=== PATIENT | female | born 1955 | race Caucasian/White ===

== ENCOUNTER 2022-11-05 08:36 | Outpatient (OUT) | payer MEDICARE, OTHER, SELFPAY ==
[2022-11-05 09:33] LABS: Estimated Average Glucose 148 mg/dL; Glycohemoglobin A1C 6.8 % (4.5-6.2)
== END 2022-11-05 08:37 | disposition home or self-care (01) ==
LOC: LAB 08:40
PROVIDERS: PCP Nurse Practitioner Family; Visit Provider Nurse Practitioner Family
DX: E11.22 Type 2 diabetes mellitus with diabetic chronic kidney disease (principal)
CPT/HCPCS: 36415; 83036

== ENCOUNTER 2022-11-05 08:42 | Outpatient (OUT) | payer MEDICARE, OTHER, SELFPAY ==
[2022-11-05 09:21] LABS: Bilirubin Urine NEGATIVE (NEGATIVE); Blood Urine NEGATIVE (NEGATIVE); Clarity Urine CLEAR (CLEAR); Color Urine LT. YELLOW (YELLOW); Glucose Urine UA NEGATIVE (NEGATIVE); Ketones Urine NEGATIVE (NEGATIVE); Leukocyte Esterase Urine NEGATIVE (NEGATIVE); Nitrite Urine NEGATIVE (NEGATIVE); Protein Urine NEGATIVE (NEG/TRACE); Specific Gravity Urine 1.025 (1.005-1.025); Urobilinogen Urine 0.2 EU/dL (0.2-1.0); pH Urine 5.5 (5.0-9.0)
[2022-11-05 09:27] LABS: Hematocrit 37.3 % (36.0-48.0); Hemoglobin 11.8 g/dL (12.0-16.0)
[2022-11-05 09:31] LABS: Creatinine Urine Random 104.07 mg/dL (20.00-300.00); Protein Creatinine Ratio Urine 0.15; Total Protein Urine Random 15.1 mg/dL (<=11.9)
[2022-11-05 09:32] LABS: Bacteria Urine NONE SEEN #/HPF (NONE SEEN); Mucus Urine NONE SEEN (NONE SEEN); RBC Urine NONE SEEN #/HPF (0-2); Squamous Epithelial Cell Urine RARE #/LPF (NONE/RARE); WBC Urine NONE SEEN #/HPF (NONE SEEN)
[2022-11-05 10:33] LABS: Anion Gap 13.1; BUN Creatinine Ratio 26.5; Calcium 9.7 mg/dL (8.5-10.1); Chloride 104 mmol/L (98-107); Estimated GFR (African America 47 (>=60); Estimated GFR (Non-African Ame 39 (>=60); Glucose 111 mg/dL (74-106); Magnesium 1.5 mg/dL (1.8-2.4); Phosphorus 3.8 mg/dL (2.6-4.7); Potassium 4.1 mmol/L (3.5-5.1); Sodium 139 mmol/L (136-145)
[2022-11-05 10:44] LABS: Percent Iron Saturation 20.5 %
[2022-11-06 12:10] LABS: PTH, Intact 48 pg/mL (15-65)
== END 2022-11-05 08:43 | disposition home or self-care (01) ==
PROVIDERS: PCP Nurse Practitioner Family; Visit Provider Internal Medicine
DX: E11.22 Type 2 diabetes mellitus with diabetic chronic kidney disease (principal); N18.30 Chronic kidney disease, stage 3 unspecified; I12.9 Hypertensive chronic kidney disease with stage 1 through stage 4 chronic kidney disease, or unspecified chronic kidney disease; D63.1 Anemia in chronic kidney disease; N25.81 Secondary hyperparathyroidism of renal origin; M10.9 Gout, unspecified
CPT/HCPCS: 36415; 80069; 81001; 82306; 82570; 82728; 83036; 83540; 83550; 83735; 83970; 84156; 84550; 85014; 85018

== ENCOUNTER 2023-05-13 08:49 | Outpatient (OUT) | payer MEDICARE, OTHER, SELFPAY ==
[2023-05-13 09:26] LABS: Hematocrit 38.7 % (36.0-48.0); Mean Corpuscular Volume 96.8 fL (81.0-99.0); Mean Platelet Volume 10.2 fL (9.5-13.5); Platelet Count 273 10^3/uL (150-450); Red Cell Distribution Width 12.7 % (11.0-15.0); White Blood Count 6.9 10^3/uL (4.0-11.0)
[2023-05-13 09:39] LABS: Bilirubin Urine NEGATIVE (NEGATIVE); Blood Urine NEGATIVE (NEGATIVE); Clarity Urine CLEAR (CLEAR); Color Urine LT. YELLOW (YELLOW); Glucose Urine UA NEGATIVE (NEGATIVE); Ketones Urine NEGATIVE (NEGATIVE); Leukocyte Esterase Urine NEGATIVE (NEGATIVE); Nitrite Urine NEGATIVE (NEGATIVE); Protein Urine NEGATIVE (NEG/TRACE); Specific Gravity Urine 1.025 (1.005-1.025); Urobilinogen Urine 0.2 EU/dL (0.2-1.0); pH Urine 5.5 (5.0-9.0)
[2023-05-13 09:40] LABS: Creatinine Urine Random 118.68 mg/dL (20.00-300.00); Protein Creatinine Ratio Urine 0.11; Total Protein Urine Random 13.2 mg/dL (<=11.9)
[2023-05-13 09:41] LABS: Percent Iron Saturation 16.4 %
[2023-05-13 10:09] LABS: Bacteria Urine NONE SEEN #/HPF (NONE SEEN); Cast Seen? NONE SEEN #/LPF (NONE SEEN); Crystals Seen? None Seen #/HPF (None Seen); Mucus Urine NONE SEEN (NONE SEEN); RBC Urine 0-2 #/HPF (0-2); Squamous Epithelial Cell Urine RARE #/LPF (NONE/RARE); WBC Urine 0-2 #/HPF (NONE SEEN)
[2023-05-13 10:46] LABS: Anion Gap 17.3; BUN Creatinine Ratio 25.2; Calcium 9.5 mg/dL (8.5-10.1); Chloride 104 mmol/L (98-107); Estimated GFR (African America 47 (>=60); Estimated GFR (Non-African Ame 39 (>=60); Glucose 119 mg/dL (74-106); Magnesium 1.9 mg/dL (1.8-2.4); Potassium 4.3 mmol/L (3.5-5.1); Sodium 143 mmol/L (136-145); Uric Acid 5.7 mg/dL (2.6-6.0)
[2023-05-14 10:11] LABS: PTH, Intact 64 pg/mL (15-65)
== END 2023-05-13 08:50 | disposition home or self-care (01) ==
LOC: LAB 08:49
PROVIDERS: PCP Nurse Practitioner Family; Visit Provider Internal Medicine
DX: N18.30 Chronic kidney disease, stage 3 unspecified (principal); D63.1 Anemia in chronic kidney disease; E83.42 Hypomagnesemia; I12.9 Hypertensive chronic kidney disease with stage 1 through stage 4 chronic kidney disease, or unspecified chronic kidney disease; E11.22 Type 2 diabetes mellitus with diabetic chronic kidney disease; N25.81 Secondary hyperparathyroidism of renal origin; M10.9 Gout, unspecified
CPT/HCPCS: 36415; 80069; 81001; 82306; 82570; 82607; 82728; 82746; 83540; 83550; 83735; 83970; 84156; 84550; 85027

== ENCOUNTER 2023-12-09 08:28 | Outpatient (OUT) | payer MEDICARE, OTHER, SELFPAY ==
--- OUTSIDE RECORDS SUMMARY | 2023-12-04 13:46 | XMS_ITS | CCD ---
Author Organization [facility] Care Team Providers Care Animal Rides Manager Name Role Phone Salina Singleton Unavailable AmarjitDeena Unavailable Mick, Nika Unavailable MICK, NIKA Admitting Unavailable MICK, NIKA Attending Unavailable HOUSE, DR TORRES Primary Care Unavailable MICK, NIKA Consulting Unavailable CADDO GAP, DR TORRES Admitting Unavailable HOUSE, DR TORRES Attending Unavailable HOUSE, DR TORRES Primary Care Unavailable HOUSE, DR TORRES Consulting Unavailable MICK, NIKA Admitting Unavailable MICK, NIKA Attending Unavailable HOUSE, DR TORRES Primary Care Unavailable MICK, NIKA Consulting Unavailable Corrie Lama Unavailable GITA COTE Attending Unavailable GITA COTE Attending Unavailable GITA COTE Attending Unavailable GITA COTE Attending Unavailable Medications Current Medications Medication Drug Class(es) Dates Sig (Normalized) Sig (Original) acetaminophen 500 mg oral capsule (1 source) take 2 capsules by mouth every six hours Acetaminophen 500 MG 2 capsule as needed Orally every 6 hrs Active allopurinol 100 mg oral tablet (10 sources) Xanthine Oxidase Inhibitor Start: 05-23-2023 End: 08-27-2023 take 100 mg by mouth once daily Allopurinol Active 100 MG PO Daily 90 90 August 27, 2023 2:17pm take 1 tablet by neo th every twenty-four hours Allopurinol 100 MG 1 tablet Orally Once a day for 90 days Active Allopurinol Acti ve Calcium (1 source) Phosphate Binder, Calcium Calcium Active cholecalciferol 0.025 mg chewable tablet (1 source) Vitamin D take 1 tablet by mouth every twenty-four hours Vitamin D3 25 MCG (1000 UT) 1 tablet Orally Once a day Active cyclobenzaprine hydrochloride 10 mg oral tablet (2 sources) Muscle Relaxant Start: 11-17-19 take 1 tablet by mouth every eight hours as needed Cyclobenzaprine HCl 10 MG 1 tablet Orally every 8 hours as needed for 7 days Oct, Active Start: 11-27-2020 take 1 tablet by neo th three times daily as needed for pain Flexeril 10mg 1 Oral tid prn Take 1 tablet 3 times a day as needed for back pain and stiffness. Be aware this medication will cause drowsiness Nov, Active doxylamine succinate 25 mg oral tablet (2 sources) take 2 tablets by mouth every twenty-four hours Sleep Aid 25 MG 2 tablet at bedtime as needed Orally Once a day Active ferrous sulfate 325 mg oral tablet (3 sources) take 1 tablet by mouth three times weekly Iron 325 (65 Fe) MG 1 tablet Orally Three times a Week Active hydroCHLOROthiazide 25 mg / valsartan 320 mg oral tablet (12 sources) Thiazide Diuretic, Angiotensin 2 Receptor David Start: End: take 1 tablet by mouth once daily Valsartan-Hydr ochlorothiazid e Active 1 TAB PO Daily August 27, 2023 2:17pm take 1 tablet by neo th every twenty-four hours Valsartan-hydroCHLOROthiazide 320-25 MG 1 tablet Orally Once a day for 90 days Active Valsartan-hydroC HLOROthiazide 320-12.5 MG Orally Active Icy Hot 7.5 % (Roll) (2 sources) Icy Hot 7.5 % (Roll) 1 application as needed Externally Three times a day Active lidocaine 0.05 mg/mg medicated patch (1 source) Antiarrhythmic, Amide Local Anesthetic Start: apply 1 dose transdermal route every twelve hours, then apply 1 dose transdermal route every twelve hours Lidocaine 5 % 1 patch remove after 12 hours Externally Once a day for 10 day(s) Apply 1 patch to the painful area on your back, leave in place for 12 hours, remove after 12 hours and discard. Apply a new patch after 12 hours. Nov, Active Magnesium (3 sources) take 1 tablet by mouth once daily Magnesium 400 MG 1 tablet with a meal Orally Once a day Active Magnesium 400 MG as directed Orally Active magnesium oxide 400 mg oral tablet (2 sources) Start: 05-23-2023 take 400 mg by mouth once daily Magnesium Oxide Active 400 MG PO Daily May 23, 2023 12:00am Medrol Dose Pack as directed (1 source) Start: 11-27-2020 Medrol Dose Pa ck as directed as directed orally as directed for 6 days Nov, Active metFORMIN hydrochloride 500 mg oral tablet (13 sources) Biguanide Start: 08-27-2023 End: 08-27-2023 take 2 tablets by mouth twice daily at mealtime, then take 1 tablet by mouth in the evening Metformin Active 500 MG PO Twice daily with meals 270 August 27, 2023 2:16pm 2 tablets in the am and 1 pm Start: 05-23-2023 End: 08-27-2023 take 500 mg by mouth three times daily Metformin Discontinued 500 MG PO Three times daily August 19, 2023 11:08am August 27, 2023 1:55pm take 1 tablet by neo th every eight hours metFORMIN HCl 500 MG 1 tablet with a meal Orally THREE TIMES A DAY Active take 1 tablet by neo th twice daily at mealtime metFORMIN HCl 750mg 1 tablet with meals Orally Twice a day for 30 day(s) Active methylPREDNISolone 4 mg oral tablet (1 source) Corticosteroid Start: 11-16-2021 methylPREDNISolone 4 MG as directed Orally for daily dose take half with breakfast, half with dinner for 6 days Oct, Active naproxen sodium 220 mg oral tablet (1 source) Nonsteroidal Anti-inflammatory Drug take 1-2 tablets by mouth every twelve hours at mealtime as needed Aleve 220 MG 1-2 tablet with food or milk as needed Orally every 12 hrs PRN Active Vitamin D3 25 MCG (1000 UT) (1 source) take 1 tablet by mouth once daily Vitamin D3 25 MCG (1000 UT) 1 tablet Orally Once a day Active Completed/Discontinued Medications Medication Drug Class(es) Dates Sig (Normalized) Sig (Original) calcium carbonate 1500 mg oral tablet (5 sources) take 1 tablet by mouth every twelve hours Calcium 600 MG 1 tablet with meals Orally Twice a day Not-Taking Ketorolac (6 sources) Nonsteroidal Anti-inflammatory Drug, Cyclooxygenase Inhibitor Start: 11-27-2020 Toradol per 15 mg Nov, 30 mg Toradol 30 mg/ml (6 sources) Start: 11-16-2021 Toradol 30 mg/ml Oct, 30 mg Problems Active Problems Problem Classification Problem Date Documented Date Episodic/Chronic Chronic kidney disease (4 sources) Chronic kidney disease, unspecified; Translations: [Chronic kidney disease stage 3] Onset: 2 05-23-2023 Chronic Chronic kidney disease (9 sources) Chronic kidney disease; Translations: [Chronic kidney disease, stage III (moderate)] Deficiency and other anemia (6 sources) Anemia of renal disease; Translations: [Anemia in chronic kidney disease] 08-26-2023 Chronic Deficiency and other anemia (5 sources) Anemia in chronic kidney disease; Translations: [ANEMIA IN CHRONIC KIDNEY DISEASE] Onset: 3 Chronic Diabetes mellitus with complications (17 sources) Disorder of kidney due to diabetes mellitus; Translations: [Type 2 diabetes mellitus with diabetic chronic kidney disease] Onset: 2 Chronic Essential hypertension (2 sources) Hypertensive disorder; Translations: [Essential (primary) hypertension] 08-26-2023 Chronic Gout and other crystal arthropathies (14 sources) Gout; Translations: [Gout, unspecified] Onset: 3 Chronic Hypertension with complications and secondary hypertension (16 sources) Chronic kidney disease due to hypertension; Translations: [Hypertensive chronic kidney disease with stage 1 through stage 4 chronic kidney disease, or unspecified chronic kidney disease] Onset: 3 Chronic Nutritional deficiencies (3 sources) Cobalamin deficiency; Translations: [Deficiency of other specified B group vitamins] 05-23-2023 Episodic Other diseases of kidney and ureters (7 sources) Secondary hyperparathyroidism; Translations: [Secondary hyperparathyroidism of renal origin] 05-23-2023 Chronic Other diseases of kidney and ureters (6 sources) Secondary hyperparathyroidism of renal origin; Translations: [Secondary hyperparathyroidism (of renal origin)] Onset: 3 Chronic Other nutritional; endocrine; and metabolic disorders (6 sources) Hypomagnesemia; Translations: [Hypomagnesemia] 05-23-2023 Chronic Other nutritional; endocrine; and metabolic disorders (4 sources) Hypomagnesemia; Translations: [Disorders of magnesium metabolism] Chronic Spondylosis; intervertebral disc disorders; other back problems (8 sources) Sciatica, left side; Translations: [Sciatica] Onset: 1 Resolved: 1 Episodic Unclassified (1 source) CHRN KIDNEY DISEASE STG 3 UNSP; Translations: [CHRN KIDNEY DISEASE STG 3 UNSP] Onset: 3 Past or Other Problems Problem Classification Problem Date Documented Da te Episodic/Chronic Sprains and strains (1 source) Strain of muscle, fascia and tendon of lower back, initial encounter; Translations: [Strain of lumbar region, initial encounter S39.012A] Onset: 11-27-2020 Resolved: 11-27-2020 Episodic Results Test Name Value Interpretation Reference Range Facility Automated epithelial cells c ount in urine sediment (number/area)on 05-13-2023 Epithelial cells Auto (Urine sed) [#/Area] RARE #/LPF NONE/RARE [facility] Automated leukocytes count i n urine sediment (number/area)on 05-13-2023 WBC Auto (Urine sed) [#/Area] 0-2 #/HPF 0-2 [facility] Automated urine specific gra vity by refractometryon 05-13-2023 Specific gravity Refractometry automated (U) [Rel density] 1.025 1.005-1.025 [facility] Bilirubin Auto test strip (U ) [Mass/Vol]on 05-13-2023 Bilirubin (U) [Mass/Vol] Negative NEGATIVE [facility] Casts typing in urine sedime nt by light microscopyon 05-13-2023 Casts LM Nom (Urine sed) NONE SEEN #/LPF NONE SEEN [facility] Color Auto (U)on 05-13-2023 Color (U) LT. YELLOW YELLOW [facility] Erythrocyte distribution wid th Auto (RBC) [Ratio]on 05-13-2023 Erythrocyte distribution width (RBC) [Ratio] 12.7 % 11.0-15.0 [facility] Estimated glomerular filtrat ion rate (GFR) non- Americanon 05-13-2023 GFR/1.73 sq M.predicted among non-blacks MDRD (S/P/Bld) [Vol rate/Area] 39 mL/min/{1.73_m2} >=60 [facility] Hematocrit Auto (Bld) [Volum e fraction]on 05-13-2023 Hematocrit (Bld) [Volume fraction] 38.7 % 36.0-48.0 [facility] Hemoglobin [Mass/volume] in Bloodon 05-13-2023 Hemoglobin (Bld) [Mass/Vol] 12.0 g/dL 12.0-16.0 [facility] Iron binding capacity [Mass/ volume] in Serum or Plasmaon 05-13-2023 Iron binding capacity [Mass/Vol] 385.0 ug/dL 250.0-450.0 [facility] Iron saturation [Mass Fracti on] in Serum or Plasmaon 05-13-2023 Iron saturation [Mass fraction] 16.4 % [facility] Ketones Auto test strip (U) [Mass/Vol]on 05-13-2023 Ketones (U) [Mass/Vol] Negative NEGATIVE [facility] Laboratory - Chemistry and C hemistry - challengeon 05-13-2023 Albumin [Mass/Vol] 4.0 g/dL 3.4-5.0 [facility] Calcium [Mass/Vol] 9.5 mg/dL 8.5-10.1 [facility] Chloride [Moles/Vol] 104 mmol/L 98-107 [facility] CO2 [Moles/Vol] 26.0 mmol/L 21.0-32.0 [facility] Cobalamin (Vitamin B12) [Mass/Vol] 173.0 pg/mL 193.0-986.0 [facility] Creatinine [Mass/Vol] 1.35 mg/dL 0.55-1.02 [facility] Ferritin [Mass/Vol] 45.0 ng/mL 8.0-252.[address] [facility] GFR/1.73 sq M.predicted MDRD (S/P/Bld) [Vol rate/Area] 47 mL/min/{1.73_m2} >=60 [facility] Glucose [Mass/Vol] 119 mg/dL 74-106 [facility] Iron [Mass/Vol] 63.0 ug/dL 50.0-170.0 [facility] Magnesium [Mass/Vol] 1.9 mg/dL 1.8-2.4 [facility] Potassium [Moles/Vol] 4.3 mmol/L 3.5-5.1 [facility] Sodium [Moles/Vol] 143 mmol/L 136-145 [facility] Urate [Mass/Vol] 5.7 mg/dL 2.6-6.0 [facility] Urea nitrogen [Mass/Vol] 34.0 mg/dL 7.0-18.0 [facility] Urea nitrogen/Creatinine [Mass ratio] 25.2 mg/mg [facility] Laboratory - Urinalysison Protein (U) [Mass/Vol] 13.2 mg/dL <=11.9 [facility] Leukocytes [#/volume] correc yogesh for nucleated erythrocytes in Blood by Automated counon 05-13-2023 WBC corrected for nucl RBC Auto (Bld) [#/Vol] 6.9 10 3/uL 4.0-11.0 [facility] MCH Auto (RBC) [Entitic mass ]on 05-13-2023 MCH (RBC) [Entitic mass] 30.0 pg 26.7-34.0 [facility] MCHC Auto (RBC) [Mass/Vol]on 05-13-2023 MCHC (RBC) [Mass/Vol] 31.0 g/dL 29.9-35.2 [facility] MCV Auto (RBC) [Entitic vol] on 05-13-2023 MCV (RBC) [Entitic vol] 96.8 fL 81.0-99.0 [facility] Mucus LM Ql (Urine sed)on Mucus Ql (Urine sed) NONE SEEN NONE SEEN [facility] No Panel Informationon 05-12 25-Hydroxy Vitamin D Total 35.5 ng/mL [facility] Comment on above: <20 ng/mL Vit D defi cient20-<30 ng/mL Vit D wobdztbqigdd05-157 ng/mL Vit D sufficient>100 ng/mL Potential Toxicity Folate 9.80 ng/mL 8.60-58.90 [facility] Parathyroid Hormone (Intact) 64 pg/mL 15-65 [facility] Comment on above: Performed at: - [address] [id number] Director: Clemente Jacobson PhD, Phone: [phone] Phosphorus Level 4.0 mg/dL 2.6-4.7 [facility] Urine Random Creatinine 118.68 mg/dL 20.00-300.00 [facility] Platelet mean volume Auto (B ld) [Entitic vol]on 05-13-2023 Platelet mean volume (Bld) [Entitic vol] 10.2 fL 9.5-13.5 [facility] Platelets Auto (Bld) [#/Vol] on 05-13-2023 Platelets (Bld) [#/Vol] 273 10 3/uL 150-450 [facility] Protein Auto test strip (U) [Mass/Vol]on 05-13-2023 Protein (U) [Mass/Vol] Negative NEG/TRACE [facility] RBC Auto (Bld) [#/Vol]on RBC (Bld) [#/Vol] 4.00 10 6/uL 4.20-5.[address] [facility] Serum or plasma anion gap de terminationon 05-13-2023 Anion gap [Moles/Vol] 17.3 mmol[facility] Specific gravity Auto test s trip (U) [Rel density]on 05-13-2023 Specific gravity (U) [Rel density] CLEAR CLEAR [facility] Urine bacteria detection by automated methodon 05-13-2023 Bacteria Auto Ql (U) NONE SEEN #/HPF NONE SEEN [facility] Urine glucose measurement by test strip (mass/volume)on 05-13-2023 Glucose Test strip (U) [Mass/Vol] Negative NEGATIVE [facility] Urine hemoglobin detection b y automated test stripon 05-13-2023 Hemoglobin Auto test strip Ql (U) Negative NEGATIVE [facility] Urine nitrite detection by a utomated test stripon 05-13-2023 Nitrite Auto test strip Ql (U) Negative NEGATIVE [facility] Urine protein/creatinine rat ioon 05-13-2023 Protein/Creatinine (U) [Ratio] 0.11 [facility] Urine sediment crystal ident ification by light microscopyon 05-13-2023 Crystals LM Nom (Urine sed) None Seen #/HPF None Seen [facility] Urine sediment leukocyte cou nt by microscopy (number/high power field)on 05-13-2023 WBC LM.HPF (Urine sed) [#/Area] 0-2 #/HPF NONE SEEN [facility] Urobilinogen Auto test strip (U) [Mass/Vol]on 05-13-2023 Urobilinogen Qn (U) 0.2 {Ga'U}/dL 0.2-1.0 [facility] pH Auto test strip (U)on pH (U) 5.5 [pH] 5.0-9.0 [facility] PTH INTACTon 05-01-2022 PTH, Intact 53 pg/mL Normal 15-65 [facility] Comment on above: Performed By: #### P THINT #### [facility] [address] [address] [address] Isacc Zapata FERRITINon 04-30-2022 Ferritin [Mass/Vol] 26.0 ng/mL Normal 8.0-252.0 [facility] Comment on above: Performed By: #### V ITAD, FERR, FETIBC ####[facility] [address] [address]DrMichelle Zapata HEMOGRAM AND PLATELon 2022 Hematocrit (Bld) [Volume fraction] 35.8 % Critically low 36.0-48.0 [facility] Comment on above: Performed By: #### H H ####[facility] [address] [address]DrMichelle Zapata Hemoglobin (Bld) [Mass/Vol] 11.3 g/dL Critically low 12.0-16.0 [facility] Comment on above: Performed By: #### H H ####[facility] [address] [address]DrMichelle Zapata MCH (RBC) [Entitic mass] 29.4 pg Normal 26.7-34.0 [facility] Comment on above: Performed By: #### H H ####[facility] [address] [address]DrMichelle Zapata MCHC (RBC) [Mass/Vol] 31.6 g/dL Normal 29.9-35.2 [facility] Comment on above: Performed By: #### H H ####[facility] [address] [id number]. Isacc Zapata MCV (RBC) [Entitic vol] 93.0 fL Normal 81.0-99.0 [facility] Comment on above: Performed By: #### H H ####[facility] [address] [id number]. Isacc Zapata PLT 270 103/ul Normal 150-450 [facility] Comment on above: Performed By: #### H H ####[facility] [address] [id number]. Isacc Zapata RBC 3.85 106/ul Critically low 4.20-5.40 [facility] Comment on above: Performed By: #### H H ####[facility] [address] [address]Dr. Isacc Zapata WBC 6.4 103/ul Normal 4.0-11.0 [facility] Comment on above: Performed By: #### H H ####[facility] [address] [place], [place] [address]Dr. Isacc Zapata IRON AND TIBCon 04-30-2022 % SATURATION 21.4 % Normal [facility] Comment on above: Performed By: #### V SEAN COOPER FETIBC ####[facility] [address] [id number]. Isacc Zapata Iron [Mass/Vol] 81.0 ug/dL Normal 50.0-170.0 [facility] Comment on above: Performed By: #### V SEAN COOPER, FETIBC ####[facility] [address] [id number]. Isacc Zapata TIBC DIRECT 379.0 ug/dL Normal 250.0-450.0 [facility] Comment on above: Performed By: #### V SEAN COOPER, FETIBC ####[facility] [address] [id number]. Isacc Zapata MAGNESIUMon 04-30-2022 Magnesium [Mass/Vol] 1.7 mg/dL Critically low 1.8-2.4 [facility] Comment on above: Performed By: #### M G, RENAL, URIC #### [facility] [address] [address] [address] Isacc Zapata RENAL FUNCTION PANELon 04-30 Albumin [Mass/Vol] 4.0 g/dL Normal 3.4-5.0 [facility] Comment on above: Performed By: #### M G, RENAL, URIC #### [facility] [address] [place] [address] Dr. Isacc Zapata Calcium [Mass/Vol] 9.2 mg/dL Normal 8.5-10.1 [facility] Comment on above: Performed By: #### M G, RENAL, URIC #### [facility] [address] [place] [address] Dr. Isacc Zapata Chloride [Moles/Vol] 107 mmol/L Normal 98-107 [facility] Comment on above: Performed By: #### M G, RENAL, URIC #### [facility] [address] [place] [address] Dr. Isacc Zapata CO2 [Moles/Vol] 24.9 mmol/L Normal 21.0-32.0 [facility] Comment on above: Performed By: #### M G, RENAL, URIC #### [facility] [address] [place] [address] Dr. Isacc Zapata Creatinine [Mass/Vol] 1.45 mg/dL Critically high 0.55-1.02 [facility] Comment on above: Performed By: #### M G, RENAL, URIC #### [facility] [address] [place] [address] Dr. Isacc Zapata EGFR-AF COLOMBIAN 44 mL/min/1.73m2 Critically low >=60 [facility] Comment on above: Performed By: #### M G, RENAL, URIC #### [facility] [address] [place] [address] Dr. Isacc Zapata EGFR-NON AF COLOMBIAN 36 mL/min/1.73m2 Critically low >=60 [facility] Comment on above: Performed By: #### M G, RENAL, URIC #### [facility] [address] [address] [address] Isacc Zapata Glucose [Mass/Vol] 122 mg/dL Critically high 74-106 [facility] Comment on above: Performed By: #### M G, RENAL, URIC #### [facility] [address] [address] [address] Isacc Zapata Phosphate [Mass/Vol] 3.8 mg/dL Normal 2.6-4.7 [facility] Comment on above: Performed By: #### M G, RENAL, URIC #### [facility] [address] [address] [address] Isacc Zapata Potassium [Moles/Vol] 4.0 mmol/L Normal 3.5-5.1 [facility] Comment on above: Performed By: #### M G, RENAL, URIC #### [facility] [address] [address] [address] Isacc Zapata Sodium [Moles/Vol] 143 mmol/L Normal 136-145 [facility] Comment on above: Performed By: #### M G, RENAL, URIC #### [facility] [address] [address] [address] Isacc Zapata Urea nitrogen [Mass/Vol] 32.0 mg/dL Critically high 7.0-18.0 [facility] Comment on above: Performed By: #### M G, RENAL, URIC #### [facility] [address] [address] [address] Isacc Zapata UA RANDOM W/MICROSCOPICon BACTERIA NONE SEEN Normal NONE SEEN [facility] Comment on above: Performed By: #### U AMIC ####[facility] [address] [id number]. Isacc Zapata Bilirubin Ql (U) Negative Normal NEGATIVE [facility] Comment on above: Performed By: #### U AMIC ####[facility] [address] [id number]. Isacc Zapata CAST NONE SEEN Normal NONE SEEN [facility] Comment on above: Performed By: #### U AMIC ####[facility] [address] [address]Dr. Isacc Zapata Clarity (U) CLEAR Normal CLEAR [facility] Comment on above: Performed By: #### U AMIC ####[facility] [address] [place], [place] [address]Dr. Isacc Zapata Color (U) YELLOW Normal YELLOW [facility] Comment on above: Performed By: #### U AMIC ####[facility] [address] [place], [place] [address]Dr. Isacc Zapata Crystals LM Nom (Urine sed) NONE SEEN Normal NONE SEEN [facility] Comment on above: Performed By: #### U AMIC ####[facility] [address] [place], [place] [address]Dr. Isacc Zapata Epithelial cells LM Ql (Urine sed) RARE Normal NONE SEEN /RARE [facility] Comment on above: Performed By: #### U AMIC ####[facility] [address] [place], [place] [address]Dr. Isacc Zapata Glucose Ql (U) Negative Normal NEGATIVE [facility] Comment on above: Performed By: #### U AMIC ####[facility] [address] [place], [place] [address]Dr. Isacc Zapata Hemoglobin Ql (U) Negative Normal NEGATIVE [facility] Comment on above: Performed By: #### U AMIC ####[facility] [address] [place], [place] [address]Dr. Isacc Zapata Ketones Ql (U) Negative Normal NEGATIVE [facility] Comment on above: Performed By: #### U AMIC ####[facility] [address] [place], [place] [address]Dr. Isacc Zapata LEUKOCYTES Negative Normal NEGATIVE [facility] Comment on above: Performed By: #### U AMIC ####[facility] [address] [place], [place] [address]Dr. Isacc Zapata MUCOUS NONE SEEN Normal NONE SEEN [facility] Comment on above: Performed By: #### U AMIC ####[facility] [address] [place], [place] [address]DrMichelle Zapata Nitrite Ql (U) Negative Normal NEGATIVE [facility] Comment on above: Performed By: #### U AMIC ####[facility] [address] [id number] Zapata pH (U) 5.5 [pH] Normal 5-9 [facility] Comment on above: Performed By: #### U AMIC ####[facility] [address] [id number] Zapata RBC 0-2 Normal 0-2 [facility] Comment on above: Performed By: #### U AMIC ####[facility] [address] [id number]. Iscac Zapata SPEC GRAVITY >=1.030 Abnormal 1.005-<=1.025 [facility] Comment on above: Performed By: #### U AMIC ####[facility] [address] [address]DrMichelle Zapata UA PROTEIN Negative Normal NEGATIVE/ TRACE [facility] Comment on above: Performed By: #### U AMIC ####[facility] [address] [place] [id number]. Isacc Zapata Urobilinogen Qn (U) 0.2 {Ga'U}/dL Normal 0.2 - 1. 0 [facility] Comment on above: Performed By: #### U AMIC ####[facility] [address] [id number] Zapata WBC NONE SEEN Normal NONE SEEN [facility] Comment on above: Performed By: #### U AMIC ####[facility] [address] [id number] Zapata URIC ACID SERUMon 04-30-2022 Urate [Mass/Vol] 6.6 mg/dL Critically high 2.6-6.0 [facility] Comment on above: Performed By: #### M G, RENAL, URIC #### [facility] [address] [place], [place] [address] Dr. Isacc Zapata URINE T PROTEIN CREAT RATIOo n 04-30-2022 Protein (U) [Mass/Vol] 37.5 mg/dL Critically high <=12.0 [facility] Comment on above: Performed By: #### U RTPCR #### [facility] [id number] Isacc Zapata UR PROT CREAT RAT 0.[address] [facility] Comment on above: Performed By: #### U RTPCR #### [facility] [address] [address] [address] Isacc Zapata URINE CREAT 205.21 mg/dL Normal 20.00-300.00 [facility] Comment on above: Performed By: #### U RTPCR #### [facility] [address] [address] [address] Isacc Zapata VITAMIN D 25 OHon 04-30-2022 VIT D 25-OH 39.7 ng/mL Normal [facility] Comment on above: Performed By: #### V SEAN COOPER FETIBC ####[facility] [address] [id number]. Isacc Zapata VIT D RANGES SEE BELOW Normal [facility] Comment on above: Result Comment: <20 ng/mL Vit D deficient 20 - <30 ng/mL Vit D insufficient 30 - 100 ng/mL Vit D sufficient >100 ng/mL Potential Toxicity Performed By: #### V SEAN COOPER FETIBC ####[facility] [address] [place], [place] [address]KqDr. Isacc Zapata US KIDNEYSon 02-16-2022 US KIDNEYS Ultrasound kidneys, bilateral HISTORY: Chronic kidney disease stage 3 COMPARISON: None. TECHNIQUE: Transabdominal ultrasound imaging of both kidneys was performed. FINDINGS: The kidneys are echogenic. The right kidney measures 8.9 x 3.8 x 4.9 cm. The renal cortex is thinned and lobulated. There is no hydronephrosis of right kidney. The left kidney measures 9.8 x 4.5 x 6.3 cm with diffuse cortical thinning and cortical lobulation. No hydronephrosis of left kidney. No discrete renal lesion is identified. No renal stone is seen. The bladder is decompressed with prevoid volume of 29 cc, and not well evaluated. Bilateral ureteral jets are seen within bladder lumen, however. IMPRESSION: 1. Echogenic kidneys with cortical lobulation and atrophy reflecting chronic renal disease. No hydronephrosis. 2. No structural renal lesion or renal stone by ultrasound. 3. Decompressed bladder that is not well evaluated but bilateral ureteral jets are visualized in bladder lumen. Electronically authenticated by: MICKY JANSEN Date: 2022-02-16 07:45 Normal [facility] CBC AUTO DIFFon 12-26-2021 BASO # 0.1 103/ul Normal 0.0-0.1 [facility] Comment on above: Performed By: #### C BC #### [facility] [address] [address] [address] Isacc Zapata Basophils/100 WBC (Bld) 1.0 % Normal 0.2-2.0 [facility] Comment on above: Performed By: #### C BC #### [facility] [address] [address] [address] Isacc Zapata EO # 0.2 103/ul Normal 0.0-0.7 [facility] Comment on above: Performed By: #### C BC #### [facility] [address] [address] [address] Isacc Zapata Eosinophils/100 WBC (Bld) 3.3 % Normal 0.9-7.0 [facility] Comment on above: Performed By: #### C BC #### [facility] [address] [address] [address] Isacc Zapata Erythrocyte distribution width (RBC) [Ratio] 12.7 % Normal 11.0-15.0 [facility] Comment on above: Performed By: #### C BC #### [facility] [address] [address] [address] Isacc Zapata Hematocrit (Bld) [Volume fraction] 37.4 % Normal 36.0-48.0 [facility] Comment on above: Performed By: #### C BC #### [facility] [address] [address] [address] Isacc Zapata Hemoglobin (Bld) [Mass/Vol] 11.8 g/dL Critically low 12.0-16.0 [facility] Comment on above: Performed By: #### C BC #### [facility] [address] [place] [address] Dr. Isacc Zapata IG # 0.02 10e3/ul Normal 0.00-0.03 [facility] Comment on above: Performed By: #### C BC #### [facility] [address] [place] [address] Dr. Isacc Zapata IG % 0.3 % Normal 0.0-0.5 [facility] Comment on above: Performed By: #### C BC #### [facility] [address] [place] [address] Dr. Isacc Zapata LYMPH # 1.8 103/ul Normal 1.2-3.8 [facility] Comment on above: Performed By: #### C BC #### [facility] [address] [place] [address] Dr. Isacc Zapata Lymphocytes/100 WBC (Bld) 25.3 % Normal 20.5-60.0 [facility] Comment on above: Performed By: #### C BC #### [facility] [address] [place] [address] Dr. Isacc Zapata MANUAL DIFF REQ NO Normal [facility] Comment on above: Performed By: #### C BC #### [facility] [address] [place] [address] Dr. Isacc Zapata MCH (RBC) [Entitic mass] 29.9 pg Normal 26.7-34.0 [facility] Comment on above: Performed By: #### C BC #### [facility] [address] [place] [address] Dr. Isacc Zapata MCHC (RBC) [Mass/Vol] 31.6 g/dL Normal 29.9-35.2 [facility] Comment on above: Performed By: #### C BC #### [facility] [address] [place] [address] Dr. Isacc Zapata MCV (RBC) [Entitic vol] 94.7 fL Normal 81.0-99.0 [facility] Comment on above: Performed By: #### C BC #### [facility] [address] [address] [address] Isacc Zapata MONO # 0.5 103/ul Normal 0.3-0.8 [facility] Comment on above: Performed By: #### C BC #### [facility] [address] [address] [address] Isacc Zapata Monocytes/100 WBC (Bld) 7.4 % Normal 1.7-12.0 [facility] Comment on above: Performed By: #### C BC #### [facility] [address] [place] [address] Dr. Isacc Zapata NEUT # 4.4 103/ul Normal 1.4-6.5 [facility] Comment on above: Performed By: #### C BC #### [facility] [address] [place] [address] Dr. Isacc Zapata Neutrophils/100 WBC (Bld) 62.7 % Normal 43.0-75.0 [facility] Comment on above: Performed By: #### C BC #### [facility] [address] [place] [address] Dr. Isacc Zapata Platelet mean volume (Bld) [Entitic vol] 10.3 fL Normal 9.5-13.5 [facility] Comment on above: Performed By: #### C BC #### [facility] [address] [place] [address] Dr. Isacc Zapata PLT 246 103/ul Normal 150-450 [facility] Comment on above: Performed By: #### C BC #### [facility] [address] [place] [address] Dr. Isacc Zapata RBC 3.95 106/ul Critically low 4.20-5.40 [facility] Comment on above: Performed By: #### C BC #### [facility] [address] [place] [address] Dr. Isacc Zapata WBC 7.1 103/ul Normal 4.0-11.0 [facility] Comment on above: Performed By: #### C BC #### [facility] [address] [place] [address] Dr. Isacc Zapata GLYCOHEMOGLOBIN A1Con 2021 ADA RECOMMENDATION SEE BELOW Normal [facility] Comment on above: Result Comment: ADA RECOMMENDED LIMIT 4.0 - 6.0 ADA THERAPEUTIC TARGET < 7.0 ACTION SUGGESTED > 7.0 Performed By: #### A 1C ####[facility] [address] [address]Dr. Isacc Zapata Glucose [Mass/Vol] 146 mg/dL Normal [facility] Comment on above: Performed By: #### A 1C ####[facility] [address] [place] [address] [address]Dr. Isacc Zapata HbA1c (Bld) [Mass fraction] 6.7 % Critically high 4.5-6.2 [facility] Comment on above: Performed By: #### A 1C ####[facility] [address] [place] [address]Dr. Isacc Zapata LIPID PROFILEon 12-26-2021 CHOL-HDL RATIO NORM SEE BELOW Normal [facility] Comment on above: Result Comment: 3.3 - 4.4 LOW RISK 4.4 - 7.1 AVERAGE RISK 7.1 - 11.0 MODERATE RISK >11.0 HIGH RISK Performed By: #### C MP, URIC, LIPID #### [facility] [address] [address] [address] Isacc Zapata Cholesterol [Mass/Vol] 195 mg/dL Normal <=200 [facility] Comment on above: Performed By: #### C MP, URIC, LIPID #### [facility] [address] [address] [address] Isacc Zapata Cholesterol in HDL [Mass/Vol] 46 mg/dL Normal 40-60 [facility] Comment on above: Performed By: #### C MP, URIC, LIPID #### [facility] [address] [address] [address] Isacc Zapata Cholesterol in LDL [Mass/Vol] 118.0 mg/dL Normal [facility] Comment on above: Performed By: #### C MP, URIC, LIPID #### [facility] [address] [address] [address] Isacc Zapata Cholesterol.total/Cho lesterol in HDL [Mass ratio] 4.2 {ratio} Normal [facility] Comment on above: Performed By: #### C MP, URIC, LIPID #### [facility] [address] [address] [address] Isacc Zapata HDL NORMAL > or = 60 mg/dl - LOW CARDIOVASCULAR RISK <40 mg/dl - HIGH CARDIOVASCULAR RISK Normal [facility] Comment on above: Performed By: #### C MP, URIC, LIPID #### [facility] [address] [address] [address] Isacc Zapata LDL CALC NORMAL SEE BELOW Normal [facility] Comment on above: Result Comment: <100 mg/dl OPTIMAL 100 - 129 mg/dl NEAR OR ABOVE OPTIMAL 130 - 159 mg/dl BORDERLINE HIGH 160 - 189 mg/dl HIGH >190 mg/dl VERY HIGH Performed By: #### C MP, URIC, LIPID #### [facility] [address] [address] [address] Isacc Zapata Triglyceride [Mass/Vol] 155 mg/dL Critically high <=150 [facility] Comment on above: Performed By: #### C MP, URIC, LIPID #### [facility] [address] [address] [address] Isacc Zapata VLDL CALC 31.0 mg/dL Normal [facility] Comment on above: Performed By: #### C MP, URIC, LIPID #### [facility] [address] [address] [address] Isacc Zapata MICROALBUMIN, RAND URon 11-0 mALB 2.9 mg/L Normal <=30.0 [facility] Comment on above: Performed By: #### M ALBR ####[facility] [address] [place] [address]. Isacc Zapata PROF 14(COMP METB)on 022 Albumin [Mass/Vol] 4.0 g/dL Normal 3.4-5.0 [facility] Comment on above: Performed By: #### C MP, URIC, LIPID #### [facility] [address] [address] [address] Isacc Zapata Albumin/Globulin [Mass ratio] 1.0 {ratio} Normal [facility] Comment on above: Performed By: #### C MP, URIC, LIPID #### [facility] [address] [address] [address] Isacc Zapata ALP [Catalytic activity/Vol] 68 U/L Normal 46-116 [facility] Comment on above: Performed By: #### C MP, URIC, LIPID #### [facility] [address] [address] [address] Isacc Zapata ALT [Catalytic activity/Vol] 16 U/L Normal 14-59 [facility] Comment on above: Performed By: #### C MP, URIC, LIPID #### [facility] [address] [place] [address] Dr. Isacc Zapata Anion gap [Moles/Vol] 13.9 mmol/L Normal [facility] Comment on above: Performed By: #### C MP, URIC, LIPID #### [facility] [address] [place] [address] Dr. Isacc Zapata AST [Catalytic activity/Vol] 12 U/L Critically low 15-37 [facility] Comment on above: Performed By: #### C MP, URIC, LIPID #### [facility] [address] [place] [address] Dr. Isacc Zapata Bilirubin [Mass/Vol] 0.2 mg/dL Normal 0.2-1.0 [facility] Comment on above: Performed By: #### C MP, URIC, LIPID #### [facility] [address] [place] [address] Dr. Isacc Zapata Calcium [Mass/Vol] 9.8 mg/dL Normal 8.5-10.1 [facility] Comment on above: Performed By: #### C MP, URIC, LIPID #### [facility] [address] [place] [address] Dr. Isacc Zapata Chloride [Moles/Vol] 105 mmol/L Normal 98-107 [facility] Comment on above: Performed By: #### C MP, URIC, LIPID #### [facility] [address] [address] [address] Isacc Zapata CO2 [Moles/Vol] 28.4 mmol/L Normal 21.0-32.0 [facility] Comment on above: Performed By: #### C MP, URIC, LIPID #### [facility] [address] [address] [address] Isacc Zapata Creatinine [Mass/Vol] 1.38 mg/dL Critically high 0.55-1.02 [facility] Comment on above: Performed By: #### C MP, URIC, LIPID #### [facility] [address] [address] [address] Isacc Zapata EGFR-AF COLOMBIAN 46 mL/min/1.73m2 Critically low >=60 [facility] Comment on above: Performed By: #### C MP, URIC, LIPID #### [facility] [address] [place] [address] Dr. Isacc Zapata EGFR-NON AF COLOMBIAN 38 mL/min/1.73m2 Critically low >=60 [facility] Comment on above: Performed By: #### C MP, URIC, LIPID #### [facility] [address] [address] [address] Isacc Zapata Globulin (S) [Mass/Vol] 4.0 g/dL Normal [facility] Comment on above: Performed By: #### C MP, URIC, LIPID #### [facility] [address] [address] [address] Isacc Zapata Glucose [Mass/Vol] 127 mg/dL Critically high 74-106 [facility] Comment on above: Performed By: #### C MP, URIC, LIPID #### [facility] [address] [address] [address] Isacc Zapata Potassium [Moles/Vol] 4.3 mmol/L Normal 3.5-5.1 [facility] Comment on above: Performed By: #### C MP, URIC, LIPID #### [facility] [address] [address] [address] Isacc Zapata Protein [Mass/Vol] 8.0 g/dL Normal 6.4-8.2 [facility] Comment on above: Performed By: #### C MP, URIC, LIPID #### [facility] [address] [address] [address] Isacc Zapata Sodium [Moles/Vol] 143 mmol/L Normal 136-145 [facility] Comment on above: Performed By: #### C MP, URIC, LIPID #### [facility] [address] [address] [address] Isacc Zapata Urea nitrogen [Mass/Vol] 39.0 mg/dL Critically high 7.0-18.0 [facility] Comment on above: Performed By: #### C MP, URIC, LIPID #### [facility] [address] [address] [address] Isacc Zapata Urea nitrogen/Creatinine [Mass ratio] 28.3 mg/mg Normal [facility] Comment on above: Performed By: #### C MP, URIC, LIPID #### [facility] [address] [address] [address] Isacc Zapata URIC ACID SERUMon 12-26-2021 Urate [Mass/Vol] 6.0 mg/dL Normal 2.6-6.0 [facility] Comment on above: Performed By: #### C MP, URIC, LIPID #### [facility] [address] [address] [address] Isacc Zapata Coding Summaryon 06-13-2020 Coding Summary HTMLBase 64 AnvxyqryXZq1uLd+PGhl YWQ+NJ0ZSDDrR30ewQOs rF6AM5kTCI4WQZEJNBUY KD6AFS1vgNA0TPtiR9Py biAv BafziSNyJI89CFh2ATH7 yNubQFszaX0lfVQaC7f0 MfAwJK43mB66WYjyUPUz IjJ2XmTlvnklcTHp Q5prMbCgmWRvYvl+PHRh YmxlIHdpZHRoPScxMDAl YwYrfGgtRS2iZh1dBRCf LWNvbGxhcHNlOiBj z9qjIYLtJYcfWA9rhPfb K8QfxSM7VWHbt5n6Jz52 dHI+SFMgPGJ0kQuzQZjd l349LlSkq4xyTDK9 sFBjWZwvFTK1I18sy5I4 NCMpKVZiTLL3xGT0yG6t tYecsctzI8ObrVVlRyH3 ROH6pYKnmP2kvDwm tthyvE1qHgx+I30XAK2X XBZWMM6OGyc8M5XgKoda dHI+EV47NZOeWL37pGGb cLPpf1sefBp2YiOc IAWrFZV4oRpiWWkft3Oc IWWgU39feWTpb7R8QBQr oOaedDLcEbRgiBW7bC5k SOpubaurw3xhxvke Pmrvt1lygx67aQ00W29m YJpcVNFdUCI2REJaUHHl mXivyn8txS9oSj3+IDxj x1btj3tmuBb8NzDk VGKcswAalEevXSM7b0Xa Dn85R4OxuBstu2CqAez2 mq88tBEjh6Z3rFH0AXxa YPYtfW4ePGlbVpE4 ICYvSiYcsO91wEWsKEwa Ib6lfMhekCvbSN9qRQHf bhuuTXWfjC7lNALkwONh oIxiHB5dGRSbajhe d884EkLpNZD7TOEweBLb V4BrwY8dMbLxKSCzGNAk A1ZynQTuFHzxR501ROif IoZ3HUGgjpDsJ1Dt XRAgjCcfEtJ4v9N7Ao5G d8AwxdvyMZG7BFelGWU0 OqO8EiOeGkZ0O2TrPfw8 MWFiqKvvCS6eJ3Sz SHXstnbbegqnaEQ2IWIw GMNrhU69xMUlXPouVn3z e0G6o420MDGwNMFsqO26 Rx3koMxgQKEqdFCS iA8iafugb3jhtiwqPdAu VTTyKCk4IBc9NNTgdAcz VeUwLSL5HhA9JJA7uTNc gQ7npPsoeetyvJ8m Oyc+P27piO9cAOK7PFD5 uvijHWAtprSlKR83DD17 P0FpMxxxnOGpcKO+PGRp hvUowRcdCM0cPeRm a0aiy1MsSXlzY7KrKAIz SQnfQig4RLVdWIP5vHY6 oK1fLUHbDGbnb5H2hJO7 H4VqriYvix8no5lv HKNuMLssZ93joBSej1I8 RDUdxTK2BIOiaJtoQaGk xV54Twm+FXDogDfjk1Lc Kggdw2vae0zuoRy8 IjMwJSIgdmFsaWduPSJ0 a0JpLe18V10tCMuiFHKn XWAkNALoCCNggFmvwf1w tI7jZl1+PGNvbCB3 hAB1bR7dKOEqWtN9WDfl K712EkTjhNYvCcfgk5gn p8znyYa7VbJkMRZmlgRq fPunVAL4t6FnBv91 U71mBHxwWEWrMJWaDUSy UZEidJoawd8qwE0pIe2+ QV3wt0yjwn37jP34nCL+ JWRxUHW8gLqoTIot KSGywD9jIXvyWeM0WNZt KsXbcC88hXMwERnaJp0q jQjheKnjUG7cUNTevzlm s168IxVcz7jzKFId uHGzOZnbWVE9M73ea2R0 VKFiJFMwLDK7iHV6iQ0x bGlnbjogbGVmdDsgdmVy iSliMEfeMJeuN454 IHRvcDsnPlBhdGllbnQg YaPxTKf0A1PhNoh1JANf lTgeRL3xmJSaTVxpIh9u fBapyOfhYY0xAZCt pwsac342YpWhf8juGTFc uAOaWZumAPD4H57ia6I7 CJRdVIOgIDX6iPZ6qR5p bGlnbjogbGVmdDsg clWhgDvqKEfvIRejC995 IHRvcDsnPkJpcnRoIERh tIQ4PK75VW60wIKuv1D4 rVI6Z0HoKSGnthdw ntbtcAB5RGNzWFVndD83 Ub1stHdkHg1iLDMjJGO0 AFXuaHQwR7ZcuH4jVkQw QLDoQCWeU2VzvXAi ALdkD483OHklHbK8NGPh laCzO6MfMYFufHzaZwU6 k2K9Cv1XI9D5HJ73AE55 nIAzl5B6yFR8H2Tx YSQnwjfvmghziYY3WMQs ZDQptJ81Jz7dcMsfVk1x BDRoVLI7XEIysXImG1El xV7eLyTvHLOdSSWw T3RtbYXwEBiaB117CGrq NiW2ELXljiSfR1SlLBOk uOuhYjS8y6R9Ys6WJYw0 SF07LM43jVXpk9L6 eIA2P2HkVGXgxvciemjb rDD4JSFuCFNndE68So4k tSsxRo5bUMKpBCK3VKYb gPYgF9NpfK9aCrTh EFRbQJRmM5UbpPEyARnw P323ZZilJzP8DETjgdBc O3XjSSQsfHbmHjQ1u6K9 Oy1UDGNgYO02POW6 xKK6PW18FS34H4ErEmxm dGFibGU+PHRhYmxlIHdp ZHRoPScxMDAlJyBzdHls BU7dOc4lKHPjVDXm oVptfVEpAdOhz7eiZTJg NGdwCP7iuUunH0KfqAA6 JNMll2h8Bc70T86zZ1Kf dXA+CVQnmDH8pAJ1 fI1tDgTfWlL1OEizW376 ZvTfpHYaDuxsj8rve3uu oIl4SpF8YSGsenMkpFju ZQR4s5RmBp36Y16d IHdpZHRoPSIxNSUiIHZh bJsgxt5srG5sXw4+PGNv bZI3jDH0bO5qHcYiRmX2 IQjoB849GcFnlZXo Uftbm8wps4dubZx9IcGz NRBbnxSjmOxcNEK0a2Nf Cp30W9OrsThzs0LdTnw1 zz95rTOse1I6kCS9 H6YcFJIabsbfpWPzyCno ML5oGNWdhyorYBZcjQ5d EUFzF8b7AuOxEiG5MCgq I8MmphO1OAFuhJKm VGjxQGT9D40br0S6XQTt BENqQMM2fPZ9kM5hsDwf bjogbGVmdDsgdmVydGlj KPymVXynM724PYMt xZoxXWEoaN6mTWTafZJh iGqvDX3fINWwhcqlUriU YFjANxMHIlihREaYZA8o VjwvdGQ+PHRkIHN0 fNbcZRvyDPRerM0sQWLr H8h5StXgWfS7HHnwQ7Zf DVUknhxrPu41nZ3lTwEi VvW1CGpmY2EvmaY1 MDPpgFJfUFbzJVA0T83h p7O6VDXgSWDsQBT5zGJ7 eD8deDfmzkhddVJolPse dmVydGljYWwtYWxp Q225PZMyzBadZsV2SqM5 NsU4AHR2E7YgQts3MBJq lQgwVF2fyHOqHErrTm6n kIvsqKnaSO6aFZGg knefVSPnlX4jDIWqxZXb pFtmKK5uOXUpvewot437 GjEwSCW2SZWbyWZfY9Xi nT1bGdJmBQWyUKMs U4JbbTJfZYopV053ASpj PnW2GEMtgmKsH3XiTXXw eQayEgF6w1Z0Gj80HmKF ZWFyczwvdGQ+PHRk FTF7fAzsQHrbHHGctI1i SCIbP0a8XeYyToJ8NHph R2QzGDJwpwhaMy46lA3l ViUrWiO4GCpfM1Uk clO7DMZmfRJlKVfvSEQ2 U11bj7R4SDWmLNTpRQX8 bJO4fF4lzSflvzkmmPGo dDsgdmVydGljYWwt CSluL605YHGojRbpLyBK TUFMRTwvdGQ+PHRkIHN0 iJxhHQkvFAYrrD3cKLZs H0g2TjYfOeC4FBcg F6RmUVJwwovbQv72rD1a RbBvKkJ9YKkpN2NskoN1 XMZprTQdRHgsTBY2A71z c9L9QLDpVHHpGAO2 iWV1yP7bvQvyxscwhJAp dDsgdmVydGljYWwtYWxp M318BOVsnJvkAi5SEI78 ZK12N2YcUxfmxPBt bGU+PHRhYmxlIHdpZHRo SYhuTVFhKfIdcClcTX2y Ac6dTVFgYFVldOnlqOKt RvNss4mxXAUnDZsr SU6phEduP1DglTX6ZNEe s7n6Jw58G22zS6RthSW+ XMMlsOU3oAW4bC1sEnXh ZyZ7LUnzY640OpZw qGNeLpfcu9evb7whwVm0 IjMwJSIgdmFsaWduPSJ0 q3BdPx16C24xFUjfKENb PSIyMCUiIHZhbGln hg0znV7qWo9+PGNvbCB3 tOC9xK6cBvOvOvW8QPsn H391WhPueJRrHqgvM96t J7YpmLK+PHRyPjx0 ZEUtwLsvSI6llZEkBWbc Fm3oMRD5PeIdEyXuBBbe P7RwAXYljxngubqhjJK9 EVLbOBPlxL82Dh7l eRijNn1kHZLdWCV5URZp mYHuV8SzrL2qPxBmBSSw YBWiI7CwbZWiZLpuW794 MZdpKaJ1ZUVuluHu E3SfPDTivUwbHtR3q8W2 Ye4JlCwteAGuPD0oDnBb YUb4M6ApXcy4SOWtgJfu IX9frBCtNLqxZg1z nZowvCoiLU1pHOZpeykw q581YgNpk4biFINyjTVx QRmcSUA1C68ov0N4QJJi DPTwNVZ2wJA7qN6t bGlnbjogbGVmdDsgdmVy qPsbBZxrCNloP790SHXv yCrcZmXUDzo7Q9FsUjc1 LWHeeJuiLT3oqBFh DUibTm9ugYdzvUztTU1r WGMvktcjp349CaRsg6bi DVLayCBbSUbsHRC6H26y t3O5OHEyRMFzIEW8 dEM8xX5dmRiypwvpaKMs dDsgdmVydGljYWwtYWxp Z575SFLqjRuoAu0BWep3 F0SvUvg1CMWglMsk KH8gePZaWSxcWx3ybCcp iKsoMT0eBAVumctuq671 FlLdh0ljZRNzqKQeLCgw XTX9D70vq9G0ULMl PSBlRKI1nJR4rG3nmOkf bjogbGVmdDsgdmVydGlj NCtiGZflY950XRNedXqf PlBheWVyOjwvdGQ+ VQ47gt51Y5OkEipaXtd9 WESnALD3pUI8oJ3jJODt PQghk3L6dHD2I4LgzcQe kc3xp4dkUVKxUIft Y29 (more content not included)... Normal [facility] Provider [facility]erson 06-13-2020 Provider Orders [id number] [facility] Uric Acidon 06-10-2020 Urate [Mass/Vol] 9.1 mg/dL High 2.6-8.0 [facility] Comment on above: Performed By: #### [id number] #### [facility] (DEFAULT) [address] [place] [address] Vital Signs Date Time Vital Sign Value Performing Clinician Facility 08-27-2023 13:48-0400 Body height 161.29 cm [facility] 08-27-2023 13:48-0400 Body mass index (BMI) [Ratio] 27.8 kg/m2 [facility] 08-27-2023 13:48-0400 Body weight 72.57 kg [facility] 08-27-2023 13:48-0400 Diastolic blood pressure 74 mm[Hg] [facility] 08-27-2023 13:48-0400 Heart rate 93 /min [facility] 08-27-2023 13:48-0400 SaO2% (BldA) [Mass fraction] 97 % [facility] 08-27-2023 13:48-0400 Systolic blood pressure 124 mm[Hg] [facility] 05-23-2023 12:07-0400 Body height 161.29 cm [facility] 05-23-2023 12:07-0400 Body mass index (BMI) [Ratio] 28.3 kg/m2 [facility] 05-23-2023 12:07-0400 Body temperature 97.5 [degF] [facility] 05-23-2023 12:07-0400 Body weight 73.53 kg [facility] 05-23-2023 12:07-0400 Diastolic blood pressure 72 mm[Hg] [facility] 05-23-2023 12:07-0400 Heart rate 117 /min [facility] 05-23-2023 12:07-0400 Respiratory rate 16 /min [facility] 05-23-2023 12:07-0400 SaO2% (BldA) [Mass fraction] 93 % [facility] 05-23-2023 12:07-0400 Systolic blood pressure 120 mm[Hg] [facility] 11-12-2022 10:20-0400 Body height 161.29 cm Nika Diop Other [facility] 11-12-2022 10:20-0400 Body mass index (BMI) [Ratio] 29.15 kg/m2 Nika Mick Other [facility] 11-12-2022 10:20-0400 Body temperature 97.5 [degF] Nika Mick Other [facility] 11-12-2022 10:20-0400 Body weight 75.84 kg Nika Mick Other [facility] 11-12-2022 10:20-0400 Diastolic blood pressure 84 mm[Hg] Nika Mick Other [facility] 11-12-2022 10:20-0400 Respiratory rate 18 /min Nika Mick Other [facility] 11-12-2022 10:20-0400 SaO2% (BldA) [Mass fraction] 98 % Nika Mick Other [facility] 11-12-2022 10:20-0400 Systolic blood pressure 138 mm[Hg] Nika Mick Other [facility] 10-26-2022 10:00-0400 Body height 161.29 cm Corrie Lama Other [facility] 10-26-2022 10:00-0400 Body mass index (BMI) [Ratio] 29.12 kg/m2 Corrie Lama Other [facility] 10-26-2022 10:00-0400 Body weight 75.75 kg Corrie Daina Other [facility] 10-26-2022 10:00-0400 Diastolic blood pressure 88 mm[Hg] Corrie Daina Other [facility] 10-26-2022 10:00-0400 Systolic blood pressure 132 mm[Hg] Corrie Daina Other [facility] 05-10-2022 12:40-0400 Body height 161.29 cm Nika Mick Other [facility] 05-10-2022 12:40-0400 Body mass index (BMI) [Ratio] 30.27 kg/m2 Nika Mick Other [facility] 05-10-2022 12:40-0400 Body temperature 97 [degF] Nika Mick Other [facility] 05-10-2022 12:40-0400 Body weight 78.74 kg Nika Mick Other [employer] Other 05-10-2022 12:40-0400 Diastolic blood pressure 70 mm[Hg] Nika Mick Other [employer] Other 05-10-2022 12:40-0400 Respiratory rate 20 /min Nika Mick Other [employer] Other 05-10-2022 12:40-0400 SaO2% (BldA) [Mass fraction] 97 % Nika Mick Other [employer] Other 05-10-2022 12:40-0400 Systolic blood pressure 132 mm[Hg] Nika Mick Other [employer] Other 02-08-2022 15:00-0500 Body height 161.29 cm Nika Mick Other [employer] Other 02-08-2022 15:00-0500 Body mass index (BMI) [Ratio] 30.44 kg/m2 Nika Mick Other [employer] Other 02-08-2022 15:00-0500 Body temperature 97.5 [degF] Nika Mick Other [employer] Other 02-08-2022 15:00-0500 Body weight 79.2 kg Nika Mick Other [employer] Other 02-08-2022 15:00-0500 Diastolic blood pressure 100 mm[Hg] Nika Mick Other [employer] Other 02-08-2022 15:00-0500 Respiratory rate 18 /min Nika Mick Other [employer] Other 02-08-2022 15:00-0500 SaO2% (BldA) [Mass fraction] 97 % Nika Mick Other [employer] Other 02-08-2022 15:00-0500 Systolic blood pressure 180 mm[Hg] Nika Mick Other [employer] Other 11-16-2021 10:05-0400 Body height 161.29 cm Deena Ocasio Other [employer] Other 11-16-2021 10:05-0400 Body mass index (BMI) [Ratio] 31.38 kg/m2 Deena Ocasio Other [employer] Other 11-16-2021 10:05-0400 Body temperature 97.6 [degF] Deena Streetler Other [employer] Other 11-16-2021 10:05-0400 Body weight 81.65 kg Deena Ocasio Other [employer] Other 11-16-2021 10:05-0400 Diastolic blood pressure 81 mm[Hg] Deena Ocasio Other [employer] Other 11-16-2021 10:05-0400 SaO2% (BldA) [Mass fraction] 96 % Deena Ocasio Other [employer] Other 11-16-2021 10:05-0400 Systolic blood pressure 173 mm[Hg] Deena Ocasio Other [employer] Other 11-27-2020 10:10-0400 Body height 161.29 cm Salina Areli Other [employer] Other 11-27-2020 10:10-0400 Body mass index (BMI) [Ratio] 30.34 kg/m2 Salina Areli Other [employer] Other 11-27-2020 10:10-0400 Body temperature 97.9 [degF] Salina Areli Other [employer] Other 11-27-2020 10:10-0400 Body weight 78.93 kg Salina Areli Other [employer] Other 11-27-2020 10:10-0400 Diastolic blood pressure 80 mm[Hg] Salina Mimond Other [employer] Other 11-27-2020 10:10-0400 Respiratory rate 18 /min Salina Areli Other [facility] Other 11-27-2020 10:10-0400 SaO2% (BldA) [Mass fraction] 99 % Salina Mimond Other [facility] Other 11-27-2020 10:10-0400 Systolic blood pressure 156 mm[Hg] Salina Mimond Other [facility] Other Encounters Encounter Date Encounter Type Care Provider Facility Start: 11-06-2023 End: 11-06-2023 ambulatory GITA A KERA Not Available Start: 10-23-2023 End: 10-23-2023 ambulatory GITA A KERA Not Available Start: 10-10-2023 End: 10-10-2023 ambulatory GITA A KERA Not Available Start: 09-17-2023 End: 09-17-2023 ambulatory GITA A KERA Not Available Start: 08-27-2023 End: 08-27-2023 ambulatory [facility] Work Phone: Start: 08-27-2023 End: 08-27-2023 Patient encounter procedure [facility] Work Phone: Start: 05-23-2023 End: 05-23-2023 ambulatory [facility] Work Phone: Start: 05-23-2023 End: 05-23-2023 Patient encounter procedure [facility] Work Phone: Start: 05-13-2023 Non-patient / Non-visit [facility] Phys[facility] Work Phone: Start: 04-17-2023 Non-patient / Non-visit [facility] Work Phone: Start: 01-29-2023 End: 01-29-2023 ambulatory GITA COTE Not Available Start: 11-12-2022 End: 11-12-2022 ambulatory Nika Mick Other [employer] Other Start: 11-12-2022 Office outpatient visit 25 minutes Nika Mick [facility] Start: 11-06-2022 End: 11-06-2022 ambulatory Corrie Lama Other [employer] Other Start: 11-06-2022 Telephone encounter Corrie Daniels her [employer] Start: 10-26-2022 End: 10-26-2022 ambulatory Corrie Lama Other [employer] Other Start: 10-26-2022 Office outpatient ne w 30 minutes Corrie Lama [facility] Start: 05-10-2022 End: 05-10-2022 ambulatory Nika Mick Other [employer] Other Start: 05-10-2022 Office outpatient visit 25 minutes Nika Mick [facility] Start: 04-30-2022 End: 05-01-2022 ambulatory NIKA MICK Facility:[facility] Start: 02-15-2022 End: 02-16-2022 ambulatory NIKA MICK Facility:[facility] Start: 02-08-2022 End: 02-08-2022 ambulatory Nika Mick Other [employer] Other Start: 02-08-2022 Office outpatient ne w 45 minutes Nika Mick [facility] Start: 12-26-2021 End: 12-27-[address] BRIAN ECHEVERRIA Facility:[facility] Start: 11-16-2021 End: 11-16-2021 ambulatory Deena Ocasio Other [employer] Other Start: 11-16-2021 Office outpatient visit 15 minutes Deena Ocasio [facility] Start: 11-27-2020 Office outpatient ne w 20 minutes Salina Areli [facility] Plan of Treatment Date Care Activity Detail Author [facility] Immunizations Immunization Date Immunization Notes Care Provider Fa jonaty 10-22-2022 influenza virus vaccine, unspecified formulation [facility] 10-22-2022 influenza, high dose seasonal, preservative-free Corrie Rohrbacher Other [employer] [facility] [employer] Other 12-13-2020 Do not use COVID-19 Pfizer 2 dose Corrie Rohrbacher Other [facility] 11-27-2020 Toradol per 15 mg Salina Dym ond Other [employer] [facility] [employer] Other 05-07-2020 Do not use COVID-19 Pfizer 2 dose Corrie Rohrbacher Other [facility] 04-16-2020 Do not use COVID-19 Pfizer 2 dose Corrie Rohrbacher Other [facility] 11-30-2019 pneumococcal polysaccharide vaccine, 23 valent Corrie Rohrbacher Other [facility] 11-17-2018 pneumococcal conjuga te vaccine, 13 valent Corrie Rohrbacher Other [facility] 09-15-2018 zoster vaccine recombinant Corrie Rohrbacher Other [facility] 07-05-2018 zoster vaccine recombinant Corrie Rohrbacher Other [facility] Payers Date Payer Category Payer Medicare [id number] 2.1 [id number] 1961 Medicare [id number]. [id number] 1955 Unknown [id number] 2.16.84 [id number] 1955 Unknown [id number] 2.16.84 [id number] 1955 Unknown [id number] 2.16.84 [id number] 1955 Unknown [id number] 2.16.84 [id number] 1955 Unknown [id number] 2.16.84 [id number] 1955 Unknown [id number] 2.16.84 [id number] 1955 Unknown [id number] 2.16.84 [id number] 1955 Unknown [id number] [id number] Medicare Medicare [id number] Unknown [employer] [id number] Social History Date Type Detail Facility Sex Assigned At [facility] Other Start: 05-23-2023 End: 08-27-2023 Tobacco smoking status NHIS Never smoked tobacco (finding) [facility] Start: 1955 Sex Assigned At Female F [facility] Clinical Notes 11-27-2020 to 11-12-2022 Note Date & Type Note Facility 11-12-2022 Evaluation note Encounter Date Diagnosis Assessment Notes Oct, Chronic kidney disease, stage III (moderate) (ICD-10 - N18.30) She has CKD due to longstanding DM with HTN with baseline serum creatinine is 1.4 mg/dL. Her renal ultrasound showed finding consistent with medical renal disease with no evidence of hydronephrosis or kidney mass. She has no evidence of hematuria or proteinuria on UA. I discussed with the importance of good HTN and DM control to slow the progression of CKD. I have advised her to avoid NSAIDs. Oct, Anemia of renal disease (ICD-10 - D63.1) Hemoglobin is within the goal and has adequate iron stores. Advised her to take oral iron every other day. She reported she had a Cologuard but would not like to have a colonoscopy. 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 Advised to take oral magnesium 400 mg daily. 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 She appears to be euvolemic. Continue current antihypertensive medication. I have advised her to monitor blood pressure at home and call office if stays above 140/90 mmHg. 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 Currently she is on valsartan . I will continue that for renal protection. She will be benefit with SGLT2 inhibitors including Farxiga or Jardiance. I have advised her to discuss with the PCP. We will add Kerendia in future if needed. Oct, Secondary hyperparathyroidism (ICD-10 - N25.81) MBD parameters including calcium, phosphorus PTH and vitamin D are within the goal. Continue calcium and vitamin D Oct, Gout (ICD-10 - M10.9) She denies any gout flare. Continue allopurinol for gout prophylaxis. [employer] Other 09-01-2023 Evaluation note* Encounter Date Diagnosis Assessment Notes Treatment Notes Treatment Clinical Notes Oct, Diabetes mellitus wi th chronic kidney disease (ICD-10 - E11.22) Due for an A1c. Prior to your visit today we reviewed your chart and outlined the testing and treatment needed for your care. We discussed possible complications of diabetes including risk of heart disease, stroke, and kidney disease. Your goal is to keep uou HgA1C below 7 (preferably <6.5) and your blood pressure less than 130/85 (and preferably < 120/80) and mataining a healthy weight with a BMI less than 26. We are working together to acheive these goals with the following plan; healthier diet, understanding your medications, and your compliance. Barriers to these goals have been discussed. You have been given educational handouts. Oct, Gout (ICD-10 - M10.9) Stable , no recent flares. Oct, Secondary hyperparathyroidism (ICD-10 - N25.81) Oct, Anemia of renal dise ase (ICD-10 - D63.1) Stable. currently on iron. Oct, Hypomagnesemia (ICD- 10 - E83.42) Following nephrology Oct, Chronic kidney disea se, stage III (moderate) (ICD-10 - N18.30) Following with Nephrology. Reviewed most recent notes. 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 Her renal ultrasound showed finding consistent with medical renal disease with no evidence of hydronephrosis or kidney mass. She has no evidence of hematuria or proteinuria on UA. I discussed with the importance of good HTN and DM control to slow the progression of CKD. I have advised her to avoid NSAIDs. Apr, Anemia of renal dise ase (ICD-10 - D63.1) Hemoglobin is within the goal but she has a low iron stores. Advised her to take oral iron every other day. She reported she had a Cologuard but would not like to have a colonoscopy. 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 Advised to take oral magnesium 400 mg daily. Apr, Dagoberto cyr w cr kid I-IV (ICD-10 - I12.9) Blood pressure is high today due to the stress but she reported usually it is controlled. She appears to be euvolemic. Continue current antihypertensive medication. I have advised her to monitor blood pressure at home and call office if stays above 140/90 mmHg. Apr, Diabetes mellitus wi th chronic kidney disease (ICD-10 - E11.22) Continue follow-up with PCP for DM management. Currently she is on valsartan . I will continue that for renal protection. She will be benefit with SGLT2 inhibitors including Farxiga or Jardiance. I have advised her to discuss with the PCP. We will hold off on addition of the Kerendia now. Apr, Secondary hyperparathyroidism (ICD-10 - N25.81) MBD parameters including calcium, phosphorus PTH and vitamin D are within the goal. Continue calcium and vitamin D Apr, Gout (ICD-10 - M10.9) She de nies any gout flare. Continue allopurinol for gout prophylaxis. [facility] Other 12-15-2022 Evaluation note* Encounter Date Diagnosis Assessment Notes Treatment Notes Treatment Clinical Notes Jan, Chronic kidney disea se, stage III (moderate) (ICD-10 - N18.30) Thanks for referring Mrs. Michelle to our office for evaluation management of CKD. As you know she has a longstanding DM with HTN and likely has a CKD as a result of it. Her most recent serum creatinine is 1.3 mg/dL. I have ordered a renal ultrasound to evaluate the renal anatomy. I have ordered a UA UPCR to look for hematuria and proteinuria. I discussed with the importance of good HTN and DM control to slow the progression of CKD. I have advised her to avoid NSAIDs. Jan, Dagoberto cyr w cr kid I-IV (ICD-10 - I12.9) Blood pressure is high today due to the stress but she reported usually it is controlled. She appears to be euvolemic. Continue current antihypertensive medication. I have advised her to monitor blood pressure at home and call office if stays above 140/90 mmHg. Jan, Diabetes mellitus wi th chronic kidney disease (ICD-10 - E11.22) Continue follow-up with PCP for DM management. Currently she is on valsartan . I will continue that for renal protection. She will be benefit with SGLT2 inhibitors including Farxiga or Jardiance. I have advised her to discuss with the PCP. Jan, Secondary hyperparathyroidism (ICD-10 - N25.81) Calcium is within normal limit. We will check PTH and vitamin D. Jan, Anemia of renal dise ase (ICD-10 - D63.1) Hemoglobin is within the goal. We will check iron studies. She may need a GI work-up if has not done recently Jan, Gout (ICD-10 - M10.9) She de nies any gout flare. Continue allopurinol for gout prophylaxis. [facility] Other 09-22-2022 Evaluation note* Encounter Date Diagnosis Assessment Notes Treatment Notes Treatment Clinical Notes Oct, Sciatica of right side (ICD-10 - M54.31) Discussed diagnosis with patient. Toradol injection given today in office. Advised patient to take medications as directed, reviewed side effects of steroid. Advised patient that muscle relaxer may cause drowsiness. May use OTC Tylenol and icy hot application for additional relief. Encouraged warm compresses, light stretches, and massage may also help with pain. Avoid strenuous activity, perform activity as tolerated, do not stay stationary for long periods of time as it might make symptoms worse. Follow up with PCP in 1 week if symptoms do not improve. Immediate eval for chest pain, shortness of breath, fever, numbness or tingling, loss of bowel or bladder control, pain becomes severe, difficulty moving neck, back, arms or legs, dizziness, headache, or any other new or concerning symptoms arise. Patient verbalizes understanding and is agreeable to treatment plan Oct, Other Sciatica home care material was printed [employer] Other 10-03-2021 Evaluation note* Encounter Date Diagnosis Assessment Notes Treatment Notes Treatment Clinical Notes Nov, Strain of lumbar region, initial encounter (ICD-10 - S39.012A) Nov, Sciatica of left side (ICD-10 - M54.32) Take the Medrol Dosepak as prescribed until gone. Use the Flexeril, muscle relaxant as prescribed as needed for back pain and stiffness. Use the lidocaine patches as prescribed as needed for back pain. Limit your lifting and bending. Consider soaking in a tub of Epsom salts for comfort. You may take Aleve for pain as well. Follow-up with your family doctor if no improvement in 2 to 3 days [facility] Other Evaluation noteNo [facility] [employer] Other Evaluation note* Diagnosis Onset Date Resolution Status B12 deficiency acute CKD (chronic kidney disease) stage 3, GFR 30-59 ml/min acute Gout acute [id number] acute Hypomagnesemia acute Secondary hyperparathyroidism acute Type 2 diabetes mellitus wit h diabetic chronic kidney disease acute [facility] Work Phone: Evaluation note* Diagnosis Onset Date Resolution Status Gout acute Hypertension [facility] Work Phone: Hisavqo general Narrative - Reported* Type Description Date Medical History hypertension Medical History type I diabetes Medical History gout Surgical History arthroscopic knee surgery [employer] [facility] [employer] Other His[facility] general Narrative - Reported* Type Description Date Medical History hypertension Medical History type II diabetes Medical History gout Surgical History arthroscopic knee surgery Surgical History EAR SURGERY Surgical History HYSTERECTOMY Surgical History RECTAL SEAL Hospitalization History SEE ABOVE [facility] Other Hiseoxs general Narrative - Reported* Type Description Date Medical History hypertension Medical History type II diabetes Medical History gout Medical History ANEMIA Surgical History arthroscopic knee surgery Surgical History EAR SURGERY Surgical History HYSTERECTOMY Surgical History RECTAL SEAL Hospitalization History SEE ABOVE [facility] Other Summary Purpose Family History No Family History Records Found Relationship Condition Age at Onset Recorded Date/T isauro brother Hypertension Unknown father Unknown Alzheimer's dementia Unknown family member Unknown Not Specified Unknown Relationship Condition Age at Onset Recorded Date/T isauro brother Hypertension Unknown father Unknown Alzheimer's dementia Unknown family member Unknown mother Unknown Advance Directives No Advanced Directives Records Found Advance Directive Response Recorded Date/ Time Advance Directives No March 26, 2023 6:52pm Chief Complaint and Reason for Visit Chief Complaint Amb Documentation 6 month follow up Reason for Visit B12 deficiency CKD (chronic kidney disease) stage 3, GFR 30-59 ml/min Gout [id number] Hypomagnesemia Secondary hyperparathyroidism Type 2 diabetes mellitus with diabetic chronic kidney disease Chief Complaint 6 month follow up/[place] Reason for Visit Gout Hypertension Additional Source Comments INFORMATION SOURCE (unrecogn ized section and content) DATE CREATED AUTHOR 06/14/2020 [facility] DATE CREATED AUTHOR AUTHOR'S ORGANIZ ATION 05/02/2022 [facility] DATE CREATED AUTHOR AUTHOR'S ORGANIZ ATION 11/08/2023 [facility] EPIC REASON FOR VISIT (unrecogniz ed section and content) LEFT LOWER BACK RADIATING DO WN BUTTOCK AND LEFT LEGRIGHT LOWER BACK PAIN, RADIATING TO BUTTOCK AND HIPCKD and HTNCKD and HTNESTABLISHlab resultsCKD and HTN Care Teams (unrecognized sec tion and content) Team Status: Active Member Role Status Dates Corrie Lama APRN [employer]-C Primary Care Provider Active Team Status: Active Member Role Status Dates Corrie Lama APRN [employer]C Primary Care Provider Active Start: April 172023 Judit Flores Attending Provider Active Start: April 17, 2023 Team Status: Active Member Role Status Dates Corrie Lama APRN [employer]-C Primary Care Provider, Attending Provider Active Start: May 13, 2023 Team Status: Inactive Member Role Status Dates Corrie Lama APRN [employer]-C Primary Care Provider Active Start: May 23, 2023 End: May 23, 2023 Nika Diop MD Attending Provider Active Start : May 23, 2023 End: May 23, 2023 Team Status: Inactive Member Role Status Dates Corrie Lama APRN [employer]-C Primary Care Provider, Attending Provider Active Start: August 27, 2023 End: August 27, 2023 Goals (unrecognized section and content) Goals may be documented in a n alternate section FOR RECORDS PERTAINING TO PATIENTS WHO ARE OR HAVE BEEN ENROLLED IN A CHEMICAL DEPENDENCY/SUBSTANCEABUSE PROGRAM, SOME INFORMATION MAY BE OMITTED. This clinical summary was aggregated from multiple sources. Caution should be exercised in using it in the provision of clinical care. This summary normalizes information from multiple sources, and as a consequence, information in this document may materially change the coding, format and clinical context of patient data. In addition, data may be omitted in some cases. CLINICAL DECISIONS SHOULD BE BASED ON THE PRIMARY CLINICAL RECORDS. [facility] provides no warranty or guarantee of the accuracy or completeness of information in this document.
--- OUTSIDE RECORDS SUMMARY | 2023-12-09 08:39 | XMS_ITS | CCD ---
Author Organization [facility] Care Team Providers Care Video Manager Name Role Phone Salina Singleton Unavailable AmarjitDeena Unavailable Mick, Nika Unavailable MICK, NIKA Admitting Unavailable MICK, NIKA Attending Unavailable HOUSE, DR TORRES Primary Care Unavailable MICK, NIKA Consulting Unavailable RIO DELL, DR TORRES Admitting Unavailable HOUSE, DR TORRES [...] Auto (Urine sed) [#/Area] RARE #/LPF NONE/RARE [facility] Automated leukocytes count i n urine sediment (number/area)on 05-13-2023 WBC Auto (Urine sed) [#/Area] 0-2 #/HPF 0-2 [facility] Automated urine specific gra vity by refractometryon 05-13-2023 Specific gravity Refractometry automated (U) [Rel density] 1.025 1.005-1.025 [facility] Bilirubin Auto test strip (U ) [Mass/Vol]on 05-13-2023 Bilirubin (U) [Mass/Vol] Negative NEGATIVE [facility] Casts typing in urine sedime nt by light microscopyon 05-13-2023 Casts LM Nom (Urine sed) NONE SEEN #/LPF NONE SEEN [facility] Color Auto (U)on 05-13-2023 Color (U) LT. YELLOW YELLOW [facility] Erythrocyte distribution wid th Auto (RBC) [Ratio]on 05-13-2023 Erythrocyte distribution width (RBC) [Ratio] 12.7 % 11.0-15.0 [facility] Estimated glomerular filtrat ion rate (GFR) non- Americanon 05-13-2023 GFR/1.73 sq M.predicted among non-blacks MDRD (S/P/Bld) [Vol rate/Area] 39 mL/min/{1.73_m2} >=60 [facility] Hematocrit Auto (Bld) [Volum e fraction]on 05-13-2023 Hematocrit (Bld) [Volume fraction] 38.7 % 36.0-48.0 [facility] Hemoglobin [Mass/volume] in Bloodon 05-13-2023 Hemoglobin (Bld) [Mass/Vol] 12.0 g/dL 12.0-16.0 [facility] Iron binding capacity [Mass/ volume] in Serum or Plasmaon 05-13-2023 Iron binding capacity [Mass/Vol] 385.0 ug/dL 250.0-450.0 [facility] Iron saturation [Mass Fracti on] in Serum or Plasmaon 05-13-2023 Iron saturation [Mass fraction] 16.4 % [facility] Ketones Auto test strip (U) [Mass/Vol]on 05-13-2023 Ketones (U) [Mass/Vol] Negative NEGATIVE [facility] Laboratory - Chemistry and C hemistry - challengeon 05-13-2023 Albumin [Mass/Vol] 4.0 g/dL 3.4-5.0 [facility] Calcium [Mass/Vol] 9.5 mg/dL 8.5-10.1 [facility] Chloride [Moles/Vol] 104 mmol/L 98-107 [facility] CO2 [Moles/Vol] 26.0 mmol/L 21.0-32.0 [facility] Cobalamin (Vitamin B12) [Mass/Vol] 173.0 pg/mL 193.0-986.0 [facility] Creatinine [Mass/Vol] 1.35 mg/dL 0.55-1.02 [facility] Ferritin [Mass/Vol] 45.0 ng/mL 8.0-252.0 [facility] GFR/1.73 sq M.predicted MDRD (S/P/Bld) [Vol rate/Area] 47 mL/min/{1.73_m2} >=60 [facility] Glucose [Mass/Vol] 119 mg/dL 74-106 [facility] Iron [Mass/Vol] 63.0 ug/dL 50.0-170.0 [facility] Magnesium [Mass/Vol] 1.9 mg/dL 1.8-2.4 [facility] Potassium [Moles/Vol] 4.3 mmol/L 3.5-5.1 [facility] Sodium [Moles/Vol] 143 mmol/L 136-145 [facility] Urate [Mass/Vol] 5.7 mg/dL 2.6-6.0 [facility] Urea nitrogen [Mass/Vol] 34.0 mg/dL 7.0-18.0 [facility] Urea nitrogen/Creatinine [Mass ratio] 25.2 mg/mg [facility] Laboratory - Urinalysison Protein (U) [Mass/Vol] 13.2 mg/dL <=11.9 [facility] Leukocytes [#/volume] correc yogesh for nucleated erythrocytes in Blood by Automated counon 05-13-2023 WBC corrected for nucl RBC Auto (Bld) [#/Vol] 6.9 10 3/uL 4.0-11.0 [facility] MCH Auto (RBC) [Entitic mass ]on 05-13-2023 MCH (RBC) [Entitic mass] 30.0 pg 26.7-34.0 [facility] MCHC Auto (RBC) [Mass/Vol]on 05-13-2023 MCHC (RBC) [Mass/Vol] 31.0 g/dL 29.9-35.2 [facility] MCV Auto (RBC) [Entitic vol] on 05-13-2023 MCV (RBC) [Entitic vol] 96.8 fL 81.0-99.0 [facility] Mucus LM Ql (Urine sed)on Mucus Ql (Urine sed) NONE SEEN NONE SEEN [facility] No Panel Informationon 05-12 25-Hydroxy Vitamin D Total 35.5 ng/mL [facility] Comment on above: <20 ng/mL Vit D defi cient20-<30 ng/mL Vit D tawtanfndjqt59-760 ng/mL Vit D sufficient>100 ng/mL Potential Toxicity Folate 9.80 ng/mL 8.60-58.90 [facility] Parathyroid Hormone (Intact) 64 pg/mL 15-65 [facility] Comment on above: Performed at: - [address] [id number] Director: Clemente Jacobson PhD, Phone: [phone] Phosphorus Level 4.0 mg/dL 2.6-4.7 [facility] Urine Random Creatinine 118.68 mg/dL 20.00-300.00 [facility] Platelet mean volume Auto (B ld) [Entitic vol]on 05-13-2023 Platelet mean volume (Bld) [Entitic vol] 10.2 fL 9.5-13.5 [facility] Platelets Auto (Bld) [#/Vol] on 05-13-2023 Platelets (Bld) [#/Vol] 273 10 3/uL 150-450 [facility] Protein Auto test strip (U) [Mass/Vol]on 05-13-2023 Protein (U) [Mass/Vol] Negative NEG/TRACE [facility] RBC Auto (Bld) [#/Vol]on RBC (Bld) [#/Vol] 4.00 10 6/uL 4.20-5.40 [facility] Serum or plasma anion gap de terminationon 05-13-2023 Anion gap [Moles/Vol] 17.3 mmol/L [facility] Specific gravity Auto test s trip (U) [Rel density]on 05-13-2023 Specific gravity (U) [Rel density] CLEAR CLEAR [facility] Urine bacteria detection by automated methodon 05-13-2023 Bacteria Auto Ql (U) NONE SEEN #/HPF NONE SEEN [facility] Urine glucose measurement by test strip (mass/volume)on 05-13-2023 Glucose Test strip (U) [Mass/Vol] Negative NEGATIVE [facility] Urine hemoglobin detection b y automated test stripon 05-13-2023 Hemoglobin Auto test strip Ql (U) Negative NEGATIVE [facility] Urine nitrite detection by a utomated test stripon 05-13-2023 Nitrite Auto test strip Ql (U) Negative NEGATIVE [facility] Urine protein/creatinine rat ioon 05-13-2023 Protein/Creatinine (U) [Ratio] 0.11 [facility] Urine sediment crystal ident ification by light microscopyon 05-13-2023 Crystals LM Nom (Urine sed) None Seen #/HPF None Seen [facility] Urine sediment leukocyte cou nt by microscopy (number/high power field)on 05-13-2023 WBC LM.HPF (Urine sed) [#/Area] 0-2 #/HPF NONE SEEN [facility] Urobilinogen Auto test strip (U) [Mass/Vol]on 05-13-2023 Urobilinogen Qn (U) 0.2 {Ga'U}/dL 0.2-1.0 [facility] pH Auto test strip (U)on pH (U) 5.5 [pH] 5.0-9.0 [facility] PTH INTACTon 05-01-2022 PTH, Intact 53 pg/mL Normal 15-65 [facility] Comment on above: Performed By: #### P THINT #### [facility] [address] [address] [address] Isacc Zapata FERRITINon 04-30-2022 Ferritin [Mass/Vol] 26.0 ng/mL Normal 8.0-252.0 [facility] Comment on above: Performed By: #### V ITAD, FERR, FETIBC ####[facility] [address] [address]DrMichelle Zapata HEMOGRAM AND PLATELon 2022 Hematocrit (Bld) [Volume fraction] 35.8 % Critically low 36.0-48.0 [facility] Comment on above: Performed By: #### H H ####[facility] [address] [address]DrMichelle Zapata Hemoglobin (Bld) [Mass/Vol] 11.3 g/dL Critically low 12.0-16.0 [facility] Comment on above: Performed By: #### H H ####[facility] [address] [address]DrMichelle Zapata MCH (RBC) [Entitic mass] 29.4 pg Normal 26.7-34.0 [facility] Comment on above: Performed By: #### H H ####[facility] [address] [address]DrMichelle Zapata MCHC (RBC) [Mass/Vol] 31.6 g/dL Normal 29.9-35.2 [facility] Comment on above: Performed By: #### H H ####[facility] [address] [id number]. Isacc Zapata MCV (RBC) [Entitic vol] 93.0 fL Normal 81.0-99.0 [facility] Comment on above: Performed By: #### H H ####[facility] [address] [phone]. Isacc Zapata PLT 270 103/ul Normal 150-450 [facility] Comment on above: Performed By: #### H H ####[facility] [address] [phone]. Isacc Zapata RBC 3.85 106/ul Critically low 4.20-5.40 [facility] Comment on above: Performed By: #### H H ####[facility] [address] [address]Dr. Isacc Zapata WBC 6.4 103/ul Normal 4.0-11.0 [facility] Comment on above: Performed By: #### H H ####[facility] [address] [place], [place] [address]Dr. Isacc Zapata IRON AND TIBCon 04-30-2022 % SATURATION 21.4 % Normal [facility] Comment on above: Performed By: #### V SEAN COOPER FETIBC ####[facility] [address] [phone]. Isacc Zapata Iron [Mass/Vol] 81.0 ug/dL Normal 50.0-170.0 [facility] Comment on above: Performed By: #### V SEAN COOPER, FETIBC ####[facility] [address] [phone]. Isacc Zapata TIBC DIRECT 379.0 ug/dL Normal 250.0-450.0 [facility] Comment on above: Performed By: #### V SEAN COOPER, FETIBC ####[facility] [address] [phone]. Isacc Zapata MAGNESIUMon 04-30-2022 Magnesium [Mass/Vol] 1.7 mg/dL Critically low 1.8-2.4 [facility] Comment on above: Performed By: #### M G, RENAL, URIC #### [facility] [address] [address] [address] Isacc Zapata RENAL FUNCTION PANELon 04-30 Albumin [Mass/Vol] 4.0 g/dL Normal 3.4-5.0 [facility] Comment on above: Performed By: #### M G, RENAL, URIC #### [facility] [address] [place] [address] Dr. Isacc Zapata Calcium [Mass/Vol] 9.2 mg/dL Normal 8.5-10.1 [facility] Comment on above: Performed By: #### M G, RENAL, URIC #### [facility] [address] [place] [address] Dr. Isacc Zapata Chloride [Moles/Vol] 107 mmol/L Normal 98-107 [facility] Comment on above: Performed By: #### M G, RENAL, URIC #### [facility] [address] [place] [address] Dr. Isacc Zapata CO2 [Moles/Vol] 24.9 mmol/L Normal 21.0-32.0 [facility] Comment on above: Performed By: #### M G, RENAL, URIC #### [facility] [address] [place] [address] Dr. Isacc Zapata Creatinine [Mass/Vol] 1.45 mg/dL Critically high 0.55-1.02 [facility] Comment on above: Performed By: #### M G, RENAL, URIC #### [facility] [address] [place] [address] Dr. Isacc Zapata EGFR-AF MALTESE 44 mL/min/1.73m2 Critically low >=60 [facility] Comment on above: Performed By: #### M G, RENAL, URIC #### [facility] [address] [place] [address] Dr. Isacc Zapata EGFR-NON AF MALTESE 36 mL/min/1.73m2 Critically low >=60 [facility] Comment on above: Performed By: #### M G, RENAL, URIC #### [facility] [address] [address] [address] Isacc Zapata Glucose [Mass/Vol] 122 mg/dL Critically high 74-106 [facility] Comment on above: Performed By: #### M G, RENAL, URIC #### [facility] [address] [address] [address] Isacc Zapata Phosphate [Mass/Vol] 3.8 mg/dL Normal 2.6-4.7 [facility] Comment on above: Performed By: #### M G, RENAL, URIC #### [facility] [address] [address] [address] Isacc Zapata Potassium [Moles/Vol] 4.0 mmol/L Normal 3.5-5.1 [facility] Comment on above: Performed By: #### M G, RENAL, URIC #### [facility] [address] [address] [address] Isacc Zapata Sodium [Moles/Vol] 143 mmol/L Normal 136-145 [facility] Comment on above: Performed By: #### M G, RENAL, URIC #### [facility] [address] [address] [address] Isacc Zapata Urea nitrogen [Mass/Vol] 32.0 mg/dL Critically high 7.0-18.0 [facility] Comment on above: Performed By: #### M G, RENAL, URIC #### [facility] [address] [address] [address] Isacc Zapata UA RANDOM W/MICROSCOPICon BACTERIA NONE SEEN Normal NONE SEEN [facility] Comment on above: Performed By: #### U AMIC ####[facility] [address] [phone]. Isacc Zapata Bilirubin Ql (U) Negative Normal NEGATIVE [facility] Comment on above: Performed By: #### U AMIC ####[facility] [address] [phone]. Isacc Zapata CAST NONE SEEN Normal NONE SEEN [facility] Comment on above: Performed By: #### U AMIC ####[facility] [address] [address]Dr. Isacc Zapata Clarity (U) CLEAR Normal CLEAR [facility] Comment on above: Performed By: #### U AMIC ####[facility] [address] [place], [place] [address]Dr. Isacc Zapata Color (U) YELLOW Normal YELLOW [facility] Comment on above: Performed By: #### U AMIC ####[facility] [address] [place], [place] [address]Dr. Isacc Zapata Crystals LM Nom (Urine sed) NONE SEEN Normal NONE SEEN [facility] Comment on above: Performed By: #### U AMIC ####[facility] [address] [place], [place] [address]Dr. Isacc Zapata Epithelial cells LM Ql (Urine sed) RARE Normal NONE SEEN /RARE [facility] Comment on above: Performed By: #### U AMIC ####[facility] [address] [place], [place] [address]Dr. Isacc Zapata Glucose Ql (U) Negative Normal NEGATIVE [facility] Comment on above: Performed By: #### U AMIC ####[facility] [address] [place], [place] [address]Dr. Isacc Zapata Hemoglobin Ql (U) Negative Normal NEGATIVE [facility] Comment on above: Performed By: #### U AMIC ####[facility] [address] [place], [place] [address]Dr. Isacc Zapata Ketones Ql (U) Negative Normal NEGATIVE [facility] Comment on above: Performed By: #### U AMIC ####[facility] [address] [place], [place] [address]Dr. Isacc Zapata LEUKOCYTES Negative Normal NEGATIVE [facility] Comment on above: Performed By: #### U AMIC ####[facility] [address] [place], [place] [address]Dr. Isacc Zapata MUCOUS NONE SEEN Normal NONE SEEN [facility] Comment on above: Performed By: #### U AMIC ####[facility] [address] [place], [place] [address]DrMichelle Zapata Nitrite Ql (U) Negative Normal NEGATIVE [facility] Comment on above: Performed By: #### U AMIC ####[facility] [address] [phone] Zapata pH (U) 5.5 [pH] Normal 5-9 [facility] Comment on above: Performed By: #### U AMIC ####[facility] [address] [phone] Zapata RBC 0-2 Normal 0-2 [facility] Comment on above: Performed By: #### U AMIC ####[facility] [address] [phone]. Isacc Zapata SPEC GRAVITY >=1.030 Abnormal 1.005-<=1.025 [facility] Comment on above: Performed By: #### U AMIC ####[facility] [address] [address]DrMichelle Zapata UA PROTEIN Negative Normal NEGATIVE/ TRACE [facility] Comment on above: Performed By: #### U AMIC ####[facility] [address] [phone]. Isacc Zapata Urobilinogen Qn (U) 0.2 {Ga'U}/dL Normal 0.2 - 1. 0 [facility] Comment on above: Performed By: #### U AMIC ####[facility] [address] [phone] Zapata WBC NONE SEEN Normal NONE SEEN [facility] Comment on above: Performed By: #### U AMIC ####[facility] [address] [phone] Zapata URIC ACID SERUMon 04-30-2022 Urate [Mass/Vol] 6.6 mg/dL Critically high 2.6-6.0 [facility] Comment on above: Performed By: #### M G, RENAL, URIC #### [facility] [address] [place], [place] [address] Dr. Isacc Zapata URINE T PROTEIN CREAT RATIOo n 04-30-2022 Protein (U) [Mass/Vol] 37.5 mg/dL Critically high <=12.0 [facility] Comment on above: Performed By: #### U RTPCR #### [facility] [id number] Isacc Zapaat UR PROT CREAT RAT 0.18 Normal [facility] Comment on above: Performed By: #### U RTPCR #### [facility] [address] [address] [address] Isacc Zapata URINE CREAT 205.21 mg/dL Normal 20.00-300.00 [facility] Comment on above: Performed By: #### U RTPCR #### [facility] [address] [address] [address] Isacc Zapata VITAMIN D 25 OHon 04-30-2022 VIT D 25-OH 39.7 ng/mL Normal [facility] Comment on above: Performed By: #### V SEAN COOPER FETIBC ####[facility] [address] [phone]. Isacc Zapata VIT D RANGES SEE BELOW Normal [facility] Comment on above: Result Comment: <20 ng/mL Vit D deficient 20 - <30 ng/mL Vit D insufficient 30 - 100 ng/mL Vit D sufficient >100 ng/mL Potential Toxicity Performed By: #### V SEAN COOPER FETIBC ####[facility] [address] [place], [place] [address]Dr. Isacc Zapata US KIDNEYSon 02-16-2022 US KIDNEYS [...] MICKY JANSEN Date: 2022-02-16 07:45 Normal [facility] CBC AUTO DIFFon 12-26-2021 BASO # 0.1 103/ul Normal 0.0-0.1 [facility] Comment on above: Performed By: #### C BC #### [facility] [address] [address] [address] Isacc Zapata Basophils/100 WBC (Bld) 1.0 % Normal 0.2-2.0 [facility] Comment on above: Performed By: #### C BC #### [facility] [address] [address] [address] Isacc Zapata EO # 0.2 103/ul Normal 0.0-0.7 [facility] Comment on above: Performed By: #### C BC #### [facility] [address] [address] [address] Isacc Zapata Eosinophils/100 WBC (Bld) 3.3 % Normal 0.9-7.0 [facility] Comment on above: Performed By: #### C BC #### [facility] [address] [address] [address] Isacc Zapata Erythrocyte distribution width (RBC) [Ratio] 12.7 % Normal 11.0-15.0 [facility] Comment on above: Performed By: #### C BC #### [facility] [address] [address] [address] Isacc Zapata Hematocrit (Bld) [Volume fraction] 37.4 % Normal 36.0-48.0 [facility] Comment on above: Performed By: #### C BC #### [facility] [address] [address] [address] Isacc Zapata Hemoglobin (Bld) [Mass/Vol] 11.8 g/dL Critically low 12.0-16.0 [facility] Comment on above: Performed By: #### C BC #### [facility] [address] [place] [address] Dr. Isacc Zapata IG # 0.02 10e3/ul Normal 0.00-0.03 [facility] Comment on above: Performed By: #### C BC #### [facility] [address] [place] [address] Dr. Isacc Zapata IG % 0.3 % Normal 0.0-0.5 [facility] Comment on above: Performed By: #### C BC #### [facility] [address] [place] [address] Dr. Isacc Zapata LYMPH # 1.8 103/ul Normal 1.2-3.8 [facility] Comment on above: Performed By: #### C BC #### [facility] [address] [place] [address] Dr. Isacc Zapata Lymphocytes/100 WBC (Bld) 25.3 % Normal 20.5-60.0 [facility] Comment on above: Performed By: #### C BC #### [facility] [address] [place] [address] Dr. Isacc Zapata MANUAL DIFF REQ NO Normal [facility] Comment on above: Performed By: #### C BC #### [facility] [address] [place] [address] Dr. Isacc Zapata MCH (RBC) [Entitic mass] 29.9 pg Normal 26.7-34.0 [facility] Comment on above: Performed By: #### C BC #### [facility] [address] [place] [address] Dr. Isacc Zapata MCHC (RBC) [Mass/Vol] 31.6 g/dL Normal 29.9-35.2 [facility] Comment on above: Performed By: #### C BC #### [facility] [address] [place] [address] Dr. Isacc Zapata MCV (RBC) [Entitic vol] 94.7 fL Normal 81.0-99.0 [facility] Comment on above: Performed By: #### C BC #### [facility] [address] [address] [address] Isacc Zapata MONO # 0.5 103/ul Normal 0.3-0.8 [facility] Comment on above: Performed By: #### C BC #### [facility] [address] [address] [address] Isacc Zapata Monocytes/100 WBC (Bld) 7.4 % Normal 1.7-12.0 [facility] Comment on above: Performed By: #### C BC #### [facility] [address] [place] [address] Dr. Isacc Zapata NEUT # 4.4 103/ul Normal 1.4-6.5 [facility] Comment on above: Performed By: #### C BC #### [facility] [address] [place] [address] Dr. Isacc Zapata Neutrophils/100 WBC (Bld) 62.7 % Normal 43.0-75.0 [facility] Comment on above: Performed By: #### C BC #### [facility] [address] [place] [address] Dr. Isacc Zapata Platelet mean volume (Bld) [Entitic vol] 10.3 fL Normal 9.5-13.5 [facility] Comment on above: Performed By: #### C BC #### [facility] [address] [place] [address] Dr. Isacc Zapata PLT 246 103/ul Normal 150-450 [facility] Comment on above: Performed By: #### C BC #### [facility] [address] [place] [address] Dr. Isacc Zapata RBC 3.95 106/ul Critically low 4.20-5.40 [facility] Comment on above: Performed By: #### C BC #### [facility] [address] [place] [address] Dr. Isacc Zapata WBC 7.1 103/ul Normal 4.0-11.0 [facility] Comment on above: Performed By: #### C BC #### [facility] [address] [place] [address] Dr. Isacc Zapata GLYCOHEMOGLOBIN A1Con 2021 ADA RECOMMENDATION SEE BELOW Normal [facility] Comment on above: Result Comment: ADA RECOMMENDED LIMIT 4.0 - 6.0 ADA THERAPEUTIC TARGET < 7.0 ACTION SUGGESTED > 7.0 Performed By: #### A 1C ####[facility] [address] [address]Dr. Isacc Zapata Glucose [Mass/Vol] 146 mg/dL Normal [facility] Comment on above: Performed By: #### A 1C ####[facility] [address] [address]Dr. Isacc Zapata HbA1c (Bld) [Mass fraction] 6.7 % Critically high 4.5-6.2 [facility] Comment on above: Performed By: #### A 1C ####[facility] [address] [address]Dr. Isacc Zapata LIPID PROFILEon 12-26-2021 CHOL-HDL RATIO NORM SEE BELOW Normal [facility] Comment on above: Result Comment: 3.3 - 4.4 LOW RISK 4.4 - 7.1 AVERAGE RISK 7.1 - 11.0 MODERATE RISK >11.0 HIGH RISK Performed By: #### C MP, URIC, LIPID #### [facility] [address] [address] [address] Isacc Zapata Cholesterol [Mass/Vol] 195 mg/dL Normal <=200 [facility] Comment on above: Performed By: #### C MP, URIC, LIPID #### [facility] [address] [address] [address] Isacc Zapata Cholesterol in HDL [Mass/Vol] 46 mg/dL Normal 40-60 [facility] Comment on above: Performed By: #### C MP, URIC, LIPID #### [facility] [address] [address] [address] Isacc Zapata Cholesterol in LDL [Mass/Vol] 118.0 mg/dL Normal [facility] Comment on above: Performed By: #### C MP, URIC, LIPID #### [facility] [address] [address] [address] Isacc Zapata Cholesterol.total/Cho lesterol in HDL [Mass ratio] 4.2 {ratio} Normal [facility] Comment on above: Performed By: #### C MP, URIC, LIPID #### [facility] [address] [address] [address] Isacc Zapata HDL NORMAL > or = 60 mg/dl - LOW CARDIOVASCULAR RISK <40 mg/dl - HIGH CARDIOVASCULAR RISK Normal [facility] Comment on above: Performed By: #### C MP, URIC, LIPID #### [facility] [address] [address] [address] Isacc Zapata LDL CALC NORMAL SEE BELOW Normal [facility] Comment on above: Result Comment: <100 mg/dl OPTIMAL 100 - 129 mg/dl NEAR OR ABOVE OPTIMAL 130 - 159 mg/dl BORDERLINE HIGH 160 - 189 mg/dl HIGH >190 mg/dl VERY HIGH Performed By: #### C MP, URIC, LIPID #### [facility] [address] [address] [address] Isacc Zapata Triglyceride [Mass/Vol] 155 mg/dL Critically high <=150 [facility] Comment on above: Performed By: #### C MP, URIC, LIPID #### [facility] [address] [address] [address] Isacc Zapata VLDL CALC 31.0 mg/dL Normal [facility] Comment on above: Performed By: #### C MP, URIC, LIPID #### [facility] [address] [address] [address] Isacc Zapata MICROALBUMIN, RAND URon 11-0 mALB 2.9 mg/L Normal <=30.0 [facility] Comment on above: Performed By: #### M ALBR ####[facility] [id number] [address]Dr. Isacc Zpaata PROF 14(COMP METB)on 022 Albumin [Mass/Vol] 4.0 g/dL Normal 3.4-5.0 [facility] Comment on above: Performed By: #### C MP, URIC, LIPID #### [facility] [address] [address] [address] Isacc Zapata Albumin/Globulin [Mass ratio] 1.0 {ratio} Normal [facility] Comment on above: Performed By: #### C MP, URIC, LIPID #### [facility] [address] [address] [address] Isacc Zapata ALP [Catalytic activity/Vol] 68 U/L Normal 46-116 [facility] Comment on above: Performed By: #### C MP, URIC, LIPID #### [facility] [address] [address] [address] Isacc Zapata ALT [Catalytic activity/Vol] 16 U/L Normal 14-59 [facility] Comment on above: Performed By: #### C MP, URIC, LIPID #### [facility] [address] [place] [address] Dr. Isacc Zapata Anion gap [Moles/Vol] 13.9 mmol/L Normal [facility] Comment on above: Performed By: #### C MP, URIC, LIPID #### [facility] [address] [place] [address] Dr. Isacc Zapata AST [Catalytic activity/Vol] 12 U/L Critically low 15-37 [facility] Comment on above: Performed By: #### C MP, URIC, LIPID #### [facility] [address] [place] [address] Dr. Isacc Zapata Bilirubin [Mass/Vol] 0.2 mg/dL Normal 0.2-1.0 [facility] Comment on above: Performed By: #### C MP, URIC, LIPID #### [facility] [address] [place] [address] Dr. Isacc Zapata Calcium [Mass/Vol] 9.8 mg/dL Normal 8.5-10.1 [facility] Comment on above: Performed By: #### C MP, URIC, LIPID #### [facility] [address] [place] [address] Dr. Isacc Zapata Chloride [Moles/Vol] 105 mmol/L Normal 98-107 [facility] Comment on above: Performed By: #### C MP, URIC, LIPID #### [facility] [address] [address] [address] Isacc Zapata CO2 [Moles/Vol] 28.4 mmol/L Normal 21.0-32.0 [facility] Comment on above: Performed By: #### C MP, URIC, LIPID #### [facility] [address] [address] [address] Isacc Zapata Creatinine [Mass/Vol] 1.38 mg/dL Critically high 0.55-1.02 [facility] Comment on above: Performed By: #### C MP, URIC, LIPID #### [facility] [address] [address] [address] Isacc Zapata EGFR-AF MALTESE 46 mL/min/1.73m2 Critically low >=60 [facility] Comment on above: Performed By: #### C MP, URIC, LIPID #### [facility] [address] [place] [address] Dr. Isacc Zapata EGFR-NON AF MALTESE 38 mL/min/1.73m2 Critically low >=60 [facility] Comment on above: Performed By: #### C MP, URIC, LIPID #### [facility] [address] [address] [address] Isacc Zapata Globulin (S) [Mass/Vol] 4.0 g/dL Normal [facility] Comment on above: Performed By: #### C MP, URIC, LIPID #### [facility] [address] [address] [address] Isacc Zapata Glucose [Mass/Vol] 127 mg/dL Critically high 74-106 [facility] Comment on above: Performed By: #### C MP, URIC, LIPID #### [facility] [address] [address] [address] Isacc Zapata Potassium [Moles/Vol] 4.3 mmol/L Normal 3.5-5.1 [facility] Comment on above: Performed By: #### C MP, URIC, LIPID #### [facility] [address] [address] [address] Isacc Zapata Protein [Mass/Vol] 8.0 g/dL Normal 6.4-8.2 [facility] Comment on above: Performed By: #### C MP, URIC, LIPID #### [facility] [address] [address] [address] Isacc Zapata Sodium [Moles/Vol] 143 mmol/L Normal 136-145 [facility] Comment on above: Performed By: #### C MP, URIC, LIPID #### [facility] [address] [address] [address] Isacc Zapata Urea nitrogen [Mass/Vol] 39.0 mg/dL Critically high 7.0-18.0 [facility] Comment on above: Performed By: #### C MP, URIC, LIPID #### [facility] [address] [address] [address] Isacc Zapata Urea nitrogen/Creatinine [Mass ratio] 28.3 mg/mg Normal [facility] Comment on above: Performed By: #### C MP, URIC, LIPID #### [facility] [address] [address] [address] Isacc Zapata URIC ACID SERUMon 12-26-2021 Urate [Mass/Vol] 6.0 mg/dL Normal 2.6-6.0 [facility] Comment on above: Performed By: #### C MP, URIC, LIPID #### [facility] [address] [address] [address] Isacc Zapata Coding Summaryon 06-13-2020 Coding Summary HTMLBase 64 IirpqdczFDx6eSe+PGhl YWQ+EN7TUZCjQ81tzHIv kO4KA4tDHA1GZJBUDXYE LU7AHL5vcYG7XThrO9Zm biAv XpemcDPrEX04GHl0HEZ2 kYfwFHwooM1ibYUgJ2i8 SqOlWP82qC77LObzGSLs MjI2XqMatojdlDEb Y4hfKdGdwTDhYxn+PHRh YmxlIHdpZHRoPScxMDAl AaMiaPriMH3dFy7nIZXa LWNvbGxhcHNlOiBj f1jyQZHoBUroVO6lhAsr D2DwbJI0LUDui1p6Ey24 dHI+OZLzBKH4kJdnBHre n192BcUmr4npKDO8 fSPiWRkkKKX0P29bt8Q3 NCQkKCAnGAD1wOV6fF9m cYnakajqZ5GlkEExAdI2 YDU8lPFhdE5vdMch iuvotX9tRxz+D01EFH0W LANAKW8PCoa1R8PhGlzd dHI+XV84KCYxTP33fZLc jVTyo0vzhMs9FlOz DHIkTZE0jXmpJZgfy6Qs KRCrM94qgGQcw5Z4DFUf oBequEZxXxMrdZA5fX3p QOogotnea6yukjdy Oloze0zgxg39eW29L66o YPleCHQgMFI9GJVpLMBw eQfpug0guS7pAc0+IDxj r9ffe4blcRb1TpGn OCYuqsBaxPtjTSL9y6Lp Pf34J9ZzcNszy6KlMfv8 xe26cLTcl7K9lKJ6PFuw GCEgxR9wZHbkJdK7 NNNiTrTmcD07sXUsYGhv Ly9xiRasaBbtBX7iEEMw ffxiAMNlcT7vCTYfuTYc jCjrFO5yVTHbdfvh k609XdCgHAR8MXTyeWCo V0EhzL8yBwCgVBIxPAJp P0YunOEvRCmhC818UGat DtB4FPCaqaXzI1Ry KAOcjKhgGuF5q3A2Ll6B k3JsqgqcSPF2KKgbHSS8 QxK7QgRuCmD6K4TsBmo5 FQDdsUvoWJ3pC5Xk DNJwtxqeuhevxGI9IMMl ONDonI09zOTcZLycKa6l c1F5x085QFCzEZXkmG61 Bn1hhCucSOXzbGEC tQ3sdporx7fgxuubNbCw KVXbMUt1FUh0TTHhpJov QeWuWCL8QaB0VBC6mPZj tO0opCkezocwwO1u Oyc+M84dsL4mRNU2PLA1 yzzmXVWuspVfAD66MW47 D6LuPvhemHPjlTP+PGRp xmKbrXboGZ1fVaAl o5bwa6OlGHhbS9XmGQZt IIfzFzy1PFGaRZW1lOC0 uU4iRDSxHQpct1H2vDF6 X8FhfkNtzi2ub5sr PDGyLYqxA78xcGMii8C0 DSCvfTT7XQVsqApiLiGs jH38Dfn+SVZynIrqh2Eu Xsmnp1zkf8hjaRd6 IjMwJSIgdmFsaWduPSJ0 f1OqLg99R85xDFfpMZPo STQnHGIrQIXwhCdebh0f eT8xJl6+PGNvbCB3 kDG6eO5xGPFeMhE2EPsu P505DcPyrEYePjksf6dw u3hxyOc4DdYlDVBexaMc uPiuOYB5m4BsGf40 O06dGDrrLVPtEFYuZOFu JJDdwPhhgs1jtF8sDd2+ LS5my2yaez22lH31eII+ TXSdLAQ6bPdzFXrq IVPpkV4kTWuiOhY1FFBz IdYulA40vGMkYJjwOq1g kJjyyAxbUE9sYKPajyva x887AhGih3tpISLe qBXtPXkbLWW8Z20ii1P7 MJQyLDXyLGJ5tKR0jI6h bGlnbjogbGVmdDsgdmVy mDlbPGqrTKjkX722 IHRvcDsnPlBhdGllbnQg PiBzQMz4H0JxRrz1ITUz gBdzBZ2amULwAAbxHr7l sLznoInsCH7mICPc bhwyv139AmEot8nbUVHh uJKjVQpwNGC5L65lt8F8 QTUuKORySYX6lTU9fU2w bGlnbjogbGVmdDsg ujVyvSerALzmZZyuU494 IHRvcDsnPkJpcnRoIERh uMH5WO87SR47bHYgh7Q5 hVZ5A1FeYBJwmqex ioxisWP5NUEkLDPtxK25 Nq7yyLctHf7cNKZpVSY9 ZHKreVQiX2TxmU0yPyZq QUWdRTDoU8PcvNOg XOnyM452SKgxRtA4OVNv tcFvP5AtBUApdYpqRbP3 u2A4Uc0GO8Q5FA03NJ38 hTEld4Q0bAU2E1Aq ZMHztqtppafyrWB1VQFr AOSkkA86On7maWaaCs4m GTFhARP3YXOcqRFoA4Hl nJ4zVrTzEOQaHMHq N1DhhDEsMMatL763ACad QoC8KHMyenIjK2TaGAYh yIswBbN7g9S2Pt4XQKa1 EC66HR93tVMek6A8 bGD0D6MmWPKwfoaushvu mSI9PGBzRKVeiN86Av3f tYqwVj7nKGLzPLA0BJQe pKJvA7MypJ3sTeKd IVJaNJMbO8AcxQPjOMnu P794CDryJsR4KUKogpIk O0SyCBPuhKmgJbI4m0R8 Kg9LXNDwDC54TND4 pCM4HC50ED26E7QxJgwr dGFibGU+PHRhYmxlIHdp ZHRoPScxMDAlJyBzdHls MR0sHl6mCWOdBJLq iKzzfADfFbAwp8wbJXAu EKdvGJ6mmGdaM9GbfKE4 VGBnr9n8Ui99C44yP8Gz dXA+EFBefHH4aOU2 oP4nOhSiJiL8NMmaQ492 EeYqtOWsEcizf3zbi3jo vJi8GxD9CXHqzoWsqIln YUH6f8FhTg96C25k IHdpZHRoPSIxNSUiIHZh vWeonn1zvW9cUm2+PGNv oPC4zUO1vS9jLqMfJhA4 DOthB175UhKhqFRh Chscx3dtk0dpjDu0VuVp RTAqdbWwjTybMKB6p2Uj Ju47H8JcgGhdq5CbBiz0 fp18jPNuc7N4xSX9 J6BpIPQvmhajfTTluQqd CO4hXIGlnqwoGZOrpB1q POUuV3z6VgPhMlM7KTuf G9JdicV6SYUbbHRp ZHzpAQT7D67gd8R8GSFs WLTaECX6rKZ9lM0dfWld bjogbGVmdDsgdmVydGlj NEvrGRhiL045CLWa qJojITBpzJ9vIRSmtZHq qIrrUO5gADEgskbdVwwK SBtWNrRIIqzlATnPYY8k VjwvdGQ+PHRkIHN0 bIdlKLlrAQWvoO6hSAKb G6q4MlMxHpV6EBslZ3Sz SRMmcazyTw70eN3jKqOk RmZ3JUewF0IxpjP8 HSOswGXkWPthXTO7C21r x3U6LTGkVKHoYCJ6cSM1 wD0kbKlyjqtydOSotVkm dmVydGljYWwtYWxp I006QSFbyFgfGoT7StX1 ElT4FBI2V7TqVlk1JEFk lNfhPB9huUFuWZwzVf4k kYuibXeqVF7cIOLu fpfzIYFeiV5wLBXuwWMd yKmuAM7dURBxlwubf601 HyQhEKU4MPCfxNYhY7Dz mX0lUpByNNFiCJKk X6MwbNOpMDlbZ788DRez NiT6ZVFsmwMgW8NxJFKi cLsxIfR8n4V3Yf92PmUJ ZWFyczwvdGQ+PHRk HBG8gAcaNFgaRZTkfE2e OLZcG3k2YhNwSkR4CRac E5IoBAKzlyhiSq24cG8z XlQpVeV4RHvnV3Kb gsO4ZOQfvSNtOPfvROX8 F73nz8G2QLYcPDBfLSB9 mLJ0gH7voFaqffywaNZj dDsgdmVydGljYWwt AJmuV342RXYmmGlaBtXX TUFMRTwvdGQ+PHRkIHN0 lBleVUlaGOOlsF3iFXYm N7v3QuRnXtG0RIee X9OqKPFsrfpdJi25dC0h RmLfVoS0FHdkN9ZgsmX5 RMNvkJQvHNksASX7R24y m8G0ZQMsIFScLOX4 tPG0cS1voLegwspabLOo dDsgdmVydGljYWwtYWxp V129DCCmdSsgMu4NZW70 AD72N3PwUoflaKXm bGU+PHRhYmxlIHdpZHRo WDfpRITsQhAwoYhcJE8e Fb1fBBUeJWWykYsvgEAf WmSyy7hiYYMjGGot SV1agDbuR3CpqMC1RHUa j7t8Lo65H49dL2NurFH+ FHDeySQ0vYA5jH6bQoKa TmY0CAlrS544XxBr qIIoPnmhh3dvz4fosIq2 IjMwJSIgdmFsaWduPSJ0 s0WrOv86F18pRSwdOCQy PSIyMCUiIHZhbGln ac5djQ0uGl1+PGNvbCB3 gZR4qP6uDbWeTpV3CWhg M551NhNggDYnQptmH09g D7VuuTI+PHRyPjx0 LUDjdRauXD4qxDBqVWmc Wb4pSXG3VxIePjZjLUql U0TcKYQxykixwgbenLZ0 FHKjLEWktB77Bu4h tKmtUt3iQYEbJQP5FZWm sFHoV2AvmO0lIfDjYXMw OVXuK2TdgCYvVDdkW329 OLkxIoD6QZFyazSe P0HvJUWskUzyMzZ8y4B1 Tn4AzMusvHNiQR2uFcDf OHm9R9XrOjm8XJBhvNrj VF9tvEXoPAioXc6z pAqmyWmaBG6qVEFyhznj o005CtXnn2auZMExlUZk TVijMIV1K14px8S6YFNh WEYdUWG9oXZ1jA4h bGlnbjogbGVmdDsgdmVy qQcoCMouOCanO973YQHe jBtbBaHFCai2V2NoLfm2 XGIreCuwHM8hrWWd NWhwBm6nnHzuySkwPI5q OZFqftfou173KvEsa6rg HAAwrPXnWUrbUHR7M36a d0W7DYLaOOSiTGQ2 zFZ4tB2rqFghugjceQJy dDsgdmVydGljYWwtYWxp I803OJUhoCzuEp5LHxq7 I5WvIky7MFMvjQxl TA3zwPWpRRpiNw7tvBnz kTazRR6rRRKvknhtr100 HnFgt6ruFGAvkYPbVNpv FAF3G54yc6L2PCRv WDEdNWZ4xYQ8fQ4dbJut bjogbGVmdDsgdmVydGlj TCuyAVvyY172EQGbyMmo PlBheWVyOjwvdGQ+ FK62xm02J9StEueoYxp4 DAAwASR8oZM7lQ3pUKFd PVefu5V7tNC6S4ItvzSm uv2rp3buBZMxFXmd Y29 (more content not included)... Normal [facility] Provider Orderson 06-13-2020 Provider Orders [id number] #[id number] [facility] Uric Acidon 06-10-2020 Urate [Mass/Vol] 9.1 mg/dL High 2.6-8.0 [facility] Comment on above: Performed By: #### [id number] #### [facility] (DEFAULT) [address] [place] [address] Vital Signs Date Time Vital Sign Value Performing Clinician Facility 08-27-2023 13:48-0400 Body height 161.29 cm [facility] 08-27-2023 13:48-0400 Body mass index (BMI) [Ratio] 27.8 kg/m2 [facility] 08-27-2023 13:48-0400 Body weight 72.57 kg [facility] 08-27-2023 13:48-0400 Diastolic blood pressure 74 mm[Hg] [facility] 08-27-2023 13:48-0400 Heart rate 93 /min [facility] 08-27-2023 13:48-0400 SaO2% (BldA) [Mass fraction] 97 % [facility] 08-27-2023 13:48-0400 Systolic blood pressure 124 mm[Hg] [facility] 05-23-2023 12:07-0400 Body height 161.29 cm [facility] 05-23-2023 12:07-0400 Body mass index (BMI) [Ratio] 28.3 kg/m2 [facility] 05-23-2023 12:07-0400 Body temperature 97.5 [degF] [facility] 05-23-2023 12:07-0400 Body weight 73.53 kg [facility] 05-23-2023 12:07-0400 Diastolic blood pressure 72 mm[Hg] [facility] 05-23-2023 12:07-0400 Heart rate 117 /min [facility] 05-23-2023 12:07-0400 Respiratory rate 16 /min [facility] 05-23-2023 12:07-0400 SaO2% (BldA) [Mass fraction] 93 % [facility] 05-23-2023 12:07-0400 Systolic blood pressure 120 mm[Hg] [facility] 11-12-2022 10:20-0400 Body height 161.29 cm Nika Diop [facility] 11-12-2022 10:20-0400 Body mass index (BMI) [Ratio] 29.15 kg/m2 Nika Mick [facility] 11-12-2022 10:20-0400 Body temperature 97.5 [degF] Nkia Mick [facility] 11-12-2022 10:20-0400 Body weight 75.84 kg Nika Mick [facility] 11-12-2022 10:20-0400 Diastolic blood pressure 84 mm[Hg] Nika Mick [facility] 11-12-2022 10:20-0400 Respiratory rate 18 /min Nika Mick [facility] 11-12-2022 10:20-0400 SaO2% (BldA) [Mass fraction] 98 % Nika Mick [facility] 11-12-2022 10:20-0400 Systolic blood pressure 138 mm[Hg] Nika Mick [facility] 10-26-2022 10:00-0400 Body height 161.29 cm Corrie Lama [facility] 10-26-2022 10:00-0400 Body mass index (BMI) [Ratio] 29.12 kg/m2 Corrie Lama [facility] 10-26-2022 10:00-0400 Body weight 75.75 kg Corrie Daina [facility] 10-26-2022 10:00-0400 Diastolic blood pressure 88 mm[Hg] Corrie Daina [facility] 10-26-2022 10:00-0400 Systolic blood pressure 132 mm[Hg] Corrie Daina [facility] 05-10-2022 12:40-0400 Body height 161.29 cm Nika Mick [facility] 05-10-2022 12:40-0400 Body mass index (BMI) [Ratio] 30.27 kg/m2 Nika Mick [facility] 05-10-2022 12:40-0400 Body temperature 97 [degF] Nika Mick [facility] 05-10-2022 12:40-0400 Body weight 78.74 kg Nika Mick [facility] 05-10-2022 12:40-0400 Diastolic blood pressure 70 mm[Hg] Nika Mick [facility] 05-10-2022 12:40-0400 Respiratory rate 20 /min Nika Mick [facility] 05-10-2022 12:40-0400 SaO2% (BldA) [Mass fraction] 97 % Nika Mick [facility] 05-10-2022 12:40-0400 Systolic blood pressure 132 mm[Hg] Nika Mick [facility] 02-08-2022 15:00-0500 Body height 161.29 cm Nika Mick [facility] 02-08-2022 15:00-0500 Body mass index (BMI) [Ratio] 30.44 kg/m2 Nika Mick [facility] 02-08-2022 15:00-0500 Body temperature 97.5 [degF] Nika Mick [facility] 02-08-2022 15:00-0500 Body weight 79.2 kg Nika Mick [facility] 02-08-2022 15:00-0500 Diastolic blood pressure 100 mm[Hg] Nika Mick [facility] 02-08-2022 15:00-0500 Respiratory rate 18 /min Nika Mick [facility] 02-08-2022 15:00-0500 SaO2% (BldA) [Mass fraction] 97 % Nika Mick [facility] 02-08-2022 15:00-0500 Systolic blood pressure 180 mm[Hg] Nika Mick [facility] 11-16-2021 10:05-0400 Body height 161.29 cm Deena Ocasio [facility] 11-16-2021 10:05-0400 Body mass index (BMI) [Ratio] 31.38 kg/m2 Deena Ocasio [facility] 11-16-2021 10:05-0400 Body temperature 97.6 [degF] Deena Streetler Other [facility] 11-16-2021 10:05-0400 Body weight 81.65 kg Deena Ocasio [facility] 11-16-2021 10:05-0400 Diastolic blood pressure 81 mm[Hg] Deena Ocasio [facility] 11-16-2021 10:05-0400 SaO2% (BldA) [Mass fraction] 96 % Deena Ocasio [facility] 11-16-2021 10:05-0400 Systolic blood pressure 173 mm[Hg] Deena Ocasio [facility] 11-27-2020 10:10-0400 Body height 161.29 cm Salina Areli Other [facility] 11-27-2020 10:10-0400 Body mass index (BMI) [Ratio] 30.34 kg/m2 Salina Areli [facility] 11-27-2020 10:10-0400 Body temperature 97.9 [degF] Salina Areli [facility] 11-27-2020 10:10-0400 Body weight 78.93 kg Salina Areli [facility] 11-27-2020 10:10-0400 Diastolic blood pressure 80 mm[Hg] Salina Mimond Other [facility] 11-27-2020 10:10-0400 Respiratory rate 18 /min Salina Areli [facility] 11-27-2020 10:10-0400 SaO2% (BldA) [Mass fraction] 99 % Salina Mimond [facility] 11-27-2020 10:10-0400 Systolic blood pressure 156 mm[Hg] Salina Mimond [facility] Encounters Encounter Date Encounter Type Care Provider Facility Start: 11-06-2023 End: 11-06-2023 ambulatory GITA A KERA Not Available Start: 10-23-2023 End: 10-23-2023 ambulatory GITA A KERA Not Available Start: 10-10-2023 End: 10-10-2023 ambulatory GITA A KERA Not Available Start: 09-17-2023 End: 09-17-2023 ambulatory GITA A KERA Not Available Start: 08-27-2023 End: 08-27-2023 ambulatory [facility] Work Phone: Start: 08-27-2023 End: 08-27-2023 Patient encounter procedure [facility] Physician [facility] Work Phone: Start: 05-23-2023 End: 05-23-2023 ambulatory [facility] Work Phone: Start: 05-23-2023 End: 05-23-2023 Patient encounter procedure [facility] Physician [facility] Work Phone: Start: 05-13-2023 Non-patient / Non-visit [facility] Physician [facility] Work Phone: Start: 04-17-2023 Non-patient / Non-visit [facility] Physician [facility] Work Phone: Start: 01-29-2023 End: 01-29-2023 ambulatory GITA COTE Not Available Start: 11-12-2022 End: 11-12-2022 ambulatory Nika Mick [facility] Start: 11-12-2022 Office outpatient visit 25 minutes Nika Mick [facility] Start: 11-06-2022 End: 11-06-2022 ambulatory Corrie Lama [facility] Start: 11-06-2022 Telephone encounter Corrie Daniels [facility] Start: 10-26-2022 End: 10-26-2022 ambulatory Corrie Lama [facility] Start: 10-26-2022 Office outpatient ne w 30 minutes Corrie Lama [facility] Start: 05-10-2022 End: 05-10-2022 ambulatory Nika Mick [facility] Start: 05-10-2022 Office outpatient visit 25 minutes Nika Mick [facility] Start: 04-30-2022 End: 05-01-2022 ambulatory NIKA MICK Facility:[facility] Start: 02-15-2022 End: 02-16-2022 ambulatory NIKA MICK Facility:[facility] Start: 02-08-2022 End: 02-08-2022 ambulatory Nika Mick Other [facility] Start: 02-08-2022 Office outpatient ne w 45 minutes Nika Mick [facility] Start: 12-26-2021 End: 12-27-[address] BRIAN ECHEVERRIA Facility:[facility] Start: 11-16-2021 End: 11-16-2021 ambulatory Deena Ocasio Other [facility] Start: 11-16-2021 Office outpatient visit 15 minutes Deena Ocasio [facility] Start: 11-27-2020 Office outpatient ne w 20 minutes Salina Areli [facility] Plan of Treatment Date Care Activity Detail Author [facility] Immunizations Immunization Date Immunization Notes Care Provider Fa jonaty 10-22-2022 influenza virus vaccine, unspecified formulation [facility] 10-22-2022 influenza, high dose seasonal, preservative-free Corrie Rohrbacher Other [email or web address] Other 12-13-2020 Do not use COVID-19 Pfizer 2 dose Corrie Rohrbacher Other [facility] 11-27-2020 Toradol per 15 mg Salina Dym ond Other [email or web address] Other 05-07-2020 Do not use COVID-19 Pfizer 2 dose Corrie Rohrbacher Other [facility] 04-16-2020 Do not use COVID-19 Pfizer 2 dose Corrie Rohrbacher Other [facility] 11-30-2019 pneumococcal polysaccharide vaccine, 23 valent Corrie Rohrbacher Other [facility] 11-17-2018 pneumococcal conjuga te vaccine, 13 valent Ocrrie Rohrbacher Other [facility] 09-15-2018 zoster vaccine recombinant Corrie Rohrbacher Other [facility] 07-05-2018 zoster vaccine recombinant Corrie Rohrbacher Other [facility] Payers Date Payer Category Payer Medicare [id number] 2.1 [id number] 1961 Medicare [id number] 2. [id number] 1955 Unknown [id number] 2.16.84 [id number] 1955 Unknown [id number] 2.16.84 [id number] 1955 Unknown [id number] 2.16.84 [id number] 1955 Unknown [id number] 2.16.84 [id number] 1953 Unknown [id number] 2.16.84 [id number] 1953 Unknown [id number] 2.16.84 [id number] 1953 Unknown [id number] 2.16.84 [id number] 1955 Unknown [id number] 2.16.840 .[id number] Medicare Medicare [id number] Unknown MMO [employer] [id number] Social History Date Type Detail Facility Sex Assigned At [facility] Start: 05-23-2023 End: 08-27-2023 Tobacco smoking status NHIS Never smoked tobacco (finding) [facility] Start: 1955 Sex Assigned At [facility] Clinical Notes 11-27-2020 to 11-12-2022 Note Date [...] gout flare. Continue allopurinol for gout prophylaxis. [facility] Other 09-01-2023 Evaluation note* Encounter Date Diagnosis [...] w cr kid I-IV (ICD-10 - I12.9) [facility] 03-16-2023 Evaluation note* Encounter Date Diagnosis [...] gout flare. Continue allopurinol for gout prophylaxis. [facility] 12-15-2022 Evaluation note* Encounter Date Diagnosis [...] gout flare. Continue allopurinol for gout prophylaxis. [facility] Other 09-22-2022 Evaluation note* Encounter Date Diagnosis [...] Other [facility] material was printed [facility] 10-03-2021 Evaluation note* Encounter Date Diagnosis [...] no improvement in 2 to 3 days [facility]* Diagnosis Onset Date Resolution Status B12 deficiency acute CKD (chronic kidney disease) stage 3, GFR 30-59 ml/min acute Gout acute [id number] acute Hypomagnesemia acute Secondary hyperparathyroidism acute Type 2 diabetes mellitus wit h diabetic chronic kidney disease acute [facility] Work Phone: Evaluation note* Diagnosis Onset Date Resolution Status Gout acute Hypertension [facility] Work Phone: [facility] general Narrative - Reported* Type Description Date Medical History hypertension Medical History type I diabetes Medical History gout Surgical History arthroscopic knee surgery [email or web address] Other [facility] general Narrative - Reported* Type Description Date Medical History hypertension Medical History type II diabetes Medical History gout Surgical History arthroscopic knee surgery Surgical History EAR SURGERY Surgical History HYSTERECTOMY Surgical History RECTAL SEAL Hospitalization History SEE ABOVE Legions Other Hisoeif general Narrative - Reported* Type Description Date Medical History hypertension Medical History type II diabetes Medical History gout Medical History ANEMIA Surgical History arthroscopic knee surgery Surgical History EAR SURGERY Surgical History HYSTERECTOMY Surgical History RECTAL SEAL Hospitalization History SEE ABOVE [facility] Other Summary Purpose Family History No Family [...] disease) stage 3, GFR 30-59 ml/min Gout [id number] Hypomagnesemia Secondary hyperparathyroidism Type 2 diabetes mellitus with diabetic chronic kidney disease Chief Complaint 6 month follow up/[place] Reason for Visit Gout Hypertension Additional Source Comments INFORMATION SOURCE (unrecogn ized section and content) DATE CREATED AUTHOR 06/14/2020 [facility] DATE CREATED AUTHOR AUTHOR'S ORGANIZ ATION 05/02/2022 [facility] DATE CREATED AUTHOR AUTHOR'S ORGANIZ ATION 11/08/2023 [facility] EPIC REASON FOR VISIT (unrecogniz ed section and content) LEFT LOWER BACK RADIATING DO WN BUTTOCK AND LEFT LEGRIGHT LOWER BACK PAIN, RADIATING TO BUTTOCK AND HIPCKD and HTNCKD and HTNESTABLISHlab resultsCKD and HTN Care Teams (unrecognized sec tion and content) Team Status: Active Member Role Status Dates Corrie Laam APRN POWER SHOVEL OPERATOR-C Primary Care Provider Active Team Status: Active Member Role Status Dates Corrie Lama APRN POWER SHOVEL OPERATOR-C Primary Care Provider Active Start: April 172023 Judit Flores Attending Provider Active Start: April 17, 2023 Team Status: Active Member Role Status Dates Corrie Lama APRN POWER SHOVEL OPERATOR-C Primary Care Provider, Attending Provider Active Start: May 13, 2023 Team Status: Inactive Member Role Status Dates Corrie Lama APRN POWER SHOVEL OPERATOR-C Primary Care Provider Active Start: May 23, 2023 End: May 23, 2023 Nika Diop MD Attending Provider Active Start : May 23, 2023 End: May 23, 2023 Team Status: Inactive Member Role Status Dates Corrie Lama APRN POWER SHOVEL OPERATOR-C Primary Care Provider, Attending Provider Active Start: [...] BE BASED ON THE PRIMARY CLINICAL RECORDS. [facility]. provides no warranty or guarantee of the accuracy or completeness of information in this document.
[2023-12-09 09:04] LABS: Creatinine Urine Random 145.46 mg/dL (20.00-300.00); Protein Creatinine Ratio Urine 0.11; Total Protein Urine Random 15.6 mg/dL (<=11.9)
[2023-12-09 09:07] LABS: Bilirubin Urine NEGATIVE (NEGATIVE); Blood Urine NEGATIVE (NEGATIVE); Clarity Urine CLEAR (CLEAR); Color Urine LT. YELLOW (YELLOW); Glucose Urine UA NEGATIVE (NEGATIVE); Ketones Urine NEGATIVE (NEGATIVE); Leukocyte Esterase Urine NEGATIVE (NEGATIVE); Nitrite Urine NEGATIVE (NEGATIVE); Protein Urine NEGATIVE (NEG/TRACE); Specific Gravity Urine 1.025 (1.005-1.025); Urobilinogen Urine 0.2 EU/dL (0.2-1.0); pH Urine 5.5 (5.0-9.0)
[2023-12-09 09:08] LABS: Hematocrit 36.9 % (36.0-48.0); Hemoglobin 11.5 g/dL (12.0-16.0); Mean Corpuscular HGB Conc 31.2 g/dL (29.9-35.2); Mean Corpuscular Hemoglobin 30.3 pg (26.7-34.0); Mean Corpuscular Volume 97.1 fL (81.0-99.0); Mean Platelet Volume 10.5 fL (9.5-13.5); Platelet Count 263 10^3/uL (150-450); Red Cell Distribution Width 12.7 % (11.0-15.0); White Blood Count 6.3 10^3/uL (4.0-11.0)
[2023-12-09 09:18] LABS: Bacteria Urine NONE SEEN #/HPF (NONE SEEN); Cast Seen? NONE SEEN #/LPF (NONE SEEN); Crystals Seen? None Seen #/HPF (None Seen); Mucus Urine NONE SEEN (NONE SEEN); RBC Urine 0-2 #/HPF (0-2); Squamous Epithelial Cell Urine RARE #/LPF (NONE/RARE); WBC Urine NONE SEEN #/HPF (NONE SEEN)
[2023-12-09 09:39] LABS: Uric Acid 6.6 mg/dL (2.6-6.0)
[2023-12-10 04:07] LABS: Vitamin B12 689 pg/mL (232-1245)
[2023-12-10 11:09] LABS: PTH, Intact 68 pg/mL (15-65)
== END 2023-12-09 08:29 | disposition home or self-care (01) ==
LOC: LAB 08:28
PROVIDERS: PCP Nurse Practitioner Family; Visit Provider Internal Medicine
DX: E53.8 Deficiency of other specified B group vitamins (principal); N25.81 Secondary hyperparathyroidism of renal origin; M10.9 Gout, unspecified; E83.42 Hypomagnesemia; I12.9 Hypertensive chronic kidney disease with stage 1 through stage 4 chronic kidney disease, or unspecified chronic kidney disease; N18.30 Chronic kidney disease, stage 3 unspecified
CPT/HCPCS: 36415; 81001; 82306; 82570; 82607; 82746; 83735; 83970; 84156; 84550; 85027

== ENCOUNTER 2023-12-23 09:39 | Outpatient (OUT) | payer MEDICARE, OTHER, SELFPAY ==
--- OUTSIDE RECORDS SUMMARY | 2023-12-23 09:57 | XMS_ITS | CCD ---
Author Organization [facility] Partnership [facility] Care Team Providers Care Talent Acquisition Assistant Name Role Phone Salina Singleton Unavailable OcasioDeena cifuentes Unavailable Mick, Nika Unavailable MICK, NIKA Admitting Unavailable MICK, NIKA Attending Unavailable HOUSE, DR TORRES Primary Care Unavailable MICK, NIKA Consulting Unavailable SARASOTA, DR TORRES Admitting Unavailable HOUSE, DR TORRES Attending Unavailable HOUSE, DR TORRES Primary Care Unavailable HOUSE, DR TORRES Consulting Unavailable MICK, NIKA Admitting Unavailable MICK, NIKA Attending Unavailable HOUSE, DR TORRES Primary Care Unavailable MICK, NIKA Consulting Unavailable Corrie Lama Unavailable GITA COTE Attending Unavailable GITA COTE Attending Unavailable GITA COTE Attending Unavailable KERAGITA ARRIAGA Attending Unavailable Medications Current Medications Medication Drug Class(es) Dates Sig (Normalized) Sig (Original) acetaminophen 500 mg oral capsule (1 source) take 2 capsules by mouth every six hours Acetaminophen 500 MG 2 capsule as needed Orally every 6 hrs Active allopurinol 100 mg oral tablet (12 sources) Xanthine Oxidase Inhibitor Start: 05-23-2023 End: [...] tablet Orally Three times a Week Active Icy Hot 7.5 % (Roll) (2 [...] Active magnesium oxide 400 mg oral tablet (3 sources) Start: 05-23-2023 take 400 mg by mouth once daily Magnesium Oxide Active 400 MG PO Daily May 23, 2023 12:00am Medrol Dose Pack as directed (1 source) Start: 11-27-2020 Medrol Dose Pa ck as directed as directed orally as directed for 6 days Nov, Active metFORMIN hydrochloride 500 mg oral tablet (18 sources) Biguanide Start: 08-27-2023 End: 08-27-2023 take 2 tablets by mouth twice daily at mealtime, then take 1 tablet by mouth in the evening Metformin Active 500 MG PO Twice daily with meals 270 90 August 27, 2023 2:16pm 2 tablets in [...] needed Orally every 12 hrs PRN Active vitamin b12 1 mg oral capsule (1 source) Vitamin B12 Start: 12-19-2023 take 1000 ug by mouth once daily Cyanocobalamin (Vitamin B-12) Active 1000 MCG PO Daily December 19, 2023 12:00am Vitamin D3 25 MCG (1000 UT) (1 [...] with meals Orally Twice a day Not-Taking hydroCHLOROthiazide 25 mg / valsartan 320 mg oral tablet (15 sources) Thiazide Diuretic, Angiotensin 2 Receptor David Start: 04-17-2023 End: 08-27-2023 take 1 tablet by mouth once daily Valsartan-Hydroch lorothiazide Discontinued 1 TAB PO Daily April 17, 2023 11:25am August 27, 2023 2:18pm take 1 tablet by neo every twenty-four hours Valsartan-hydroCHLOROthiazide 320-25 MG 1 tablet Orally Once a day for 90 days Active Valsartan-hydroC HLOROthiazide 320-12.5 MG Orally Active Ketorolac (6 sources) Nonsteroidal Anti-inflammatory Drug, Cyclooxygenase Inhibitor Start: 11-27-2020 Toradol per 15 mg Nov, 30 mg Toradol 30 mg/ml (6 sources) Start: 11-16-2021 Toradol 30 mg/ ml Oct, 30 mg Problems Active Problems Problem Classification Problem Date Documented Date Episodic/Chronic Chronic kidney disease (7 sources) Chronic kidney disease, unspecified; Translations: [Chronic kidney disease stage 3] Onset: 2 05-23-2023 Chronic Chronic kidney disease (9 sources) Chronic kidney disease; Translations: [Chronic kidney disease, stage III (moderate)] Deficiency and other anemia (7 sources) Anemia of renal disease; Translations: [Anemia in chronic kidney disease] 08-26-2023 Chronic Deficiency and other anemia (5 sources) Anemia in chronic kidney disease; Translations: [ANEMIA IN CHRONIC KIDNEY DISEASE] Onset: 3 Chronic Diabetes mellitus with complications (19 sources) Disorder of kidney due to diabetes mellitus; Translations: [Type 2 diabetes mellitus with diabetic chronic kidney disease] Onset: 2 Chronic Essential hypertension (3 sources) Hypertensive disorder; Translations: [Essential (primary) hypertension] 08-26-2023 Chronic Gout and other crystal arthropathies (16 sources) Gout; Translations: [Gout, unspecified] Onset: 3 Chronic Hypertension with complications and secondary hypertension (18 sources) Chronic kidney disease due to hypertension; Translations: [Hypertensive chronic kidney disease with stage 1 through stage 4 chronic kidney disease, or unspecified chronic kidney disease] Onset: 3 Chronic Nutritional deficiencies (5 sources) Cobalamin deficiency; Translations: [Deficiency of other specified B group vitamins] 05-23-2023 Episodic Other diseases of kidney and ureters (8 sources) Secondary hyperparathyroidism; Translations: [Secondary hyperparathyroidism of renal origin] 05-23-2023 Chronic Other diseases of kidney and ureters (7 sources) Secondary hyperparathyroidism of renal origin; Translations: [Secondary hyperparathyroidism (of renal origin)] Onset: 3 Chronic Other nutritional; endocrine; and metabolic disorders (7 sources) Hypomagnesemia; Translations: [Hypomagnesemia] 05-23-2023 Chronic Other nutritional; endocrine; and metabolic disorders (5 sources) Hypomagnesemia; Translations: [Disorders of magnesium metabolism] Chronic Other nutritional; endocrine; and metabolic disorders (1 source) Overweight in adulthood with body mass index of 25 or more but less than 30; Translations: [Body mass index (BMI) 27.0-27.9, adult] 08-28-2023 Episodic Spondylosis; intervertebral disc disorders; other back problems [...] Test Name Value Interpretation Reference Range Facility Erythrocyte distribution wid th Auto (RBC) [Ratio]on 12-09-2023 Erythrocyte distribution width (RBC) [Ratio] 12.7 % 11.0-15.0 [facility] Hematocrit Auto (Bld) [Volum e fraction]on 12-09-2023 Hematocrit (Bld) [Volume fraction] 36.9 % 36.0-48.0 [facility] Hemoglobin [Mass/volume] in Bloodon 12-09-2023 Hemoglobin (Bld) [Mass/Vol] 11.5 g/dL Low 12.0-16.0 [facility] Laboratory - Chemistry and C hemistry - challengeon 12-09-2023 Cobalamin (Vitamin B12) [Mass/Vol] 689 pg/mL 232-1245 [facility] Comment on above: Performed at: [address] [id number] Director: Clemente Jacobson PhD, Phone: [phone] Magnesium [Mass/Vol] 2.0 mg/dL 1.8-2.4 [facility] Urate [Mass/Vol] 6.6 mg/dL High 2.6-6.0 [facility] Bilirubin Ql (U) Negative NEGATIVE [facility] Glucose (U) [Mass/Vol] Negative NEGATIVE [facility] Ketones Ql (U) Negative NEGATIVE [facility] pH (U) 5.5 [pH] 5.0-9.0 [facility] Specific gravity (U) [Rel density] 1.025 1.005-1.025 [facility] Urobilinogen Qn (U) 0.2 {Ga'U}/dL 0.2-1.0 [facility] - Specimen inform ationon 12-09-2023 Appearance (U) CLEAR CLEAR [facility] Color (U) LT. YELLOW YELLOW [facility] Laboratory - Urinalysison Leukocyte esterase Test strip Ql (U) Negative NEGATIVE [facility] Mucus Ql (Urine sed) NONE SEEN NONE SEEN [facility] Nitrite Ql (U) Negative NEGATIVE [facility] Protein (U) [Mass/Vol] 15.6 mg/dL High <=11.9 [facility] Protein Ql (U) Negative NEG/TRACE [facility] Leukocytes [#/volume] correc yogesh for nucleated erythrocytes in Blood by Automated counon 12-09-2023 WBC corrected for nucl RBC Auto (Bld) [#/Vol] 6.3 10 3/uL 4.0-11.0 [facility] MCH Auto (RBC) [Entitic mass ]on 12-09-2023 MCH (RBC) [Entitic mass] 30.3 pg 26.7-34.0 [facility] MCHC Auto (RBC) [Mass/Vol]on 12-09-2023 MCHC (RBC) [Mass/Vol] 31.2 g/dL 29.9-35.2 [facility] MCV Auto (RBC) [Entitic vol] on 12-09-2023 MCV (RBC) [Entitic vol] 97.1 fL 81.0-99.0 [facility] No Panel Informationon 12-08 25-Hydroxy Vitamin D Total 29.6 ng/mL [facility] Comment on above: <20 ng/mL Vit D defi cient20-<30 ng/mL Vit D iurinudxvegu86-409 ng/mL Vit D sufficient>100 ng/mL Potential Toxicity Folate 9.40 ng/mL 8.60-58.90 [facility] Parathyroid Hormone (Intact) 68 pg/mL Abnormal 15-65 [facility] Comment on above: Performed at: - [address] [id number] Director: Clemente Jacobson PhD, Phone: [phone] Urine Bacteria NONE SEEN #/HPF NONE SEEN [facility] Urine Occult Blood Negative NEGATIVE [facility] [place] [facility] Urine Other Casts NONE SEEN #/LPF NONE SEEN [facility] Urine Other Crystals None Seen #/HPF None Seen [facility] Urine Random Creatinine 145.46 mg/dL 20.00-300.00 [facility] Urine RBC 0-2 #/HPF 0-2 [facility] Urine Squamous Epithelial Cells RARE #/LPF NONE/RARE [facility] Urine WBC NONE SEEN #/HPF NONE SEEN [facility] Platelet mean volume Auto (B ld) [Entitic vol]on 12-09-2023 Platelet mean volume (Bld) [Entitic vol] 10.5 fL 9.5-13.5 [facility] Platelets Auto (Bld) [#/Vol] on 12-09-2023 Platelets (Bld) [#/Vol] 263 10 3/uL 150-450 [facility] RBC Auto (Bld) [#/Vol]on RBC (Bld) [#/Vol] 3.80 10 6/uL Low 4.20-5.40 [facility] Urine protein/creatinine rat ioon 12-09-2023 Protein/Creatinine (U) [Ratio] 0.11 [facility] Automated epithelial cells c ount in urine sediment (number/area)on 05-13-2023 Epithelial cells Auto (Urine sed) [#/Area] RARE #/LPF NONE/RARE [facility] Automated leukocytes count i n urine sediment (number/area)on 05-13-2023 WBC Auto (Urine sed) [#/Area] 0-2 #/HPF 0-2 [facility] Automated urine specific gra vity by refractometryon 05-13-2023 Specific gravity Refractometry automated (U) [Rel density] 1.025 1.005-1.025 [facility] Bilirubin Auto test strip (U ) [Mass/Vol]on 05-13-2023 Bilirubin (U) [Mass/Vol] Negative NEGATIVE [facility] Casts typing in urine sedime nt by light microscopyon 05-13-2023 Casts LM Nom (Urine sed) NONE SEEN #/LPF NONE SEEN [facility] Color Auto (U)on 05-13-2023 Color (U) LT. YELLOW YELLOW [facility] Erythrocyte distribution wid th Auto (RBC) [Ratio]on 05-13-2023 Erythrocyte distribution width (RBC) [Ratio] 12.7 % 11.0-15.0 [facility] Estimated glomerular filtrat ion rate (GFR) non- Americanon 05-13-2023 GFR/1.73 sq M.predicted among non-blacks MDRD (S/P/Bld) [Vol rate/Area] 39 mL/min/{1.73_m2} >=60 [facility] Hematocrit Auto (Bld) [Volum e fraction]on 05-13-2023 Hematocrit (Bld) [Volume fraction] 38.7 % 36.0-48.0 [facility] Hemoglobin [Mass/volume] in Bloodon 05-13-2023 Hemoglobin (Bld) [Mass/Vol] 12.0 g/dL 12.0-16.0 [facility] Iron binding capacity [Mass/ volume] in Serum or Plasmaon 05-13-2023 Iron binding capacity [Mass/Vol] 385.0 ug/dL 250.0-450.0 [facility] Iron saturation [Mass Fracti on] in Serum or Plasmaon 05-13-2023 Iron saturation [Mass fraction] 16.4 % [facility] Ketones Auto test strip (U) [Mass/Vol]on 05-13-2023 Ketones (U) [Mass/Vol] Negative NEGATIVE [facility] Laboratory - Chemistry and C hemistry - challengeon 05-13-2023 Albumin [Mass/Vol] 4.0 g/dL 3.4-5.0 [facility] [place] [facility] Calcium [Mass/Vol] 9.5 mg/dL 8.5-10.1 [facility] [place] [facility] Chloride [Moles/Vol] 104 mmol/L 98-107 [facility] CO2 [Moles/Vol] 26.0 mmol/L 21.0-32.0 [facility] Cobalamin (Vitamin B12) [Mass/Vol] 173.0 pg/mL 193.0-986.0 [facility] Creatinine [Mass/Vol] 1.35 mg/dL 0.55-1.02 [facility] Ferritin [Mass/Vol] 45.0 ng/mL 8.0-252.0 [facility] GFR/1.73 sq M.predicted MDRD (S/P/Bld) [Vol rate/Area] 47 mL/min/{1.73_m2} >=60 [facility] Glucose [Mass/Vol] 119 mg/dL 74-106 [facility] [place] [facility] Iron [Mass/Vol] 63.0 ug/dL 50.0-170.0 [facility] Magnesium [Mass/Vol] 1.9 mg/dL 1.8-2.4 [facility] Potassium [Moles/Vol] 4.3 mmol/L 3.5-5.1 [facility] Sodium [Moles/Vol] 143 mmol/L 136-145 [facility] [place] [facility] Urate [Mass/Vol] 5.7 mg/dL 2.6-6.0 [facility] Urea nitrogen [Mass/Vol] 34.0 mg/dL 7.0-18.0 [facility] Urea nitrogen/Creatinine [Mass ratio] 25.2 mg/mg [facility] Laboratory - Urinalysison Protein (U) [Mass/Vol] 13.2 mg/dL <=11.9 [facility] Leukocytes [#/volume] correc yogesh for nucleated erythrocytes in Blood by Automated counon 05-13-2023 WBC corrected for nucl RBC Auto (Bld) [#/Vol] 6.9 10 3/uL 4.0-11.0 [facility] MCH Auto (RBC) [Entitic mass ]on 05-13-2023 MCH (RBC) [Entitic mass] 30.0 pg 26.7-34.0 [facility] MCHC Auto (RBC) [Mass/Vol]on 05-13-2023 MCHC (RBC) [Mass/Vol] 31.0 g/dL 29.9-35.2 [facility] MCV Auto (RBC) [Entitic vol] on 05-13-2023 MCV (RBC) [Entitic vol] 96.8 fL 81.0-99.0 [facility] Mucus LM Ql (Urine sed)on Mucus Ql (Urine sed) NONE SEEN NONE SEEN [facility] No Panel Informationon 05-12 25-Hydroxy Vitamin D Total 35.5 ng/mL [facility] Comment on above: <20 ng/mL Vit D defi cient20-<30 ng/mL Vit D gvfivpnmuelx74-656 ng/mL Vit D sufficient>100 ng/mL Potential Toxicity Folate 9.80 ng/mL 8.60-58.90 [facility] Parathyroid Hormone (Intact) 64 pg/mL 15-65 [facility] Comment on above: Performed at: [facility] [place] [id number] Director: Clemente Jacobson PhD, Phone: [phone] Phosphorus Level 4.0 mg/dL 2.6-4.7 [facility] Urine Random Creatinine 118.68 mg/dL 20.00-300.00 [facility] Platelet mean volume Auto (B ld) [Entitic vol]on 05-13-2023 Platelet mean volume (Bld) [Entitic vol] 10.2 fL 9.5-13.5 [facility] Platelets Auto (Bld) [#/Vol] on 05-13-2023 Platelets (Bld) [#/Vol] 273 10 3/uL 150-450 [facility] Protein Auto test strip (U) [Mass/Vol]on 05-13-2023 Protein (U) [Mass/Vol] Negative NEG/TRACE [facility] RBC Auto (Bld) [#/Vol]on RBC (Bld) [#/Vol] 4.00 10 6/uL 4.20-5.40 [facility] Serum or plasma anion gap de terminationon 05-13-2023 Anion gap [Moles/Vol] 17.3 mmol[facility] Specific gravity Auto test s trip (U) [Rel density]on 05-13-2023 Specific gravity (U) [Rel density] CLEAR CLEAR [facility] Urine bacteria detection by automated methodon 05-13-2023 Bacteria Auto Ql (U) NONE SEEN #/HPF NONE SEEN [facility] Urine glucose measurement by test strip (mass/volume)on 05-13-2023 Glucose Test strip (U) [Mass/Vol] Negative NEGATIVE [facility] Urine hemoglobin detection b y automated test stripon 05-13-2023 Hemoglobin Auto test strip Ql (U) Negative NEGATIVE [facility] Urine nitrite detection by a utomated test stripon 05-13-2023 Nitrite Auto test strip Ql (U) Negative NEGATIVE [facility] Urine protein/creatinine rat ioon 05-13-2023 Protein/Creatinine (U) [Ratio] 0.11 [facility] Urine sediment crystal ident ification by light microscopyon 05-13-2023 Crystals LM Nom (Urine sed) None Seen #/HPF None Seen [facility] Urine sediment leukocyte cou nt by microscopy (number/high power field)on 05-13-2023 WBC LM.HPF (Urine sed) [#/Area] 0-2 #/HPF NONE SEEN [facility] Urobilinogen Auto test strip (U) [Mass/Vol]on 05-13-2023 Urobilinogen Qn (U) 0.2 {Ga'U}/dL 0.2-1.0 [facility] pH Auto test strip (U)on pH (U) 5.5 [pH] 5.0-9.0 [facility] PTH INTACTon 05-01-2022 PTH, Intact 53 pg/mL Normal 15-[address] [facility] Comment on above: Performed By: #### P THINT #### [facility] [address] [place], [place] [address] Dr. Isacc Zapata FERRITINon 04-30-2022 Ferritin [Mass/Vol] 26.0 ng/mL Normal 8.0-252.0 [facility] Comment on above: Performed By: #### V ITAD, FERR, FETIBC ####[facility] [address] [place] [address]Dr. Isacc Zapata HEMOGRAM AND PLATELon 2022 Hematocrit (Bld) [Volume fraction] 35.8 % Critically low 36.0-48.[address] [facility] Comment on above: Performed By: #### H H ####[facility] [address] [place] [address]Dr. Isacc Zapata Hemoglobin (Bld) [Mass/Vol] 11.3 g/dL Critically low 12.0-16.0 [facility] Comment on above: Performed By: #### H H ####[facility] [address] [place] [address]Dr. Isacc Zapata MCH (RBC) [Entitic mass] 29.4 pg Normal 26.7-34.[address] [facility] Comment on above: Performed By: #### H H ####[facility] [address] [place], [place] [address]Dr. Isacc Zapata MCHC (RBC) [Mass/Vol] 31.6 g/dL Normal 29.9-35.2 [facility] Comment on above: Performed By: #### H H ####[facility] [address] [place], [place] [address]Dr. Isacc Zapata MCV (RBC) [Entitic vol] 93.0 fL Normal 81.0-99.0 [facility] Comment on above: Performed By: #### H H ####[facility] [address] [place], [place] [address]Dr. Isacc Zapata PLT 270 103/ul Normal 150-450 [facility] Comment on above: Performed By: #### H H ####[facility] [address] [place] [address]Dr. Isacc Zapata RBC 3.85 106/ul Critically low 4.20-5.40 [facility] Comment on above: Performed By: #### H H ####[facility] [address] [place] [address]Dr. Isacc Zapata WBC 6.4 103/ul Normal 4.0-11.0 [facility] Comment on above: Performed By: #### H H ####[facility] [address] [place] [id number]. Isacc Zapata IRON AND TIBCon 04-30-2022 % SATURATION 21.4 % Normal [facility] Comment on above: Performed By: #### V ITAD, FERR, FETIBC ####[facility] [address] [place] [id number]. Isacc Zapata Iron [Mass/Vol] 81.0 ug/dL Normal 50.0-170.0 [facility] Comment on above: Performed By: #### V ITAD, FERR, FETIBC ####[facility] [address] [place] [address]Dr. Isacc Zapata TIBC DIRECT 379.0 ug/dL Normal 250.0-450.0 [facility] Comment on above: Performed By: #### V ITAD, FERR, FETIBC ####[facility] [address] [place] [address]DrMichelle Zapata MAGNESIUMon 04-30-2022 Magnesium [Mass/Vol] 1.7 mg/dL Critically low 1.8-2.4 [facility] Comment on above: Performed By: #### M Jesus, RENAL, URIC #### [facility] [address] [place] [address] [address] Isacc Zapata RENAL FUNCTION PANELon 04-30 Albumin [Mass/Vol] 4.0 g/dL Normal 3.4-5.0 [facility] Comment on above: Performed By: #### M G, RENAL, URIC #### [facility] [address] [place] [address] [address] Isacc Zapata Calcium [Mass/Vol] 9.2 mg/dL Normal 8.5-10.1 [facility] Comment on above: Performed By: #### M G, RENAL, URIC #### [facility] [address] [place] [address] [address] Isacc Zapata Chloride [Moles/Vol] 107 mmol/L Normal 98-107 [facility] Comment on above: Performed By: #### M G, RENAL, URIC #### [facility] [address] [place] [address] [address] Isacc Zapata CO2 [Moles/Vol] 24.9 mmol/L Normal 21.0-32.0 [facility] Comment on above: Performed By: #### M G, RENAL, URIC #### [facility] [address] [place] [address] [address] Isacc Zapata Creatinine [Mass/Vol] 1.45 mg/dL Critically high 0.55-1.[address] [facility] Comment on above: Performed By: #### M G, RENAL, URIC #### [facility] [address] [place] [address] [address] Isacc Zapata EGFR-AF GUYANESE 44 mL/min/1.73m2 Critically low >=[address] [facility] Comment on above: Performed By: #### M G, RENAL, URIC #### [facility] [address] [place] [address] [address] Isacc Zapata EGFR-NON AF GUYANESE 36 mL/min/1.73m2 Critically low >=[address] [facility] Comment on above: Performed By: #### M G, RENAL, URIC #### [facility] [address] [place] [address] [address] Isacc Zapata Glucose [Mass/Vol] 122 mg/dL Critically high 74-106 [facility] Comment on above: Performed By: #### M G, RENAL, URIC #### [facility] [address] [place] [address] [address] Isacc Zapata Phosphate [Mass/Vol] 3.8 mg/dL Normal 2.6-4.[address] [facility] Comment on above: Performed By: #### M G, RENAL, URIC #### [facility] [address] [place] [address] [address] Isacc Zapata Potassium [Moles/Vol] 4.0 mmol/L Normal 3.5-5.[address] [facility] Comment on above: Performed By: #### M G, RENAL, URIC #### [facility] [address] [place] [address] [address] Isacc Zapata Sodium [Moles/Vol] 143 mmol/L Normal 136-145 [facility] Comment on above: Performed By: #### M G, RENAL, URIC #### [facility] [address] [place] [address] [address] Isacc Zapata Urea nitrogen [Mass/Vol] 32.0 mg/dL Critically high 7.0-18.[address] [facility] Comment on above: Performed By: #### M G, RENAL, URIC #### [facility] [address] [place] [address] [address] Isacc Zapata UA RANDOM W/MICROSCOPICon BACTERIA NONE SEEN Normal NONE SEEN [facility] Comment on above: Performed By: #### U AMIC ####[facility] [address] [place] [address]Dr. Isacc Zapata Bilirubin Ql (U) Negative Normal NEGATIVE [facility] Comment on above: Performed By: #### U AMIC ####[facility] [address] [place] [address]Dr. Isacc Zapata CAST NONE SEEN Normal NONE SEEN [facility] [facility] Comment on above: Performed By: #### U AMIC ####[facility] [address] [address]Dr. Isacc Zapata Clarity (U) CLEAR Normal CLEAR [facility] Comment on above: Performed By: #### U AMIC ####[facility] [address] [address]Dr. Isacc Zapata Color (U) YELLOW Normal YELLOW [facility] Comment on above: Performed By: #### U AMIC ####[facility] [address] [address]Dr. Isacc Zapata Crystals LM Nom (Urine sed) NONE SEEN Normal NONE SEEN [facility] Comment on above: Performed By: #### U AMIC ####[facility] [address] [address]Dr. Isacc Zapata Epithelial cells LM Ql (Urine sed) RARE Normal NONE SEEN /RARE [facility] Comment on above: Performed By: #### U AMIC ####[facility] Ir[address] [place], [place] [address]Dr. Isacc Zapata Glucose Ql (U) Negative Normal NEGATIVE The [facility] Comment on above: Performed By: #### U AMIC ####[facility] [address] [place], [place] [address]Dr. Isacc Zapata Hemoglobin Ql (U) Negative Normal NEGATIVE [facility] Comment on above: Performed By: #### U AMIC ####[facility] Tarwgte[address] [place], [place] [address]Dr. Isacc Benny Ketones Ql (U) Negative Normal NEGATIVE [facility] Comment on above: Performed By: #### U AMIC ####[facility] L[address]ful[address] [place], [place] [address]Dr. Isacc Zapata LEUKOCYTES Negative Normal NEGATIVE [facility] Comment on above: Performed By: #### U AMIC ####[facility] Sen[address] [place], [place] [address]Dr. Isacc Zapata MUCOUS NONE SEEN Normal NONE SEEN [facility] Comment on above: Performed By: #### U AMIC ####[facility] Rh[address] [place], [place] [address]Dr. Isacc Benny Nitrite Ql (U) Negative Normal NEGATIVE [facility] Comment on above: Performed By: #### U AMIC ####[facility] R[address] [place], [place] [address]Dr. Isacc Zapata pH (U) 5.5 [pH] Normal 5-[address] [facility] Comment on above: Performed By: #### U AMIC ####[facility] Htdz[address] [place], [place] [address]Dr. Isacc Zapata RBC 0-2 Normal 0-[address] [facility] Comment on above: Performed By: #### U AMIC ####[facility] Itjacj[address] [place], [place] [address]Dr. Isacc Zapata SPEC GRAVITY >=1.030 Abnormal 1.005-<=1.025 [facility] Comment on above: Performed By: #### U AMIC ####[facility] Rp[address] [place], [place] [address]Dr. Isacc Zapata UA PROTEIN Negative Normal NEGATIVE/ TRACE [facility] Comment on above: Performed By: #### U AMIC ####[facility] [address] [address]Dr. Isacc Zapata Urobilinogen Qn (U) 0.2 {Ga'U}/dL Normal 0.2 - 1. 0 [facility] Comment on above: Performed By: #### U AMIC ####[facility] [address] [address]DrMichelle Zapata WBC NONE SEEN Normal NONE SEEN [facility] Comment on above: Performed By: #### U AMIC ####[facility] [address] [address]Dr. Isacc Zapata URIC ACID SERUMon 04-30-2022 Urate [Mass/Vol] 6.6 mg/dL Critically high 2.6-6.[address] [facility] Comment on above: Performed By: #### M G, RENAL, URIC #### [facility] [address] [address] [address] Isacc Zapata URINE T PROTEIN CREAT RATIOo n 04-30-2022 Protein (U) [Mass/Vol] 37.5 mg/dL Critically high <=12.[address] [facility] Comment on above: Performed By: #### U RTPCR #### [facility] [address] [address] [address] Isacc Zapata UR PROT CREAT RAT 0.18 Normal The [facility] Comment on above: Performed By: #### U RTPCR #### [facility] [address] [address] [address] Isacc Zapata URINE CREAT 205.21 mg/dL Normal 20.00-300.00 [facility] Comment on above: Performed By: #### U RTPCR #### [facility] [address] [address] [address] Isacc Zapata VITAMIN D 25 OHon 04-30-2022 VIT D 25-OH 39.7 ng/mL Normal [facility] Comment on above: Performed By: #### V ITAD, FERR, FETIBC ####[facility] [address] [place], [place] [address]IeDr. Isacc Zapata VIT D RANGES SEE BELOW Normal [facility] Comment on above: Result Comment: <20 ng/mL Vit D deficient 20 - <30 ng/mL Vit D insufficient 30 - 100 ng/mL Vit D sufficient >100 ng/mL Potential Toxicity Performed By: #### V ITAD, FERR, FETIBC ####[facility] [address] [place], [place] [address]UfDr. Isacc Zapata US KIDNEYSon 02-16-2022 US KIDNEYS [...] MICKY JANSEN Date: 2022-02-16 07:45 Normal [facility] CBC AUTO DIFFon 12-26-2021 BASO # 0.1 103/ul Normal 0.0-0.[address] [facility] Comment on above: Performed By: #### C BC #### [facility] [address] [address] [address] Isacc Zapata Basophils/100 WBC (Bld) 1.0 % Normal 0.2-2.[address] [facility] Comment on above: Performed By: #### C BC #### [facility] [address] [address] [address] Isacc Zapata EO # 0.2 103/ul Normal 0.0-0.[address] [facility] Comment on above: Performed By: #### C BC #### [facility] [address] [place] [address] Dr. Isacc Zapata Eosinophils/100 WBC (Bld) 3.3 % Normal 0.9-7.[address] [facility] Comment on above: Performed By: #### C BC #### [facility] [address] [place] [address] Dr. Isacc Zapata Erythrocyte distribution width (RBC) [Ratio] 12.7 % Normal 11.0-15.[address] [facility] Comment on above: Performed By: #### C BC #### [facility] [address] [place] [address] Dr. Isacc Zapata Hematocrit (Bld) [Volume fraction] 37.4 % Normal 36.0-48.[address] [facility] Comment on above: Performed By: #### C BC #### [facility] [address] [place] [address] Dr. Isacc Zapata Hemoglobin (Bld) [Mass/Vol] 11.8 g/dL Critically low 12.0-16.[address] [facility] Comment on above: Performed By: #### C BC #### [facility] [address] [place] [address] Dr. Isacc Zapata IG # 0.02 10e3/ul Normal 0.00-0.[address] [facility] Comment on above: Performed By: #### C BC #### [facility] [address] [place] [address] Dr. Isacc Zapata IG % 0.3 % Normal 0.0-0.[address] [facility] Comment on above: Performed By: #### C BC #### [facility] [address] [place] [address] Dr. Isacc Zapata LYMPH # 1.8 103/ul Normal 1.2-3.8 [facility] Comment on above: Performed By: #### C BC #### [facility] [address] [place] [address] Dr. Isacc Zapata Lymphocytes/100 WBC (Bld) 25.3 % Normal 20.5-60.[address] [facility] Comment on above: Performed By: #### C BC #### [facility] [address] [place] [address] Dr. Isacc Zapata MANUAL DIFF REQ NO Normal [facility] Comment on above: Performed By: #### C BC #### [facility] [address] [place] [address] Dr. Isacc Zapata MCH (RBC) [Entitic mass] 29.9 pg Normal 26.7-34.[address] [facility] Comment on above: Performed By: #### C BC #### [facility] [address] [place] [address] Dr. Isacc Zapata MCHC (RBC) [Mass/Vol] 31.6 g/dL Normal 29.9-35.[address] [facility] Comment on above: Performed By: #### C BC #### [facility] [address] [place] [address] Dr. Isacc Zapata MCV (RBC) [Entitic vol] 94.7 fL Normal 81.0-99.[address] [facility] Comment on above: Performed By: #### C BC #### [facility] [address] [place] [address] Dr. Isacc Zapata MONO # 0.5 103/ul Normal 0.3-0.[address] [facility] Comment on above: Performed By: #### C BC #### [facility] [address] [place] [address] Dr. Isacc Zapata Monocytes/100 WBC (Bld) 7.4 % Normal 1.7-12.[address] [facility] Comment on above: Performed By: #### C BC #### [facility] [address] [place] [address] Dr. Isacc Zapata NEUT # 4.4 103/ul Normal 1.4-6.5 [facility] Comment on above: Performed By: #### C BC #### [facility] [address] [place] [address] Dr. Isacc Zapata Neutrophils/100 WBC (Bld) 62.7 % Normal 43.0-75.[address] [facility] Comment on above: Performed By: #### C BC #### [facility] [address] [place], [place] [address] Dr. Isacc Zapata Platelet mean volume (Bld) [Entitic vol] 10.3 fL Normal 9.5-13.[address] [facility] Comment on above: Performed By: #### C BC #### [facility] [address] [address] [address] Isacc Zapata PLT 246 103/ul Normal 150-450 [facility] Comment on above: Performed By: #### C BC #### [facility] [address] [place], [place] [address] Dr. Isacc Zapata RBC 3.95 106/ul Critically low 4.20-5.40 [facility] Comment on above: Performed By: #### C BC #### [facility] [address] [address] [address] Isacc Zapata WBC 7.1 103/ul Normal 4.0-11.[address] [facility] Comment on above: Performed By: #### C BC #### [facility] [address] [address] [address] Isacc Zapata GLYCOHEMOGLOBIN A1Con 2021 ADA RECOMMENDATION SEE BELOW Normal [facility] Comment on above: Result Comment: ADA RECOMMENDED LIMIT 4.0 - 6.0 ADA THERAPEUTIC TARGET < 7.0 ACTION SUGGESTED > 7.0 Performed By: #### A 1C ####[facility] [address] [place] [id number]. Isacc Zapata Glucose [Mass/Vol] 146 mg/dL Normal [facility] Comment on above: Performed By: #### A 1C ####[facility] [address] [place], [place] [address]OwDr. Isacc Zapata HbA1c (Bld) [Mass fraction] 6.7 % Critically high 4.5-6.[address] [facility] Comment on above: Performed By: #### A 1C ####[facility] [address] [place] [id number]. Isacc Zapata LIPID PROFILEon 12-26-2021 CHOL-HDL RATIO NORM SEE BELOW Normal [facility] Comment on above: Result Comment: 3.3 - 4.4 LOW RISK 4.4 - 7.1 AVERAGE RISK 7.1 - 11.0 MODERATE RISK >11.0 HIGH RISK Performed By: #### C MP, URIC, LIPID #### [facility] [address] [address] [address] Isacc Zapata Cholesterol [Mass/Vol] 195 mg/dL Normal <=[address] [facility] Comment on above: Performed By: #### C MP, URIC, LIPID #### [facility] [address] [address] [address] Isacc Zapata Cholesterol in HDL [Mass/Vol] 46 mg/dL Normal 40-[address] [facility] Comment on above: Performed By: #### C MP, URIC, LIPID #### [facility] [address] [address] [address] Isacc Zapata Cholesterol in LDL [Mass/Vol] 118.0 mg/dL Normal [facility] Comment on above: Performed By: #### C MP, URIC, LIPID #### [facility] [address] [address] [address] Isacc Zapata Cholesterol.total/Cho lesterol in HDL [Mass ratio] 4.2 {ratio} Normal [facility] Comment on above: Performed By: #### C MP, URIC, LIPID #### [facility] [address] [address] [address] Isacc Zapata HDL NORMAL > or = 60 mg/dl - LOW CARDIOVASCULAR RISK <40 mg/dl - HIGH CARDIOVASCULAR RISK Normal [facility] Comment on above: Performed By: #### C MP, URIC, LIPID #### [facility] [address] [address] [address] Isacc Zapata LDL CALC NORMAL SEE BELOW Normal [facility] Comment on above: Result Comment: <100 mg/dl OPTIMAL 100 - 129 mg/dl NEAR OR ABOVE OPTIMAL 130 - 159 mg/dl BORDERLINE HIGH 160 - 189 mg/dl HIGH >190 mg/dl VERY HIGH Performed By: #### C MP, URIC, LIPID #### [facility] [address] [address] [address] Isacc Zapata Triglyceride [Mass/Vol] 155 mg/dL Critically high <=[address] [facility] Comment on above: Performed By: #### C MP, URIC, LIPID #### [facility] [address] [address] [address] Isacc Zapata VLDL CALC 31.0 mg/dL Normal [facility] Comment on above: Performed By: #### C MP, URIC, LIPID #### [facility] [address] [address] [address] Isacc Zapata MICROALBUMIN, RAND URon 11-0 mALB 2.9 mg/L Normal <=30.[address] [facility] Comment on above: Performed By: #### M ALBR ####[facility] [address] [address]Dr. Isacc Zapata PROF 14(COMP METB)on 022 Albumin [Mass/Vol] 4.0 g/dL Normal 3.4-5.0 [facility] Comment on above: Performed By: #### C MP, URIC, LIPID #### [facility] [address] [address] [address] Isacc Zapata Albumin/Globulin [Mass ratio] 1.0 {ratio} Normal [facility] Comment on above: Performed By: #### C MP, URIC, LIPID #### [facility] [address] [address] [address] Isacc Zapata ALP [Catalytic activity/Vol] 68 U/L Normal 46-[address] [facility] Comment on above: Performed By: #### C MP, URIC, LIPID #### [facility] [address] [address] [address] Isacc Zapata ALT [Catalytic activity/Vol] 16 U/L Normal 14-[address] [facility] Comment on above: Performed By: #### C MP, URIC, LIPID #### [facility] [address] [address] [address] Isacc Zapata Anion gap [Moles/Vol] 13.9 mmol/L Normal [facility] Comment on above: Performed By: #### C MP, URIC, LIPID #### [facility] [address] [address] [address] Isacc Zapata AST [Catalytic activity/Vol] 12 U/L Critically low 15-[address] [facility] Comment on above: Performed By: #### C MP, URIC, LIPID #### [facility] [address] [address] [address] Isacc Zapata Bilirubin [Mass/Vol] 0.2 mg/dL Normal 0.2-1.[address] [facility] Comment on above: Performed By: #### C MP, URIC, LIPID #### [facility] [address] [address] [address] Isacc Zapata Calcium [Mass/Vol] 9.8 mg/dL Normal 8.5-10.1 [facility] Comment on above: Performed By: #### C MP, URIC, LIPID #### [facility] [address] [address] [address] Isacc Zapata Chloride [Moles/Vol] 105 mmol/L Normal 98-107 [facility] Comment on above: Performed By: #### C MP, URIC, LIPID #### [facility] [address] [address] [address] Isacc Zapata CO2 [Moles/Vol] 28.4 mmol/L Normal 21.0-32.0 [facility] Comment on above: Performed By: #### C MP, URIC, LIPID #### [facility] [address] [address] [address] Isacc Zapata Creatinine [Mass/Vol] 1.38 mg/dL Critically high 0.55-1.[address] [facility] Comment on above: Performed By: #### C MP, URIC, LIPID #### [facility] [address] [address] [address] Isacc Zapata EGFR-AF GUYANESE 46 mL/min/1.73m2 Critically low >=[address] [facility] Comment on above: Performed By: #### C MP, URIC, LIPID #### [facility] [address] [address] [address] Isacc Zapata EGFR-NON AF GUYANESE 38 mL/min/1.73m2 Critically low >=60 [facility] Comment on above: Performed By: #### C MP, URIC, LIPID #### [facility] [address] [address] [address] Isacc Zapata Globulin (S) [Mass/Vol] 4.0 g/dL Normal [facility] Comment on above: Performed By: #### C MP, URIC, LIPID #### [facility] [address] [address] [address] Isacc Zapata Glucose [Mass/Vol] 127 mg/dL Critically high 74-106 [facility] Comment on above: Performed By: #### C MP, URIC, LIPID #### [facility] [address] [place] [address] Dr. Isacc Zapata Potassium [Moles/Vol] 4.3 mmol/L Normal 3.5-5.[address] [facility] Comment on above: Performed By: #### C MP, URIC, LIPID #### [facility] [address] [place] [address] Dr. Isacc Zapata Protein [Mass/Vol] 8.0 g/dL Normal 6.4-8.2 [facility] Comment on above: Performed By: #### C MP, URIC, LIPID #### [facility] [address] [place] [address] Dr. Isacc Zapata Sodium [Moles/Vol] 143 mmol/L Normal 136-145 [facility] Comment on above: Performed By: #### C MP, URIC, LIPID #### [facility] [address] [place] [address] Dr. Isacc Zapata Urea nitrogen [Mass/Vol] 39.0 mg/dL Critically high 7.0-18.[address] [facility] Comment on above: Performed By: #### C MP, URIC, LIPID #### [facility] [address] [place] [address] Dr. Isacc Zapata Urea nitrogen/Creatinine [Mass ratio] 28.3 mg/mg Normal [facility] Comment on above: Performed By: #### C MP, URIC, LIPID #### [facility] [address] [place] [address] Dr. Isacc Zapata URIC ACID SERUMon 12-26-2021 Urate [Mass/Vol] 6.0 mg/dL Normal 2.6-6.0 [facility] Comment on above: Performed By: #### C MP, URIC, LIPID #### [facility] [address] [place] [address] Dr. Isacc Zapata Coding Summaryon 06-13-2020 Coding Summary HTMLBase 64 NocedirrZXf6uNt+PGhl YWQ+AH8NTANoY78owWUd hJ2EQ3fUFB5MOLCJBRPH SP5NCK4ubYD1UXmyB1Sy biAv AihibRIzNY28RUl1UAC7 gKtlNQnfbJ9ldNVmY2y8 BhOtUF87hB66NBqdZNHx UeF8BzEtgxjfsXOp T5ydNsJhyXSjYzi+PHRh YmxlIHdpZHRoPScxMDAl KcObtXdaPK9nBz1bXTZb LWNvbGxhcHNlOiBj w3ccHLQzZNukFD3oeWer S7ZjgNI6IOFcj5x7Uz55 dHI+DBZzCQG0oFghQWdu g823UmOre1bkJNZ6 eBMmHLhxVQW3A35ig8K8 FARvPAXgETE1oCW1vA4a aNexhpmtT4ApiMMqRiS1 HVX5xYAjoU0hmEhe fxrmjH7wNpr+C37VSZ7A OXVULF9LFen9S5NdAiax dHI+WR33ISVqBG28bKCj hVCli0eglPq5OnCt HACmHVW9zIojMZqzm6Jr AOGwY00hrSLrs7D5ZBIh vVtetYZzGePtmHS8yV7x UJtdecjce0hvuzkm Fguyc4kjzh23fE38U57e ZPgaBJEeLSX5MEDgYLDq qYmgey5mkD9aCl1+IDxj f7wnt4lfzXx2SfJe TTNcprFieMcdMKQ5s5Zs Hh12Y6DbeXhuv6DvTqp7 jm55hFNsr4N8hAF3JIsq KCYulK1jKBlfRtU3 BOEmMcXscC85zOEjAEui Wt3hdGvesOlwOU9bHXDu woopKYUijS4dWNHfeAGj aQceFO2hPNZcwgaw i897EuQoVUX2CUObxDOx N3XmpZ8tBxCtHMJjLXZq R2LswDNiDQpnV367CFzq PyH2KZQqjdKbB2Pj OXZwwJjdNtF6h1T8Kl1A i0MlunbyMFZ7CHxiUUJ7 SrL5AvHsSjB6U3RyPnr2 DVZsdCvqVF2fN3Pd WJPjcpgzksbfcFG9KMQn KXZiqI36cCHqIHwqYc2u v7U8b642ONFaTXGvxF47 Dg0pqGccSOEfyJQL fZ3ymxfuv4wrjnxaHwXw DWJlOCj0BTv9SJAyoAsd NdKzJZN9DqH0RIK4bBBu eM0gsEhfcndhhL3s Oyc+I45esI0xGOP5YCN4 ycnxUSRysfItPY06YB02 E4WrNvmkkFKweOT+PGRp kyGbyMtmVH0vKwEo d8zms0IgZUetB5PgBOQc JOphSve0LBGkKNC4tPR2 uM4mALIpYZktt6K3mGR7 G2KrdlBjuj1eh6qs ZRUeVOfuW71caNLtu4T2 VXWhsFR1IPVoeIwdBdTv mC24Mvm+JKKulTwfn5Fa Ortcs9umb1mfcAn6 IjMwJSIgdmFsaWduPSJ0 v5HcQn52S89mCExaTJWm EGArDEDzTWEhgCbaix9w fY8eUa3+PGNvbCB3 iOZ0qP3oYBVuNhR3MOze J290ToKgeCWuFzlaf8us u3nzsGf7WtZyZDVcljMv sOrwWSJ6e5UeZm60 N59pDRatZIRqPRNbUYDa QLSzaPngic7xqF0sYp6+ TA0lf9mvyx06uF34gLR+ XZVsWED7eKgzJWgn YPFcvF2nYMjzGrE8GJRo VdYydZ65pGEfVPokVw4l sUsauGdcGE0vBYRggdkp d720FgAxp4czGURn hFSaJFlcPNJ7A47qs3P2 RQGdBZFiHNS6cJK3tX8g bGlnbjogbGVmdDsgdmVy oFlsVMcwXXafC924 IHRvcDsnPlBhdGllbnQg GhVoKQp4S5AmZmo5JWLm fBomVV6gmBZvRBklEg0z mXayiQtkEJ7oZONe dwiaa949CrIiy7cmRYLq iDWfGPhbJIQ3S10yy0L3 ZWXjCNNvUQX3eWE3aZ5p bGlnbjogbGVmdDsg hgWgtFjjDSfhUXxuC109 IHRvcDsnPkJpcnRoIERh jHM3UY04WH85tFAtn8J6 qOZ6C9ExAXOjvgxm sdcfeGX0THRqHJHbaS27 Da6wuCouYk3hJDCuAOP8 WJFafTMvT7TixL2tShFi OHCgFIIiH6SciOAf NFjtE346ENsgJiE0AFOh vyHcZ9CvYUGoxCwhAyA1 q6B4Ni8OH4N4AF24PQ39 qBNdp6T9pUJ7O6Zy VJZdfgqnuzuuqCE9KDIe GXJipL30Sv0ujIiySc0u QSFkBKI3FQNcoICsG2Wm lQ7uNwFsHGVsTMKb O8YalUGsYUkwJ628ARtd WnF7TBHoejGoT2FmVDFq cVqqWjN6r8Z8Mq4FASd0 CR55WF26yFHwg7C6 lQT3I8HoJPQrrwnvthgf bIT9LLUzEUMqaB81Rp7y sZorBi9kATJyXKU2WVDz dHBzK5UyiJ9rZtSk QAUqQSRqB3GpaFGyMNkw L091ZXpaJbF1XSFclmTm H4NzSPPicFozXjZ8v6B8 Er7YQYRnBU70ASK7 aWH3XD29BL61C0FqKbar dGFibGU+PHRhYmxlIHdp ZHRoPScxMDAlJyBzdHls TH2nWy5iKFVeVRSv zWmljUIqRdNjx0ddJZPp ANhoVP5jtPgoR6NmbSS4 YJLej8z6Gh59F59yI1Xl dXA+JFQrbDA7fLR7 lP6zRiZyMtA6OLhlI406 PxOzoEUvHtytb0ydd3mp iSw2MrJ5YLVlldRgrEsh HGH8o1NoLk14W75o IHdpZHRoPSIxNSUiIHZh lKvirc8fpK2hYs4+PGNv wAG7bPC9nR8wEvLeBgK1 XHrjB013YfRszJTv Zwrhp4hdg3afvDo4XkQj THNoxgQvaSbnZQK5y5Wa Qv92M4GgyWkpz4JaKag2 dy85lKTgy7T7qHE5 K0NuESShrzqspJBnzUma TS1vTIFdeowjECSqpA8h AVRgP4j2BlJdTpG7FIwt F6JrqsX3FQAeiJSx UQgwOLV3S25fi0W0LPVx KYNqIWL3cTD7jM0nkGfe bjogbGVmdDsgdmVydGlj BDoiGSfkG056JNTe sNhfNRBufB7wVEEsyMWn iDvzLE7fFMFtznzgLfsQ KFyCQoPNUokcPEgENS3e VjwvdGQ+PHRkIHN0 hQqpGDppNTHdyZ4qPPDn B4d5HgBqKlM5VTdaD9Tg KOTzusezBq96qJ5fUbXm TlC2QHhgN8GohmG6 LQDjrSXxZGskKHN2K57b b1W6HIClFYJrQWH3rGA3 vT9sfNzeadxksNIovIme dmVydGljYWwtYWxp A988VEUnwCpxHsK1TbB0 QyW8PPR1R9UvXcv4MOAf tTqvMI0wmZXjHRjlPu0d aZhcmEdhEJ5kSGQb woheQRZpbG7bQMSjdHBt wSjaKX1jAXLvtwnlq012 CaObGIO9HAXxiBSlJ6Sy hK4lWbCnBULuLHIk J1WceNRfMTivM465JUuy GeI5NJXkmoOaQ9NmPKGh zEopKxN4w6T9Fa84NrCH ZWFyczwvdGQ+PHRk OLO6lIckCMjxJWQdsO1c ONYxL6e1HpZuWiL4UIbw S5EmHBUslqjoWb16hC4w JyWvWuN3PDerY6Oq enB6NBUugFVtGSoaMNC6 Z73xu0I4VMFdUANwAXI2 wKG4hV1fqRmobimifSTv dDsgdmVydGljYWwt GUohY551NLLsnWezJiFF TUFMRTwvdGQ+PHRkIHN0 hFttFOpsYFBquV2gTKFx M6p7NdCrFhV8ECny V7PtMNUcbberGx00zA1t LeOcDwD7NGliK7XnskE7 XANlpCSpSRgwFKX6H36y m2I9DOHsERTiADZ0 nGK7pS0ifCedfapulCWa dDsgdmVydGljYWwtYWxp B171PGEcaHvwAt9CXA64 BG09T3SgDbjzpNKs bGU+PHRhYmxlIHdpZHRo SQdfPEObTePhrZzyLL8q Nk3aCDHhDOWtwMpapASr OeMzo0geEGEbSBpz FW0fuUqmS7ChrPA1GGFy w3x0Di68C80hO3EzaAM+ VBHprMB1jAF3iC9wPgEx FuL1IFlrD327DgDm zVWuZzrrr6ebv1yxaBl2 IjMwJSIgdmFsaWduPSJ0 b4VlTx76Z74vILzaSHRm PSIyMCUiIHZhbGln fe6quB2iRp2+PGNvbCB3 eUE6fJ6gEbVdKaA0MNzw J606QvFxwASuDbeiN96g X1DhpLB+PHRyPjx0 VSSidFgpND3djKCbBJgu Xx8fJHE9MgJsRmTrMRxb N9MhDIDsgrxxjmdctKN7 JULoTNMpmG10Ow6s bVdrQl2jESSuGTP1SLTg jCXuU0YzjH5bCbYxQLTp UBTsO3RyuSXiSWlrW040 XCjoSlX0ZWXndwCg C8ZoJWThxJwqGpV9b5M0 Jz8FaRzkmMVuGX2aVcCy CNf2Y5MoDwz5QMNzoKzq UW4pvOYuHOmcJw8n yLztmBfcSH6nMIZilbzr b102HlLlh8aqCOKufZAh WKxvXUF3Q09zn6A1JTVr JBGcWGW9wIX5uI0p bGlnbjogbGVmdDsgdmVy aYljCEufMQyyM994PPZc hYqbXdTVJkp8W8WuZmo9 KVSnbDgfUH7trUIj WHovCu8xuYumoMrbLZ7i LIUhuzdaj509YiKtr4ly QMSonXOuXOvzGYG6R94l a4M5YBJgEZNoWGQ4 mII4uA2mnSdwznrykLSi dDsgdmVydGljYWwtYWxp L475BSHobPbjLy0CCka9 U2HzSyi0JDLusGqc CD8cbKRcVVxoIh3hhXbh nGhdIR1bVCMqgfruv499 ShPef0uyLZXpcVYyJJbx RDG2D22bz5N6WEBf KCLwNZH5aTZ2hW3nvHqk bjogbGVmdDsgdmVydGlj HZrbEBypV335WERgfJga [id number] (more content not included)... Normal [facility] Provider Orderson 06-13-2020 Provider Orders [id number] Normal [facility] Uric Acidon 06-10-2020 Urate [Mass/Vol] 9.1 mg/dL High 2.6-8.0 [facility] Comment on above: Performed By: #### 2 [id number] #### [facility] (DEFAULT) [address] [place], [place] [id number] Vital Signs Date Time Vital Sign Value Performing Clinician Facility 12-19-2023 08:58-0400 Body height 161.29 cm [facility] 12-19-2023 08:58-0400 Body mass index (BMI) [Ratio] 27.7 kg/m2 [facility] 12-19-2023 08:58-0400 Body temperature 96.3 [degF] [facility] 12-19-2023 08:58-0400 Body weight 72.17 kg [facility] 12-19-2023 08:58-0400 Diastolic blood pressure 73 mm[Hg] [facility] 12-19-2023 08:58-0400 Heart rate 86 /min [facility] 12-19-2023 08:58-0400 Respiratory rate 16 /min [facility] 12-19-2023 08:58-0400 SaO2% (BldA) [Mass fraction] 96 % [facility] 12-19-2023 08:58-0400 Systolic blood pressure 132 mm[Hg] [facility] 08-27-2023 13:48-0400 Body height 161.29 cm [facility] 08-27-2023 13:48-0400 Body mass index (BMI) [Ratio] 27.8 kg/m2 [facility] 08-27-2023 13:48-0400 Body weight 72.57 kg [facility] 08-27-2023 13:48-0400 Diastolic blood pressure 74 mm[Hg] [facility] 08-27-2023 13:48-0400 Heart rate 93 /min [facility] 08-27-2023 13:48-0400 SaO2% (BldA) [Mass fraction] 97 % [facility] 08-27-2023 13:48-0400 Systolic blood pressure 124 mm[Hg] [facility] 05-23-2023 12:07-0400 Body height 161.29 cm [facility] 05-23-2023 12:07-0400 Body mass index (BMI) [Ratio] 28.3 kg/m2 [facility] 05-23-2023 12:07-0400 Body temperature 97.5 [degF] [facility] 05-23-2023 12:07-0400 Body weight 73.53 kg [facility] 05-23-2023 12:07-0400 Diastolic blood pressure 72 mm[Hg] [facility] 05-23-2023 12:07-0400 Heart rate 117 /min [facility] 05-23-2023 12:07-0400 Respiratory rate 16 /min [facility] 05-23-2023 12:07-0400 SaO2% (BldA) [Mass fraction] 93 % [facility] 05-23-2023 12:07-0400 Systolic blood pressure 120 mm[Hg] [facility] 11-12-2022 10:20-0400 Body height 161.29 cm Nika Diop Other [employer] [facility] Other 11-12-2022 10:20-0400 Body mass index (BMI) [Ratio] 29.15 kg/m2 Nika Mick Other [facility] Other 11-12-2022 10:20-0400 Body temperature 97.5 [degF] Nika Mick Other [facility] Other 11-12-2022 10:20-0400 Body weight 75.84 kg Nika Mick Other [facility] Other 11-12-2022 10:20-0400 Diastolic blood pressure 84 mm[Hg] Nika Mick Other [facility] Other 11-12-2022 10:20-0400 Respiratory rate 18 /min Nika Mick Other [facility] Other 11-12-2022 10:20-0400 SaO2% (BldA) [Mass fraction] 98 % Nika Mick Other [facility] Other 11-12-2022 10:20-0400 Systolic blood pressure 138 mm[Hg] Nika Mick Other [facility] Other 10-26-2022 10:00-0400 Body height 161.29 cm Corrie Lama Other [employer] [facility] Other 10-26-2022 10:00-0400 Body mass index (BMI) [Ratio] 29.12 kg/m2 Corrie Lama Other [facility] Other 10-26-2022 10:00-0400 Body weight 75.75 kg Corrie Daina Other [facility] [facility] Other 10-26-2022 10:00-0400 Diastolic blood pressure 88 mm[Hg] Corrie Daina Other [facility] Other 10-26-2022 10:00-0400 Systolic blood pressure 132 mm[Hg] Corrie Daina Other [facility] Other 05-10-2022 12:40-0400 Body height 161.29 cm Nika Mick Other [facility] [facility] Other 05-10-2022 12:40-0400 Body mass index (BMI) [Ratio] 30.27 kg/m2 Nika Mick Other [facility] [facility] Other 05-10-2022 12:40-0400 Body temperature 97 [degF] Nika Mick Other [facility] Other 05-10-2022 12:40-0400 Body weight 78.74 kg Nika Mick Other [facility] Other 05-10-2022 12:40-0400 Diastolic blood pressure 70 mm[Hg] Nika Mick Other [facility] Other 05-10-2022 12:40-0400 Respiratory rate 20 /min Nika Mick Other [facility] Other 05-10-2022 12:40-0400 SaO2% (BldA) [Mass fraction] 97 % Nika Mick Other [facility] Other 03-16-2023 12:40-0400 Systolic blood pressure 132 mm[Hg] Nika Mick Other [facility] [facility] Other 02-08-2022 15:00-0500 Body height 161.29 cm Nika Mick Other [facility] Other 02-08-2022 15:00-0500 Body mass index (BMI) [Ratio] 30.44 kg/m2 Nika Mick Other [facility] Other 02-08-2022 15:00-0500 Body temperature 97.5 [degF] Nika Mick Other [facility] Other 02-08-2022 15:00-0500 Body weight 79.2 kg Nika Mick Other [facility] [facility] Other 02-08-2022 15:00-0500 Diastolic blood pressure 100 mm[Hg] Nika Mick Other [facility] Other 02-08-2022 15:00-0500 Respiratory rate 18 /min Nika Mick Other [facility] [facility] Other 02-08-2022 15:00-0500 SaO2% (BldA) [Mass fraction] 97 % Nika Mick Other [facility] [facility] Other 02-08-2022 15:00-0500 Systolic blood pressure 180 mm[Hg] Nika Mick Other [facility] Other 11-16-2021 10:05-0400 Body height 161.29 cm Deena Ocasio Other [facility] Other 11-16-2021 10:05-0400 Body mass index (BMI) [Ratio] 31.38 kg/m2 Deena Ocasio Other [facility] Other 11-16-2021 10:05-0400 Body temperature 97.6 [degF] Deena Ocasio Other [facility] Other 11-16-2021 10:05-0400 Body weight 81.65 kg Deena Ocasio Other [facility] Other 11-16-2021 10:05-0400 Diastolic blood pressure 81 mm[Hg] Deena Ocasio Other [facility] Other 11-16-2021 10:05-0400 SaO2% (BldA) [Mass fraction] 96 % Deena Ocasio Other [facility] Other 11-16-2021 10:05-0400 Systolic blood pressure 173 mm[Hg] Deena Ocasio Other [facility] Other 11-27-2020 10:10-0400 Body height 161.29 cm Salina Areli Other [facility] Other 11-27-2020 10:10-0400 Body mass index (BMI) [Ratio] 30.34 kg/m2 Salina Areli Other [facility] Other 11-27-2020 10:10-0400 Body temperature 97.9 [degF] Salina Areli Other [facility] Other 11-27-2020 10:10-0400 Body weight 78.93 kg Salina Areli Other [facility] Other 11-27-2020 10:10-0400 Diastolic blood pressure 80 mm[Hg] Salina Mimond Other [facility] Other 11-27-2020 10:10-0400 Respiratory rate 18 /min Salina Mimond Other [facility] Other 11-27-2020 10:10-0400 SaO2% (BldA) [Mass fraction] 99 % Salina Mimond Other [facility] Other 11-27-2020 10:10-0400 Systolic blood pressure 156 mm[Hg] Salina Mimond Other [employer] [facility] Other Encounters Encounter Date Encounter Type Care Provider Facility Start: 12-19-2023 End: 12-19-2023 ambulatory [facility] Work Phone: Start: 12-19-2023 End: 12-19-2023 Patient encounter procedure [facility] Physician [facility] Work Phone: Start: 12-09-2023 Non-patient / Non-visit [facility] Physician [facility] Work Phone: Start: 11-06-2023 End: 11-06-2023 ambulatory GITA A KERA Not Available Start: 10-23-2023 End: 10-23-2023 ambulatory GITA A KERA Not Available Start: 10-10-2023 End: 10-10-2023 ambulatory GITA A KERA Not Available Start: 09-17-2023 End: 09-17-2023 ambulatory GITA A KERA Not Available Start: 08-28-2023 Patient encounter procedure [facility] Start: 08-27-2023 End: 08-27-2023 ambulatory [facility] Work Phone: Start: 08-27-2023 End: 08-27-2023 Patient encounter procedure [facility] Physician [facility] Work Phone: Start: 05-23-2023 End: 05-23-2023 ambulatory [facility] Work Phone: Start: 05-23-2023 End: 05-23-2023 Patient encounter procedure [facility] Work Phone: Start: 05-13-2023 Non-patient / Non-visit [facility] Physician [facility] Work Phone: Start: 04-17-2023 Non-patient / Non-visit [facility] Physician [facility] Work Phone: Start: 01-29-2023 End: 01-29-2023 ambulatory GITATY COTE Not Available Start: 11-12-2022 End: 11-12-2022 ambulatory Nika Mick Other [facility] [facility] Other Start: 11-12-2022 Office outpatient visit 25 minutes Nika Mick [facility] Start: 11-06-2022 End: 11-06-2022 ambulatory Corrie Lama Other [facility] Other Start: 11-06-2022 Telephone encounter Corrie Daniels her [employer] [facility] Start: 10-26-2022 End: 10-26-2022 ambulatory Corrie Lama Other [facility] Other Start: 10-26-2022 Office outpatient ne w 30 minutes Corrie Lama [facility] Start: 05-10-2022 End: 05-10-2022 ambulatory Nika Mick Other [facility] Other Start: 05-10-2022 Office outpatient visit 25 minutes Nika Mick [facility] Start: 04-30-2022 End: 05-01-2022 ambulatory NIKA MICK Facility:[facility] Start: 02-15-2022 End: 02-16-2022 ambulatory NIKA MICK Facility:[facility] Start: 02-08-2022 End: 02-08-2022 ambulatory Nika Mick Other [facility] Other Start: 02-08-2022 Office outpatient ne w 45 minutes Nika Mick [facility] Start: 12-26-2021 End: 12-27-[address] BRIAN ECHEVERRIA Facility:[facility] Start: 11-16-2021 End: 11-16-2021 ambulatory Deena Ocasio Other [facility] Other Start: 11-16-2021 Office outpatient visit 15 minutes Deena Ocasio [facility] Start: 11-27-2020 Office outpatient ne w 20 minutes Salina Areli [facility] Plan of Treatment Date Care Activity Detail Author Renal function 2000 panel - Serum or Plasma [facility] enter [facility] Immunizations Immunization Date Immunization Notes Care Provider Fa maria dolores 10-22-2022 influenza virus vaccine, unspecified formulation [facility] 10-22-2022 influenza, high dose seasonal, preservative-free Corrie Rohrbacher Other [employer] [facility] [employer] Other 12-13-2020 Do not use COVID-19 Pfizer 2 dose Corrie Rohrbacher Other [facility] 11-27-2020 Toradol per 15 mg Salina Dym ond Other [employer] Other 05-07-2020 Do not use COVID-19 Pfizer 2 dose Corrie Rohrbacher Other [facility] 04-16-2020 Do not use COVID-19 Pfizer 2 dose Corrie Rohrbacher Other [facility] 11-30-2019 pneumococcal polysaccharide vaccine, 23 valent Corrie Valentinerbacher Other [facility] 11-17-2018 pneumococcal conjuga te vaccine, 13 valent Corrie Valentinerbacher Other [facility] 09-15-2018 zoster vaccine recombinant Corrie Rohrbacher Other [facility] 07-05-2018 zoster vaccine recombinant Corrie Rohrbacher Other [facility] Payers Date Payer Category Payer Medicare [id number] 2.1 [id number] 1961 Medicare [id number] 2. [id number] 1955 Unknown [id number] 2.16.84 [id number] 1955 Unknown [id number] 2.16.84 [id number] 1955 Unknown [id number] 2.16.84 [id number] 1955 Unknown [id number] 2.16.84 [id number] 1955 Unknown [id number] 2.16.84 [id number] 1955 Unknown [id number] 2.16.84 [id number] 1955 Unknown [id number] 2.16.84 [id number] 1955 Unknown [id number] [id number] .[id number] Medicare Medicare [id number] Unknown [employer] [id number] Social History Date Type Detail Facility Sex Assigned At [facility] [employer] Other Start: 05-23-2023 End: 08-27-2023 Tobacco smoking status NHIS Never smoked tobacco (finding) [facility] Start: 1955 Sex Assigned At [facility] Clinical Notes 11-27-2020 to 11-12-2022 Note Date [...] gout flare. Continue allopurinol for gout prophylaxis. 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 Apr, Dagoberto hy kid w cr kid I-IV [...] gout flare. Continue allopurinol for gout prophylaxis. [facility] Other 12-15-2022 Evaluation note* Encounter Date Diagnosis Assessment Notes Treatment Notes Treatment Clinical Notes Jan, Chronic kidney disea se, stage III (moderate) (ICD-10 - N18.30) Thanks for referring Mrs. Parada to our office for evaluation management of [...] gout flare. Continue allopurinol for gout prophylaxis. [facility] Other 09-22-2022 Evaluation note* Encounter Date Diagnosis [...] Other [facility] material was printed [employer] [facility] Other 10-03-2021 Evaluation note* Encounter Date Diagnosis [...] no improvement in 2 to 3 days [employer] [facility] Other Evaluation noteNo [employer] Other Evaluation note* Diagnosis Onset Date Resolution Status B12 deficiency acute CKD (chronic kidney disease) stage 3, GFR 30-59 ml/min acute Gout acute [id number] acute Hypomagnesemia acute Secondary hyperparathyroidism acute Type 2 diabetes mellitus wit h diabetic chronic kidney disease [facility] Work Phone: Evaluation note* Diagnosis Onset Date Resolution Status Gout acute Hypertension acute [facility] Work Phone: Evaluation note* Diagnosis Onset Date Resolution Status Anemia of renal disease acut e B12 deficiency acute CKD (chronic kidney disease) stage 3, GFR 30-59 ml/min acute Gout acute [id number] acute Hypomagnesemia acute Secondary hyperparathyroidism acute Type 2 diabetes mellitus wit h diabetic chronic kidney disease acute [facility] Work Phone: History general Narrative - Reported* Type Description Date Medical History hypertension Medical History type I diabetes Medical History gout Surgical History arthroscopic knee surgery [employer] Other History general Narrative - Reported* Type Description Date Medical History hypertension Medical History type II diabetes Medical History gout Surgical History arthroscopic knee surgery Surgical History EAR SURGERY Surgical History HYSTERECTOMY Surgical History RECTAL SEAL Hospitalization History SEE ABOVE [employer] [facility] Other History general Narrative - Reported* Type Description Date Medical History hypertension Medical History type II diabetes Medical History gout Medical History ANEMIA Surgical History arthroscopic knee surgery Surgical History EAR SURGERY Surgical History HYSTERECTOMY Surgical History RECTAL SEAL Hospitalization History SEE ABOVE [employer] [facility] Other Summary Purpose Family History Relationship Condition Age at Onset Recorded Date/T isauro brother Hypertension Unknown father Unknown Alzheimer's dementia Unknown family member Unknown Not Specified Unknown Relationship Condition Age at Onset Recorded Date/T isauro brother Hypertension Unknown father Unknown Alzheimer's dementia Unknown family member Unknown mother Unknown Advance Directives Advance Directive Response Recorded Date/ Time Advance Directives No March 26, 2023 6:52pm Chief Complaint and Reason for Visit Chief Complaint Amb Documentation 6 month follow up Reason for Visit B12 deficiency CKD (chronic kidney disease) stage 3, GFR 30-59 ml/min Gout [id number] Hypomagnesemia Secondary hyperparathyroidism Type 2 diabetes mellitus with diabetic chronic kidney disease Chief Complaint 6 month follow up/[place] Reason for Visit Gout Hypertension Chief Complaint RENAL 6 MONTH F/U Reason for Visit Anemia of renal dise ase B12 deficiency CKD (chronic kidney disease) stage 3, GFR 30-59 ml/min Gout [id number] Hypomagnesemia Secondary hyperparathyroidism Type 2 diabetes mellitus with diabetic chronic kidney disease Additional Source Comments INFORMATION SOURCE (unrecogn ized section and content) DATE CREATED AUTHOR 06/14/2020 [facility] DATE CREATED AUTHOR AUTHOR'S ORGANIZ ATION [facility] DATE CREATED AUTHOR AUTHOR'S ORGANIZ ATION 11/08/2023 [facility] EPIC REASON FOR VISIT (unrecogniz ed section and content) LEFT LOWER BACK RADIATING DO WN BUTTOCK AND LEFT LEGRIGHT LOWER BACK PAIN, RADIATING TO BUTTOCK AND HIPCKD and HTNCKD and HTNESTABLISHlab resultsCKD and HTN Care Teams (unrecognized sec tion and content) Team Status: Active Member Role Status Dates Corrie Lama APRN MOHS SURGEON/GENERAL DERMATOLOGIST-C Primary Care Provider Active Team Status: Active Member Role Status Dates Corrie Rohrbacher , LEGAL COLLECTOR MOHS SURGEON/GENERAL DERMATOLOGIST-C Primary Care Provider Active Start: April 172023 Judit Flores Attending Provider Active Start: April 17, 2023 Team Status: Active Member Role Status Dates Corrie Lama APRN MOHS SURGEON/GENERAL DERMATOLOGIST-C Primary Care Provider, Attending Provider Active Start: May 13, 2023 Team Status: Inactive Member Role Status Dates Corrie Lama APRN MOHS SURGEON/GENERAL DERMATOLOGIST-C Primary Care Provider Active Start: May 23, 2023 End: May 23, 2023 Nika Diop MD Attending Provider Active Start : May 23, 2023 End: May 23, 2023 Team Status: Inactive Member Role Status Dates Corrie Lama APRN MOHS SURGEON/GENERAL DERMATOLOGIST-C Primary Care Provider, Attending Provider Active Start: August 27, 2023 End: August 27, 2023 Team Status: Active Member Role Status Dates Corrie Lama APRN MOHS SURGEON/GENERAL DERMATOLOGIST-C Primary Care Provider Active Start: November Nika Diop MD Attending Provider Active Start : December 09, 2023 Team Status: Inactive Member Role Status Dates Corrie Lama APRN MOHS SURGEON/GENERAL DERMATOLOGIST-C Primary Care Provider Active Start: November End: December 19, 2023 Nika Diop MD Attending Provider Active Start : December 19, 2023 End: December 19, 2023 Goals (unrecognized section and content) Goals [...] BE BASED ON THE PRIMARY CLINICAL RECORDS. [employer] provides no warranty or guarantee of the accuracy or completeness of information in this document.
[2023-12-23 10:18] LABS: Albumin Level 3.5 g/dL (3.4-5.0); BUN Creatinine Ratio 26.2; Calcium 9.2 mg/dL (8.5-10.1); Carbon Dioxide 25.9 mmol/L (21.0-32.0); Chloride 110 mmol/L (98-107); Estimated GFR (African America 45 (>=60 mL/min/1.73m^2); Estimated GFR (Non-African Ame 37 (>=60 mL/min/1.73m^2); Glucose 130 mg/dL (74-106); Phosphorus 3.3 mg/dL (2.6-4.7); Potassium 4.9 mmol/L (3.5-5.1); Sodium 146 mmol/L (136-145)
== END 2023-12-23 09:40 | disposition home or self-care (01) ==
LOC: LAB 09:41
PROVIDERS: PCP Nurse Practitioner Family; Visit Provider Internal Medicine
DX: N25.81 Secondary hyperparathyroidism of renal origin (principal); N18.9 Chronic kidney disease, unspecified; D63.1 Anemia in chronic kidney disease; E53.8 Deficiency of other specified B group vitamins; M10.9 Gout, unspecified; E83.42 Hypomagnesemia
CPT/HCPCS: 36415; 80069

== ENCOUNTER 2024-04-14 11:09 | Outpatient (OUT) | payer MEDICARE, OTHER, SELFPAY ==
--- NOTE | 2024-04-14 11:28 | XR_ITS ---
[facility] [place] [id number] Patient Name: MILAN MICHELLE MRN: [id number] date: 1955 Sex: F Assigned Patient Location: [facility] Current Patient Location: [facility] Accession/Order Number: [id number] Exam Date: 04/15/2024 22:38 Report Date: 04/15/2024 22:39 At the request of: JA MANNING Procedure: XR hand RT min 3V XR hand RT min 3V 04/14/2024 11:35 AM SIGNS AND SYMPTOMS: ^Tendonitis of finger PROTOCOL: Frontal, lateral, and oblique radiographs of the right hand COMPARISON: None FINDINGS: The bones are in anatomic alignment. There is no evidence of fracture or dislocation. The joint spaces are preserved. No significant soft tissue swelling. XR/XR hand RT min 3V IMPRESSION: No acute bony injury or significant soft tissue swelling. Impression dictated by: Sreekanth Matthews M.D.04/15/2024 10:39 PM Dictation Location: [place] [id number] Electronically authenticated by: [id number] Date: 04/15/2024 22:39
--- OUTSIDE RECORDS SUMMARY | 2024-04-14 11:31 | XMS_ITS | CCD ---
Author Organization [facility] Care Team Providers Care Gunner'S Mate Name Role Phone Salina Singleton Unavailable OcasioDeena cifuentes Unavailable Mick, Nika Unavailable MICK, NIKA Admitting Unavailable MICK, NIKA Attending Unavailable JACKI, DR TORRES Primary Care Unavailable MICK, NIKA Consulting Unavailable [place], DR TORRES Admitting Unavailable HOUSE, DR TORRES Attending Unavailable HOUSE, DR TORRES Primary Care Unavailable HOUSE, DR TORRES Consulting Unavailable MICK, NIKA Admitting Unavailable MICK, NIKA Attending Unavailable JACKI, DR TORRES Primary Care Unavailable MICK, NIKA Consulting Unavailable Corrie Lama Unavailable [phone] NA CAUSEY Attending Unavailable NA CAUSEY Attending Unavailable NA CAUSEY Attending Unavailable NA CAUSEY Attending Unavailable Phil Echeverria MD Primary Care Provider Medications Current Medications Medication Drug Class(es) Dates Sig (Normalized) Sig (Original) acetaminophen 500 mg oral capsule (1 source) take 2 capsules by mouth every six hours Acetaminophen 500 MG 2 capsule as needed Orally every 6 hrs Active allopurinol 100 mg oral tablet (15 sources) Xanthine Oxidase Inhibitor Start: 05-23-2023 End: 03-12-2024 take 1 tablet by mouth once daily Allopurinol 100 mg tablet Active 100 MG PO Daily 90 90 March 12, 2024 3:29pm take 1 tablet by neo th every [...] mg / valsartan 320 mg oral tablet (19 sources) Thiazide Diuretic, Angiotensin 2 Receptor David Start: 024 End: 025 take 1 tablet by mouth once daily Valsartan-Hydr ochlorothiazid e 320-25 mg tablet Active 1 TAB PO Daily 90 March 12, 2024 3:29pm take 1 tablet by neo th every [...] Active magnesium oxide 400 mg oral tablet (4 sources) Start: 05-23-2023 take 1 tablet by mouth once daily Magnesium Oxide 400 mg (241.3 mg magnesium) tablet Active 400 MG PO Daily May 22, 2023 11:00pm Medrol Dose Pack as directed (1 source) Start: 11-27-2020 Medrol Dose Pa ck as directed as directed orally as directed for 6 days Nov, Active metFORMIN hydrochloride 500 mg oral tablet (20 sources) Biguanide Start: 08-27-2023 End: 03-11-2024 take 2 tablets by mouth twice daily at mealtime, then take 1 tablet by mouth in the evening Metformin 500 mg tablet Active 500 MG PO Twice daily with meals 270 March 11, 2024 2:02pm 2 tablets in the am and 1 pm Start: 05-23-2023 End: 08-27-2023 take 1 tablet by mouth three times daily Metformin 500 mg tablet Discontinued 500 MG PO Three times daily August 19, 2023 10:08am August 27, 2023 12:55pm take 1 tablet by neo th every eight hours metFORMIN HCl 500 MG 1 tablet with a meal Orally THREE TIMES A DAY Active take 1 tablet by neo th twice daily at mealtime metFORMIN HCl 750mg 1 tablet with meals Orally Twice a day for 30 day(s) Active methylPREDNISolone 4 mg oral tablet (2 sources) Corticosteroid Start: 03-30-2024 take 1 tablet by mouth once Methylprednisolone (Medrol (Paul)) 4 mg tablets,dose pack Active 0 PO per package directions March 30, 2024 12:00am PO PER PKG DIR Start: 11-16-2021 methylPREDNISo lone 4 MG as directed Orally for daily [...] Active vitamin b12 1 mg oral capsule (2 sources) Vitamin B12 Start: 12-19-19 take 1 capsule by mouth once daily Cyanocobalamin (Vitamin B-12) 1,000 mcg capsule Active 1000 MCG PO Daily December 18, 2023 11:00pm Vitamin D3 25 MCG (1000 UT) (1 [...] Date Documented Date Episodic/Chronic Chronic kidney disease (8 sources) Chronic kidney disease, unspecified; Translations: [Chronic kidney disease stage 3] Onset: 2 05-23-2023 Chronic Chronic kidney disease (9 sources) Chronic kidney disease; Translations: [Chronic kidney disease, stage III (moderate)] Deficiency and other anemia (8 sources) Anemia of renal disease; Translations: [Anemia in chronic kidney disease] 08-26-2023 Chronic Deficiency and other anemia (5 sources) Anemia in chronic kidney disease; Translations: [ANEMIA IN CHRONIC KIDNEY DISEASE] Onset: 3 Chronic Diabetes mellitus with complications (20 sources) Disorder of kidney due to diabetes mellitus; Translations: [Type 2 diabetes mellitus with diabetic chronic kidney disease] Onset: 2 Chronic Essential hypertension (4 sources) Hypertensive disorder; Translations: [Essential (primary) hypertension] 08-26-2023 Chronic Gout and other crystal arthropathies (17 sources) Gout; Translations: [Gout, unspecified] Onset: 3 Chronic Hypertension with complications and secondary hypertension (19 sources) Chronic kidney disease due to hypertension; Translations: [Hypertensive chronic kidney disease with stage 1 through stage 4 chronic kidney disease, or unspecified chronic kidney disease] Onset: 3 Chronic Nutritional deficiencies (6 sources) Cobalamin deficiency; Translations: [Deficiency of other specified B group vitamins] 05-23-2023 Episodic Other diseases of kidney and ureters (9 sources) Secondary hyperparathyroidism; Translations: [Secondary hyperparathyroidism of renal origin] 05-23-2023 Chronic Other diseases of kidney and ureters (7 sources) Secondary hyperparathyroidism of renal origin; Translations: [Secondary hyperparathyroidism (of renal origin)] Onset: 3 Chronic Other ear and sense organ disorders (2 sources) Mixed conductive and sensorineural hearing loss, bilateral; Translations: [Mixed conductive and sensorineural hearing loss, bilateral] 10-23-2023 Chronic Other nutritional; endocrine; and metabolic disorders (8 sources) Hypomagnesemia; Translations: [Hypomagnesemia] 05-23-2023 Chronic Other nutritional; endocrine; and metabolic disorders (5 sources) Hypomagnesemia; Translations: [Disorders of magnesium metabolism] Chronic Other nutritional; endocrine; and metabolic disorders (2 sources) Overweight in adulthood with body mass index [...] distribution width (RBC) [Ratio] 12.7 % 11.0-15.0 [facility] Hematocrit Auto (Bld) [Volum e fraction]on 12-09-2023 Hematocrit (Bld) [Volume fraction] 36.9 % 36.0-48.0 [facility] Hemoglobin [Mass/volume] in Bloodon 12-09-2023 Hemoglobin (Bld) [Mass/Vol] 11.5 g/dL Low 12.0-16.0 [facility] Laboratory - Chemistry and C hemistry - challengeon 12-09-2023 Cobalamin (Vitamin B12) [Mass/Vol] 689 pg/mL 232-1245 [facility] Comment on above: Performed at: - [address] [id number] Director: Clemente Jacobson PhD, Phone: [phone] Magnesium [Mass/Vol] 2.0 mg/dL 1.8-2.4 [facility] Urate [Mass/Vol] 6.6 mg/dL High 2.6-6.0 [facility] Bilirubin Ql (U) Negative NEGATIVE [facility] Glucose (U) [Mass/Vol] Negative NEGATIVE [facility] Ketones Ql (U) Negative NEGATIVE [facility] pH (U) 5.5 [pH] 5.0-9.0 [facility] Specific gravity (U) [Rel density] 1.025 1.005-1.025 [facility] Urobilinogen Qn (U) 0.2 {Ga'U}/dL 0.2-1.0 [facility] Laboratory - Specimen inform ationon 12-09-2023 Appearance (U) CLEAR CLEAR [facility] Color (U) LT. YELLOW YELLOW [facility] Laboratory - Urinalysison Leukocyte esterase Test strip Ql (U) Negative NEGATIVE [facility] Mucus Ql (Urine sed) NONE SEEN NONE SEEN [facility] Nitrite Ql (U) Negative NEGATIVE [facility] Protein (U) [Mass/Vol] 15.6 mg/dL High <=11.9 [facility] Protein Ql (U) Negative NEG/TRACE [facility] Leukocytes [#/volume] correc yogesh for nucleated erythrocytes in Blood by Automated counon 12-09-2023 WBC corrected for nucl RBC Auto (Bld) [#/Vol] 6.3 10 3/uL 4.0-11.0 [facility] MCH Auto (RBC) [Entitic mass ]on 12-09-2023 MCH (RBC) [Entitic mass] 30.3 pg 26.7-34.0 [facility] MCHC Auto (RBC) [Mass/Vol]on 12-09-2023 MCHC (RBC) [Mass/Vol] 31.2 g/dL 29.9-35.2 [facility] MCV Auto (RBC) [Entitic vol] on 12-09-2023 MCV (RBC) [Entitic vol] 97.1 fL 81.0-99.0 [facility] No Panel Informationon 12-08 25-Hydroxy Vitamin D Total 29.6 ng/mL [facility] Comment on above: <20 ng/mL Vit D defi cient20-<30 ng/mL Vit D fyrvmagelveu36-803 ng/mL Vit D sufficient>100 ng/mL Potential Toxicity Folate 9.40 ng/mL 8.60-58.90 [facility] Parathyroid Hormone (Intact) 68 pg/mL Abnormal 15-65 [facility] Comment on above: Performed at: [place] [id number] Director: Clemente Jacobson PhD, Phone: [phone] Urine Bacteria NONE SEEN #/HPF NONE SEEN [facility] Urine Occult Blood Negative NEGATIVE [facility] Urine Other Casts NONE SEEN #/LPF NONE SEEN [facility] Urine Other Crystals None Seen #/HPF None Seen [facility] Urine Random Creatinine 145.46 mg/dL 20.00-300.00 [facility] Urine RBC 0-2 #/HPF 0-2 [facility] Urine Squamous Epithelial Cells RARE #/LPF NONE/RARE [facility] Urine WBC NONE SEEN #/HPF NONE SEEN [facility] Platelet mean volume Auto (B ld) [Entitic vol]on 12-09-2023 Platelet mean volume (Bld) [Entitic vol] 10.5 fL 9.5-13.5 [facility] Platelets Auto (Bld) [#/Vol] on 12-09-2023 Platelets (Bld) [#/Vol] 263 10 3/uL 150-450 [facility] RBC Auto (Bld) [#/Vol]on RBC (Bld) [#/Vol] 3.80 10 6/uL Low 4.20-5.40 [facility] Urine protein/creatinine rat ioon 12-09-2023 Protein/Creatinine (U) [Ratio] 0.11 [facility] Automated epithelial cells c ount in urine sediment (number/area)on 05-13-2023 Epithelial cells Auto (Urine sed) [#/Area] RARE #/LPF NONE/RARE [facility] Automated leukocytes count i n urine sediment (number/area)on 05-13-2023 WBC Auto (Urine sed) [#/Area] 0-2 #/HPF 0-2 [facility] Automated urine specific gra vity by refractometryon 05-13-2023 Specific gravity Refractometry automated (U) [Rel density] 1.025 1.005-1.025 [facility] Bilirubin Auto test strip (U ) [Mass/Vol]on 05-13-2023 Bilirubin (U) [Mass/Vol] Negative NEGATIVE [facility] Casts typing in urine sedime nt by light microscopyon 05-13-2023 Casts LM Nom (Urine sed) NONE SEEN #/LPF NONE SEEN [facility] Color Auto (U)on 05-13-2023 Color (U) LT. YELLOW YELLOW [facility] Erythrocyte distribution wid th Auto (RBC) [Ratio]on 05-13-2023 Erythrocyte distribution width (RBC) [Ratio] 12.7 % 11.0-15.0 [facility] Estimated glomerular filtrat ion rate (GFR) non- Americanon 05-13-2023 GFR/1.73 sq M.predicted among non-blacks MDRD (S/P/Bld) [Vol rate/Area] 39 mL/min/{1.73_m2} >=60 [facility] Hematocrit Auto (Bld) [Volum e fraction]on 05-13-2023 Hematocrit (Bld) [Volume fraction] 38.7 % 36.0-48.0 [facility] Hemoglobin [Mass/volume] in Bloodon 05-13-2023 Hemoglobin (Bld) [Mass/Vol] 12.0 g/dL 12.0-16.0 [facility] Iron binding capacity [Mass/ volume] in Serum or Plasmaon 05-13-2023 Iron binding capacity [Mass/Vol] 385.0 ug/dL 250.0-450.0 [facility] Iron saturation [Mass Fracti on] in Serum or Plasmaon 05-13-2023 Iron saturation [Mass fraction] 16.4 % [facility] Ketones Auto test strip (U) [Mass/Vol]on 05-13-2023 Ketones (U) [Mass/Vol] Negative NEGATIVE [facility] Laboratory - Chemistry and C hemistry - challengeon 05-13-2023 Albumin [Mass/Vol] 4.0 g/dL 3.4-5.0 [facility] Calcium [Mass/Vol] 9.5 mg/dL 8.5-10.1 [facility] Chloride [Moles/Vol] 104 mmol/L 98-107 [facility] CO2 [Moles/Vol] 26.0 mmol/L 21.0-32.0 [facility] Cobalamin (Vitamin B12) [Mass/Vol] 173.0 pg/mL 193.0-986.0 [facility] Creatinine [Mass/Vol] 1.35 mg/dL 0.55-1.02 [facility] Ferritin [Mass/Vol] 45.0 ng/mL 8.0-252.0 [facility] GFR/1.73 sq M.predicted MDRD (S/P/Bld) [Vol rate/Area] 47 mL/min/{1.73_m2} >=60 [facility] Glucose [Mass/Vol] 119 mg/dL 74-106 [facility] Iron [Mass/Vol] 63.0 ug/dL 50.0-170.0 [facility] Magnesium [Mass/Vol] 1.9 mg/dL 1.8-2.4 [facility] Potassium [Moles/Vol] 4.3 mmol/L 3.5-5.1 [facility] Sodium [Moles/Vol] 143 mmol/L 136-145 [facility] Urate [Mass/Vol] 5.7 mg/dL 2.6-6.0 [facility] Urea nitrogen [Mass/Vol] 34.0 mg/dL 7.0-18.0 [facility] Urea nitrogen/Creatinine [Mass ratio] 25.2 mg/mg [facility] Laboratory - Urinalysison Protein (U) [Mass/Vol] 13.2 mg/dL <=11.9 [facility] Leukocytes [#/volume] correc yogesh for nucleated erythrocytes in Blood by Automated counon 05-13-2023 WBC corrected for nucl RBC Auto (Bld) [#/Vol] 6.9 10 3/uL 4.0-11.0 [facility] MCH Auto (RBC) [Entitic mass ]on 05-13-2023 MCH (RBC) [Entitic mass] 30.0 pg 26.7-34.0 [facility] MCHC Auto (RBC) [Mass/Vol]on 05-13-2023 MCHC (RBC) [Mass/Vol] 31.0 g/dL 29.9-35.2 [facility] MCV Auto (RBC) [Entitic vol] on 05-13-2023 MCV (RBC) [Entitic vol] 96.8 fL 81.0-99.0 [facility] Mucus LM Ql (Urine sed)on Mucus Ql (Urine sed) NONE SEEN NONE SEEN [facility] No Panel Informationon 05-12 25-Hydroxy Vitamin D Total 35.5 ng/mL [facility] Comment on above: <20 ng/mL Vit D defi cient20-<30 ng/mL Vit D qcspbfsbdgtu15-600 ng/mL Vit D sufficient>100 ng/mL Potential Toxicity Folate 9.80 ng/mL 8.60-58.90 [facility] Parathyroid Hormone (Intact) 64 pg/mL 15-65 [facility] Comment on above: Performed at: [address] [id number] Director: Clemente Jacobson PhD, Phone: [phone] Phosphorus Level 4.0 mg/dL 2.6-4.7 [facility] Urine Random Creatinine 118.68 mg/dL 20.00-300.00 [facility] Platelet mean volume Auto (B ld) [Entitic vol]on 05-13-2023 Platelet mean volume (Bld) [Entitic vol] 10.2 fL 9.5-13.5 [facility] Platelets Auto (Bld) [#/Vol] on 05-13-2023 Platelets (Bld) [#/Vol] 273 10 3/uL 150-450 [facility] Protein Auto test strip (U) [Mass/Vol]on 05-13-2023 Protein (U) [Mass/Vol] Negative NEG/TRACE [facility] RBC Auto (Bld) [#/Vol]on RBC (Bld) [#/Vol] 4.00 10 6/uL 4.20-5.40 [facility] Serum or plasma anion gap de terminationon 05-13-2023 Anion gap [Moles/Vol] 17.3 mmol[facility] Specific gravity Auto test s trip (U) [Rel density]on 05-13-2023 Specific gravity (U) [Rel density] CLEAR CLEAR [facility] Urine bacteria detection by automated methodon 05-13-2023 Bacteria Auto Ql (U) NONE SEEN #/HPF NONE SEEN [facility] Urine glucose measurement by test strip (mass/volume)on 05-13-2023 Glucose Test strip (U) [Mass/Vol] Negative NEGATIVE [facility] Urine hemoglobin detection b y automated test stripon 05-13-2023 Hemoglobin Auto test strip Ql (U) Negative NEGATIVE [facility] Urine nitrite detection by a utomated test stripon 05-13-2023 Nitrite Auto test strip Ql (U) Negative NEGATIVE [facility] Urine protein/creatinine rat ioon 05-13-2023 Protein/Creatinine (U) [Ratio] 0.11 [facility] Urine sediment crystal ident ification by light microscopyon 05-13-2023 Crystals LM Nom (Urine sed) None Seen #/HPF None Seen [facility] Urine sediment leukocyte cou nt by microscopy (number/high power field)on 05-13-2023 WBC LM.HPF (Urine sed) [#/Area] 0-2 #/HPF NONE SEEN [facility] Urobilinogen Auto test strip (U) [Mass/Vol]on 05-13-2023 Urobilinogen Qn (U) 0.2 {Ga'U}/dL 0.2-1.0 [facility] pH Auto test strip (U)on pH (U) 5.5 [pH] 5.0-9.0 [facility] PTH INTACTon 05-01-2022 PTH, Intact 53 pg/mL Normal 15-65 [facility] Comment on above: Performed By: #### P THINT #### [facility] [address] [place], [place] [address] Dr. Isacc Zapata FERRITINon 04-30-2022 Ferritin [Mass/Vol] 26.0 ng/mL Normal 8.0-252.0 [facility] Comment on above: Performed By: #### V ITAD, FERR, FETIBC ####[facility] [address] [place] [id number]. Isacc Zapata HEMOGRAM AND PLATELon 2022 Hematocrit (Bld) [Volume fraction] 35.8 % Critically low 36.0-48.0 [facility] Comment on above: Performed By: #### H H ####[facility] [address] [place] [address]Dr. Isacc Zapata Hemoglobin (Bld) [Mass/Vol] 11.3 g/dL Critically low 12.0-16.0 [facility] Comment on above: Performed By: #### H H ####[facility] [address] [place] [address]Dr. Isacc Zapata MCH (RBC) [Entitic mass] 29.4 pg Normal 26.7-34.0 [facility] Comment on above: Performed By: #### H H ####[facility] [address] [place] [address]Dr. Isacc Zapata MCHC (RBC) [Mass/Vol] 31.6 g/dL Normal 29.9-35.2 [facility] Comment on above: Performed By: #### H H ####[facility] [address] [place] [address]Dr. Isacc Zapata MCV (RBC) [Entitic vol] 93.0 fL Normal 81.0-99.0 [facility] Comment on above: Performed By: #### H H ####[facility] [address] [place] [address]Dr. Isacc Zapata PLT 270 103/ul Normal 150-450 [facility] Comment on above: Performed By: #### H H ####[facility] [address] [place] [id number] Saunderseulogio Zapata RBC 3.85 106/ul Critically low 4.20-5.40 [facility] Comment on above: Performed By: #### H H ####[facility] [address] [place] [id number]. Nickyeulogio Benny WBC 6.4 103/ul Normal 4.0-11.0 [facility] Comment on above: Performed By: #### H H ####[facility] [address] [place] [id number] Zapata IRON AND TIBCon 04-30-2022 % SATURATION 21.4 % Normal [facility] Comment on above: Performed By: #### V ITAD, FERR, FETIBC ####[facility] [address] [place] [id number] Zapata Iron [Mass/Vol] 81.0 ug/dL Normal 50.0-170.0 [facility] Comment on above: Performed By: #### V ITAD, FERR, FETIBC ####[facility] [address] [place] [address]DrMichelle Isacc Benny TIBC DIRECT 379.0 ug/dL Normal 250.0-450.0 [facility] Comment on above: Performed By: #### V ITAD, FERR, FETIBC ####[facility] [address] [place] [id number]. Isacc Zapata MAGNESIUMon 04-30-2022 Magnesium [Mass/Vol] 1.7 mg/dL Critically low 1.8-2.4 [facility] Comment on above: Performed By: #### M G, RENAL, URIC #### [facility] [address] [place] [address] [address] Isacc Zapata RENAL FUNCTION PANELon 04-30 Albumin [Mass/Vol] 4.0 g/dL Normal 3.4-5.0 [facility] Comment on above: Performed By: #### M G, RENAL, URIC #### [facility] [address] [place] [address] [address] Isacc Zapata Calcium [Mass/Vol] 9.2 mg/dL Normal 8.5-10.1 [facility] Comment on above: Performed By: #### M G, RENAL, URIC #### [facility] [address] [place] [address] [address] Isacc Zapata Chloride [Moles/Vol] 107 mmol/L Normal 98-107 [facility] Comment on above: Performed By: #### M G, RENAL, URIC #### [facility] [address] [place] [address] [address] Isacc Zapata CO2 [Moles/Vol] 24.9 mmol/L Normal 21.0-32.0 [facility] Comment on above: Performed By: #### M G, RENAL, URIC #### [facility] [address] [place] [address] [address] Isacc Zapata Creatinine [Mass/Vol] 1.45 mg/dL Critically high 0.55-1.02 [facility] Comment on above: Performed By: #### M G, RENAL, URIC #### [facility] [address] [place] [address] [address] Isacc Zapata EGFR-AF NAMIBIAN 44 mL/min/1.73m2 Critically low >=60 [facility] Comment on above: Performed By: #### M G, RENAL, URIC #### [facility] [address] [place] [address] [address] Isacc Zapata EGFR-NON AF NAMIBIAN 36 mL/min/1.73m2 Critically low >=60 [facility] Comment on above: Performed By: #### M G, RENAL, URIC #### [facility] [address] [place] [address] [address] Isacc Zapata Glucose [Mass/Vol] 122 mg/dL Critically high 74-106 [facility] Comment on above: Performed By: #### M G, RENAL, URIC #### [facility] [address] [place] [address] [address] Isacc Zapata Phosphate [Mass/Vol] 3.8 mg/dL Normal 2.6-4.7 [facility] Comment on above: Performed By: #### M G, RENAL, URIC #### [facility] [address] [place] [address] [address] Isacc Zapata Potassium [Moles/Vol] 4.0 mmol/L Normal 3.5-5.1 [facility] Comment on above: Performed By: #### M G, RENAL, URIC #### [facility] [address] [place] [address] [address] Isacc Zapata Sodium [Moles/Vol] 143 mmol/L Normal 136-145 [facility] Comment on above: Performed By: #### M G, RENAL, URIC #### [facility] [address] [place] [address] [address] Isacc Zapata Urea nitrogen [Mass/Vol] 32.0 mg/dL Critically high 7.0-18.0 [facility] Comment on above: Performed By: #### M G, RENAL, URIC #### [facility] [address] [place] [address] [address] Isacc Zapata UA RANDOM W/MICROSCOPICon BACTERIA NONE SEEN Normal NONE SEEN [facility] Comment on above: Performed By: #### U AMIC ####[facility] [address] [place], [place] [address]DrMichelle Zapata Bilirubin Ql (U) Negative Normal NEGATIVE [facility] Comment on above: Performed By: #### U AMIC ####[facility] [address] [place] [address]DrMichelle Zapata CAST NONE SEEN Normal NONE SEEN [facility] Comment on above: Performed By: #### U AMIC ####[facility] [address] [place] [address]DrMichelle Zapata Clarity (U) CLEAR Normal CLEAR [facility] Comment on above: Performed By: #### U AMIC ####[facility] [address] [place] [address]DrMichelle Zapata Color (U) YELLOW Normal YELLOW [facility] Comment on above: Performed By: #### U AMIC ####[facility] [address] [place] [address]Dr. Isacc Zapata Crystals LM Nom (Urine sed) NONE SEEN Normal NONE SEEN [facility] Comment on above: Performed By: #### U AMIC ####[facility] [address] [place] [address]Dr. Isacc Zapata Epithelial cells LM Ql (Urine sed) RARE Normal NONE SEEN /RARE [facility] Comment on above: Performed By: #### U AMIC ####[facility] [address] [place] [address]Dr. Isacc Zapata Glucose Ql (U) Negative Normal NEGATIVE [facility] Comment on above: Performed By: #### U AMIC ####[facility] [address] [place], [place] [address]Dr. Isacc Zapata Hemoglobin Ql (U) Negative Normal NEGATIVE [facility] Comment on above: Performed By: #### U AMIC ####[facility] [address] [place], [place] [address]Dr. Isacc Zapata Ketones Ql (U) Negative Normal NEGATIVE [facility] Comment on above: Performed By: #### U AMIC ####[facility] [address] [place], [place] [address]Dr. Isacc Zapata LEUKOCYTES Negative Normal NEGATIVE [facility] Comment on above: Performed By: #### U AMIC ####[facility] [address] [place], [place] [address]Dr. Isacc Zapata MUCOUS NONE SEEN Normal NONE SEEN [facility] Comment on above: Performed By: #### U AMIC ####[facility] [address] [place] [address]Dr. Isacc Zapata Nitrite Ql (U) Negative Normal NEGATIVE [facility] Comment on above: Performed By: #### U AMIC ####[facility] [address] [place] [address]Dr. Isacc Zapata pH (U) 5.5 [pH] Normal 5-9 [facility] Comment on above: Performed By: #### U AMIC ####[facility] [address] [place] [address]Dr. Isacc Zapata RBC 0-2 Normal 0-2 [facility] Comment on above: Performed By: #### U AMIC ####[facility] [address] [place] [address]Dr. Isacc Zapata SPEC GRAVITY >=1.030 Abnormal 1.005-<=1.025 [facility] Comment on above: Performed By: #### U AMIC ####[facility] [address] [place] [address]Dr. Isacc Zapata UA PROTEIN Negative Normal NEGATIVE/ TRACE [facility] Comment on above: Performed By: #### U AMIC ####[facility] [address] [place] [address]Dr. Isacc Zapata Urobilinogen Qn (U) 0.2 {Ga'U}/dL Normal 0.2 - 1. 0 [facility] Comment on above: Performed By: #### U AMIC ####[facility] [address] [place] [address]Dr. Isacc Zapata WBC NONE SEEN Normal NONE SEEN [facility] Comment on above: Performed By: #### U AMIC ####[facility] [address] [place] [address]Dr. Isacc Zapata URIC ACID SERUMon 04-30-2022 Urate [Mass/Vol] 6.6 mg/dL Critically high 2.6-6.0 [facility] Comment on above: Performed By: #### M G, RENAL, URIC #### [facility] [address] [place] [address] Dr. Isacc Zapata URINE T PROTEIN CREAT RATIOo n 04-30-2022 Protein (U) [Mass/Vol] 37.5 mg/dL Critically high <=12.0 [facility] Comment on above: Performed By: #### U RTPCR #### [facility] [address] [place] [address] [address] Isacc Zapata UR PROT CREAT RAT 0.18 Normal [facility] Comment on above: Performed By: #### U RTPCR #### [facility] [address] [place], [place] [address] Dr. Isacc Zapata URINE CREAT 205.21 mg/dL Normal 20.00-300.00 [facility] Comment on above: Performed By: #### U RTPCR #### [facility] [address] [place], [place] [address] Dr. Isacc Zapata VITAMIN D 25 OHon 04-30-2022 VIT D 25-OH 39.7 ng/mL Normal [facility] Comment on above: Performed By: #### V ITADSEAN, FETIBC ####[facility] [address] [place], [place] [address]BjDr. Isacc Zapata VIT D RANGES SEE BELOW Normal [facility] Comment on above: Result Comment: <20 ng/mL Vit D deficient 20 - <30 ng/mL Vit D insufficient 30 - 100 ng/mL Vit D sufficient >100 ng/mL Potential Toxicity Performed By: #### V ITSEAN TRACY, FETIBC ####[facility] [address] [place], [place] [address]YqDr. Isacc Zapata US KIDNEYSon 02-16-2022 US KIDNEYS [...] MICKY JANSEN Date: 2022-02-16 07:45 Normal [facility] CBC AUTO DIFFon 12-26-2021 BASO # 0.1 103/ul Normal 0.0-0.1 [facility] Comment on above: Performed By: #### C BC #### [facility] [address] [place] [address] Dr. Isacc Zapata Basophils/100 WBC (Bld) 1.0 % Normal 0.2-2.0 [facility] Comment on above: Performed By: #### C BC #### [facility] [address] [place] [address] Dr. Isacc Zapata EO # 0.2 103/ul Normal 0.0-0.7 [facility] Comment on above: Performed By: #### C BC #### [facility] [address] [place] [address] Dr. Isacc Zapata Eosinophils/100 WBC (Bld) 3.3 % Normal 0.9-7.0 [facility] Comment on above: Performed By: #### C BC #### [facility] [address] [place] [address] Dr. Isacc Zapata Erythrocyte distribution width (RBC) [Ratio] 12.7 % Normal 11.0-15.0 [facility] Comment on above: Performed By: #### C BC #### [facility] [address] [place] [address] Dr. Isacc Zapata Hematocrit (Bld) [Volume fraction] 37.4 % Normal 36.0-48.0 [facility] Comment on above: Performed By: #### C BC #### [facility] [address] [place] [address] Dr. Isacc Zapata Hemoglobin (Bld) [Mass/Vol] 11.8 g/dL Critically low 12.0-16.0 [facility] Comment on above: Performed By: #### C BC #### [facility] [address] [place] [address] Dr. Isacc Zapata IG # 0.02 10e3/ul Normal 0.00-0.03 [facility] Comment on above: Performed By: #### C BC #### [facility] [address] [place] [address] Dr. Isacc Zapata IG % 0.3 % Normal 0.0-0.5 [facility] Comment on above: Performed By: #### C BC #### [facility] [address] [place] [address] Dr. Isacc Zapata LYMPH # 1.8 103/ul Normal 1.2-3.8 [facility] Comment on above: Performed By: #### C BC #### [facility] [address] [place] [address] Dr. Isacc Zapata Lymphocytes/100 WBC (Bld) 25.3 % Normal 20.5-60.0 [facility] Comment on above: Performed By: #### C BC #### [facility] [address] [place] [address] Dr. Isacc Zapata MANUAL DIFF REQ NO Normal [facility] Comment on above: Performed By: #### C BC #### [facility] [address] [place] [address] Dr. Isacc Zapata MCH (RBC) [Entitic mass] 29.9 pg Normal 26.7-34.0 [facility] Comment on above: Performed By: #### C BC #### [facility] [address] [place] [address] Dr. Isacc Zapata MCHC (RBC) [Mass/Vol] 31.6 g/dL Normal 29.9-35.2 [facility] Comment on above: Performed By: #### C BC #### [facility] [address] [place] [address] Dr. Isacc Zapata MCV (RBC) [Entitic vol] 94.7 fL Normal 81.0-99.0 [facility] Comment on above: Performed By: #### C BC #### [facility] [address] [place] [address] Dr. Isacc Zapata MONO # 0.5 103/ul Normal 0.3-0.8 [facility] Comment on above: Performed By: #### C BC #### [facility] [address] [place] [address] Dr. Isacc Zapata Monocytes/100 WBC (Bld) 7.4 % Normal 1.7-12.0 [facility] Comment on above: Performed By: #### C BC #### [facility] [address] [place] [address] [address] Isacc Zapata NEUT # 4.4 103/ul Normal 1.4-6.5 [facility] Comment on above: Performed By: #### C BC #### [facility] [address] [place] [address] [address] Isacc Zapata Neutrophils/100 WBC (Bld) 62.7 % Normal 43.0-75.0 [facility] Comment on above: Performed By: #### C BC #### [facility] [address] [place] [address] [address] Isacc Zapata Platelet mean volume (Bld) [Entitic vol] 10.3 fL Normal 9.5-13.5 [facility] Comment on above: Performed By: #### C BC #### [facility] [address] [place] [address] Dr. Isacc Zapata PLT 246 103/ul Normal 150-450 [facility] Comment on above: Performed By: #### C BC #### [facility] [address] [place] [address] [address] Isacc Zapata RBC 3.95 106/ul Critically low 4.20-5.40 [facility] Comment on above: Performed By: #### C BC #### [facility] [address] [place] [address] [address] Isacc Zapata WBC 7.1 103/ul Normal 4.0-11.0 [facility] Comment on above: Performed By: #### C BC #### [facility] [address] [place] [address] [address] Isacc Zapata GLYCOHEMOGLOBIN A1Con 2021 ADA RECOMMENDATION SEE BELOW Normal [facility] Comment on above: Result Comment: ADA RECOMMENDED LIMIT 4.0 - 6.0 ADA THERAPEUTIC TARGET < 7.0 ACTION SUGGESTED > 7.0 Performed By: #### A 1C ####[facility] [address] [place] [address]Dr. Isacc Zapata Glucose [Mass/Vol] 146 mg/dL Normal [facility] Comment on above: Performed By: #### A 1C ####[facility] [address] [place], [place] [address]LaDr. Isacc Zapata HbA1c (Bld) [Mass fraction] 6.7 % Critically high 4.5-6.2 [facility] Comment on above: Performed By: #### A 1C ####[facility] [address] [place], [place] [address]WeDr. Isacc Zapata LIPID PROFILEon 12-26-2021 CHOL-HDL RATIO NORM SEE BELOW Normal [facility] Comment on above: Result Comment: 3.3 - 4.4 LOW RISK 4.4 - 7.1 AVERAGE RISK 7.1 - 11.0 MODERATE RISK >11.0 HIGH RISK Performed By: #### C MP, URIC, LIPID #### [facility] [address] [place] [address] [address] Isacc Zapata Cholesterol [Mass/Vol] 195 mg/dL Normal <=200 [facility] Comment on above: Performed By: #### C MP, URIC, LIPID #### [facility] [address] [place], [place] [address] Dr. Isacc Zapata Cholesterol in HDL [Mass/Vol] 46 mg/dL Normal 40-60 [facility] Comment on above: Performed By: #### C MP, URIC, LIPID #### [facility] [address] [place], [place] [address] Dr. Isacc Zapata Cholesterol in LDL [Mass/Vol] 118.0 mg/dL Normal [facility] Comment on above: Performed By: #### C MP, URIC, LIPID #### [facility] [address] [place], [place] [address] Dr. Isacc Zapata Cholesterol.total/Cho lesterol in HDL [Mass ratio] 4.2 {ratio} Normal [facility] Comment on above: Performed By: #### C MP, URIC, LIPID #### [facility] [address] [place], [place] [address] Dr. Isacc Zapata HDL NORMAL > or = 60 mg/dl - LOW CARDIOVASCULAR RISK <40 mg/dl - HIGH CARDIOVASCULAR RISK Normal [facility] Comment on above: Performed By: #### C MP, URIC, LIPID #### [facility] [address] [place] [address] [address] Isacc Zapata LDL CALC NORMAL SEE BELOW Normal [facility] Comment on above: Result Comment: <100 mg/dl OPTIMAL 100 - 129 mg/dl NEAR OR ABOVE OPTIMAL 130 - 159 mg/dl BORDERLINE HIGH 160 - 189 mg/dl HIGH >190 mg/dl VERY HIGH Performed By: #### C MP, URIC, LIPID #### [facility] [address] [place] [address] [address] Isacc Zapata Triglyceride [Mass/Vol] 155 mg/dL Critically high <=150 [facility] Comment on above: Performed By: #### C MP, URIC, LIPID #### [facility] [address] [place] [address] [address] Isacc Zapata VLDL CALC 31.0 mg/dL Normal [facility] Comment on above: Performed By: #### C MP, URIC, LIPID #### [facility] [address] [place] [address] [address] Isacc Zapata MICROALBUMIN, RAND URon 11-0 mALB 2.9 mg/L Normal <=30.0 [facility] Comment on above: Performed By: #### M ALBR ####[facility] [address] [place] [id number]. Isacc Zapata PROF 14(COMP METB)on 022 Albumin [Mass/Vol] 4.0 g/dL Normal 3.4-5.0 [facility] Comment on above: Performed By: #### C MP, URIC, LIPID #### [facility] [address] [place] [address] [address] Isacc Zapata Albumin/Globulin [Mass ratio] 1.0 {ratio} Normal [facility] Comment on above: Performed By: #### C MP, URIC, LIPID #### [facility] [address] [place] [address] [address] Isacc Zapata ALP [Catalytic activity/Vol] 68 U/L Normal 46-116 [facility] Comment on above: Performed By: #### C MP, URIC, LIPID #### [facility] [address] [place] [address] [address] Isacc Zapata ALT [Catalytic activity/Vol] 16 U/L Normal 14-59 [facility] Comment on above: Performed By: #### C MP, URIC, LIPID #### [facility] [address] [place] [address] [address] Isacc Zapata Anion gap [Moles/Vol] 13.9 mmol/L Normal [facility] Comment on above: Performed By: #### C MP, URIC, LIPID #### [facility] [address] [place] [address] [address] Isacc Zapata AST [Catalytic activity/Vol] 12 U/L Critically low 15-37 [facility] Comment on above: Performed By: #### C MP, URIC, LIPID #### [facility] [address] [place] [address] [address] Isacc Zapata Bilirubin [Mass/Vol] 0.2 mg/dL Normal 0.2-1.0 [facility] Comment on above: Performed By: #### C MP, URIC, LIPID #### [facility] [address] [place] [address] [address] Isacc Zapata Calcium [Mass/Vol] 9.8 mg/dL Normal 8.5-10.1 [facility] Comment on above: Performed By: #### C MP, URIC, LIPID #### [facility] [address] [place] [address] [address] Isacc Zapata Chloride [Moles/Vol] 105 mmol/L Normal 98-107 [facility] Comment on above: Performed By: #### C MP, URIC, LIPID #### [facility] [address] [place] [address] [address] Isacc Zapata CO2 [Moles/Vol] 28.4 mmol/L Normal 21.0-32.0 [facility] Comment on above: Performed By: #### C MP, URIC, LIPID #### [facility] [address] [place] [address] [address] Isacc Zapata Creatinine [Mass/Vol] 1.38 mg/dL Critically high 0.55-1.02 [facility] Comment on above: Performed By: #### C MP, URIC, LIPID #### [facility] [address] [place] [address] Dr. Isacc Zapata EGFR-AF NAMIBIAN 46 mL/min/1.73m2 Critically low >=60 [facility] Comment on above: Performed By: #### C MP, URIC, LIPID #### [facility] [address] [place] [address] Dr. Isacc Zapata EGFR-NON AF NAMIBIAN 38 mL/min/1.73m2 Critically low >=60 [facility] Comment on above: Performed By: #### C MP, URIC, LIPID #### [facility] [address] [place] [address] Dr. Isacc Zapata Globulin (S) [Mass/Vol] 4.0 g/dL Normal [facility] Comment on above: Performed By: #### C MP, URIC, LIPID #### [facility] [address] [place] [address] Dr. Isacc Zapata Glucose [Mass/Vol] 127 mg/dL Critically high 74-106 [facility] Comment on above: Performed By: #### C MP, URIC, LIPID #### [facility] [address] [place] [address] Dr. Isacc Zapata Potassium [Moles/Vol] 4.3 mmol/L Normal 3.5-5.1 [facility] Comment on above: Performed By: #### C MP, URIC, LIPID #### [facility] [address] [place] [address] Dr. Isacc Zapata Protein [Mass/Vol] 8.0 g/dL Normal 6.4-8.2 [facility] Comment on above: Performed By: #### C MP, URIC, LIPID #### [facility] [address] [place] [address] Dr. Isacc Zapata Sodium [Moles/Vol] 143 mmol/L Normal 136-145 [facility] Comment on above: Performed By: #### C MP, URIC, LIPID #### [facility] [address] [place] [address] [address] Isacc Zapata Urea nitrogen [Mass/Vol] 39.0 mg/dL Critically high 7.0-18.0 [facility] Comment on above: Performed By: #### C MP, URIC, LIPID #### [facility] [address] [place], [place] [address] Dr. Isacc Zapata Urea nitrogen/Creatinine [Mass ratio] 28.3 mg/mg Normal [facility] Comment on above: Performed By: #### C MP, URIC, LIPID #### [facility] [address] [place], [place] [address] Dr. Isacc Zapata URIC ACID SERUMon 12-26-2021 Urate [Mass/Vol] 6.0 mg/dL Normal 2.6-6.0 [facility] Comment on above: Performed By: #### C MP, URIC, LIPID #### [facility] [address] [place], [place] [address] Dr. Isacc Zapata Coding Summaryon 06-13-2020 Coding Summary HTMLBase 64 ObhfgjdzEEz5mNh+PGhl YWQ+BD8YVORwX56swFJi cZ4CB3eUJW9GJJPGMDJC GF9JIN1uxSU2KDnrB2Ve biAv XlvugFUgVF23VJv2CHL7 qAnaSZmjgD3lcMDhB3j6 FhVqQR78dF07CZaeCHDa WlY4KwPncpymvCLe A0xqKwQzxSIyDrz+PHRh YmxlIHdpZHRoPScxMDAl KtMmaLnbSY3pWm5mDUGb LWNvbGxhcHNlOiBj d8bfLLUoPDtvRF3yaSjs N5QizMR1KCFok9x6Zw19 dHI+FWLlLPM1pSgrBUvf x552KuEoj0zxHCA8 pLBsNPryFXU3G70sj1Q2 WZQlPMDsZLN1gMP2tN2b xNgssbvbE5WtpUPnOrE2 TSA8yIYjxM1jnKvf fjibfS7uGoe+N36TPM2F OYDMFS1OJgo4F8JlUklq dHI+RC42SWAbWF20uPUo pBNxx9qigHs8RfLv BIKgPJG6tCbaXQmnw2Kd BLNhM37mvOIkz1D5QCHj oBsitIGzHnKbpBS4zO8w TSbwmpmfy6bjkzxi Yazyk4qept42vY32J37d EWsrIDZgLWQ7BFGbURZn hNzgos0orL7pKk7+IDxj k2qaf4gfnYo0XnFi YIJgyaUeoUxoRCX6m4Hl Ps64C2FxeGwem3DsXwd0 cc55tBSqf6V4tFO9IEih LPUsfY3uANrsSbL6 IHFhKpEwtV16cRGgJRzo Os6eqDmhmHmbXH4eQAEr easiHMVrrB5bJAEhaUYy yBvfZX1eWZXshrpz r729UwOqQIY0PEHhqWVx V2LsnS0vCcTtYYMsLSOk B8HqbFVfSQaeT186PWut YtJ2WJNjqhFvE5Um ZEPswWxhQwW1g8N6Xc2L z4AsrtfuLBF1VNmyWMT5 VlX3UrOsCqV8M4JcJkn4 NJCskXmpUP3eG7Gb YIKyushgtjvgiSM0HAWw TXHfgQ96tLJiUBbwDh3l q2N5p686BACrMQClfG31 Kx8svFmkXSOepWGN cN0xprhmg3yicectZjWp MUAcYWb2VDz0DCNmvQzk TzDnLDF6QkG3CIB6iGUn qQ8ucOsvfiuzeD9q Oyc+N07aaC8aQLW3LAC5 xowlRIYotbBrBH73PX13 Y3ZuEdhtvLMibIL+PGRp xsIuaTxmUA3sYgMe b8ems8OcHVlrN2YvLWVa UZuqUvn6VNWfYFU7aGG1 lG9vSORmKGylb9J8mWD0 T9QlqcZpbt4yo6qw XDSjXVlvF15clCBvs6P1 JPWmaDO9UXBflHfeUoWy wV61Knx+HZIdcSdtx8Xj Cdszq2gpq1tywOt8 IjMwJSIgdmFsaWduPSJ0 h6ReQa22W64oXUujMWRr UVCoFKErBLKijJskdi7k fD6jNb6+PGNvbCB3 nON4mJ3tHHVeIsJ7NJon R864CgOiiJYqPgenr4rt c8brhEc9XoIpIHUjndFy gHrjSYW6v6LqZm63 I26tGGabDQHvSIFkOCCv BKYyvRfmcx2nqQ0eUf6+ CC3ei6qxtv88pG10aWT+ CEWzKXM7wObxJOst ZMCpxU8wTJokQmF6LOKm QgIbwP69bETrVJnjTh7t xAlkwVphPM1sKTGxzjin e585GkCdw0spSBDo cNXbKSyiQWK8R34pl2O7 WOCoSGVyTGJ2pNQ4hH6y bGlnbjogbGVmdDsgdmVy kUblGObwVTylH887 IHRvcDsnPlBhdGllbnQg LgMbGWn9U8ZaRhv4XCQx sPlhJS4zqLZnRZhmUj4u lWwjvAbhMS2eUIFw qwgty017BwBee9yhGYEo aEXcWEgmHLW8D07hy6T1 YMRzYGWvOMR3sVX4iN7f bGlnbjogbGVmdDsg piEqsPefFIpxFJesK630 IHRvcDsnPkJpcnRoIERh hAI8OT93XK92nLBvm8C4 mFZ7U1GxZMMnkukg descqQC0BPUwFYFeqQ78 Nz4udFujGn7pJCJuBMB8 MQHgqWYeT8KxpP9gFeJd ESImBPQiZ4BiyUDg ZAzvN716WYolBoI6MATe kdBlU9TsOQIclAcfCaD6 g9L7Fv9MB3L2QK66LP73 vTOgq2D8wHX9O7Rh MDNprpvauqlucWX9JNJm CRTynT37Xb0vpJvbBp7j TSUoNXX5KBZtwCYmQ5Mn tZ0vGcSeDGQaNLOr Z4TjoLUcJBlgG524GYiv VxL1EPHwrcAqY4JjIXNk yNxaErL3o2C1Ad0VJFd3 WK68FX82wMGsn1M5 rJH7Z1KbUVVewqidxqvc sMU9BKAbMEIidB37Vc6t cEkuMc0mYLOdWUE5RCEy lIXbV3YslN7lIuEx XZYrMQVrT1WvuSQmKPvt A197MWyqThH2ANZemtAp I2SaJJNktJyaRtZ6l9Y8 Xe9NBMGqJE24GRD2 aSD8GD44VQ34K0UrHwht dGFibGU+PHRhYmxlIHdp ZHRoPScxMDAlJyBzdHls HE6yMp0mRGGyDRQj iQpyfPMgZtRov8uhTKCg SIpbRI6nbCujM7IruNR3 ANRul8e5Gl32V01jU3Rk dXA+FIIfvJF1cNG8 dH6uIhLhFoA6UOppB171 ZgXxiMGoLuzts8sjd7si mGt1SpC4NOOrzwJufSaa HCJ1z7CqIj17O15t IHdpZHRoPSIxNSUiIHZh gMfzhp4fnI1lHw9+PGNv dTD0hVS9oU8tOtRrLaL3 FOnyG590UnKbePSb Mxhwy9mqg5pxpUj8BqPa KNIpkkAucYxiUZF6z0Gk Xn56Y9EgmKcob4VjDbp9 lu93zSYfs4I3vEM8 K0FkCJMmiklsgJEguTzi SA5yXIYaeuytRBWvsC3e TFFvF0h9KqApJnA3QSwc B7HgkqT8FORliVLf KAjbXPT8X47gb7P5GKOh ENIdAUE6oDS6kA9rqLwc bjogbGVmdDsgdmVydGlj WVgnPJcmS774AQNx hOwaNXAbbV5rSNQloZTc lQuvQU3pWVLkkxygDubA ABqMLsYIHgqzZItIIN7u VjwvdGQ+PHRkIHN0 eJtlWZlbQMUxpZ6mOXVt O8i8VcLvRcY9AShdC4Mb PTZhheduXv53cB4gQxZv KfS7EXfmC9RfecJ8 EBOfhOZiURrsJXE3P76s h7S5RUPuFMJaWNS6eFY9 vF4pdWepsxefoLToyHfk dmVydGljYWwtYWxp M637ZNRspZlcZzZ7RxF9 TpI2JQJ8R2DlKmp9NSMc aZezCM5fnAWmSEgoUr1n kYqzhNfrAO5zFJLr vuvjFBQzlI5nTRHdsXNe sMfmIS0uGGZzwzzud126 UoTfYXO8KFOfbAYgX8Gc hJ3mLwGnJCIzEGDj A0GmpHHiWJyxF060KWja XxH1HAHhwuMcG9WyBIDm qTlpBgF4l1K9Jm16AhRR ZWFyczwvdGQ+PHRk DBF2nLuvYPozPYStdE6o EYGtH1h8AcLqVbL2IRcg T3LoBYDrimzyBa75iR4n BgPqQjX9EKtpU1Ox jbT8TFCkhSKmOIkzTUI3 V16bu8A4PQCrKFCfYJH9 aCU2lR9mxCrttzzmrFZu dDsgdmVydGljYWwt XEegQ707BRRbgNgaWfRG TUFMRTwvdGQ+PHRkIHN0 nCedWMltNFCsyD7vHDYt P4i8TbBlMgV2FSjr D7PlKBOzwunqOg80zA7b AgStSeW0MWiaB9JarqR8 ZUEugLSgNSmbVFU9K63k d6I4QJVpOVJsPXY9 kKL7nQ9leMsvdpqzkKDe dDsgdmVydGljYWwtYWxp J610WLXklWhtPa8CQA67 LQ89M3ZyOemipMYr bGU+PHRhYmxlIHdpZHRo RUdfNRQiAeHmeRilJE0j Lr3sIPSlOIBknGpchAHm FbRyj1mhJLKgZBru LH6ekFwgP5RwaKM0UPNr o5z3Nw77V77oG8HduQD+ DNBleVN4jKD6oW7fQkPf PqB1XAqnX650HvAj fYSqMymvd0axl5yfzAy8 IjMwJSIgdmFsaWduPSJ0 r0ChBu63G18rVIafOANo PSIyMCUiIHZhbGln ah2szM8wVw9+PGNvbCB3 jZK7eO9vPfTgWuJ5WYng E934NcNytKPtDontA57d S3PboLX+PHRyPjx0 JUVwkEvoQW1wrVKvGMfj Lz8yNNO7EzMtMuIiFEpa Y3ArOKAafuppziqcfPJ3 BVLdMDIdxT92Rz8r kOejFf3iYLMfOWI5DDHo sVWeJ4VywY8qKgPyPPSi SIBiF2IrvLOxLZytE945 RTbyZpX0BAMvizPt H4AqSWXfsSlfEmJ3f9X2 Dw7ZeOnlqCKsDL4wAtOq OZq8F9TvArh6PNNiiGbq UI8gjIRtDWxgOc4d jEsfeYslIP5vJGHhgymv s249QvLrg5buOYOuaVXa MRndIWH2M22ia0H6LXZl BXIfLJZ6mFR2tX1l bGlnbjogbGVmdDsgdmVy zTszOMrcDJiqY452RUBm dBzpHyFMFsb2K7MqYss7 FONmlNkbXR0bdABc VZlqPe2byGfhrTlkQD9h AMHjvnzeg991IiDpi7if FHMcpJAvNKyqMYL6H27k k6T7RCXyRCNrQGE2 dMO0wT0geKssbxsfkNVn dDsgdmVydGljYWwtYWxp K749CBGphOraEi4HQwi2 Q7WuIui9IZPjrRte NN6zjNOtCJyfPc5sxYbr rNnzOL7gCVFqkjffa100 HjMff2zqYFRbpQCmCPsp XLY9D77eg1P6NDOe FXEtZAJ7cWJ6hF8bzAwn bjogbGVmdDsgdmVydGlj VSpsDOaoP667JVJwcAyq PlBheWVyOjwvdGQ+ SU50ai36G0WeRacoBhm6 KHRgAAU9qHD7lM5tSHQa GZvih3R8cVI6R5ZdhsJq wi4mm5swHBKpBKwm Y29 (more content not included)... Normal [facility] Provider Orderson 06-13-2020 Provider Orders [id number] #[id number] Normal [facility] Uric Acidon 06-10-2020 Urate [Mass/Vol] 9.1 mg/dL High 2.6-8.0 [facility] Comment on above: Performed By: #### [id number] #### [facility] (DEFAULT) [address] [place] [address] Vital Signs Date Time Vital Sign Value Performing Clinician Facility 03-30-2024 09:15-0500 Body height 161.29 cm [facility] 03-30-2024 09:15-0500 Body mass index (BMI) [Ratio] 27.9 kg/m2 [facility] 03-30-2024 09:15-0500 Body temperature 97.3 [degF] [facility] 03-30-2024 09:15-0500 Body weight 72.74 kg [facility] 03-30-2024 09:15-0500 Diastolic blood pressure 80 mm[Hg] [facility] 03-30-2024 09:15-0500 Heart rate 101 /min [facility] 03-30-2024 09:15-0500 SaO2% (BldA) [Mass fraction] 96 % [facility] 03-30-2024 09:15-0500 Systolic blood pressure 152 mm[Hg] [facility] 12-19-2023 08:58-0400 Body height 161.29 cm [facility] 12-19-2023 08:58-0400 Body mass index (BMI) [Ratio] 27.7 kg/m2 [facility] 12-19-2023 08:58-0400 Body temperature 96.3 [degF] [facility] 12-19-2023 08:58-0400 Body weight 72.17 kg [facility] 12-19-2023 08:58-0400 Diastolic blood pressure 73 mm[Hg] [facility] 12-19-2023 08:58-0400 Heart rate 86 /min [facility] 12-19-2023 08:58-0400 Respiratory rate 16 /min [facility] 12-19-2023 08:58-0400 SaO2% (BldA) [Mass fraction] 96 % [facility] 12-19-2023 08:58-0400 Systolic blood pressure 132 mm[Hg] [facility] 08-27-2023 13:48-0400 Body height 161.29 cm [facility] 08-27-2023 13:48-0400 Body mass index (BMI) [Ratio] 27.8 kg/m2 [facility] 08-27-2023 13:48-0400 Body weight 72.57 kg [facility] 08-27-2023 13:48-0400 Diastolic blood pressure 74 mm[Hg] [facility] 08-27-2023 13:48-0400 Heart rate 93 /min [facility] 08-27-2023 13:48-0400 SaO2% (BldA) [Mass fraction] 97 % [facility] 08-27-2023 13:48-0400 Systolic blood pressure 124 mm[Hg] [facility] 05-23-2023 12:07-0400 Body height 161.29 cm [facility] 05-23-2023 12:07-0400 Body mass index (BMI) [Ratio] 28.3 kg/m2 [facility] 05-23-2023 12:07-0400 Body temperature 97.5 [degF] [facility] 05-23-2023 12:07-0400 Body weight 73.53 kg [facility] 05-23-2023 12:07-0400 Diastolic blood pressure 72 mm[Hg] [facility] 05-23-2023 12:07-0400 Heart rate 117 /min [facility] 05-23-2023 12:07-0400 Respiratory rate 16 /min [facility] 05-23-2023 12:07-0400 SaO2% (BldA) [Mass fraction] 93 % [facility] 05-23-2023 12:07-0400 Systolic blood pressure 120 mm[Hg] [facility] 11-12-2022 10:20-0400 Body height 161.29 cm Nika Mick Other [facility] Other 11-12-2022 10:20-0400 Body mass index (BMI) [Ratio] 29.15 kg/m2 Nika Mick Other [facility] Other 11-12-2022 10:20-0400 Body temperature 97.5 [degF] Nika Mick Other [facility] Other 11-12-2022 10:20-0400 Body weight 75.84 kg Nika Mick Other [facility] Other 11-12-2022 10:20-0400 Diastolic blood pressure 84 mm[Hg] Nika Mick Other [facility] Other 11-12-2022 10:20-0400 Respiratory rate 18 /min Nika Mick Other [facility] Other 11-12-2022 10:20-0400 SaO2% (BldA) [Mass fraction] 98 % Nika Mick Other [facility] Other 11-12-2022 10:20-0400 Systolic blood pressure 138 mm[Hg] Nika Mick Other [facility] Other 10-26-2022 10:00-0400 Body height 161.29 cm Corrie Lama Other [facility] Other 10-26-2022 10:00-0400 Body mass index (BMI) [Ratio] 29.12 kg/m2 Corrie Lama Other [facility] Other 10-26-2022 10:00-0400 Body weight 75.75 kg Corrie Lama Other [facility] Other 10-26-2022 10:00-0400 Diastolic blood pressure 88 mm[Hg] Corrie Lama Other [facility] Other 10-26-2022 10:00-0400 Systolic blood pressure 132 mm[Hg] Corrie Lama Other [facility] Other 03-16-2023 12:40-0400 Body height 161.29 cm Nika Mick Other [facility] Other 05-10-2022 12:40-0400 Body mass index (BMI) [Ratio] 30.27 kg/m2 Nika Mick Other [facility] Other 05-10-2022 12:40-0400 Body temperature 97 [degF] Nika Mick Other [facility] Other 05-10-2022 12:40-0400 Body weight 78.74 kg Nika Mick Other [facility] Other 05-10-2022 12:40-0400 Diastolic blood pressure 70 mm[Hg] Nika Mick Other [facility] Other 05-10-2022 12:40-0400 Respiratory rate 20 /min Nika Mick Other [facility] Other 05-10-2022 12:40-0400 SaO2% (BldA) [Mass fraction] 97 % Nika Mick Other [facility] Other 05-10-2022 12:40-0400 Systolic blood pressure 132 mm[Hg] Nika Mick Other [facility] Other 02-08-2022 15:00-0500 Body height 161.29 cm Nika Mick Other [facility] Other 02-08-2022 15:00-0500 Body mass index (BMI) [Ratio] 30.44 kg/m2 Nika Mick Other [facility] Other 02-08-2022 15:00-0500 Body temperature 97.5 [degF] Nika Mick Other [facility] Other 02-08-2022 15:00-0500 Body weight 79.2 kg Nika Mick Other [facility] Other 02-08-2022 15:00-0500 Diastolic blood pressure 100 mm[Hg] Nika Mick Other [facility] Other 02-08-2022 15:00-0500 Respiratory rate 18 /min Nika Mick Other [facility] Other 02-08-2022 15:00-0500 SaO2% (BldA) [Mass fraction] 97 % Nika Mick Other [facility] Other 02-08-2022 15:00-0500 Systolic blood pressure 180 mm[Hg] Nika Mick Other [facility] Other 11-16-2021 10:05-0400 Body height 161.29 cm Deena Ocasio Other [facility] Other 11-16-2021 10:05-0400 Body mass index (BMI) [Ratio] 31.38 kg/m2 Deena Ocasio Other [facility] Other 11-16-2021 10:05-0400 Body temperature 97.6 [degF] Deena Ocasio Other [facility] Other 11-16-2021 10:05-0400 Body weight 81.65 kg Deena Ocasio Other [facility] Other 11-16-2021 10:05-0400 Diastolic blood pressure 81 mm[Hg] Deena Ocasio Other [facility] Other 11-16-2021 10:05-0400 SaO2% (BldA) [Mass fraction] 96 % Deena Ocasio Other [facility] Other 11-16-2021 10:05-0400 Systolic blood pressure 173 mm[Hg] Deena Ocasio Other [facility] Other 11-27-2020 10:10-0400 Body height 161.29 cm Salina Mimond Other [facility] Other 11-27-2020 10:10-0400 Body mass index (BMI) [Ratio] 30.34 kg/m2 Salina Mimond Other [facility] Other 11-27-2020 10:10-0400 Body temperature 97.9 [degF] Salina Mimond Other [facility] Other 11-27-2020 10:10-0400 Body weight 78.93 kg Salina Mimond Other [facility] Other 11-27-2020 10:10-0400 Diastolic blood pressure 80 mm[Hg] Salina Areli Other [facility] Other 11-27-2020 10:10-0400 Respiratory rate 18 /min Salina Areli Other [facility] Other 11-27-2020 10:10-0400 SaO2% (BldA) [Mass fraction] 99 % Salina Areli Other [facility] Other 11-27-2020 10:10-0400 Systolic blood pressure 156 mm[Hg] Salina Mimond Other [facility] Other Encounters Encounter Date Encounter Type Care Provider Facility Start: 03-30-2024 End: 03-30-2024 ambulatory [facility] Work Phone: Start: 03-30-2024 End: 03-30-2024 Patient encounter procedure [facility] Work Phone: Start: 12-19-2023 End: 12-19-2023 ambulatory [facility] Work Phone: Start: 12-19-2023 End: 12-19-2023 Patient encounter procedure [facility] [place] Work Phone: Start: 12-09-2023 Non-patient / Non-visit [facility] [place] Work Phone: Start: 11-06-2023 End: 11-06-2023 Bamboo flowsheet Na Ronald Causey CCC-A Work Phone: [facility] Start: 11-06-2023 End: 11-06-2023 Bamboo flowsheet Na A Marium CCC-A Work Phone: [facility] Start: 11-06-2023 End: 11-06-2023 Clinical Support Na Lopezill CCC-A Work Phone: [facility] Comment on above: Mixed hearing loss, bilateral (Primary Dx) Start: 11-06-2023 End: 11-06-2023 ambulatory NA CAUSEY Not Available Start: 10-23-2023 End: 10-23-2023 Bamboo flowsheet Na A Marium CCC-A Work Phone: [facility] Start: 10-23-2023 End: 10-23-2023 Bamboo flowsheet Narodger Lopezill CCC-A Work Phone: [facility] Start: 10-23-2023 End: 10-23-2023 Clinical Support Narodger Causey CCC-A Work Phone: [facility] Comment on above: Mixed hearing loss, bilateral (Primary Dx) Start: 10-23-2023 End: 10-23-2023 ambulatory NA A MARIUM Not Available Start: 10-10-2023 End: 10-10-2023 ambulatory NA A MARIUM Not Available Start: 09-17-2023 End: 09-17-2023 ambulatory NA A MARIUM Not Available Start: 08-28-2023 Patient encounter procedure [facility] Start: 08-27-2023 End: 08-27-2023 ambulatory [facility] Work Phone: Start: 08-27-2023 End: 08-27-2023 Patient encounter procedure [facility] Work Phone: Start: 05-23-2023 End: 05-23-2023 ambulatory [facility] Work Phone: Start: 05-23-2023 End: 05-23-2023 Patient encounter procedure [facility] [place] Work Phone: Start: 05-13-2023 Non-patient / Non-visit [facility] [place] Work Phone: Start: 04-17-2023 Non-patient / Non-visit [facility] [place] Work Phone: Start: 01-29-2023 End: 01-29-2023 ambulatory NA MARIUM Not Available Start: 11-12-2022 End: 11-12-2022 ambulatory Nika Mick Other [facility] Other Start: 11-12-2022 Office outpatient visit 25 minutes Nika Mick [facility] Start: 11-06-2022 End: 11-06-2022 ambulatory Corrie Valentinesunita Other [facility] Other Start: 11-06-2022 Telephone encounter Corrie Valentineharley [facility] Start: 10-26-2022 End: 10-26-2022 ambulatory Corrie Daina Other [facility] Other Start: 10-26-2022 Office outpatient ne w 30 minutes Corrie Daina [facility] Start: 05-10-2022 End: 05-10-2022 ambulatory Nika Mick Other [facility] Other Start: 05-10-2022 Office outpatient visit 25 minutes Nika Mick [facility] [place] Start: 04-30-2022 End: 05-01-2022 ambulatory NIKA MICK Facility:[facility] Start: 02-15-2022 End: 02-16-2022 ambulatory NIKA MICK Facility:[facility] Start: 02-08-2022 End: 02-08-2022 ambulatory Nika Mick Other [facility] Other Start: 02-08-2022 Office outpatient ne w 45 minutes Nika Mick [facility] [place] Start: 12-26-2021 End: 12-27-[address] PHIL ECHEVERRIA Facility:[facility] Start: 11-16-2021 End: 11-16-2021 ambulatory Deena Ocasio Other [facility] Other Start: 11-16-2021 Office outpatient visit 15 minutes Deena Ocasio [facility] [place] Start: 11-27-2020 Office outpatient ne w 20 minutes Salina Singleton [facility] [place] Plan of Treatment Date Care Activity Detail Author Start: 11-06-2023 End: 11-06-2023 Clinical Support [facility] Comment on above: Arrived Start: 09-01-2024 Influenza vaccination Influenza Vacc ine (#1) [facility] Start: 10-23-2023 End: 10-23-2023 Clinical Support 10/23/2023 11:45 AM EDT Clinical Support [facility] [address] [place] [id number] Na Causey, [facility] [address] [address] Arrived [facility] Comment on above: Arrived Start: 1993 Screening for malign ant neoplasm of breast Mammogram [facility] Start: 1955 Screening for malign ant neoplasm of colon [facility] Renal function 2000 panel - Serum or Plasma [facility] Immunizations Immunization Date Immunization Notes Care Provider Fa cility 10-22-2022 influenza virus vaccine, unspecified formulation [facility] 10-22-2022 influenza, high dose seasonal, preservative-free Corriemoisés Garibayacher Other [facility] [employer] Other 12-13-2020 Do not use COVID-19 Pfizer 2 dose Corrie Memerbacher Other [facility] 11-27-2020 Toradol per 15 mg Salina Dym ond Other [facility] [employer] Other 05-07-2020 Do not use COVID-19 Pfizer 2 dose Corrie Rohrbacher Other [facility] 04-16-2020 Do not use COVID-19 Pfizer 2 dose Corrie Rohrbacher Other [facility] 11-30-2019 pneumococcal polysaccharide vaccine, 23 valent Corrie Valentinerbacher Other [facility] 11-17-2018 pneumococcal conjuga te vaccine, 13 valent Corrie Valentinerbacher Other [facility] 09-15-2018 zoster vaccine recombinant Corrie Valentinesunita Other [facility] 07-05-2018 zoster vaccine recombinant Corrie Valentinecarlosarun Other [facility] Payers Date Payer Category Payer Unknown [employer] M [employer] [id number] 2021-Present [address] [place] [address] [id number] 2018 Medicare MEDICARE MEDICAR E PART B [id number] 2018-Present [address] [address] [place] [address] Medicare [id number] 1959 Medicare [id number] 1961 Medicare [id number] 1953 Unknown [id number] 1953 Unknown [id number] 1953 Unknown [id number] 1953 Unknown [id number] 1953 Unknown [id number] 1953 Unknown [id number] 1953 Unknown [id number] 1953 Unknown [id number] Medicare Medicare [id number] Unknown MMO [employer] [id number] Social History Date Type Detail Facility Sex Assigned At [facility] Other Start: 05-23-2023 End: 08-27-2023 Tobacco smoking status MDIS Never smoked tobacco (finding) [facility] Start: 1955 Sex Assigned At Female F [facility] Tobacco smoking status [facility] Tobacco smoking consumption unknown [facility] Start: 1955 Sex assigned at Not on file [facility] Start: 03-30-2024 Sex Female (finding) [facility] Clinical Notes 11-27-2020 to 11-06-2023 DOLORES Mcclellan - 11/06/2023 11:15 AM EDTDOLORES Mcclellan - 10/23/2023 11:45 AM EDT Note Date & Type Note Facility 11-06-2023 History of Presen t illness Narrative Fit pt with remade molds - canals are longer and pt indicated mold felt more secure. Pt is hearing a sound similar to a door molina in her hearing aids. Pt also indicated she was turning the left aid up (right aid gain seems fine.) Played all system sounds for pt and could not duplicate what she heard. She will pay better attention to where she is at when the sound occurs. Also increased overall gain for average sounds in the left ear x 1. Pt pleased and will return prn documented in this encounter [facility] 10-23-2023 History of Presen t illness Narrative 2 week check: Overall pt is hearing much better with the new aids and she does not have feedback issues. She does have complaints about both molds. She has a difficult time inserting the right mold and it is a little uncomfortable. Pt is not getting right mold into cymba giuliana. The tubing in the left mold pulled out over the past weekend. The mold also makes her ear sore in the cymba giuliana area. Ear impressions taken of each ear without incident. Will ask Signia to shorten area that extends into the cymba giuliana and lengthen canal slightly in both molds. Did try old right mold with new aid but pt had a lot of feedback. She prefers to wear the new mold and will try harder to get the mold in properly. Re-tubed left mold with super thick tubing. Read aids in computer and stored settings. Pt did have several adaptations in the data logging. Applied her adaptations so pt should not have to increase the volume as frequently. Answered several questions about the meryl. Pt is enjoying streaming her phone calls and using the meryl. She asked about unlinking the volume controls. Volume controls have to be linked in order for the meryl to work. The only way to adjust aids individually is through the meryl. Pt will return 11/06/23 to be fit with remade molds. documented in this encounter [facility] 11-12-2022 Evaluation note Encounter Date Diagnosis Assessment [...] gout flare. Continue allopurinol for gout prophylaxis. [facility] Other 09-01-2023 Evaluation note* Encounter Date Diagnosis [...] Nephrology. Reviewed most recent notes. Oct, Dagoberto carter cr kid I-IV (ICD-10 - I12.9) [facility] Other 03-16-2023 Evaluation note* Encounter Date Diagnosis [...] gout flare. Continue allopurinol for gout prophylaxis. [facility] Other 12-15-2022 Evaluation note* Encounter Date Diagnosis [...] advised her to avoid NSAIDs. Jan, Dagoberto hy kid w cr kid I-IV [...] gout flare. Continue allopurinol for gout prophylaxis. [facility] Other 09-22-2022 Evaluation note* Encounter Date Diagnosis [...] Other [facility] care material was printed [facility] Other 10-03-2021 Evaluation note* Encounter Date Diagnosis [...] no improvement in 2 to 3 days [facility] Other Evaluation noteNo InformationNort [employer] Other Evaluation note* Diagnosis Onset Date Resolution Status B12 deficiency acute CKD (chronic kidney disease) stage 3, GFR 30-59 ml/min acute Gout acute [id number] acute Hypomagnesemia acute Secondary hyperparathyroidism acute Type 2 diabetes mellitus wit h diabetic chronic kidney disease acute [facility] Work Phone: Evaluation note* Diagnosis Onset Date Resolution Status Gout acute Hypertension [facility] Work Phone: Evaluation note* Diagnosis Onset Date Resolution Status Anemia of renal disease acut e B12 deficiency acute CKD (chronic kidney disease) stage 3, GFR 30-59 ml/min acute Gout acute [id number] acute Hypomagnesemia acute Secondary hyperparathyroidism acute Type 2 diabetes mellitus wit h diabetic chronic kidney disease acute [facility] Work Phone: Evaluation note* Diagnosis Mixed hearing loss, bilateral- Primary documented [facility] Diagnosis Mixed hearing loss, bilateral- Primary [facility] noteNo assessment [facility] Work Phone: History general Narrative - Reported* Type Description Date Medical History hypertension Medical History type I diabetes Medical History gout Surgical History arthroscopic knee surgery [facility] Other Hisxazt general Narrative - Reported* Type Description Date Medical History hypertension Medical History type II diabetes Medical History gout Surgical History arthroscopic knee surgery Surgical History EAR SURGERY Surgical History HYSTERECTOMY Surgical History RECTAL SEAL Hospitalization History SEE ABOVE [facility] Other History general Narrative - Reported* Type Description Date Medical History hypertension Medical History type II diabetes Medical History gout Medical History ANEMIA Surgical History arthroscopic knee surgery Surgical History EAR SURGERY Surgical History HYSTERECTOMY Surgical History RECTAL SEAL Hospitalization History SEE ABOVE [facility] Other Summary Purpose Family History Relationship Condition Age at Onset Recorded Date/T isauro brother Hypertension Unknown father Unknown Alzheimer's dementia Unknown family member Unknown Not Specified Unknown Relationship Condition Age at Onset Recorded Date/T isauro brother Hypertension Unknown father Unknown Alzheimer's dementia Unknown family member Unknown mother Unknown Advance Directives Advance Directive Response Recorded Date/ Time Advance Directives No March 26, 2023 6:52pm Advance Directive Response Recorded Date/ Time Advance Directives No March 26, 2023 5:52pm Chief Complaint and Reason for Visit Chief Complaint Amb Documentation 6 month follow up Reason for Visit B12 deficiency CKD (chronic kidney disease) stage 3, GFR 30-59 ml/min Gout [id number] Hypomagnesemia Secondary hyperparathyroidism Type 2 diabetes mellitus with diabetic chronic kidney disease Chief Complaint 6 month follow up/[place] Reason for Visit Gout Hypertension Chief Complaint RENAL 6 MONTH F/U Reason for Visit Anemia of renal dise ase B12 deficiency CKD (chronic kidney disease) stage 3, GFR 30-59 ml/min Gout [id number] Hypomagnesemia Secondary hyperparathyroidism Type 2 diabetes mellitus with diabetic chronic kidney disease Chief Complaint Admit Date R Hand Pain March 30, 2024 9 :11am Additional Source Comments INFORMATION SOURCE (unrecogn ized section and content) DATE CREATED AUTHOR 06/14/2020 [facility] DATE CREATED AUTHOR AUTHOR'S ORGANIZ ATION 05/02/2022 [facility] DATE CREATED AUTHOR AUTHOR'S ORGANIZ ATION 11/08/2023 [facility] dical Specialists EPIC REASON FOR VISIT (unrecogniz ed section and content) LEFT LOWER BACK RADIATING DO WN BUTTOCK AND LEFT LEGRIGHT LOWER BACK PAIN, RADIATING TO BUTTOCK AND HIPCKD and HTNCKD and HTNESTABLISHlab resultsCKD and HTN Care Teams (unrecognized sec tion and content) Team Status: Active Member Role Status Dates Corrie Lama APRN SENIOR PENSIONS ADMINISTRATOR-C Primary Care Provider Active Team Status: Active Member Role Status Dates Corrie Lama APRN SENIOR PENSIONS ADMINISTRATOR-C Primary Care Provider Active Start: April 172023 Judit Flores Attending Provider Active Start: April 17, 2023 Team Status: Active Member Role Status Dates Corrie Lama APRN NP-C Primary Care Provider, Attending Provider Active Start: May 13, 2023 Team Status: Inactive Member Role Status Dates Corrie Lama APRN SENIOR PENSIONS ADMINISTRATOR-C Primary Care Provider Active Start: May 23, 2023 End: May 23, 2023 Nika Diop MD Attending Provider Active Start : May 23, 2023 End: May 23, 2023 Team Status: Inactive Member Role Status Dates Corrie Lama APRN SENIOR PENSIONS ADMINISTRATOR-C Primary Care Provider, Attending Provider Active Start: August 27, 2023 End: August 27, 2023 Team Status: Active Member Role Status Dates Corrie Lama APRN SENIOR PENSIONS ADMINISTRATOR-C Primary Care Provider Active Start: November Nika Diop MD Attending Provider Active Start : December 09, 2023 Team Status: Inactive Member Role Status Dates Corrie Rohrbacher , TRAIN CLERK SENIOR PENSIONS ADMINISTRATOR-C Primary Care Provider Active Start: November End: December 19, 2023 Nika Diop MD Attending Provider Active Start : December 19, 2023 End: December 19, 2023 Gunner[employer]S Mate Relationship Specialty Start Date End Date Phil Echeverria MD [address] [place] [address] PCP - General Family Medicine 01/28/23 Gunner[employer] Mate Relationship Specialty Start Date End Date Phil Echeverria MD [address] [place] [address] PCP - [facility] Medicine 01/28/23 Gunner'S Mate Relationship Specialty Start Date End Date Phil Echeverria MD [address] [place] [address] PCP - [facility] Medicine 01/28/23 Team Status: Inactive Member Role Status Dates Corrie Lama APRN SENIOR PENSIONS ADMINISTRATOR-C Primary Care Provider, Attending Provider Active Start: March 30, 2024 End: March 30, 2024 Goals (unrecognized section and content) Goals may [...] BE BASED ON THE PRIMARY CLINICAL RECORDS. [employer] provides no warranty or guarantee of the accuracy or completeness of information in this document.
== END 2024-04-14 11:10 | disposition home or self-care (01) ==
LOC: RAD 11:10
PROVIDERS: PCP Nurse Practitioner Family; Visit Provider Nurse Practitioner Family
DX: M77.8 Other enthesopathies, not elsewhere classified (principal)
CPT/HCPCS: 73130

== ENCOUNTER 2024-05-26 09:53 | Outpatient (OUT) | payer MEDICARE, OTHER, SELFPAY ==
[2024-05-26 10:30] LABS: Mean Corpuscular HGB Conc 32.4 g/dL (29.9-35.2); Mean Corpuscular Volume 95.6 fL (81.0-99.0); Mean Platelet Volume 10.3 fL (9.5-13.5); Platelet Count 255 10^3/uL (150-450); Red Blood Count 3.87 10^6/uL (4.20-5.40); Red Cell Distribution Width 13.2 % (11.0-15.0); White Blood Count 6.7 10^3/uL (4.0-11.0)
[2024-05-26 10:46] LABS: Creatinine Urine Random 144.99 mg/dL (20.00-300.00); Protein Creatinine Ratio Urine 0.19; Total Protein Urine Random 27.3 mg/dL (<=11.9)
[2024-05-26 11:30] LABS: Percent Iron Saturation 19.1 %
[2024-05-26 11:34] LABS: BUN Creatinine Ratio 26.1; Calcium 9.5 mg/dL (8.5-10.1); Carbon Dioxide 25.6 mmol/L (21.0-32.0); Chloride 106 mmol/L (98-107); Estimated GFR (African America 44 (>=60 mL/min/1.73m^2); Estimated GFR (Non-African Ame 37 (>=60 mL/min/1.73m^2); Glucose 140 mg/dL (74-106); Magnesium 1.7 mg/dL (1.8-2.4); Phosphorus 3.5 mg/dL (2.6-4.7); Potassium 4.6 mmol/L (3.5-5.1); Sodium 144 mmol/L (136-145); Uric Acid 5.4 mg/dL (2.6-6.0)
[2024-05-26 11:56] LABS: Bilirubin Urine NEGATIVE (NEGATIVE); Blood Urine NEGATIVE (NEGATIVE); Clarity Urine CLEAR (CLEAR); Color Urine YELLOW (YELLOW); Glucose Urine UA NEGATIVE (NEGATIVE); Ketones Urine TRACE mg/dL (NEGATIVE); Leukocyte Esterase Urine NEGATIVE (NEGATIVE); Nitrite Urine NEGATIVE (NEGATIVE); Protein Urine TRACE mg/dL (NEG/TRACE); Specific Gravity Urine 1.025 (1.005-1.025); Urobilinogen Urine 0.2 EU/dL (0.2-1.0)
[2024-05-26 12:06] LABS: Amorphous Sediment Urine RARE; Bacteria Urine TRACE #/HPF (NONE SEEN); Cast Seen? NONE SEEN #/LPF (NONE SEEN); Crystals Seen? Seen #/HPF (None Seen); Mucus Urine NONE SEEN (NONE SEEN); RBC Urine 0-2 #/HPF (0-2); Squamous Epithelial Cell Urine RARE #/LPF (NONE/RARE); WBC Urine 0-2 #/HPF (NONE SEEN)
[2024-05-27 09:09] LABS: PTH, Intact 127 pg/mL (15-65)
== END 2024-05-26 09:54 | disposition home or self-care (01) ==
LOC: LAB 09:54
PROVIDERS: PCP Nurse Practitioner Family; Visit Provider Internal Medicine
DX: N18.9 Chronic kidney disease, unspecified (principal); D63.1 Anemia in chronic kidney disease; N25.81 Secondary hyperparathyroidism of renal origin; E53.8 Deficiency of other specified B group vitamins; M10.9 Gout, unspecified; E83.42 Hypomagnesemia
CPT/HCPCS: 36415; 80069; 81001; 82306; 82570; 82728; 83540; 83550; 83735; 83970; 84156; 84550; 85027

== ENCOUNTER 2024-12-21 08:01 | Outpatient (OUT) | payer MEDICARE, OTHER, SELFPAY ==
--- OUTSIDE RECORDS SUMMARY | 2019-09-02 06:00 | XMS_ITS | Continuity of Care Document ---
Author Organization [facility] Address [address] [place] [address] Phone Care Team Providers Care Evp Head [facility] [employer] Experience Strategy Name Role Phone Xander NEAL DO, Connor Unavailable Unavailable Procedures Procedure Date Covid Testing [facility] IMMUNIZATION ADMIN FLU VAC NO PRSV 4 JA 3 YRS+ PREVENTIVE COUNSELING, INDIV IMMUNIZATION ADMIN [...] was developed and its performance characteristics determinedby [employer]. This test has not been FDA cleared [...] anegative (not detected) result in this assay.Performed by:[employer] ([employer]) Panel Description: SARS-CoV-2 Antibody, IgM Fin al SARS-CoV- 2 Antibody, IgM 020 15:03:00 Negative Negative Final This sample do es not contain detectable SARS-CoV-2 IgM antibodies.This negative result does not rule out SARS-CoV-2 infection.Correlation with epidemiologic risk factors and other clinical andlaboratory findings is recommended. Serologic results should not beused as the sole basis to diagnose or exclude recent [id number].P erformed by:[employer] ([employer]) Panel Description: SARS-CoV-2 Antibody, IgG Fin al SARS-CoV- 2 Antibody, IgG 020 09:25:00 Negative Negative Final This sample do es not contain detectable SARS-CoV-2 IgG antibodies.This negative result does not rule out SARS-CoV-2 infection.Correlation with epidemiologic risk factors and other clinical andlaboratory findings is recommended. Serologic results should not beused as the sole basis to diagnose or exclude recent [id number] his assay was performed using the Perry SARS-CoV-2 IgG assay.Performed by:[employer] ([employer]) Advance Directives Directive Yes / No Effective Date File Name No Information Encounters Encounter Description Practice Location Reason(s) For Visit Diagnoses Date Provider Providers Copied on Encounter [facility], [address] [place] [address], [id number], [place] tel:[phone] COVID [facility] Encounter for screening for other viral diseases Xander Lebron. [address], [place], [id number], [place]. tel:[phone] PREVENTIVE COUNSELING, [facility] ([place], [place]), [address], [place], [id number], [place] tel:[phone] [facility] No Information Xander Lebron. [address], [place], [id number], [place]. tel:[phone] PREVENTIVE COUNSELING, INDIV [facility], [address], [place], [id number], [place] tel:[phone] [facility] Influenza Vaccine Xander Lebron. [address], [place], [id number], [place]. tel:[phone] [facility], [address], [place], [id number], [place] tel:[phone] [facility] No Information Xander Lebron. [address], [place], [id number], [place]. tel:[phone] [facility], [address], [place], [id number], [place] tel:[phone] [facility] No Information Xander Lebron. [address], [place], [id number], [place]. tel:[phone] Family History Family Member Type Diagnosis Age [...] Record Payers Payer name Insurance type Covered constitution party ID Serjiogarrett bill(s) Medicare PPS MB [id number] [facility] [place] CI [id number] Social History Type Description Quantity Date Captured [...]
--- OUTSIDE RECORDS SUMMARY | 2024-12-21 08:04 | XMS_ITS | Clinical Summary ---
Author Organization [facility] Address [address] [place] [address] Care Team Providers Care Director Of Services Name Role Phone Darinel, Phil Zhou MD Primary Care Provider [phone] Allergies No known active allergies Medications MedicationSigDispense QuantityRefillsLast FilledStart DateEnd DateStatus allopurinol (Zyloprim) 100 MG tablet Take 100 mg by mouth DailyActive metFORMIN (Glucophage) 500 MG tablet TAKE 2 TABLETS BY MOUTH IN THE MORNING AND 1 TABELT IN THE TPYYGXG2706/06/2024 Active valsartan-hydroCHLOROthiazide (Diovan-HCT) 320-25 MG tablet Take 1 tablet by mouth DailyActive magnesium 250 MG tablet Take by mouthActive cholecalciferol (Vitamin D-3) 50 MCG (1999 UT) capsule Take by mouthActive cyanocobalamin (Vitamin B-12) 500 MCG tablet Take 500 mcg by mouth DailyActive Active Problems ProblemNoted DateDiagnosed DateHistory of gjrdbuohkihm80/01/2025 Gsntnmgcxfevzlbdmtso22/01/2025Type 2 diabetes mellitus with hyperglycemia 08/25/2024hronic diastolic heart xskzhla7307/06/2010Type 2 diabetes mellitus without bcemhmzukgxyg14/24/2009enign essential qctceomhiqjc85/07/2008 Encounters DateTypeDepartmentCare KydrDpoafxzektq33/07/2025Telephone [facility] [address] [place] [address] Alisson Dacosta MA 09/27/2024bstract [facility] [address] [facility] [place] [place] [address] Na Causey, [facility] 09/21/2024Telephone [facility] [address] [facility] [place] [address] Alisson Dacosta MA from Last 3 Months Family History Medical HistoryRelationNameCommentsAlzheimer's diseaseFatherHypertensionFather RelationNameStatusCommentsFatherDeceasedMotherDeceased Social History Tobacco UseTypesPacks/DayYears UsedDateSmoking Tobacco: NeverSmokeless Tobacco: Never Tobacco Cessation:Counseling Given: Not Answered Alcohol UseStandard Drinks/WeekCommentsNot Currently0 (1 standard drink = 0.6 oz pure alcohol)CommentsUnknownSex and Gender InformationValueDate Recorded Sex Assigned at BirthNot on fileLegal CciPedkdc73/15/2023 7:10 PM EDTGender IdentityNot on fileSexual OrientationNot on file Last Filed Vital Signs Vital SignReadingTime TakenCommentsBlood Qbqbniyw874/7402/16/2019 12:00 PM EST Pulse--Temperature--Respiratory Rate--Oxygen Saturation--Inhaled Oxygen Concentration--Evkwkl05 kg (172 lb)03/21/2021 12:00 PM SXXVnuele624.6 cm (5' 4 ) 03/21/2021 12:00 PM ESTBody Mass Index29.52003/21/2021 12:00 PM EST Plan of Treatment Health MaintenanceDue DateLast DoneCommentsCT Uisdlaakdhlm12/14/1954olonoscopy 1953olorectal Cancer Fxaxfijjl47/14/1954FIT-DNA1953FIT1953 FOBT1955 3846Zzxxlcmjhwwkf94/14/6250Ivjqeusbq10/14/1994Influenza Vaccine (#1) 5011/22/2023, 10/22/2022, 11/27/2021, Additional history exists Pneumococcal Vaccine: 65+ QcjccQdjgmbuhn47/05/2020, 11/17/2018 Insurance Care Teams Team MemberRelationshipSpecialtyStart DateEnd GerberPhil MD [address] [place] [address] PCP - GeneralFamily Fgeivpjf45/4/23
--- OUTSIDE RECORDS SUMMARY | 2024-12-21 08:04 | XMS_ITS | Clinical Summary ---
Author Organization [employer] [facility] tem Address [id number] [address] [place] [address] Care Team Providers Care Coconut Cooker Name Role Phone Phil Tena DO Primary Care Provider [phone] Immunizations ImmunizationAdministration DatesNext DueCOVID-19, mRNA, LNP-S, PF, 30mcg/0.3mL Dose05/07/2020,04/16/2020 Social History Tobacco UseTypesPacks/DayYears UsedDateSmoking Tobacco: Never AssessedChildcare AnswerDate DgslxyulVmmqxrzsuEbjiwuv79/20/2021EmploymentAnswerDate Recorded SpfzglcjdeSskydug85/20/2021Purpose - LifeAnswerDate RecordedPurpose and direction in rzxbIpvwmyd70/20/2021CommentsUnknownSex and Gender InformationValueDate RecordedSex Assigned at BirthNot on fileLegal SexFemale 04/16/2020 1:08 PM ESTGender IdentityNot on fileSexual OrientationNot on file Plan of Treatment Health MaintenanceDue DateLast DoneCommentsDepression Stjiaught52/14/1966Tobacco Fvskakwef47/14/1966Adult BMI Zbpcjhrlv66/14/1972Fall Risk Dkoeelntk49/14/2019 COVID-19 Vaccine ( season)503/, 04/16/2020Influenza Dqsrnzy52/09/2019, 11/17/2018, 11/26/2017, Additional history exists DTaP,Tdap and Td Vaccines (2 - Td or Tdap)Zoster (Shingles) QsqqjsmZkhmqutgv98/22/2019, 07/05/2018 Medical Devices Not on file Insurance Care Teams Team MemberRelationshipSpecialtyStart DateEnd Date Phil Tena DO PCP - GeneralFamily Wushlwvx89/2/22
--- OUTSIDE RECORDS SUMMARY | 2024-12-21 08:09 | XMS_ITS | CCD ---
Author Organization [facility] Care Team Providers Care Yoga Coordinator Name Role Phone Salina Singleton Unavailable OcasioDeena cifuentes Unavailable Mick, Nika Unavailable MICK, NIKA Admitting Unavailable MICK, NIKA Attending Unavailable HOUSE, DR TORRES Primary Care Unavailable MICK, NIKA Consulting Unavailable HOUSE, DR TORRES Admitting Unavailable HOUSE, DR TORRES Attending Unavailable HOUSE, DR TORRES Primary Care Unavailable HOUSE, DR TORRES Consulting Unavailable MICK, NIKA Admitting Unavailable MICK, NIKA Attending Unavailable HOUSE, DR TORRES Primary Care Unavailable MICK, NIKA Consulting Unavailable Corrie Lama Unavailable Phil Tena MD Primary Care Provider NA CAUSEY Attending Unavailable NA CAUSEY Attending Unavailable NA CAUSEY Attending Unavailable JOSEPH NG Attending Unavailable NA CAUSEY Attending Unavailable Corrie Lama APRN Primary Care Provider Corrie Lama APRN Attending Provider Medications Current Medications MedicationDrug Class(es)DatesSig (Normalized)Sig (Original)acetaminophen 500 mg oral capsule (1 source)take 2 capsules by mouth every six hoursAcetaminophen 500 MG 2 capsule as needed Orally every 6 hrs ActiveCalcium (1 source)Phosphate Binder, CalciumCalcium Activecholecalciferol 0.05 mg oral capsule (3 sources)Vitamin Dcholecalciferol (Vitamin D-3) 50 MCG (2000 UT) capsule Take by mouth Activetake 1 tablet by mouth every twenty-four hoursVitamin D3 25 MCG (1000 UT) 1 tablet Orally Once a day Activecyclobenzaprine hydrochloride 10 mg oral tablet (2 sources)Muscle RelaxantStart: 25-13-1795omjc 1 tablet by mouth every eight hours as neededCyclobenzaprine HCl 10 MG 1 tablet Orally every 8 hours as needed for 7 days Oct, ActiveStart: 57-17-7045lamh 1 tablet by mouth three times daily as needed for painFlexeril 10mg 1 Oral tid prn Take 1 tablet 3 times a day as needed for back pain and stiffness. Be aware this medication will cause drowsiness Nov, Activedoxylamine succinate 25 mg oral tablet (2 sources)take 2 tablets by mouth every twenty-four hoursSleep Aid 25 MG 2 tablet at bedtime as needed Orally Once a day Activeferrous sulfate 325 mg oral tablet (3 sources)take 1 tablet by mouth three times weeklyIron 325 (65 Fe) MG 1 tablet Orally Three times a Week ActiveIcy Hot 7.5 % (Roll) (2 sources)Icy Hot 7.5 % (Roll) 1 application as needed Externally Three times a day Activelidocaine 0.05 mg/mg medicated patch (1 source)Antiarrhythmic, Amide Local AnestheticStart: 81-89-1446tahnd 1 dose transdermal route every twelve hours, then apply 1 dose transdermal route every twelvehoursLidocaine 5 % 1 patch remove after 12 hours Externally Once a day for 10 day(s) Apply 1 patch to the painful area on your back, leave in place for 12 hours, remove after 12 hours and discard. Apply anew patch after 12 hours. Nov, ActiveMagnesium (5 sources)magnesium 250 MG tablet Take by mouth Activetake 1 tablet by mouth once dailyMagnesium 400 MG 1 tablet with a meal Orally Once a day Active Magnesium 400 MG as directed Orally Activemagnesium oxide 400 mg oral tablet (6 sources)Start: 71-32-2626oeze 1 tablet by mouth once dailyMagnesium Oxide 400 mg (241.3 mg magnesium) tablet Active 400 MG PO Daily May 23, 2023 12:00am C omplies with drug therapyMedrol Dose Pack as directed (1 source)Start: 58-05-6361Xscrdq Dose Pack as directed as directed orally as directed for 6 days Nov, ActivemethylPREDNISolone 4 mg oral tablet (13 sources)CorticosteroidStart: 60-51-3165xzef 1 tablet by mouth once Methylprednisolone (Medrol (Paul)) 4 mg tablets,dose pack Active 0 PO per package directions October 29, 2024 12:00am PO PER PKG DIR Complies with drug therapyStart: 08-26-2024 End: 12-31-530093 mg, Intra-articular, Once PRN Procedure, Starting on Sat08/26/24 at 1620, For 1 doseStart: 08-26-2024 End: 12-29-2499rywfndCFSUINEgjupe acetate (DEPO-Medrol) injection 20 mgStart: 03-30-2024 End: 53-61-4876jdxp 1 tablet by mouth onceMethylprednisolone (Medrol (Paul)) 4 mg tablets,dose pack Discontinued 0 PO per package directions March 30, 2024 1:00am June 04, 2024 2:40pm PO PER PKG DIRStart: 75-23-2726mhjeqcOJOBWAPsyflr 4 MG as directed Orally for daily dose take half with breakfast, half with dinner for 6 days Oct, Activenaproxen sodium 220 mg oral tablet (1 source)Nonsteroidal Anti-inflammatory Drugtake 1-2 tablets by mouth every twelve hours at mealtime as neededAleve 220 MG 1-2 tablet with food or milk as needed Orally every 12 hrs PRN ActivetiZANidine 2 mg oral tablet (1 source)Central alpha-2 Adrenergic AgonistStart: 47-30-2257dzbb 1 tablet by mouth every eight hours as neededTizanidine 2 mg tablet Active 2 MG PO Every 8 hours as needed for muscle spasticity 2024 12:00am Complies with drug therapyvitamin b12 1 mg oral capsule (6 sources)Vitamin T79Oeelm: 09-76-1863gupu 1 capsule by mouth once daily Cyanocobalamin (Vitamin B-12) 1,000 mcg capsule Active 1000 MCG PO Daily December 19, 2023 12:00amComplies with drug therapytake 1 tablet by mouth once daily cyanocobalamin (Vitamin B-12) 500 MCG tablet Take 500 mcg by mouth Daily Active Vitamin D3 25 MCG (1000 UT) (1 source)take 1 tablet by mouth once dailyVitamin D3 25 MCG (1000 UT) 1 tablet Orally Once a day Active Completed/Discontinued Medications MedicationDrug Class(es)DatesSig (Normalized)Sig (Original)allopurinol 100 mg oral tablet (20 sources)Xanthine Oxidase InhibitorStart: 05-23-2023 End: 77-68-3522rdrl 1 tablet by mouth once dailyAllopurinol 100 mg tablet Discontinued 100 MG PO Daily August 27, 2023 2:17pm March 12, 2024 4:29pmAllopurinol Activecalcium carbonate 1500 mg oral tablet (5 sources)take 1 tablet by mouth every twelve hoursCalcium 600 MG 1 tablet with meals Orally Twice a day Not-TakinghydroCHLOROthiazide 25 mg / valsartan 320 mg oral tablet (20 sources)Thiazide Diuretic, Angiotensin 2 Receptor BlockerStart: 04-17-2023 End: 95-17-1942lkab 1 tablet by mouth once dailyValsartan-Hydrochlorothiazide 320-25 mg tablet Discontinued 1 TAB PO Daily August 27, 2023 2:17pm March 12, 2024 4:29pmValsartan-hydroCHLOROthiazide 320-12.5 MG Orally Active Ketorolac (6 sources)Nonsteroidal Anti-inflammatory Drug, Cyclooxygenase InhibitorStart: 20-37-0397Nyclabz per 15 mg Nov, 30 mgmetFORMIN hydrochloride 500 mg oral tablet (20 sources)BiguanideStart: 08-27-2023 End: 91-14-4637ynhg 2 tablets by mouth twice daily at mealtime, then take 1 tablet by mouth in the eveningMetformin 500 mg tablet Discontinued 500 MG PO Twice daily with meals 270 August 27, 2023 2:16pm March 11, 2024 3:02pm 2 tablets in the am and 1 pmStart: 05-23-2023 End: 30-66-5119tlaz 1 tablet by mouth three times dailyMetformin 500 mg tablet Discontinued 500 MG PO Three times daily August 19, 2023 11:08am August 27, 2023 1:55pmtake 1 tablet by mouth every eight hoursmetFORMIN HCl 500 MG 1 tablet with a meal Orally THREE TIMES A DAY Activetake 1 tablet by mouth twice daily at mealtimemetFORMIN HCl 750mg 1 tablet with meals Orally Twice a day for 30 day(s) ActiveToradol 30 mg/ml (6 sources)Start: 32-22-4697Pjzmlxm 30 mg/ml Oct, 30 mg Problems Active Problems Problem ClassificationProblemDateDocumented DateEpisodic/ChronicChronic kidney disease (12 sources)Chronic kidney disease, unspecified; Translations: [Chronic kidney disease stage 3]Onset: 090102-04-9645PmnlqjeSgxnsmr kidney disease (9 sources)Chronic kidney disease; Translations: [Chronic kidney disease, stage III (moderate)]Congestive heart failure; nonhypertensive (3 sources)Chronic diastolic heart failure; Translations: [Chronic diastolic (congestive) heart failure]Onset: 542964-47-1225FrvqatdNzqakvvyjg and other anemia (10 sources)Anemia of renal disease; Translations: [Anemia in chronic kidney disease]66-28-1113MtcqdovCclefkrphs and other anemia (5 sources)Anemia in chronic kidney disease; Translations: [ANEMIA IN CHRONIC KIDNEY DISEASE]Onset: 57-21-0835MjpxdtpPztmwwya mellitus with complications (20 sources)Disorder of kidney due to diabetes mellitus; Translations: [Type 2 diabetes mellitus with diabetic chronic kidney disease]Onset: 35-10-7929Roxbexx Diabetes mellitus without complication (3 sources)Type 2 diabetes mellitus; Translations: [Type 2 diabetes mellitus without complications]Onset: 550843-20-9768JhonjkbXbrxuwhqx of lipid metabolism (3 sources)Hypertriglyceridemia; Translations: [Pure hyperglyceridemia]Onset: 793514-49-4378JvvbpluWssgzbcmb hypertension (9 sources)Hypertensive disorder; Translations: [Essential (primary) hypertension]Onset: 309606-19-6841XkpposbLpxd and other crystal arthropathies (20 sources)Gout; Translations: [Gout, unspecified]Onset: 62-48-7637Umhwwxe Hypertension with complications and secondary hypertension (20 sources)Chronic kidney disease due to hypertension; Translations: [Hypertensive chronic kidney disease withstage 1 through stage 4 chronic kidney disease, or unspecified chronic kidney disease]Onset: 82-64-1298Dihdgfa Nutritional deficiencies (9 sources)Cobalamin deficiency; Translations: [Deficiency of other specified B group vitamins]35-29-9670PkjznljiWbcjlkxbxpzraj (4 sources)Arthritis of first carpometacarpal joint of left hand; Translations: [Unilateral primary osteoarthritis of first carpometacarpal joint, left hand] 49-67-3431JsttlfuAztwa connective tissue disease (1 source)Tendinitis of finger; Translations: [Other enthesopathies, not elsewhere classified]46-16-6600OldtoraqOqook connective tissue disease (1 source)Other enthesopathies, not elsewhere classified; Translations: [Other tenosynovitis of hand and wrist]68-59-6548ZdzqclrmDwrny connective tissue disease (4 sources)Triggering of digit; Translations: [Trigger finger, right ring finger]54-04-8731FmvshevwBdoyw connective tissue disease (2 sources)Pain of bilateral hands; Translations: [Pain in right hand]08-26-2024 EpisodicOther connective tissue disease (2 sources)Spasm; Translations: [Other muscle spasm]59-91-9128AwqjbnxbYhsjr connective tissue disease (1 source)Tendonitis of finger of right hand; Translations: [Other enthesopathies, not elsewhere classified]83-21-9199XgndqgofXlzun diseases of kidney and ureters (11 sources)Secondary hyperparathyroidism; Translations: [Secondary hyperparathyroidism of renal origin]84-86-3900WcmghgmXdvch diseases of kidney and ureters (8 sources)Secondary hyperparathyroidism of renal origin; Translations: [Secondary hyperparathyroidism (of renal origin)]Onset: 33-12-6158UbdyysuFmxem ear and sense organ disorders (2 sources)Mixed conductive and sensorineural hearing loss, bilateral; Translations: [Mixed conductive and sensorineural hearing loss, bilateral] 50-59-6255KoiyaplLuujc ear and sense organ disorders (4 sources)Sensorineural hearing loss, bilateral; Translations: [Sensorineural hearing loss, bilateral]48-00-3783StkxyaaXkino nutritional; endocrine; and metabolic disorders (10 sources)Hypomagnesemia; Translations: [Hypomagnesemia]64-37-1902HbsoskxDgmrc nutritional; endocrine; and metabolic disorders (6 sources)Hypomagnesemia; Translations: [Disorders of magnesium metabolism] ChronicOther nutritional; endocrine; and metabolic disorders (4 sources)Overweight in adulthood with body mass index of 25 or more but less than 30; Translations: [Body mass index (BMI) 27.0-27.9, adult]08-28-2023 EpisodicSpondylosis; intervertebral disc disorders; other back problems (10 sources)Sciatica, left side; Translations: [Sciatica]Onset: 11-27-2020 Resolved: 97-28-3674KpbgivyqEothxubvjpgr (1 source)CHRN KIDNEY DISEASE STG 3 UNSP; Translations: [CHRN KIDNEY DISEASE STG 3 UNSP]Onset: 05-01-2022 Past or Other Problems Problem ClassificationProblemDateDocumented DateEpisodic/ChronicSprains and strains (1 source)Strain of muscle, fascia and tendon of lower back, initial encounter; Translations: [Strain of lumbar region, initial encounter S39.012A]Onset: 11-27-2020 Resolved: 81-72-4434Hkqxnhrp Results Test NameValueInterpretationReference RangeFacilityNo Panel Informationon 36-47-3179OnmlcJoseph Ng NP 08/26/2024 4:22 PM S Inj/Asp: L thumb CMC on 08/26/2024 4:20 PM Indications: pain and joint swelling Details: 21 G needle, dorsal approach Medications: 20 mg methylPREDNISolone acetate 40 MG/ML Outcome: tolerated well, no immediate complications Consent was given by the patient. Patient was prepped and draped in the usual sterile fashion. [facility] 08/26/2024 4:22 PM Hand / UE Inj/Asp: R ring A1 for trigger finger on 08/26/2024 4:19 PM Indications: pain Details: 24 G needle, volar approach Medications: 20 mg methylPREDNISolone acetate 40 MG/ML Outcome: tolerated well, no immediate complications Site cleaned with isopropyl alcohol Procedure, treatment alternatives, risks and benefits explained, specific risks discussed. Consent was given by the patient. [facility] HospitalErythrocyte distribution width Auto (RBC) [Ratio] on 84-07-0534Dxlkevfdfhr distribution width (RBC) [Ratio]Erythrocyte distribution width [Ratio] by Automated count11.0-15.0[facility] CenterEstimated glomerular filtration rate (GFR) non- Americanon 38-68-6247YUL/1.73 sq M.predicted among non-blacks MDRD (S/P/Bld) [Vol rate/Area]Estimated glomerular filtration rate (GFR) non- AmericanLow>=60 mL/min/1.73m [address] [place], [place] [address]Hematocrit Auto (Bld) [Volume fraction]on 12-69-5282Oyfrhjlvzn (Bld) [Volume fraction]Hematocrit [Volume Fraction] of Blood by Automated count36.0-48.0[facility] Hemoglobin [Mass/volume] in Bloodon 57-17-7791Plynnihdqt (Bld) [Mass/Vol] Hemoglobin [Mass/volume] in Blood12.0-16.0[facility] CenterIron binding capacity [Mass/volume] in Serum or Plasmaon 96-99-7201Xfcx binding capacity [Mass/Vol]Iron binding capacity [Mass/volume] in Serum or Plasma 250.0-450.0[facility] CenterIron saturation [Mass Fraction] in Serum or Plasmaon 47-85-7765Usyk saturation [Mass fraction]Iron saturation [Mass Fraction] in Serum or PlasmaTogus Va Medical CenterLaboratory - Chemistry and Chemistry - challengeon 76-82-6733Quzslgy [Mass/Vol]4.0 g/dL 3.4-5.0[facility] CenterCalcium [Mass/Vol]9.5 mg/dL8.5-10.1 [facility] CenterChloride [Moles/Vol]106 mmol/A84-145EokbzsreoTogus Va Medical CenterCO2 [Moles/Vol]25.6 mmol/L21.0-32.0[facility] CenterCreatinine [Mass/Vol]1.42 mg/dLHigh0.55-1.02[facility] CenterFerritin [Mass/Vol]38.0 ng/mL8.0-252.0[facility] CenterGFR/1.73 sq M.predicted MDRD (S/P/Bld) [Vol rate/Area]44 mL/min/{1.73_m2} Low>=60 mL/min/1.73m 2FDayton VA Medical CenterGlucose [Mass/Vol]140 mg/nAAcvg44-024KryokfflnTogus Va Medical CenterIron [Mass/Vol]69.0 ug/dL 50.0-170.0[facility] CenterMagnesium [Mass/Vol]1.7 mg/dLLow 1.8-2.4FDayton VA Medical CenterPotassium [Moles/Vol]4.6 mmol/L3.5-5.[address] [facility] Hospitalodium [Moles/Vol]144 mmol/Z291-128YeuwjsazcTogus Va Medical CenterUrate [Mass/Vol]5.4 mg/dL2.6-6.0[facility] CenterUrea nitrogen [Mass/Vol]37.0 mg/dLHigh7.0-18.0[facility] CenterUrea nitrogen/Creatinine [Mass ratio]26.1 mg/mgTogus Va Medical CenterLaboratory - Urinalysison 81-98-6995Gvtdxgy (U) [Mass/Vol]27.3 mg/dLHigh<=11.9[facility] CenterLeukocytes [#/volume] corrected for nucleated erythrocytes in Blood by Automated counon 25-02-5660KNC corrected for nucl RBC Auto (Bld) [#/Vol]Leukocytes [#/volume] corrected for nucleated erythrocytes in Blood by Automated coun4.0-11.0[facility] MCH Auto (RBC) [Entitic mass]on 86-49-4346KOM (RBC) [Entitic mass]MCH [Entitic mass] by Automated count26.7-34.0[facility] CenterMCHC Auto (RBC) [Mass/Vol]on 07-94-6228CNXK (RBC) [Mass/Vol]MCHC [Mass/volume] by Automated count29.9-35.2FDayton VA Medical CenterMCV Auto (RBC) [Entitic vol]on 91-39-3366ZHF (RBC) [Entitic vol]MCV [Entitic volume] by Automated count 81.0-99.0[facility] CenterNo Panel Informationon - Hydroxy Vitamin D Total21.2 ng/mLTogus Va Medical CenterComment on above:<20 ng/mL Vit D rfdcmaxnx77-<30 ng/mL Vit D wgdvyvriefpl10-603 ng/mL Vit D sufficient>100 ng/mL Potential ToxicityParathyroid Hormone (Intact)127 pg/mL Eprcwtpr51-83LxdcjqfqzTogus Va Medical CenterComment on above:Performed at: - Lab[address] [id number] Director: Clemente Jacobson PhD, Phone: [phone] Level3.5 mg/dL2.6-4.7FDayton VA Medical CenterUrine Random Onjruqhqik975.99 mg/dL20.00-300.00[facility] CenterPlatelet mean volume Auto (Bld) [Entitic vol]on 60-36-0310Zvrpzlbh mean volume (Bld) [Entitic vol]Platelet mean volume [Entitic volume] in Blood by Automated count9.5-13.5FDayton VA Medical Center Platelets Auto (Bld) [#/Vol]on 69-25-3308Tgoxnozbe (Bld) [#/Vol]Platelets [#/volume] in Blood by Automated mpbiy183-160RmjivmwbtTogus Va Medical Center RBC Auto (Bld) [#/Vol]on 24-65-2378QUN (Bld) [#/Vol]Erythrocytes [#/volume] in Blood by Automated countLow4.20-5.40[facility] Hospitalerum or plasma anion gap determinationon 34-23-3729Cgaev gap [Moles/Vol]Serum or plasma anion gap determinationTogus Va Medical CenterUrine protein/creatinine ratioon 54-12-3999Jewmoch/Creatinine (U) [Ratio]Urine protein/creatinine ratio [facility] CenterErythrocyte distribution width Auto (RBC) [Ratio]on 97-49-2806Mygxkuprfpt distribution width (RBC) [Ratio]12.7 %11.0-15.0 [facility] CenterHematocrit Auto (Bld) [Volume fraction]on 22-92-3170Nfpdggsilh (Bld) [Volume fraction]36.9 %36.0-48.0[facility] CenterHemoglobin [Mass/volume] in Bloodon 62-33-5670Ywcszrfbcc (Bld) [Mass/Vol]11.5 g/dLLow12.0-16.0[facility] CenterLaboratory - Chemistry and Chemistry - challengeon 82-59-7603Ktsogfspf (Vitamin B12) [Mass/Vol]689 pg/eP398-3533OovgusfoaTogus Va Medical CenterComment on above: Performed at: - Lab[address] [id number] Director: Clemente Jacobson PhD, Phone: [phone] [Mass/Vol]2.0 mg/dL 1.8-2.4FDayton VA Medical CenterUrate [Mass/Vol]6.6 mg/dLHigh2.6-6.0 [facility] CenterBilirubin Ql (U)NegativeNEGATIVETogus Va Medical CenterGlucose (U) [Mass/Vol]NegativeNEGATIVETogus Va Medical CenterKetones Ql (U)NegativeNEGATIVETogus Va Medical CenterpH (U)5.5 [pH]5.0-9.0[facility] Hospitalpecific gravity (U) [Rel density]1.0251.005-1.025[facility] CenterUrobilinogen Qn (U)0.2 {Ga'U}/dL0.2-1.0[facility] CenterLaboratory - Specimen informationon 61-04-2319Zuxhlxirqd (U)CLEARCLEARFDayton VA Medical CenterColor (U)LT. YELLOWYELLOWTogus Va Medical CenterLaboratory - Urinalysison 45-63-9207Giylscmvl esterase Test strip Ql (U)NegativeNEGATIVE [facility] CenterMucus Ql (Urine sed)NONE SEENNONE SEENTogus Va Medical CenterNitrite Ql (U)NegativeNEGATIVETogus Va Medical CenterProtein (U) [Mass/Vol]15.6 mg/dLHigh<=11.9[facility] CenterProtein Ql (U)NegativeNEG/TRACETogus Va Medical CenterLeukocytes [#/volume] corrected for nucleated erythrocytes in Blood by Automated counon 85-17-3182MQW corrected for nucl RBC Auto (Bld) [#/Vol]6.3 10 3/uL4.0-11.0 [facility] CenterMCH Auto (RBC) [Entitic mass]on 14-11-6084GPS (RBC) [Entitic mass]30.3 pg26.7-34.0[facility] CenterMCHC Auto (RBC) [Mass/Vol]on 06-95-4047GFHG (RBC) [Mass/Vol]31.2 g/dL29.9-35.2FDayton VA Medical CenterMCV Auto (RBC) [Entitic vol]on 29-57-7644WWI (RBC) [Entitic vol]97.1 fL81.0-99.0[facility] CenterNo Panel Informationon 470754-Rncsnzp Vitamin D Total29.6 ng/mLTogus Va Medical CenterComment on above:<20 ng/mL Vit D yhgftejvj92-<30 ng/mL Vit D zzoyqtgnqxmx13-316 ng/mL Vit D sufficient>100 ng/mL Potential ToxicityFolate9.40 ng/mL8.60-58.90[facility] CenterParathyroid Hormone (Intact)68 pg/hWTcwyxuri45-23QhwxhumseTogus Va Medical CenterComment on above:Performed at: [employer] [facility] - [facility]co[address] [id number] Director: Clemente Jacobson PhD, Phone: [phone] BacteriaNONE SEEN #/HPFNONE SEEN [facility] CenterUrine Occult BloodNegativeNEGATIVETogus Va Medical CenterUrine Other CastsNONE SEEN #/LPFNONE [facility] HospitalUrine Other CrystalsNone Seen #/HPFNone [facility] CenterUrine Random Izkbssygro336.46 mg/dL20.00-300.00[facility] CenterUrine RBC0-2 #/HPF0-2FDayton VA Medical Center Urine Squamous Epithelial CellsRARE #/LPFNONE/RARETogus Va Medical CenterUrine WBCNONE SEEN #/HPFNONE [facility] HospitalPlatelet mean volume Auto (Bld) [Entitic vol]on 99-64-3911Uchfopuh mean volume (Bld) [Entitic vol]10.5 fL9.5-13.5FDayton VA Medical CenterPlatelets Auto (Bld) [#/Vol]on 52-55-8512Suyxuehkp (Bld) [#/Vol]263 10 3/zC096-872MxzvjgwlcTogus Va Medical CenterRBC Auto (Bld) [#/Vol]on 15-52-0781EEX (Bld) [#/Vol]3.80 10 6/uLLow4.20-5.40[facility] CenterUrine protein/creatinine ratioon 99-04-5355Fxrsngu/Creatinine (U) [Ratio]0.11[facility] CenterAutomated epithelial cells count in urine sediment (number/area)on 14-29-0459Eztpybkpph cells Auto (Urine sed) [#/Area]RARE #/LPFNONE/RARETogus Va Medical CenterAutomated leukocytes count in urine sediment (number/area)on 12-37-1625LRH Auto (Urine sed) [#/Area]0-2 #/HPF0-2FDayton VA Medical CenterAutomated urine specific gravity by refractometryon 49-21-2599Syxuycvx gravity Refractometry automated (U) [Rel density]1.025 1.005-1.025[facility] CenterBilirubin Auto test strip (U) [Mass/Vol]on 30-14-3064Qgafkhnrk (U) [Mass/Vol]NegativeNEGATIVETogus Va Medical CenterCast typing in urine sediment by light microscopyon 00-87-5196Fohcv LM Nom (Urine sed)NONE SEEN #/LPFNONE SEENTogus Va Medical CenterColor Auto (U)on 02-81-5786Bmhzg (U)LT. YELLOWYELLOWTogus Va Medical CenterErythrocyte distribution width Auto (RBC) [Ratio]on 11-82-9685Gzerqsgmlaq distribution width (RBC) [Ratio]12.7 %11.0-15.0[facility] CenterEstimated glomerular filtration rate (GFR) non- Americanon 56-95-8796PIJ/1.73 sq M.predicted among non-blacks MDRD (S/P/Bld) [Vol rate/Area]39 mL/min/{1.73_m2}>=60[facility] Hematocrit Auto (Bld) [Volume fraction]on 28-52-1166Kjxauyzfel (Bld) [Volume fraction]38.7 %36.0-48.0[facility] CenterHemoglobin [Mass/volume] in Bloodon 75-02-3503Jvjombvfmx (Bld) [Mass/Vol]12.0 g/dL12.0-16.0 [facility] CenterIron binding capacity [Mass/volume] in Serum or Plasmaon 63-42-5935Ealk binding capacity [Mass/Vol]385.0 ug/dL250.0-450.0 [facility] CenterIron saturation [Mass Fraction] in Serum or Plasmaon 53-16-8691Evim saturation [Mass fraction]16.4 %[facility] CenterKetones Auto test strip (U) [Mass/Vol]on 18-36-5919Fpunycm (U) [Mass/Vol]NegativeNEGATIVETogus Va Medical CenterLaboratory - Chemistry and Chemistry - challengeon 90-39-8507Gudxdsi [Mass/Vol]4.0 g/dL 3.4-5.0[facility] CenterCalcium [Mass/Vol]9.5 mg/dL8.5-10.1 [facility] CenterChloride [Moles/Vol]104 mmol/K30-267RysjogtgcTogus Va Medical CenterCO2 [Moles/Vol]26.0 mmol/L21.0-32.0[facility] CenterCobalamin (Vitamin B12) [Mass/Vol]173.0 pg/mL193.0-986.0[facility] CenterCreatinine [Mass/Vol]1.35 mg/dL0.55-1.02[facility] CenterFerritin [Mass/Vol]45.0 ng/mL8.0-252.0[facility] CenterGFR/1.73 sq M.predicted MDRD (S/P/Bld) [Vol rate/Area]47 mL/min/{1.73_m2}>=60[facility] CenterGlucose [Mass/Vol]119 mg/dL 74-106T[facility] Medical CenterIron [Mass/Vol]63.0 ug/dL50.0-170.0 [facility] CenterMagnesium [Mass/Vol]1.9 mg/dL1.8-2.4FDayton VA Medical CenterPotassium [Moles/Vol]4.3 mmol/L3.5-5.1FRiverside Methodist Hospitalodium [Moles/Vol]143 mmol/E975-101EfpvmrfbcTogus Va Medical CenterUrate [Mass/Vol]5.7 mg/dL2.6-6.0[facility] CenterUrea nitrogen [Mass/Vol]34.0 mg/dL7.0-18.0[facility] CenterUrea nitrogen/Creatinine [Mass ratio]25.2 mg/mgTogus Va Medical Center Laboratory - Urinalysison 11-64-9422Oijwbrn (U) [Mass/Vol]13.2 mg/dL<=11.9 [facility] CenterLeukocytes [#/volume] corrected for nucleated erythrocytes in Blood by Automated counon 10-55-0042WUF corrected for nucl RBC Auto (Bld) [#/Vol]6.9 10 3/uL4.0-11.0[facility] CenterH Auto (RBC) [Entitic mass]on 96-20-5832NKD (RBC) [Entitic mass]30.0 pg26.7-34.0 [facility] CenterMCHC Auto (RBC) [Mass/Vol]on 12-26-3474EPZX (RBC) [Mass/Vol]31.0 g/dL29.9-35.2FGrand Lake Joint Township District Memorial HospitalV Auto (RBC) [Entitic vol]on 76-86-3040OSN (RBC) [Entitic vol]96.8 fL81.0-99.0[facility] CenterMucus LM Ql (Urine sed)on 07-00-1880Tjjnj Ql (Urine sed) NONE SEENNONE SEENTogus Va Medical CenterNo Panel Informationon 238118-Xykbjiz Vitamin D Total35.5 ng/mLTogus Va Medical Center Comment on above:<20 ng/mL Vit D xooprwizo44-<30 ng/mL Vit D vnyfliijmlli78-256 ng/mL Vit D sufficient>100 ng/mL Potential ToxicityFolate9.80 ng/mL8.60-58.90 [facility] CenterParathyroid Hormone (Intact)64 pg/mL15-65 [facility] CenterComment on above:Performed at: [employer] - [facility] [address] [id number] Director: Clemente Jacobson PhD, Phone: [phone] Level4.0 mg/dL2.6-4.7FDayton VA Medical CenterUrine Random Cdiokwqdyx987.68 mg/dL20.00-300.00[facility] CenterPlatelet mean volume Auto (Bld) [Entitic vol]on 31-47-9788Osurfcwv mean volume (Bld) [Entitic vol]10.2 fL9.5-13.5FDayton VA Medical Center Platelets Auto (Bld) [#/Vol]on 48-58-6420Kpzmtewpv (Bld) [#/Vol]273 10 3/uL 150-450[facility] CenterProtein Auto test strip (U) [Mass/Vol]on 36-14-8768Mitmfws (U) [Mass/Vol]NegativeNEG/TRACETogus Va Medical CenterRBC Auto (Bld) [#/Vol]on 98-92-0871CIV (Bld) [#/Vol]4.00 10 6/uL4.20-5.[address] [facility] Hospitalerum or plasma anion gap determinationon 72-07-5450Vkhbm gap [Moles/Vol]17.3 mmol/LFDayton VA Medical Center Specific gravity Auto test strip (U) [Rel density]on 44-21-4178Zyjeajeb gravity (U) [Rel density]CLEARCLEARFDayton VA Medical CenterUrine bacteria detection by automated methodon 96-76-7457Fufevtpf Auto Ql (U)NONE SEEN #/HPF NONE [facility] HospitalUrine glucose measurement by test strip (mass/volume)on 28-22-0795Jfzuczp Test strip (U) [Mass/Vol]Negative NEGATIVETogus Va Medical CenterUrine hemoglobin detection by automated test stripon 02-96-0582Nhmrufetkw Auto test strip Ql (U)NegativeNEGATIVE [facility] CenterUrine nitrite detection by automated test strip on 54-02-4497Necrnwx Auto test strip Ql (U)NegativeNEGATIVETogus Va Medical CenterUrine protein/creatinine ratioon 04-35-3727Znefiyu/Creatinine (U) [Ratio]0.11[facility] CenterUrine sediment crystal identification by light microscopyon 33-34-8843Domvsrhc LM Nom (Urine sed)None Seen #/HPFNone [facility] CenterUrine sediment leukocyte count by microscopy (number/high power field)on 37-96-8453SPR LM.HPF (Urine sed) [#/Area]0-2 #/HPFNONE [facility] HospitalUrobilinogen Auto test strip (U) [Mass/Vol]on 49-50-2412Rcgvxupegpfs Qn (U)0.2 {Ga'U}/dL 0.2-1.0[facility] CenterpH Auto test strip (U)on 34-67-3680tW (U)5.5 [pH]5.0-9.0[facility] CenterPTH INTACTon 30-80-3415NKV, Auaytk70 pg/vYGbdgbm32-36Ktx [facility] HospitalComment on above:Performed By: #### PTHINT #### [facility] [address] [address] [address] Isacc ZapataFERRITINon 29-23-3088Zyxlyoqn [Mass/Vol]26.0 ng/mLNormal8.0-252.0 [facility] HospitalComment on above:Performed By: #### VITDEMARCUS, FERR, FETIBC ####[facility] [address] [address]DrMichelle ZapataHEMOGRAM AND PLATELon 82-91-2600Ccybvpvxir (Bld) [Volume fraction] 35.8 %Critically low36.0-48.0The [facility] HospitalComment on above:Performed By: #### HH ####[facility] [address] [address]DrMichelle ZapataHemoglobin (Bld) [Mass/Vol]11.3 g/dLCritically low12.0-16.0 The [facility] HospitalComment on above:Performed By: #### HH ####[facility] [address] [address]DrMichelle ZapataH (RBC) [Entitic mass]29.4 dpKubcjr62.7-34.0The [facility] HospitalComment on above: Performed By: #### HH ####[facility] [address] [address]DrMichelle ZapataHC (RBC) [Mass/Vol]31.6 g/dLNormal 29.9-35.2The [facility] HospitalComment on above:Performed By: #### HH ####[facility] [address] [address]DrMichelle ZapataMCV (RBC) [Entitic vol]93.0 yJKopzya95.0-99.0The [facility] Comment on above:Performed By: #### HH ####[facility] [address] [address]Dr. Isacc SotaeVQK325 103/yiLtbfaf483-274Rkl [facility] HospitalComment on above:Performed By: #### HH ####[facility] H[address]cedken[address] [place], [place] [address]Dr. Isacc ChangRBC3.85 106/ul Critically low4.20-5.40The [facility] HospitalComment on above:Performed By: #### HH ####[facility] Febjhfqh[address] [place], [place] [address]Dr. Isacc ChangWBC6.4 103/ulNormal4.0-11.0The [facility] HospitalComment on above: Performed By: #### HH ####[facility] Kdczq[address] [place], [place] [address]Dr. Yilan ChangIRON AND TIBCon 04-30-2022% SATURATION 21.4 %NormalThe [facility] HospitalComment on above:Performed By: #### SEAN ESTEVEZ FETIBC ####[facility] Izthspgobr[address] [place], [place] [address]Dr. Nickyeulogio BennyIron [Mass/Vol]81.0 ug/bQPmrhgt38.0-170.0The [facility] HospitalComment on above:Performed By: #### SEAN ESTEVEZ FETIBC ####[facility] Pofysynkw[address] [place], [place] [address]Dr. Isacc ZapataTIBC FQSYVP494.0 ug/rOHngbpm106.0-450.0The [facility] HospitalComment on above: Performed By: #### SEAN ESTEVEZ FETIBC ####[facility] [address]sdiurqz[address] [place], [place] [address]Dr. Nickyeulogio ZapataMAGNESIUMon 12-36-7745Ckmmuvzno [Mass/Vol]1.7 mg/dLCritically low1.8-2.4The [facility] HospitalComment on above: Performed By: #### MG, RENAL, URIC #### [facility] [address] [place] [address] Dr. Isacc ZapataRENAL FUNCTION PANELon 05-65-3878Gujxceq [Mass/Vol]4.0 g/dLNormal 3.4-5.0The [facility] HospitalComment on above:Performed By: #### MG, RENAL, URIC #### [facility] [address] [place] [address] Dr. Isacc ZapataCalcium [Mass/Vol]9.2 mg/dLNormal8.5-10.1The [facility] Comment on above:Performed By: #### MG, RENAL, URIC #### [facility] [address] [place] [address] Dr. Isacc ZapataChloride [Moles/Vol]107 mmol/XTeoluu40-791Ipl [facility] Comment on above:Performed By: #### MG, RENAL, URIC #### [facility] [address] [place] [address] Dr. Isacc ZapataCO2 [Moles/Vol]24.9 mmol/QJqwtrr63.0-32.0The [facility] Comment on above:Performed By: #### MG, RENAL, URIC #### [facility] [address] [place] [address] Dr. Isacc ZapataCreatinine [Mass/Vol]1.45 mg/dLCritically high0.55-1.02The [facility] HospitalComment on above:Performed By: #### MG, RENAL, URIC #### [facility] [address] [place] [address] Dr. Dexter ChangEGFR-AF TOVWICKJ58 mL/min/1.12b6Cxlrfglwzc low>=60The [facility] HospitalComment on above:Performed By: #### MG, RENAL, URIC #### [facility] [address] [place] [address] Dr. Isacc DegrootGFR-NON AF COMWUOWT17 mL/min/1.29w0Vztrdrwkuq low>=60The [facility] HospitalComment on above:Performed By: #### MG, RENAL, URIC #### [facility] [address] [address] [address] Isacc ZapataGlucose [Mass/Vol]122 mg/dLCritically etli04-561Kdc [facility] HospitalComment on above:Performed By: #### MG, RENAL, URIC #### [facility] [address] [address] [address] Isacc ZapataPhosphate [Mass/Vol]3.8 mg/dLNormal2.6-4.7The [facility] Comment on above:Performed By: #### MG, RENAL, URIC #### [facility] [address] [address] [address] Isacc ZapataPotassium [Moles/Vol]4.0 mmol/LNormal3.5-5.1The [facility] Comment on above:Performed By: #### MG, RENAL, URIC #### [facility] [address] [address] [address] Isacc ZapataSodium [Moles/Vol]143 mmol/VDbdckk725-918Blf [facility] Comment on above:Performed By: #### MG, RENAL, URIC #### [facility] [address] [address] [address] Isacc ZapataUrea nitrogen [Mass/Vol]32.0 mg/dLCritically high7.0-18.0The [facility] HospitalComment on above:Performed By: #### MG, RENAL, URIC #### [facility] [address] [address] [address] Isacc Pandey RANDOM W/MICROSCOPICon 63-51-7789ELAUDEWCHBMV SEENNormalNONE SEENOhiohealth Pickerington Methodist HospitalComment on above:Performed By: #### UAMIC ####[facility] [address] [address]DrMichelle Zapata Bilirubin Ql (U)NegativeNormalNEGATIVEThe [facility] HospitalComment on above: Performed By: #### UAMIC ####[facility] [address] [address]DrMichelle ZapataCASTNONE SEENNormalNONE SEENThe [facility] HospitalComment on above:Performed By: #### UAMIC ####[facility] [address] [address]Dr. Yilan ChangClarity (U) CLEARNormalCLEAROhiohealth Pickerington Methodist HospitalComment on above:Performed By: #### UAMIC ####[facility] Etznjmltrq[address] [place], [place] [address]Dr. Yilan ChangColor (U)YELLOWNormalYELLOWOhiohealth Pickerington Methodist HospitalComment on above: Performed By: #### UAMIC ####[facility] Kslfthyqoq[address] [place], [place] [address]Dr. Yilan ChangCrystals LM Nom (Urine sed)NONE SEEN NormalNONE SEENOhiohealth Pickerington Methodist HospitalComment on above:Performed By: #### UAMIC ####[facility] Drdqboovpj[address] [place], [place] [address]Dr. Yilan ChangEpithelial cells LM Ql (Urine sed)RARENormalNONE SEEN /RAREThe [facility] HospitalComment on above:Performed By: #### UAMIC ####[facility] Mxurqzovlo[address] [place], [place] [address]Dr. Yilan ChangGlucose Ql (U)NegativeNormalNEGATIVEOhiohealth Pickerington Methodist HospitalComment on above:Performed By: #### UAMIC ####[facility] R[address]ogztl[address] [place], [place] [address]Dr. Yilan ChangHemoglobin Ql (U)NegativeNormalNEGATIVESelect Medical [facility] [place] on above:Performed By: #### UAMIC ####[facility] Fdbawyzvwp[address] [place], [place] [address]Dr. Yilan ChangKetones Ql (U)NegativeNormal NEGATIVEOhiohealth Pickerington Methodist HospitalComment on above:Performed By: #### UAMIC ####[facility] Jqxaktaerv[address] [place], [place] [address]Dr. Yilan ChangLEUKOCYTESNegativeNormalNEGATIVEOhiohealth Pickerington Methodist HospitalComment on above:Performed By: #### UAMIC ####[facility] [address]wdximydyd[address] [place], [place] [address]Dr. Yilan ChangMUCOUSNONE SEENNormalNONE SEENOhiohealth Pickerington Methodist HospitalComment on above:Performed By: #### UAMIC ####[facility] [address] [address]Dr. Isacc ChangNitrite Ql (U)NegativeNormalNEGATIVEThe [facility] HospitalComment on above:Performed By: #### UAMIC ####[facility] Tdhgmwrbml[address] [place], [place] [address]Dr. Yieulogio ChangpH (U)5.5 [pH]Normal5-9The [facility] HospitalComment on above:Performed By: #### UAMIC ####[facility] Ssjlyorntv[address] [place], [place] [address]Dr. Yilan OntlrPPG4-9Rrlnww5-4Nil [facility] Comment on above:Performed By: #### UAMIC ####[facility] Obdlvlywta[address] [place], [place] [address]Dr. Isacc ChangSPEC GRAVITY>=1.030Abnormal 1.005-<=1.025The [facility] HospitalComment on above:Performed By: #### UAMIC ####[facility] Kxzgavzbwa[address] [place], [place] [address]Dr. Yilan ChangUA PROTEINNegativeNormalNEGATIVE/ TRACEThe [facility] HospitalComment on above:Performed By: #### UAMIC ####[facility] Daysqszvjn[address] [place], [place] [address]Dr. Nickylan ChangUrobilinogen Qn (U)0.2 {Ga'U}/dL Normal0.2 - 1.0The [facility] HospitalComment on above:Performed By: #### UAMIC ####[facility] Vupcyibmmf[address] [place], [place] [address]Dr. Yilan ChangWBCNONE SEENNormalNONE SEENThe [facility] HospitalComment on above: Performed By: #### UAMIC ####[facility] [address]bsxmyuajs[address] [place], [place] [address]Dr. Nickylan ChangURIC ACID SERUMon 90-52-8123Fzqqw [Mass/Vol]6.6 mg/dLCritically high2.6-6.0The Jet HospitalComment on above: Performed By: #### MG, RENAL, URIC #### [facility] [address] [place] [address] Dr. Isacc Peña T PROTEIN CREAT RATIOon 74-25-3999Xtnavce (U) [Mass/Vol] 37.5 mg/dLCritically high<=12.0[facility] HospitalComment on above:Performed By: #### URTPCR #### [facility] [address] [place] [address] Dr. Isacc Castaneda PROT CREAT RAT0.18NoAvita Health System Ontario HospitalComment on above: Performed By: #### URTPCR #### [facility] [address] [place] [address] Dr. Isacc Peña DSPAJ405.21 mg/kVRpyszf23.00-300.00[facility] Comment on above:Performed By: #### URTPCR #### [facility] [address] [place] [address] Dr. Isacc ZapataVITAMIN D 25 OHon 88-23-6230NNK D 25-OH39.7 ng/mLNormalThe [facility] HospitalComment on above:Performed By: #### VITAD, FERR, FETIBC ####[facility] [address] [address]Dr. Isacc Purdy D RANGESSEE BELOWMercy Health Kings Mills HospitalComment on above: Result Comment: <20 ng/mL Vit D deficient 20 - <30 ng/mL Vit D insufficient 30 - 100 ng/mL Vit D sufficient >100 ng/mL Potential ToxicityPerformed By: #### VITAD, FERR, FETIBC ####[facility] [address] [id number]. Isacc ZapataUS KIDNEYSon 89-25-7407WX KIDNEYS Ultrasound kidneys, bilateral HISTORY: Chronic kidney [...] Electronically authenticated by: MICKY JANSEN Date: 2022-02-16 07:45[facility] AUTO DIFFon 40-39-2530ADZY #0.1 103/ulNormal0.0-0.1[facility] HospitalComment on above:Performed By: #### CBC #### [facility] [address] [place] [address] Dr. Isacc ZapataBasophils/100 WBC (Bld)1.0 %Normal0.2-2.0[facility] Comment on above:Performed By: #### CBC #### [facility] [address] [address] [address] Isacc Vides #0.2 103/ulNormal0.0-0.7The [facility] HospitalComment on above: Performed By: #### CBC #### [facility] [address] [place] [address] Dr. Isacc Degrootosinophils/100 WBC (Bld)3.3 %Normal0.9-7.0[facility] Comment on above:Performed By: #### CBC #### [facility] [address] [address] [address] Isacc Degrootrythrocyte distribution width (RBC) [Ratio]12.7 %Ggkjoz83.0-15.0 [facility] HospitalComment on above:Performed By: #### CBC #### [facility] [address] [place] [address] Dr. Isacc ZapataHematocrit (Bld) [Volume fraction]37.4 %Efwujx31.0-48.0The [facility] HospitalComment on above:Performed By: #### CBC #### [facility] [address] [place] [address] Dr. Isacc ZapataHemoglobin (Bld) [Mass/Vol]11.8 g/dLCritically low12.0-16.0The [facility] HospitalComment on above:Performed By: #### CBC #### [facility] [address] [place] [address] Dr. Isacc Barbosa #0.02 10e3/ulNormal0.00-0.03The [facility] HospitalComment on above:Performed By: #### CBC #### [facility] [address] [place] [address] Dr. Isacc Barbosa %0.3 %Normal0.0-0.5The [facility] HospitalComment on above: Performed By: #### CBC #### [facility] [address] [place] [address] Dr. Isacc Jacinto #1.8 103/ulNormal1.2-3.8The [facility] HospitalComment on above:Performed By: #### CBC #### [facility] [address] [place] [address] Dr. Isacc Schroederhocytes/100 WBC (Bld)25.3 %Iytavy93.5-60.0The [facility] HospitalComment on above:Performed By: #### CBC #### [facility] [address] [place] [address] Dr. Isacc VictoriaUAL DIFF REQNONormalThe [facility] HospitalComment on above: Performed By: #### CBC #### [facility] [address] [place] [address] Dr. Isacc Gil (RBC) [Entitic mass]29.9 nvTehdca00.7-34.0The [facility] HospitalComment on above:Performed By: #### CBC #### [facility] [address] [place] [address] Dr. Isacc Garcia (RBC) [Mass/Vol]31.6 g/rUGuyobd35.9-35.2The [facility] HospitalComment on above:Performed By: #### CBC #### [facility] [address] [place] [address] Dr. Isacc GarciaV (RBC) [Entitic vol]94.7 qEXsqdxs57.0-99.0The [facility] HospitalComment on above:Performed By: #### CBC #### [facility] [address] [place] [address] Dr. Isacc Prater #0.5 103/ulNormal0.3-0.8The [facility] HospitalComment on above:Performed By: #### CBC #### [facility] [address] [place] [address] Dr. Isacc Armstrongocytes/100 WBC (Bld)7.4 %Normal1.7-12.0The [facility] Comment on above:Performed By: #### CBC #### [facility] [address] [place] [address] Dr. Isacc Cuenca #4.4 103/ulNormal1.4-6.5The [facility] HospitalComment on above:Performed By: #### CBC #### [facility] [address] [place] [address] Dr. Isacc Freyutrophils/100 WBC (Bld)62.7 %Vrbjpe20.0-75.0The [facility] HospitalComment on above:Performed By: #### CBC #### [facility] [address] [place] [address] Dr. Isacc Romanlet mean volume (Bld) [Entitic vol]10.3 fLNormal9.5-13.5The [facility] HospitalComment on above:Performed By: #### CBC #### [facility] [address] [place] [address] Dr. Isacc RocheT246 103/jhBshdvw397-875Rwf [facility] HospitalComment on above: Performed By: #### CBC #### [facility] [address] [place] [address] Dr. Isacc AliceaC3.95 106/ulCritically low4.20-5.40The [facility] HospitalComment on above:Performed By: #### CBC #### [facility] [address] [address] [address] Isacc ZapataWBC7.1 103/ulNormal4.0-11.0The [facility] HospitalComment on above: Performed By: #### CBC #### [facility] [address] [address] [address] Isacc ZapataGLYCOHEMOGLOBIN A1Con 83-60-1889BNB RECOMMENDATIONSEE BELOWMarietta Memorial HospitalComment on above:Result Comment: ADA RECOMMENDED LIMIT 4.0 - 6.0 ADA THERAPEUTIC TARGET < 7.0 ACTION SUGGESTED > 7.0Performed By: #### A1C ####[facility] [address] [address]Dr. Isacc ZapataGlucose [Mass/Vol]146 mg/dLNoAvita Health System Ontario HospitalComment on above:Performed By: #### A1C ####[facility] [address] [address]Dr.Yilan ZapataHbA1c (Bld) [Mass fraction]6.7 % Critically high4.5-6.2The [facility] HospitalComment on above:Performed By: #### A1C ####[facility] [address] [address]Dr. Isacc ZapataLIPID PROFILEon 39-12-1973UNXZ-HDL RATIO NORMSEE [facility]ita Health SystemComment on above:Result Comment: 3.3 - 4.4 LOW RISK 4.4 - 7.1 AVERAGE RISK 7.1 - 11.0 MODERATE RISK >11.0 HIGH RISKPerformed By: #### CMP, URIC, LIPID #### [facility] [address] [address] [address] Isacc ZapataCholesterol [Mass/Vol]195 mg/dLNormal<=200The [facility] Comment on above:Performed By: #### CMP, URIC, LIPID #### [facility] [address] [address] [address] Isacc Santosesterol in HDL [Mass/Vol]46 mg/rKFvqtzu51-52QhtKettering Memorial Hospital on above:Performed By: #### CMP, URIC, LIPID #### [facility] [address] [address] [address] Isacc ZapataCholesterol in LDL [Mass/Vol]118.0 mg/dLUniversity Hospitals TriPoint Medical Center on above:Performed By: #### CMP, URIC, LIPID #### [facility] [address] [address] [address] Isacc Ramirez.total/Cholesterol in HDL [Mass ratio]4.2 {ratio} NormalKettering Memorial Hospital on above:Performed By: #### CMP, URIC, LIPID #### [facility] [address] [address] [address] Isacc Herrera NORMAL> or = 60 mg/dl - LOW CARDIOVASCULAR RISK <40 mg/dl - HIGH CARDIOVASCULAR RISKUniversity Hospitals TriPoint Medical Center on above:Performed By: #### CMP, URIC, LIPID #### [facility] [address] [address] [address] Isacc Uriarte CALC NORMALSEE BELOWMercy Health Kings Mills HospitalCommckenzie memorial hospital on above:Result Comment: <100 mg/dl OPTIMAL 100 - 129 mg/dl NEAR OR ABOVE OPTIMAL 130 - 159 mg/dl BORDERLINE HIGH 160 - 189 mg/dl HIGH >190 mg/dl VERY HIGH Performed By: #### CMP, URIC, LIPID #### [facility] [address] [address] [address] Isacc ZapataTriglyceride [Mass/Vol]155 mg/dLCritically high<=150[facility] on above:Performed By: #### CMP, URIC, LIPID #### [facility] [address] [address] [address] Isacc SinghLDL CALC31.0 mg/dLNoSamaritan North Health Centerment on above: Performed By: #### CMP, URIC, LIPID #### [facility] [address] [address] [address] Isacc Manning, RAND URon 19-12-0654xQFH3.9 mg/LNormal<=30.0The [facility] HospitalComment on above:Performed By: #### MALBR ####[facility] [address] [address]Dr. Isacc ZapataPROF 14(COMP METB)on 49-69-3084Vksnwel [Mass/Vol]4.0 g/dLNormal3.4-5.0The [facility] Comment on above:Performed By: #### CMP, URIC, LIPID #### [facility] [address] [address] [address] Isacc ZapataAlbumin/Globulin [Mass ratio]1.0 {ratio}NormalThe [facility] HospitalComment on above:Performed By: #### CMP, URIC, LIPID #### [facility] [address] [address] [address] Isacc Richardson [Catalytic activity/Vol]68 U/IQgowus50-156Uvx [facility] HospitalComment on above:Performed By: #### CMP, URIC, LIPID #### [facility] [address] [address] [address] Isacc Sanchez [Catalytic activity/Vol]16 U/GPrmpkc19-02Nvt [facility] HospitalComment on above:Performed By: #### CMP, URIC, LIPID #### [facility] [address] [address] [address] Isacc Houston gap [Moles/Vol]13.9 mmol/LNormalThe [facility] Comment on above:Performed By: #### CMP, URIC, LIPID #### [facility] [address] [address] [address] Isacc Hamlin [Catalytic activity/Vol]12 U/LCritically ivh97-24Brr [facility] HospitalComment on above:Performed By: #### CMP, URIC, LIPID #### [facility] [address] [address] [address] Isacc ZapataBilirubin [Mass/Vol]0.2 mg/dLNormal0.2-1.0The [facility] Comment on above:Performed By: #### CMP, URIC, LIPID #### [facility] [address] [address] [address] Isacc ZapataCalcium [Mass/Vol]9.8 mg/dLNormal8.5-10.1[facility] Comment on above:Performed By: #### CMP, URIC, LIPID #### [facility] [address] [address] [address] Isacc ZapataChloride [Moles/Vol]105 mmol/VKefmkj60-591Qct [facility] Comment on above:Performed By: #### CMP, URIC, LIPID #### [facility] [address] [address] [address] Isacc ZapataCO2 [Moles/Vol]28.4 mmol/PYgjxll01.0-32.0[facility] Comment on above:Performed By: #### CMP, URIC, LIPID #### [facility] [address] [place] [address] Dr. Isacc ZapataCreatinine [Mass/Vol]1.38 mg/dLCritically high0.55-1.02[facility] Methodist HospitalComment on above:Performed By: #### CMP, URIC, LIPID #### [facility] [address] [place] [address] Dr. Isacc DegrootGFR-AF AVSCNWQE55 mL/min/1.67i1Saegzxkhdu low>=60The [facility] HospitalComment on above:Performed By: #### CMP, URIC, LIPID #### [facility] [address] [place] [address] Dr. Isacc DegrootGFR-NON AF GXNWCPNX86 mL/min/1.82q0Wrkfsrbynr low>=60The [facility] HospitalComment on above:Performed By: #### CMP, URIC, LIPID #### [facility] [address] [place] [address] Dr. Isacc ZapataGlobulin (S) [Mass/Vol]4.0 g/dLNormalThe [facility] HospitalComment on above:Performed By: #### CMP, URIC, LIPID #### [facility] [address] [place] [address] Dr. Isacc ZapataGlucose [Mass/Vol]127 mg/dLCritically npbk70-809Gpu [facility] HospitalComment on above:Performed By: #### CMP, URIC, LIPID #### [facility] [address] [address] [address] Isacc ZapataPotassium [Moles/Vol]4.3 mmol/LNormal3.5-5.1The [facility] Comment on above:Performed By: #### CMP, URIC, LIPID #### [facility] [address] [place] [address] Dr. Isacc ZapataProtein [Mass/Vol]8.0 g/dLNormal6.4-8.2The [facility] Comment on above:Performed By: #### CMP, URIC, LIPID #### [facility] [address] [place] [address] Dr. Isacc ZapataSodium [Moles/Vol]143 mmol/XRdavso286-805Uod [facility] Comment on above:Performed By: #### CMP, URIC, LIPID #### [facility] [address] [address] [address] Isacc ZapataUrea nitrogen [Mass/Vol]39.0 mg/dLCritically high7.0-18.0The [facility] HospitalComment on above:Performed By: #### CMP, URIC, LIPID #### [facility] [address] [place] [address] Dr. Isacc ZapataUrea nitrogen/Creatinine [Mass ratio]28.3 mg/mgNormalThe [facility] HospitalComment on above:Performed By: #### CMP, URIC, LIPID #### [facility] [address] [place] [address] Dr. Isacc ZapataURIC ACID SERUMon 28-32-1119Znjrt [Mass/Vol]6.0 mg/dLNormal 2.6-6.0The [facility] HospitalComment on above:Performed By: #### CMP, URIC, LIPID #### [facility] [address] [place] [address] Dr. Isacc Rowland Summaryon 65-13-4161Ngcmpn SummaryHTMLBase 64 ChcstkaeUDm3dIm+PGhlYWQ+KI7NXVYpA67saAWsmX7OJ1wOCM0KVTIZKLRHTO4JYE6ssJS7OHhyK2Sy biAv [file] Y29 (more content not included)...[facility] HospitalProvider Orderson 44-53-2889Ycavqkyj [id number]#1.00OTGTIFF [facility] HospitalUric Acidon 43-64-7316Ntyre [Mass/Vol]9.1 mg/dLHigh 2.6-8.0[facility]ucl[facility] HospitalComment on above:Performed By: #### [id number] #### [facility] (DEFAULT) [address] [place] [address] Vital Signs Date TimeVital SignValuePerforming ZfiqflhmiYbrzpats61-10-5215 15:210400Body bpopdd247.29 cmCorrie Lama APRN Work Phone: [facility]09-04-2025 15:21-0400 Body mass index (BMI) [Ratio]29.9 kg/v0MukdlbgaCorrie Lama FORM SETTER [employer] [address] FORMS Work Phone: [phone]09-04-2025 15:21-0400 Body zljlxoktcqj52.4 [degF]Corrie Lama APRN Work Phone: [phone]09-04-2025 15:21-0400 Body vdaapr63.01 kgCorrie Lama FORM SETTER [address] [address] [employer]MS Work Phone: [phone]09-04-2025 15:21-0400 Diastolic blood turwaazq86 mm[Hg]Corrie Lama APRN Work Phone: [phone]09-04-2025 15:21-0400 Heart dzam766 /minCorrie Lama APRN Work Phone: [phone]09-04-2025 15:21-0400 SaO2% (BldA) [Mass fraction]96 %Corrie Valentinesunita SABILLON Work Phone: [facility]09-04-2025 15:21-0400 Systolic blood tapdimfo750 mm[Hg]Corrie Lama RIDGE Work Phone: [facility]04-10-2025 14:38-0400 Body jnqwin164.29 cmT[facility]us [facility] Center04-10-2025 14:38-0400Body mass index (BMI) [Ratio]28.5 kg/u5SyupmtgkdTogus Va Medical Center04-10-2025 14:38-0400Body hqtegrvgozq56.8 [degF][facility]04-10-2025 14:38-0400Body .38 kgT[facility]us [facility] Center04-10-2025 14:38-0400Diastolic blood dtjjazbz77 mm[Hg][facility] 06-04-2024 14:38-0400Heart rate89 /[facility] 06-04-2024 14:38-0400Respiratory rate16 /[facility] 06-04-2024 14:38-0111TwG9% (BldA) [Mass fraction]96 %[facility]04-10-2025 14:38-0400Systolic blood ldmgilkr169 mm[Hg][facility]02-03-2025 09:15-0500Body yudbso020.29 cmT[facility] Center02-03-2025 09:15-0500Body mass index (BMI) [Ratio]27.9 kg/m2 [facility]02-03-2025 09:15-0500Body zkyqzebuejn08.3 [degF][facility]02-03-2025 09:15-0500Body aiqhlu40.74 kg [facility]02-03-2025 09:15-0500Diastolic blood keogqtfq19 mm[Hg][facility]02-03-2025 09:15-0500Heart gsgj015 /min [facility]02-03-2025 09:15-5767PwD4% (BldA) [Mass fraction]96 %[facility]02-03-2025 09:15-0500Systolic blood wjfomdqo366 mm[Hg][facility]10-24-2024 08:58-0400 Body rmnvar017.29 cmT[facility] Center10-24-2024 08:58-0400Body mass index (BMI) [Ratio]27.7 kg/z6NflajvccvTogus Va Medical Center10-24-2024 08:58-0400Body sdyusccvstp90.3 [degF][facility]10-24-2024 08:58-0400Body .17 kgT[facility]us [facility] Center10-24-2024 08:58-0400Diastolic blood gcyissql96 mm[Hg][facility] 12-19-2023 08:58-0400Heart rate86 /minT[facility]us [facility] Medical Center 12-19-2023 08:58-0400Respiratory rate16 /[facility] 12-19-2023 08:58-5333FaA3% (BldA) [Mass fraction]96 %[facility]10-24-2024 08:58-0400Systolic blood xzvwvyjw760 mm[Hg][facility]07-02-2024 13:48-0400Body vumvso061.29 cmT[facility]us [facility] Center07-02-2024 13:48-0400Body mass index (BMI) [Ratio]27.8 kg/m2 [facility]07-02-2024 13:48-0400Body .57 kg [facility]07-02-2024 13:48-0400Diastolic blood glxymhpz04 mm[Hg][facility]07-02-2024 13:48-0400Heart rate93 /min [facility]07-02-2024 13:48-9059TlK8% (BldA) [Mass fraction]97 %[facility]07-02-2024 13:48-0400Systolic blood mm[Hg][facility]03-28-2024 12:07-0400 Body ogicwg115.29 cmT[facility]us [facility] Center03-28-2024 12:07-0400Body mass index (BMI) [Ratio]28.3 kg/z7LiedbkgzxTogus Va Medical Center03-28-2024 12:07-0400Body ynbuokwmhfn96.5 [degF][facility]03-28-2024 12:07-0400Body .53 kgT[facility]us [facility] Center03-28-2024 12:07-0400Diastolic blood cnpviium41 mm[Hg][facility] 05-23-2023 12:07-0400Heart wfrh444 /[facility] 05-23-2023 12:07-0400Respiratory rate16 /[facility] 05-23-2023 12:07-9981IwM6% (BldA) [Mass fraction]93 %[facility]03-28-2024 12:07-0400Systolic blood ilmuuaux813 mm[Hg][facility]09-18-2023 10:20-0400Body fwxxsa543.29 cmAbdul Mick Other [facility] Other 09-18-2023 10:20-0400Body mass index (BMI) [Ratio] 29.15 kg/i7Mtamf Mick Other [facility] Other 09-18-2023 10:20-0400Body xodktziypbj36.5 [degF]Nika Mick Other [facility] Other 09-18-2023 10:20-0400Body wlhego27.84 kgAbdul Mick Other [facility] Other 09-18-2023 10:20-0400Diastolic blood twudqlvn34 mm[Hg] Nika Mick Other [facility] Other 09-18-2023 10:20-0400Respiratory rate18 /minAbdul Mick Other [employer] Other 09-18-2023 10:20-8720ZuO7% (BldA) [Mass fraction]98 % Nika Mick Other [facility] Other 09-18-2023 10:20-0400Systolic blood poeskfmv266 mm[Hg] Nika Mick Other [facility] Other 09-01-2023 10:00-0400Body yrhsdm443.29 cmLatoyayanira Valentinecarlosacher Other [facility] Other 09-01-2023 10:00-0400Body mass index (BMI) [Ratio] 29.12 kg/y8Eapcdddl Memerbacher Other [facility] Other 09-01-2023 10:00-0400Body oumrkl26.75 kgCorrie Valentinerbacher Other [facility] Other 09-01-2023 10:00-0400Diastolic blood qapwyito52 mm[Hg] Corrie Daina Other [facility] Other 09-01-2023 10:00-0400Systolic blood mm[Hg] Corrie Phoenixacher Other [facility] Other 03-16-2023 12:40-0400Body qrnnil658.29 cmAbdul Mick Other [facility] Other 03-16-2023 12:40-0400Body mass index (BMI) [Ratio] 30.27 kg/s9Wgmhq Mick Other [employer] Other 03-16-2023 12:40-0400Body cdoypfenruc11 [degF]Nika Mick Other [employer] Other 057562-42-2754 12:40-0400Body .74 kgAbdul Mick Other [facility] Other 159319-82-7839 12:40-0400Diastolic blood dfbanmgy49 mm[Hg] Nika Mick Other [facility] Other 256640-54-8886 12:40-0400Respiratory rate20 /minAbdul Mick Other [facility] Other 741009-50-7520 12:40-3371LlC8% (BldA) [Mass fraction]97 % Nika Mick Other [facility] Other 756690-12-0482 12:40-0400Systolic blood wymwaubx650 mm[Hg] Nika Mick Other [facility] Other 12-15-2022 15:00-0500Body pxenij815.29 cmAbdul Mick Other [facility] Other 12-15-2022 15:00-0500Body mass index (BMI) [Ratio] 30.44 kg/r3Ausnp Mick Other [facility] Other 12-15-2022 15:00-0500Body .5 [degF]Nika Mick Other [employer] Other 12-15-2022 15:00-0500Body fnuqmd60.2 kgAbdul Mick Other [facility] Other 12-15-2022 15:00-0500Diastolic blood ovzyowrw236 mm[Hg]Nika Mick Other [facility] Other 12-15-2022 15:00-0500Respiratory rate18 /minAbdul Mick Other [facility] Other 12-15-2022 15:00-4815ScT8% (BldA) [Mass fraction]97 % Nika Mick Other [facility] Other 12-15-2022 15:00-0500Systolic blood tcpklysg625 mm[Hg] Nika Mick Other [facility] Other 09-22-2022 10:05-0400Body .29 Nilsa Ocasio Other [employer] Other 09-22-2022 10:05-0400Body mass index (BMI) [Ratio] 31.38 kg/n0AmehyDeena Ocasio Other [employer] Other 09-22-2022 10:05-0400Body .6 [degF]Deena Ocasio Other [employer] Other 09-22-2022 10:05-0400Body qetgig62.65 kgDeena Ocasio Other [facility] Other 09-22-2022 10:05-0400Diastolic blood pgoyupgu13 mm[Hg] Deena Ocasio Other [employer] Other 09-22-2022 10:05-3909DoJ1% (BldA) [Mass fraction]96 % Deena Ocasio Other [employer] Other 09-22-2022 10:05-0400Systolic blood wydbrynx081 mm[Hg] Deena Ocasio Other [employer] Other 10-03-2021 10:10-0400Body ckpfiq153.29 cmPamelgarrett Singleton Other [employer] Other 10-03-2021 10:10-0400Body mass index (BMI) [Ratio] 30.34 kg/w5Jsmbrvjuan daniel Singleton Other [facility] Other 10-03-2021 10:10-0400Body jdkozktxgzi80.9 [degF]Salina Singleton Other [facility] Other 10-03-2021 10:10-0400Body kggkoz59.93 kgPajuan daniel Singleton Other [facility] Other 10-03-2021 10:10-0400Diastolic blood umlbegju05 mm[Hg] Salina Mimond Other [facility] Other 10-03-2021 10:10-0400Respiratory rate18 /minPajuan daniel Singleton Other [facility] Other 10-03-2021 10:10-3357EnB8% (BldA) [Mass fraction]99 % Salina Singleton Other [employer] Other 10-03-2021 10:10-0400Systolic blood tofpnptp646 mm[Hg] Salina Singleton Other [employer] Other Encounters Encounter DateEncounter TypeCare ProviderFacilityStart: 10-29-2024 End: 93-13-7118dqhloogohaDgxlnfmcConnie Lama APRN Work Phone: [facility] Work Phone: Start: 10-29-2024 End: 44-61-4326Acuqchy encounter procedureCorrie Lama APRN [place] Work Phone: Start: 08-26-2024 End: 09-32-0830Mxeibf outpatient new 45 minutesJoseph Ng [place] Work Phone: [facility] PCF ORTHOComment on above:Arthritis of carpometacarpal (CMC) joint of left thumb (Primary Dx); Trigger finger, right ring finger; Bilateral hand painStart: 08-26-2024 End: 40-14-3951Vfxzep Marisela Ng NP Work Phone: [facility] ORTHOStart: 08-26-2024 End: 83-25-4876Zneypu Marisela Ng NP Work Phone: [facility] ORTHOStart: 08-26-2024 End: 99-67-6573gtrtqsxounRDCOK T OLSENNot AvailableStart: 08-03-2024 End: 12-92-7502Eubdnou encounter procedureNoms Aud Audiology Aid - Alisson BHARDWAJ AUDComment on above:Sensorineural hearing loss (SNHL) of both ears (Primary Dx)Start: 08-03-2024 End: 24-81-7373wwnxemrzktSXAJCCM MCGILLNot AvailableStart: 07-08-2024 End: 27-95-3731Zlupfgb encounter procedureNoms Aud Audiology Aid - Alisson Mendez AUDComment on above:Sensorineural hearing loss (SNHL) of both ears (Primary Dx)Start: 07-08-2024 End: 20-59-8226mqgnafbslwEWTNHYG MCGILLNot AvailableStart: 06-04-2024 End: 24-18-7739vrajunsztwKhwbgoqawOhio State Health System Work Phone: Start: 06-04-2024 End: 10-02-2593Wnbxudm encounter procedureSelect [facility] Work Phone: Start: 86-37-9930Ovp-patient / Non-visitSelect [facility]ty [facility] Work Phone: Start: 03-30-2024 End: 78-15-9788orcnyrobuwWkqhshbafOhio State Health System Work Phone: Start: 03-30-2024 End: 70-62-7009Espzlar encounter procedureSelect [facility]ty [facility] GroupFirelands [facility] Work Phone: Start: 12-19-2023 End: 80-34-5403jdnbkzyvlmMenndltxpWestern Reserve Hospital Work Phone: Start: 12-19-2023 End: 79-02-8201Wskittf encounter procedureSelect [facility]ty [facility] Work Phone: Start: 47-23-4627Mlu-patient / Non-visitSelect [facility]ty Hospital [facility] Work Phone: Start: 11-06-2023 End: 15-47-7310Kxupvs flowsSean Causey CCC-A Work Phone: noms CI AUDStart: 11-06-2023 End: 15-46-9000Cglnai flowsSean Causey CCC-A Work Phone: noms CI AUDStart: 11-06-2023 End: 65-99-1503Rlzqiduv SupportDeborah A Marium CCC-A Work Phone: noMS CI AUDComment on above:Mixed hearing loss, bilateral (Primary Dx)Start: 11-06-2023 End: 76-21-1398rmotolrqjaLAOAXGU A MCGILLNot AvailableStart: 10-23-2023 End: 76-66-4702Ckrzvi flowsheetEdmundoah A Marium CCC-A Work Phone: [facility] CI AUDStart: 10-23-2023 End: 53-90-6710Jmgfzk flowsheetEdmundoah A Marium CCC-A Work Phone: noMS CI AUDStart: 10-23-2023 End: 16-41-8933Wsebpwgn SupportDerenetta Lopezill CCC-A Work Phone: noms CI AUDComment on above:Mixed hearing loss, bilateral (Primary Dx)Start: 10-23-2023 End: 52-67-1319enerpkuvkkHOFRRKK A MCGILLNot AvailableStart: 10-10-2023 End: 06-96-7242tdailtqjbmKKWHMMD A MCGILLNot AvailableStart: 09-17-2023 End: 39-14-6353yavkirovhuAXYGOTJ A MCGILLNot AvailableStart: 65-22-7515Htgjiwo encounter procedureMer[facility] Health [facility] Hospitaltart: 08-27-2023 End: 39-27-4447pufxkgclilPfbsdzolgOhio State Health System Work Phone: Start: 08-27-2023 End: 94-77-7902Hokzlzf encounter procedureSelect [facility] Work Phone: Start: 05-23-2023 End: 55-18-7950ntwbflcktxRmzdbcxftWestern Reserve Hospital Work Phone: Start: 05-23-2023 End: 12-79-1412Lcxcjdm encounter procedureSelect [facility] Nephrology Mark[facility] Work Phone: Start: 12-28-3964Pzf-patient / Non-visitSelect [facility]ty [facility] Work Phone: Start: 26-26-6620Xui-patient / Non-visitFirelands Physician Group-[facility] Work Phone: Start: 11-12-2022 End: 46-24-8583btgayuhwtuRxvor Mick Other [employer] Other Start: 62-83-8098Btlqzy outpatient visit 25 minutes Nika QadirFPG NephrologyStart: 11-06-2022 End: 99-30-3110jqktaaegvvDcxrwsxv Rohrbacher Other [employer] Other Start: 15-97-3253Msmbjgarf encounterCorrie GaribayachelyndaFairfield Selltag CoStart: 10-26-2022 End: 27-31-1841esdicdfulkTvjpxuis Rohrbacher Other [employer] Other Start: 60-91-0156Jboofb outpatient new 30 minutes Corrie Rodríguez [facility] Hospitaltart: 05-10-2022 End: 83-69-0564sinwhtybmnDgjcn Mick Other [employer] Other Start: 40-37-2373Jdkfwa outpatient visit 25 minutes Nika QadirFPG Nephrology ClydeStart: 04-30-2022 End: 19-36-0482tvnzxwolvjEWVFH QADIRFacility:E8Lllon: 02-15-2022 End: 83-97-4208ngpllczpgnISRAC QADIRFacility:X2Uarti: 02-08-2022 End: 73-46-0485sxwaytjzbiHgkht Mick Other [employer] Other Start: 37-41-1733Fdseel outpatient new 45 minutesAbdul QadirFPG Nephrology ClydeStart: 12-26-2021 End: 17-66-1286dpzohjtkulAY CHARLES HOUSEFacility:X1Dkfdc: 11-16-2021 End: 49-15-7410zwbualqdacAeadv Keller Other [employer] Other Start: 05-05-2571Ctenij outpatient visit 15 minutes Deena KellerFPG Urgent Care ClydeStart: 82-24-1000Kfxfqb outpatient new 20 minutesPamela DymondFPG Urgent Care Markos Procedures DateProcedureProcedure DetailPerforming ClinicianStart: 55-29-7626Ozcyglhpmkzjdp aspir&/inj small jt/bursa w/o usJoseph Ng NP Work Phone: Start: 66-86-9979Zdzpujgbi 1 tendon sheath/ligament aponeurosisJoseph Ng NP Work Phone: Start: 08-25-2024H/O: hysterectomyHistory of hysterectomyJoseph Ng [place] Work Phone: Plan of Treatment DateCare ActivityDetailAuthorStart: 03-94-7737Dhmlapawa vaccinationInfluenza Vaccine (#1)[facility] HealthcareStart: 08-26-2024 End: 80-13-3279Vihqaar encounter jtpyrokst24/02/2025 2:30 PM EDT Office Visit [facility] [address] [place] [address] Joseph Ng, [place] [address] [place] [address] ArrivedNOMS PCF ORTHOComment on above:ArrivedStart: 11-06-2023 End: 70-94-6914Sbmgyruq SupportNOMS CI AUDComment on above:ArrivedStart: 65-80-2655Lruzbpbju vaccinationInfluenza Vaccine (#1)[facility] HealthcareStart: 10-23-2023 End: 07-47-7064Jvmzkkzx Sduqdoj7110/23/2023 11:45 AM EDT Clinical Support [facility] AUD [address] [facility] [address] [place] [address] Na Causey, [facility] [address] [place] [address] [facility] AUDComment on above:ArrivedStart: 1993 Screening for malignant neoplasm of breastMammogramNOMS HealthcareStart: 00-96-5351Aaqhxhavg for malignant neoplasm of colonNOCA HealthcareRenal function 1999 panel - Serum or PlasmaTogus Va Medical CenterRenal function 1999 panel - Serum or PlasmaMoreno Valley Community Hospital Immunizations Immunization DateImmunizationNotesCare DntvcgwuOzgusvsx01-07-1431ddlocbcbo virus vaccine, unspecified formulationJoseph Ng NP Work Phone: [facility] CenterApqrcskzob12-40-5435tayhusxco virus vaccine, unspecified formulationTogus Va Medical Center08-28-2023influenza, high dose seasonal, preservative-freeJennifer Rohrbacher Other Cent[facility] Other 10765828-64-2722Aj not use COVID-19 Pfizer 2 doseJennifer Rohrbacher Other [facility]10-03-2021Toradol per 15 mgPamela Areli Other Cent[facility] Other 03833069-00-1076Wk not use COVID-19 Pfizer 2 doseJennifer Rohrbacher Other [facility]02-20-2021Do not use COVID-19 Pfizer 2 doseJennifer Rohrbacher Other [facility]10-05-2020 pneumococcal polysaccharide vaccine, 23 valentJennifer Rohrbacher Other [facility]09-23-2019 pneumococcal conjugate vaccine, 13 valentJennifer Rohrbacher Other [facility]07-22-2019zoster vaccine recombinantJennifer Rohrbacher Other [facility]05-11-2019zoster vaccine recombinantJennifer Rohrbacher Other [facility] Payers DatePayer CategoryPayerPolicy [id number] Health InsuranceMEDICAL MUTUAL [id number] Medical Center [id number] 2021- [address] [place] [id number] 2019Medicare [id number] [id number] [id number] [id number] 2.1.231071.19 [id number] 2.0.1.671017.3.57[id number] 2.0.1.761598.3.57[id number] 2.0.1.932106.3.57[id number] 2.16.840.1.999592.3.57[id number] 2.16.840.1.637023.3.57[id number] 2.16.840.1.871412.3.57[id number] 2.16.840.1.631849.3.57[id number] 2.16.840.1.961654.3.57[id number] 2.16.840.1.999310.3.57[id number] 2.16.840.1.000534.3.57[id number] Netwk [id number] Social History DateTypeDetailFacilityStart: 08-25-2024 End: 34-78-7562Ots Assigned At [facility] [employer] Other Start: 05-23-2023 End: 14-55-1003Hmehvry smoking status NHISNever smoked tobacco (finding) [facility] Hospitaltart: 00-38-4310Azr Assigned At BirthFeHolzer Medical Center – JacksonTobacornerstone specialty [facility] smoking status NHISTobacco smoking consumption unknownNOCA HealthcareStart: 67-74-2371Aie assigned at birthNot on fileSHRINERS HOSPITALS FOR CHILDREN HealthcareStart: 03-30-2024 End: 61-84-7075LtmGtvsbs (finding)[facility] Hospitaltart: 26-55-3670Ehemznz use and exposureSmokeless tobacco non-userNOMS Healthcare Start: 08-25-2024 End: 24-68-0251Etwsbewdg beverage intakeEx-drinker (finding)[facility] Start: 08-25-2024 End: 92-55-8650Rcydsag of Social functionNOCA Healthcare Clinical Notes 11-27-2020 to 08-26-2024 Note Date & ApriTlztNbswtchn73-33-8686 History of Present illness Narrative* Joseph Ng NP - 08/26/2024 2:30 PM EDTAssociated Order(s): Hand / UE Inj/Asp: R ring A1; S Inj/Asp: L thumb CMC Post-Procedure Diagnose(s): Trigger finger, right ring finger; Arthritis of carpometacarpal (CMC) joint of left thumb Images from the original note were not included. NAME: Stefany Parada : 1955 HISTORY OF PRESENT ILLNESS: NEW PT Stefany Parada is an 68 y.o. @ female. (NEW PT) - B/L HAND PAIN - RT HAND PAIN, MOSTLY IN RF AT MCP JOINT FOR A COUPLE OF MONTHS - DENIES INJURY- FINGER IS TRIGGERING FREQUENTLY - OCCAS HAS TO MANUALLY UNLOCK FINGER - DIFFICULTY HOLDING STEERING WHEEL AND WRITING- PAIN IS CONSTANT - TAKING TYL PRN FOR PAIN, OCCAS ALEVE - BUT SHE IS NOT SUPPOSED TO TAKE NSAIDS - HAS TRIED ICY HOT WITH NO RELIEF - SHE IS STRETCHING AND SQUEEZING A STRESS BALL - SHE HAS ALSO TRIED FINGER SPINTS WITH NO RELIEF. PAIN DOES NOT WAKE HER AT HS - DENIES N/T - +MINIMAL SWELLING, NOTES SHE CAN NOT GET HER RINGS ON. LT HAND PAIN, +CLICKING/TRIGGERING IN MF - DENIES PAIN IN MF - PAIN IN PROXIMAL THUMB THAT IS CONSTANT -TAKING TYL PRN FOR PAIN, OCCAS ALEVE - BUT TRIES TO NOT TAKE NSAIDS - SHE IS STRETCHING AND SQUEEZING A STRESS BALL - PAIN DOES NOT WAKE HER HS - DENIES N/T - DENIES SWELLING. XR (R) HAND - [facility] - IMAGES PUSHED TO CHANGE 08/25/24 PAST MEDICAL HISTORY: Past Medical History: Diagnosis Date Diabetes (HCC) Hypertension PAST SURGICAL HISTORY: Past Surgical History: Procedure Laterality Date SECTION, CLASSIC HYSTERECTOMY KNEE SURGERY Left SCOPE- DR. SPICER MYRINGOTOMY W/ TUBES TUBAL LIGATION TYMPANOPLASTY SOCIAL HISTORY: Social History Occupational History Not on file Tobacco Use Smoking status: Never Smokeless tobacco: Never Substance and Sexual Activity Alcohol use: Not Currently Drug use: Not on file Sexual activity: Not on file ALLERGIES: No Known Allergies HOME MEDICATIONS: Current Outpatient Medications Medication Instructions allopurinol (ZYLOPRIM) 100 mg, Daily cholecalciferol (Vitamin D-3) 50 MCG (1999 UT) capsule Take by mouth cyanocobalamin (VITAMIN B-12) 500 mcg, Daily magnesium 250 MG tablet Take by mouth metFORMIN (Glucophage) 500 MG tablet TAKE 2 TABLETS BY MOUTH IN THE MORNING AND 1 TABELT IN THE EVENING valsartan-hydroCHLOROthiazide (Diovan-HCT) 320-25 MG tablet 1 tablet, Daily REVIEW OF SYSTEMS: Review of Systems Vitals: There is no height or weight on file to calculate BMI. Tobacco Use: Low Risk (08/26/2024) Patient History Smoking Tobacco Use: Never Smokeless Tobacco Use: Never Passive Exposure: Not on file Alcohol Use: Not on file PHYSICAL EXAM: Right Hand Exam Comments: Patient has pain over the A1 dipti of the right ring finger. Mass palpated at A1 dipti.Catching and locking noted with ROM. NV intact Left Hand Exam Comments: Pain over the CMC joint, +CMC grind test. NV intact. No catching or locking of thumb but has occasional symptoms with middle finger. None during exam today. IMAGING: Hand / UE Inj/Asp: R ring A1 for trigger finger on 08/26/2024 4:19 PM Indications: pain Details: 24 G needle, volar approach Medications: 20 mg methylPREDNISolone acetate 40 MG/ML Outcome: tolerated well, no immediate complications Site cleaned with isopropyl alcohol Procedure, treatment alternatives, risks and benefits explained, specific risks discussed. Consent was given by the patient. S Inj/Asp: L thumb CMC on 08/26/2024 4:20 PM Indications: pain and joint swelling Details: 21 G needle, dorsal approach Medications: 20 mg methylPREDNISolone acetate 40 MG/ML Outcome: tolerated well, no immediate complications Consent was given by the patient. Patient was prepped and draped in the usual sterile fashion. Orders Placed This Encounter Procedures Hand / UE Inj/Asp This order was created via procedure documentation S Inj/Asp This order was created via procedure documentation ASSESSMENT: ICD-10-CM 1. Arthritis of carpometacarpal (CMC) joint of left thumb M18.12 2. Trigger finger, right ring finger M65.341 3. Bilateral hand pain M79.641 M79.642 PLAN: I reviewed exam findings with the patient and discussed treatment options, answered questions. I discussed with the patient the option of a trigger finger injection for her right ring finger and CMC injection for her left thumb. I advised the patient of risks associated with an injection including a reaction to medication, infection, failure to improve and possible worsening. The patient demonstrated understanding. Patient requesting injection. Skin Cleansed with alcohol swab. Utilizing aseptictechnique patient given 20mg Depomedrol was injected into left CMC and right ring finger tendon sheath. Patient tolerated this well. Neurovasc intact s/p injection. Post injection care instructions di scussed. She will call if symptoms fail to improve. Questions answered in laymen terms at the bedside. The diagnosis, home exercise plan and any ongoing restrictions/ recommendations reviewed. If unable to be reached in office, I recommend evaluation at nearest Emergency Room if any symptoms worsened or new symptoms develop for requiring urgent evaluation. documented in this encounterNortheast [facility] Medical [id number] History of Present illness Narrative* Alisson Dacosta MA - 08/03/2024 3:45 PM EDT Patient was in today as her left hearing aid was hurting her ear. There was no visible sign of chafing. Aid was retubed and left slightly longer. Patient felt this was much better. She will continue as needed. documented in this encounterNortheast Regional Medical [id number] History of Present illness Narrative* Alisson Dacosta MA - 07/08/2024 11:00 AM EDT Patient was in today to have hearing aids cleaned and checked. She states she has been having trouble with the right aid and the earhook turns around. She also has been having some trouble hearing with it. I assurred patient that I felt this problem could be the loose earhook and stiff tubing. Visual exam also showed fluid in tubing. I changed tubing and earhooks on both aids. Listening check wasgood. Patient felt she heard a bit better. Patient will call if any problems persist. Cosigned by DOLORES Mcclellan at 07/08/2024 4:48 PM EDT documented in this encounterNortheast Regional Medical [id number] Evaluation note* Diagnosis Onset Date Resolution Status Admit Date Tendinitis of finger of right hand acuteFebruary 2024 9:11amAnemia of renal diseaseacuteApril 2024 2:74zkN28 deficiencyacuteApril 2024 2:28pmCKD (chronic kidney disease) stage 3, GFR 30-59 ml/minacuteApril 2024 2:28pmGoutacuteApril 2024 2:28pmHypertensive chronic kidney disease with stage 1 through stage 4 chronic kiacuteApril 2024 2:28pmHypomagnesemiaacuteApril 2024 2:28pm Secondary hyperparathyroidismacuteApril 2024 2:28pmType 2 diabetes mellitus with diabetic chronic kidney diseaseacuteApril 2024 2:28pm [facility] Work Phone: 1(883) 398-400109-11-2024 History of Present illness Narrative* DOLORES Mcclellan - 11/06/2023 11:15 AM EDT Fit pt with remade molds - canals [...] and will return prn documented in this [facility]08-28-2024 History of Present illness Narrative* DOLORES Mcclellan - 10/23/2023 11:45 AM EDT 2 week check: Overall pt is hearing much better with the new aids and she does not have feedback issues. She doeshave complaints about both molds. She has a [...] meryl. Pt is enjoying streaming her phone ca lls and using the meryl. She asked about unlinking the volume controls. Volume controls have to be linked in order for the meryl to work. The only way to adjust aids individually is through the meryl. Pt will return 11/06/23 to be fit with remade molds. documented in this encounterNortheast Regional Medical [id number] Evaluation note* Encounter Date Diagnosis Assessment Notes Treatment Notes Treatment Clinical Notes Oct, Chronic kidney disease, stage II I (moderate) (ICD-10 - N18.30) She has CKD [...] I have advised her to avoid NSAIDs. Oct,nemia of renal disease (ICD-10 - D63.1)Hemoglobin is within the goal and has adequate iron stores. Advised her to take oral iron every other day. She reported she had a Cologuard but would not like to have a colonoscopy. Oct,Hypomagnesemia (ICD-10 - E83.42)She has a hypomagnesemia due to the renal magnesium wasting. Advised to take oral magnesium 400 mg daily. Oct,en hy kid w cr kid I-IV (ICD-10 - I12.9)Blood pressure is controlled. She appears to be euvolemic. Continue current antihypertensive medication. I have advised her to monitor blood pressure at home and call office if stays above 140/90 mmHg. Oct,iabetes mellitus with chronic kidney disease (ICD-10 - E11.22) Continue follow-up with PCP for DM management. Currently she is on valsartan . I will continue thatfor renal protection. She will be benefit with SGLT2 inhibitors including Farxiga or Jardiance. I have advised her to discuss with the PCP. We will add Kerendia in future if needed. Oct,Secondary hyperparathyroidism (ICD-10 - N25.81)MBD parameters including calcium, phosphorus PTH and vitamin D are within the goal. Continue calcium and vitamin D Oct,out (ICD-10 - M10.9)She denies any gout flare. Continue allopurinol for gout prophylaxis. [facility] Other 09-01-2023 Evaluation note* Encounter Date Diagnosis Assessment Notes Treatment Notes Treatment Clinical Notes Oct, Diabetes mellitus with chronic k idney disease (ICD-10 - E11.22) Due for an [...] to these goals have been discussed. You havebeen given educational handouts. Oct,out (ICD-10 - M10.9)Stable, no recent flares. Oct,Secondary hyperparathyroidism (ICD-10 - N25.81) Oct,nemia of renal disease (ICD-10 - D63.1)Stable. currently on iron. Oct,Hypomagnesemia (ICD-10 - E83.42)Following nephrology Oct,hronic kidney disease, stage III (moderate) (ICD-10 - N18.30) Following with Nephrology. Reviewed most recent notes. Oct,en hy kid w cr kid I-IV (ICD-10 - I12.9) [facility] Other 03-16-2023 Evaluation note* Encounter Date Diagnosis Assessment Notes Treatment Notes Treatment Clinical Notes Apr, Chronic kidney disease, stage II I (moderate) (ICD-10 - N18.30) She has CKD [...] I have advised her to avoid NSAIDs. Apr,nemia of renal disease (ICD-10 - D63.1)Hemoglobin is within the goal but she has a low iron stores. Advised her to take oral iron every other day. She reported she had a Cologuard but would not like to have a colonoscopy. Apr,Hypomagnesemia (ICD-10 - E83.42)She has a hypomagnesemia due to the renal magnesium wasting. Advised to take oral magnesium 400 mg daily. Apr,en hy kid w cr kid I-IV (ICD-10 - I12.9)Blood pressure is high today due to the stress but she reported usually it is controlled. She appears to be euvolemic. Continue current antihypertensive medication. I have advised her to monitor blood pressure at home and call office if stays above 140/90 mmHg. Apr,iabetes mellitus with chronic kidney disease (ICD-10 - E11.22) Continue follow-up with PCP for DM management. Currently she is on valsartan . I will continue thatfor renal protection. She will be benefit with SGLT2 inhibitors including Farxiga or Jardiance. I have advised her to discuss with the PCP. We will hold off on addition of the Kerendia now. Apr,Secondary hyperparathyroidism (ICD-10 - N25.81)MBD parameters including calcium, phosphorus PTH and vitamin D are within the goal. Continue calcium and vitamin D Apr,out (ICD-10 - M10.9)She denies any gout flare. Continue allopurinol for gout prophylaxis. [facility] Other 12-15-2022 Evaluation note* Encounter Date Diagnosis Assessment Notes Treatment Notes Treatment Clinical Notes Jan, Chronic kidney disease, stage II I (moderate) (ICD-10 - N18.30) Thanks for referring Mrs. Parada to our office for evaluation management of CKD. As you know kylahhas a longstanding DM with HTN and likely has a CKD as a result of it. Her most recent serum creatinine is 1.3 mg/dL. I have ordered a renal ultrasound to evaluate the renal anatomy. I have ordered aUA UPCR to look for hematuria and proteinuria. I discussed with the importance of good HTN and DM control to slow the progression of CKD. I have advised her to avoid NSAIDs. Jan,en hy kid w cr kid I-IV (ICD-10 - I12.9)Blood pressure is high today due to the stress but she reported usually it is controlled. She appears to be euvolemic. Continue current antihypertensive medication. I have advised her to monitor blood pressure at home and call office if stays above 140/90 mmHg. Jan,iabetes mellitus with chronic kidney disease (ICD-10 - E11.22) Continue follow-up with PCP for DM management. Currently she is on valsartan . I will continue thatfor renal protection. She will be benefit with SGLT2 inhibitors including Farxiga or Jardiance. I have advised her to discuss with the PCP. Jan,econdary hyperparathyroidism (ICD-10 - N25.81)Calcium is within normal limit. We will check PTH and vitamin D. Jan,nemia of renal disease (ICD-10 - D63.1)Hemoglobin is within the goal. We will check iron studies. She may need a GI work-up if has not done recently Jan,Gout (ICD-10 - M10.9)She denies any gout flare. Continue allopurinol for gout prophylaxis. [facility] Other 09-22-2022 Evaluation note* Encounter Date Diagnosis [...] understanding and is agreeable to treatment plan Oct,[employer] home care material was printed [facility] Other 10-03-2021 Evaluation note* Encounter Date Diagnosis Assessment Notes Treatment Notes Treatment Clinical Notes Nov, Strain of lumbar region, initial encounter (ICD-10 - S39.012A) Nov,ciatica of left side (ICD-10 - M54.32) Take [...] no improvement in 2 to 3 days [facility] Other evaluation noteNo InformationNortDepartment of [facility] [employer] Other evaluation note* Diagnosis Onset Date Resolution Status B12 deficiency acuteCKD (chronic kidney disease) stage 3, GFR 30-59 ml/minacuteGoutacute [id number] hyperparathyroidismacuteType 2 diabetes mellitus with diabetic chronic kidney diseaseacute [facility] Work Phone: Evaluation note* Diagnosis Onset Date Resolution Status Gout acuteHypertensionacute [facility] Work Phone: Evaluation note* Diagnosis Onset Date Resolution Status Anemia of renal disease [id number] deficiencyacuteCKD (chronic kidney disease) stage 3, GFR 30-59 ml/min [id number] hyperparathyroidismacuteType 2 diabetes mellitus with diabetic chronic kidney diseaseacute [facility] Work Phone: Evaluation note* Diagnosis Mixed hearing loss, bilateral- Primary [facility] Diagnosis Mixed hearing loss, bilateral- Primary documented in this encounter [facility] noteNo assessment information [facility] Work Phone: evaluation note* Diagnosis Sensorineural hearing loss (SNHL) of both ears- Primary [facility] this [facility]* Diagnosis Arthritis of carpometacarpal (CMC) joint of left thumb- Primary Trigger finger, right ring finger Bilateral hand pain documented [facility] this encounter [facility]* Diagnosis Onset Date Resolution Status Admit Date Muscle spasm acuteSeptember 2024 3:07pmNeck painacuteSeptember 2024 3:07pm [facility] Work Phone: History general Narrative - Reported* Type Description Date Medical History hypertension Medical Historytype I diabetesMedical HistorygoutSurgical Historyarthroscopic knee surgery [employer] [facility] [employer] Other History general Narrative - Reported* Type Description Date Medical History hypertension Medical Historytype II diabetesMedical HistorygoutSurgical Historyarthroscopic knee surgerySurgical HistoryEAR SURGERYSurgical HistoryHYSTERECTOMYSurgical HistoryRECTAL SEALHospitalization HistorySEE ABOVE [facility] Other History general Narrative - Reported* Type Description Date Medical History hypertension Medical Historytype II diabetesMedical HistorygoutMedical HistoryANEMIASurgical Historyarthroscopic knee surgerySurgical HistoryEAR SURGERYSurgical History HYSTERECTOMYSurgical HistoryRECTAL SEALHospitalization HistorySEE ABOVE [facility] Other Reason for referral (narrative)No reason for referral information availableMercy Health Def[facility] Work Phone: Summary Purpose Family History Relationship Condition Age at Onset Recorded Date/T isauro brother Hypertension Unknown fatherDeceasedUnknownAlzheimer's dementiaUnknownfamily memberDeceasedUnknownNot SpecifiedDeceasedUnknown Relationship Condition Age at Onset Recorded Date/T isauro brother Hypertension Unknown fatherDeceasedUnknownAlzheimer's dementiaUnknownfamily memberDeceasedUnknown motherDeceasedUnknown Advance Directives Advance Directive Response Recorded Date/ Time Advance Directives No March 26, 2023 6:52pm Advance Directive Response Recorded Date/ Time Advance Directives No March 26, 2023 5:52pm Chief Complaint and Reason for Visit Chief Complaint Amb Documentation 6 month follow upReason for [id number] deficiency CKD (chronic kidney disease) stage 3, GFR 30-59 ml/min Gout [id number] Hypomagnesemia Secondary hyperparathyroidism Type 2 diabetes mellitus with diabetic chronic kidney disease Chief Complaint 6 month follow up/[place] Reason for Visit Gout Hypertension Chief Complaint RENAL 6 MONTH F/U Reason for Visit Anemia of renal dise ase B12 deficiency CKD (chronic kidney disease) stage 3, GFR 30-59 ml/min Gout [id number] Hypomagnesemia Secondary hyperparathyroidism Type 2 diabetes mellitus with diabetic chronic kidney disease Chief Complaint Admit Date R Hand Pain March 30, 2024 9 :11am Chief Complaint Admit Date R Hand Pain March 30, 2024 9 :11am RENAL 6 MONTH F/U June 04, 2024 2:2 8pm Reason for Visit Admit Date Tendinitis of finger of right hand Febru kira 2024 9:11am Anemia of renal disease June 04, 2024 2:28pm B12 deficiency June 04, 2024 2:2 8pm CKD (chronic kidney disease) stage 3, GF R 30-59 ml/min June 04, 2024 2:28pm Gout June 04, 2024 2:2 8pm Hypertensive chronic kidney disease with stage 1 through stage 4 chronic ki June 04, 2024 2:28pm Hypomagnesemia June 04, 2024 2:2 8pm Secondary hyperparathyroidism May 2:28pm Type 2 diabetes mellitus wit h diabetic chronic kidney disease June 04, 2024 2:28pm Chief Complaint Admit Date Pinched Nerve in Neck October 29 3:07pm Reason for Visit Admit Date Muscle spasm October 29, 2024 3:07pm Neck pain October 29, 2024 3:07pm Additional Source Comments INFORMATION SOURCE (unrecogn ized section and content) DATE CREATED AUTHOR 06/14/2020 [facility] DATE CREATED AUTHOR AUTHOR'S ORGANIZ ATION 05/02/2022 [facility] DATE CREATED AUTHOR AUTHOR'S ORGANIZ ATION 08/28/2024 [facility] EPIC REASON FOR VISIT (unrecogniz ed section and content) ReasonCommentsPain Care Teams (unrecognized sec tion and content) Team Status: Active Member Role Status Dates Corrie Lama APRN [employer] Primary Care Provider Active Team Status: Active Member Role Status Dates Corrie Lama APRN [employer] Primary Care Provider Active Start: April 172023 Judit Murphy ProviderActiveStart: April 17, 2023 Team Status: Active Member Role Status Dates Corrie Lama APRN [employer] Primary Care Provider, Attending Provider Active Start: May 13, 2023 Team Status: Inactive Member Role Status Dates Corrie Lama APRN [employer] Primary Care Provider Active Start: May 23, 2023 End: May 22Jose Wallace ProviderActiveStart: May 23, 2023 End: May 23, 2023 Team Status: Inactive Member Role Status Dates Corrie Lama APRN [employer] Primary Care Provider, Attending Provider Active Start: August 27, 2023 End: August 27, 2023 Team Status: Active Member Role Status Dates Corrie Lama APRN [employer] Primary Care Provider Active Start: November Nika Mick , DALTONttending ProviderActiveStart: December 09, 2023 Team Status: Inactive Member Role Status Dates Corrie Lama APRN [employer] Primary Care Provider Active Start: November End: December 18bdnicolle Orozcodir , MDAttending ProviderActiveStart: December 19, 2023 End: December 19, 2023Team MemberRelationshipSpecialtyStart DateEnd Phil Tena MD [address] [place] [address] PCP - GeneralFamily Waeadqvg78/4/23Team MemberRelationshipSpecialtyStart DateEnd Date Phil Tena MD [facility] [place] [address] PCP - GeneralFamily Zysbawcj11/4/23Team MemberRelationshipSpecialtyStart DateEnd Date Phil Tena MD [facility] [place] [address] PCP - GeneralFamily Cptgiuiy06/4/23 Team Status: Inactive Member Role Status Dates Corrie Lama APRN [employer] Primary Care Provider, Attending Provider Active Start: March 30, 2024 End: March 30, 2024 Team Status: Active Member Role Status Dates Corrie Lama APRN [employer] Primary Care Provider Active Start: May 26, 2024 Nika MickDALTON howellttending ProviderActiveStart: May 26, 2024 Team Status: Inactive Member Role Status Dates Corrie Lama APRN [employer] Primary Care Provider Active Start: June 04, 2024 End: June 04bdnicolle Diop , MDAttending ProviderActiveStart: June 04, 2024 End: June 04, 2024Team MemberRelationshipSpecialtyStart DateEnd Date Phil Tena MD [address] [facility] [place] [place] [address] [facility] - [facility] Jrhydssw91/4/23Team MemberRelationshipSpecialtyStart DateEnd Date Phil Tena MD [address] [facility] [place] [address] PCP - [facility]01/28/23 Team Status: Inactive Member Role Status Dates Corrie Lama APRN [employer] Primary Care Provider Active Start: October 292024 End: October 29, 2024Corrie Lama APRN [employer]-CAttending ProviderActive Start: October 29, 2024 End: October 29, 2024 Goals (unrecognized section and content) Goals [...] BE BASED ON THE PRIMARY CLINICAL RECORDS. [employer] [facility]. provides no warranty or guarantee of the accuracy or completeness of information in this document.
[2024-12-21 08:43] LABS: Hematocrit 37.3 % (36.0-48.0); Hemoglobin 11.8 g/dL (12.0-16.0); Mean Corpuscular HGB Conc 31.6 g/dL (29.9-35.2); Mean Corpuscular Hemoglobin 30.0 pg (26.7-34.0); Mean Corpuscular Volume 94.9 fL (81.0-99.0); Platelet Count 269 10^3/uL (150-450); Red Blood Count 3.93 10^6/uL (4.20-5.40); White Blood Count 6.1 10^3/uL (4.0-11.0)
[2024-12-21 08:50] LABS: Glucose Urine UA NEGATIVE (NEGATIVE)
[2024-12-21 08:56] LABS: Protein Creatinine Ratio Urine 0.29; Total Protein Urine Random 36.5 mg/dL (<=11.9)
[2024-12-21 08:58] LABS: Albumin Level 3.7 g/dL (3.4-5.0); Anion Gap 14.6; Blood Urea Nitrogen 36.0 mg/dL (7.0-18.0); Calcium 9.8 mg/dL (8.5-10.1); Carbon Dioxide 27.8 mmol/L (21.0-32.0); Chloride 106 mmol/L (98-107); Estimated GFR (African America 46 (>=60 mL/min/1.73m^2); Estimated GFR (Non-African Ame 38 (>=60 mL/min/1.73m^2); Glucose 140 mg/dL (74-106); Magnesium 1.8 mg/dL (1.8-2.4); Potassium 4.4 mmol/L (3.5-5.1); Sodium 144 mmol/L (136-145); Uric Acid 5.7 mg/dL (2.6-6.0)
[2024-12-21 09:16] LABS: Cast Seen? SEEN #/LPF (NONE SEEN); Crystals Seen? None Seen #/HPF (None Seen)
[2024-12-21 10:04] LABS: Ferritin 31.0 ng/mL (8.0-252.0)
== END 2024-12-21 08:02 | disposition home or self-care (01) ==
LOC: LAB 08:02
PROVIDERS: PCP Nurse Practitioner Family; Visit Provider Internal Medicine
DX: N18.9 Chronic kidney disease, unspecified (principal); D63.1 Anemia in chronic kidney disease; N25.81 Secondary hyperparathyroidism of renal origin; E53.8 Deficiency of other specified B group vitamins; M10.9 Gout, unspecified; E83.42 Hypomagnesemia
CPT/HCPCS: 36415; 80069; 81001; 82306; 82570; 82728; 83735; 83970; 84156; 84550; 85027

== ENCOUNTER 2025-01-04 08:16 | Outpatient (OUT) | payer MEDICARE, OTHER, SELFPAY ==
--- OUTSIDE RECORDS SUMMARY | 2019-09-02 05:00 | XMS_ITS | Continuity of Care Document ---
Author Organization [facility] Address [address] [place] [address] Phone Care Team Providers Care Operations Project Manager Name Role Phone Xander NEAL DO, Connor Unavailable Unavailable Procedures Procedure Date Covid Testing [facility] IMMUNIZATION ADMIN FLU VAC NO PRSV 4 AJ 3 YRS+ PREVENTIVE COUNSELING, INDIV IMMUNIZATION ADMIN FLU VAC NO PRSV 4 AJ 3 YRS+ FLU VACCINE, 3 YRS & >, IM PREVENTIVE COUNSELING, INDIV FLU VACCINE, 3 YRS & >, IM FLU VACCINE, 3 YRS & >, IM Results Test Name Date and Time Measure Units Reference Range Abnormal Flag Status Comments Panel Description: SARS-CoV-2, MONSE Final SARS-CoV- 2, MONSE 020 19:33:00 Not Detected Not Detected Final This test was developed and its performance characteristics determinedby [employer]. This test has not been FDA cleared orapproved. This test has been authorized by FDA under an Emergency UseAuthorization (EUA). This test is only authorized for the duration oftime the declaration that circumstances exist justifying theauthorization of the emergency use of in vitro diagnostic tests fordetection of SARS-CoV-2 virus and/or diagnosis of COVID-19 infectionunder section 564(b)(1) of the Act, 21 U.S.C. 360bbb-3(b)(1), unlessthe authorization is terminated or revoked sooner.When diagnostic testing is negative, the possibility of a falsenegative result should be considered in the context of a patient'srecent exposures and the presence of clinical signs and symptomsconsistent with COVID-19. An individual without symptoms of COVID-19and who is not shedding SARS-CoV-2 virus would expect to have anegative (not detected) result in this assay.Performed by:[employer] ([employer]) Panel Description: SARS-CoV-2 Antibody, IgM Fin al SARS-CoV- 2 Antibody, IgM 020 15:03:00 Negative Negative Final This sample do es not contain detectable SARS-CoV-2 IgM antibodies.This negative result does not rule out SARS-CoV-2 infection.Correlation with epidemiologic risk factors and other clinical andlaboratory findings is recommended. Serologic results should not beused as the sole basis to diagnose or exclude recent [id number].P erformed by:[employer] ([employer]) Panel Description: SARS-CoV-2 Antibody, IgG Fin al SARS-CoV- 2 Antibody, IgG 020 09:25:00 Negative Negative Final This sample do es not contain detectable SARS-CoV-2 IgG antibodies.This negative result does not rule out SARS-CoV-2 infection.Correlation with epidemiologic risk factors and other clinical andlaboratory findings is recommended. Serologic results should not beused as the sole basis to diagnose or exclude recent [id number] his assay was performed using the Perry SARS-CoV-2 IgG assay.Performed by:[employer] ([employer]) Advance Directives Directive Yes / No Effective Date File Name No Information Encounters Encounter Description Practice Location Reason(s) For Visit Diagnoses Date Provider Providers Copied on Encounter [facility], [address] [place] [address], [id number], [place] tel:[phone] COVID [facility] Encounter for screening for other viral diseases Xander Lebron. [address], [place], [id number], [place]. tel:[phone] PREVENTIVE COUNSELING, [facility], [address], [place], [id number], [place] tel:[phone] [facility] No Information Xander Lebron. [address], [place], [id number], [place]. tel:[phone] PREVENTIVE COUNSELING, INDIV [facility], [address], [place], [id number], [place] tel:[phone] [facility] Influenza Vaccine Xander Lebron. [address], [place], [id number], [place]. tel:[phone] [facility], [address], [place], [id number], [place] tel:[phone] [facility] No Information Xander Lebron. [address], [place], [id number], [place]. tel:[phone] [facility], [address], [place], [id number], [place] tel:[phone] [facility] No Information Xander Lebron. [address], [place], [id number], [place]. tel:[phone] Family History Family Member Type Diagnosis Age At Onset No Information Immunizations Vaccine Date Status Comments Flu (split) (3 yrs or older) administered Note: VIS GIVEN. ; Source: New Immunization Record Flu (split) (3 yrs or older) administered Note: VIS GIVEN. ; Source: New Immunization Record Flu (split) (3 yrs or older) administered Note: VIS GIVEN. ; Source: New Immunization Record Flu (split) (3 yrs or older) administered Note: VIS GIVEN. ; Source: New Immunization Record Flu (split) (3 yrs or older) administered Note: VIS GIVEN. ; Source: New Immunization Record Flu (split) (3 yrs or older) administered Note: VIS GIVEN. ; Source: New Immunization Record Flu (split) (3 yrs or older) administered Note: VIS GIVEN. ; Source: New Immunization Record Flu (split) (3 yrs or older) administered Note: VIS GIVEN. ; Source: New Immunization Record Flu (split) (3 yrs or older) administered Note: VIS GIVEN. ; Source: New Immunization Record Flu (split) (3 yrs or older) administered Note: VIS GIVEN. ; Source: New Immunization Record Flu (split) (3 yrs or older) administered Note: VIS GIVEN. ; Source: New Immunization Record Flu (split) (3 yrs or older) administered Note: VIS GIVEN. ; Source: New Immunization Record Flu (split) (3 yrs or older) administered Note: VIS GIVEN. ; Source: New Immunization Record Flu (split) (3 yrs or older) administered Note: Flu vis given today. ; Source: New Immunization Record Flu (split) (3 yrs or older) administered Source: New Immunization Record Payers Payer name Insurance type Covered democrat ID Serjiogarrett bill(s) Medicare PPS MB [id number] [facility] [place] CI [id number] Social History Type Description Quantity Date Captured Comments Alcohol Use Details Unknown Caffeine Use Details Unknown Tobacco Use Status No Information Smoking Status No Information Sex Female Sexual Orientation Straight or heterosexual Gender Identity Female Chief Complaint And Reason For Visit No Information Reason For Referral Reason For Referral No Information Plan Of Treatment Date Type Action Status Goal Mammogram. Due on 0 due Goal FOBT. Due on due Goal Depression screening. Due on due Goal Colonoscopy. Due on 020 due Goal Influenza Vaccine. Due on Oc due Goal Zoster vaccine (1st). Due on due Goal Tdap. Due on due Goal Influenza Vaccine. Due on Oc due History Of Present Illness Encounter Date Complaint History Of Prese nt Illness No Information Functional Status Date Functional Assessmen t No Information Instructions Date Instruction Additional Infor mation No Information Assessments Type Assessment Date assessment Encounter for screening for othe r viral diseases Patient Care Teams Name Effective Dates (start - stop) Status Members No Information
--- OUTSIDE RECORDS SUMMARY | 2024-12-31 04:40 | XMS_ITS | Continuity of Care Document ---
Author Organization [facility] Address [address] [place] [address] Phone Care Team Providers Care Manager Reimbursement Name Role Phone Corrie Lama APRN Primary Care Provider Corrie Lama APRN Attending Provider Cece Diop Attending Provider Care Teams Patient Care Team Team Status: Active Member Role/Relationship Status Dates Corrie Lama APRN [employer] Primary Care Provider Active Visit Care Team Team Status: Inactive Member Role/Relationship Status Dates Corrie Lama APRN [employer] Primary Care Provider Active Start: October 292024 End: October 29, 2024Corrie Lama APRN [employer]-CAttending ProviderActive Start: October 29, 2024 End: October 29, 2024 Patient Care Team Team Status: Active Member Role/Relationship Status Dates Corrie Lama APRN [employer] Primary Care Provider Active Start: November Jose Arshad ProviderActiveStart: December 21, 2024 Patient Care Team Team Status: Inactive Member Role/Relationship Status Dates Corrie Lama APRN [employer] Primary Care Provider Active Start: December End: December 31Jose Wallace ProviderActiveStart: December 31, 2024 End: December 31, 2024 Chief Complaint and Reason for Visit Chief Complaint Admit Date Pinched Nerve in Neck October 29 3:07pm renal 6 month f/u December 31, 2024 8 :54am Reason for Visit Admit Date Muscle spasm October 29, 2024 3:07pm Neck pain October 29, 2024 3:07pm Anemia of renal disease December 31 8:54am B12 deficiency December 31, 2024 8 :54am CKD (chronic kidney disease) stage 3, GF R 30-59 ml/min December 31, 2024 8:54am Gout December 31, 2024 8 :54am Hypertensive chronic kidney disease with stage 1 through stage 4 chronic ki December 31, 2024 8:54am Hypomagnesemia December 31, 2024 8 :54am Secondary hyperparathyroidism December 312024 8:54am Type 2 diabetes mellitus wit h diabetic chronic kidney disease December 31, 2024 8:54am Allergies, Adverse Reactions, Alerts Allergen Type Severity Reaction Last Updated Verified Status No Known Allergies Allergy Unknown December 31, 2024 9:15amYesActive Social History Smoking Status Status Start Date End Date Date of Observa tion Never smoked tobacco (finding) December 31, 2024 9:17am Observation Status Observation Response Date of Response Legal Sex Female (finding) Sex Assigned At BirthFemaleJuly 1955 Family History Relationship Condition Age at Onset Recorded Date/T isauro brother Hypertension Unknown fatherDeceasedUnknownAlzheimer's dementiaUnknownfamily memberDeceasedUnknown motherDeceasedUnknown Problems Active Problems Problem Diagnosis/Recorded Date Onset Date Stat Medicare annual wellness vis it, subsequent August 28, 2023 8:33am Unknown Active Type 2 diabetes mellitus wit h diabetic chronic kidney disease May 23, 2023 1:05pm Unknown Active Secondary hyperparathyroidism May 23, 2023 1:06pm Unknown Active Muscle spasm October 29, 2024 2:36pm Unknown A ctive Gout May 23, 2023 1:06pm Unknown Acti ve B12 deficiency May 23, 2023 1:06pm Unknown Ac tive CKD (chronic kidney disease) stage 3, GFR 30-59 ml/min May 23, 2023 1:05pm Unknown Active Hypertensive chronic kidney disease with stage 1 through stage 4 chronic kidney disease, or unspecified chronic kidney disease May 23, 2023 1:05pm Unknown Active BMI 27.0-27.9,adult August 28, 2023 1:28pm Unknown Active Tendinitis of finger of right hand March 30, 2024 9:54am Unknown Active Neck pain October 29, 2024 2:36pm Unknown A ctive Anemia of renal disease August 26, 2023 1:31pm Unknown Active Hypertension August 26, 2023 1:31pm Unknown Active Hypomagnesemia May 23, 2023 1:06pm Unknown Ac tive Medications Medication Status Dose Units Route Directions Qty Days Refills S tart Date Stop Date End Date Reason(s) Instructions Adherence Metformin 500 mg tablet Discontinued 500 MG PO Thr ee times daily 90 1May 2023 10:54amJune 2023 10:08amType 2 diabetes mellitus with diabetic chronic kidney disease Type 2 diabetes mellitus with diabetic chronic kidney diseaseMetformin 500 mg sxnggnJcvokwmdkjpy576CBTLLchgf times kbpsb854Opnv 2023 10:08amJuly 2023 12:55pmType 2 diabetes mellitus with diabetic chronic kidney disease Type 2 diabetes mellitus with diabetic chronic kidney diseaseMetformin 500 mg zteaeuRmilooynoluw200IRPZIgjsr daily with weabh519579Hcuwaab 2024 2:02pm August 31, 2024 6:47amType 2 diabetes mellitus with diabetic chronic kidney disease Type 2 diabetes mellitus with diabetic chronic kidney disease2 tablets in the am and 1 pmValsartan-Hydrochlorothiazide 320-25 mg cbcziqSoawzxcuvazj8XZTKCKrrtp36 901January 2024 3:29pmJuly 2024 6:47amHypertension Essential (primary) hypertensionAllopurinol 100 mg jhetfmOvabojyhbrys660TZQY Wjxgu62643Dzyqqgs 2024 3:29pmJuly 2024 6:53amGout Gout, unspecifiedMetformin 500 mg jqsovfItqvbc941VNQCFdean daily with dvdmu58340 1July 2024 6:47amType 2 diabetes mellitus with diabetic chronic kidney disease Type 2 diabetes mellitus with diabetic chronic kidney disease2 tablets in the am and 1 pmComplies with drug therapyValsartan-Hydrochlorothiazide 320-25 mg tablet Trudbr3HAHLIFbusp78565Wchy 2024 6:47amHypertension Essential (primary) hypertensionComplies with drug therapyAllopurinol 100 mg njgvanCglmjj431DXFAIocmq87721Chak 2024 6:53amGout Gout, unspecifiedComplies with drug therapyMethylprednisolone (Medrol (Paul)) 4 mg tablets,dose xwxbUkxetqqgobzs3EEyye package hmcdkyrhth156Ajchatrqb 2024 8:48amNovember 2024 9:16amMuscle spasm Neck pain Other muscle spasm CervicalgiaPO PER PKG DIRAllopurinol 100 mg hbfunhNuyhrnttfwng639ELQWDqhtgBtklj 2023 11:00pmJuly 2023 1:18pmMagnesium Oxide 400 mg (241.3 mg magnesium) ctcxqzCeguwz978RVMPDluboXbdvd 2023 11:00pmComplies with drug therapyMetformin 500 mg hdykysCjchmxrsomdn572ZNSQRscbu times dailyCore[facility] 2023 11:00pmMay 2023 10:55amValsartan-Hydrochlorothiazide 320-25 mg tablet Zjndiaezljki3XVZXZZsfrhSbdgvmdv 2023 12:00amFebruary 2023 10:25am Valsartan-Hydrochlorothiazide 320-25 mg iibqfdKrjgdezqbnyb9YECAPTclcr48791 February 2023 10:25amJuly 2023 1:18pmCyanocobalamin (Vitamin B-12) 1,000 mcg vkddnztXytwrb0477TCZRJQuweiMmsixfv 2023 11:00pmComplies with drug therapyMetformin 500 mg jkijzzDseoxtuibxha680PNGKSodul dailyJuly 2023 12:54pmJuly 2023 1:16pmType 2 diabetes mellitus with diabetic chronic kidney disease Type 2 diabetes mellitus with diabetic chronic kidney diseasetake 2 tablets in am and 1 tablet in the pmMetformin 500 mg rmmbeuMjcplhjkeffk798YYJPVunbi daily with wkrmi754053Swxo 2023 1:16pmJanuary 2024 2:02pmType 2 diabetes mellitus with diabetic chronic kidney disease Type 2 diabetes mellitus with diabetic chronic kidney disease2 tablets in the am and 1 pmAllopurinol 100 mg eteqtnVnvwmiygurtf865VAOEQkuql00862Jzwp 2023 1:17pmJanuary 2024 3:29pmGout Gout, unspecifiedValsartan-Hydrochlorothiazide 320-25 mg fcsviySpzujshmtpps5JWZ FEHvtpr29651Ucxl 2023 1:17pmJanuary 2024 3:29pmHypertension Essential (primary) hypertensionTizanidine 2 mg ujuavlLlacgqutzywa8FFMHNcyod 8 hours as needed for muscle zvgdsnytux05075Frojnqbyt 3rd, 2025 11:00pmNovember 2024 9:16amNeck pain Muscle spasm Cervicalgia Other muscle spasmMethylprednisolone (Medrol (Paul)) 4 mg tablets,dose pack Dsijgbmbdidj3CHguu package zfchxtdquu251Rbtvppjuv 3rd, 2025 11:00pmSeptember 2024 8:48amMuscle spasm Neck pain Other muscle spasm CervicalgiaPO PER PKG DIRMethylprednisolone (Medrol (Paul)) 4 mg tablets,dose lshgOjpafdujices2FRhfz package ulmryiyiyo690Jwpsqvao 2024 12:00amApril 2024 1:40pmPO PER PKG DIR Immunizations Immunization Event Date Not Given Reason Dose Number [employer] Lot Number Reason(s) Given Vaccine Information Statement (VIS) Detail Administration Location COVID-19 mRNA, Comirnaty ([place]apes) April 16, 2020 COVID-19 mRNA, Comirnaty ([place]apes)May 07OVID-19 mRNA, Comirnaty ([place]apes)December 13, 2020influenza, unspecified formulationAugust 2022 Pneumococcal Conjugate Vaccine, 13 valentSeptember 2018Pneumococcal Polysacc. Vaccine, 23 valentOctober 2019Zoster Vaccine Recombinant, AdjuvantedMay 2018Zoster Vaccine Recombinant, AdjuvantedJuly 2018 Relevant Diagnostic Tests and/or Laboratory Data Laboratory Results Test Collection Date/Time Result Date/Time Result Interpretation Reference Range Result Comment Performing Site Urine Random Creatinine December 21 7:19am December 21, 2024 7:19am 126.42 mg/dL 20.00-300.00Urine Other CastsOctober 2024 7:19amSEEN #/LPFAbnormal (applies to non-numeric results)NONE SEENParathyroid Hormone (Intact)December 21, 2024 7:32amOctober 2024 7:32am57 pg/nO56-55Kuuhaiitx at: [address] [id number] Director: Clemente Jacobson PhD, Phone: [phone] 2024 7:32amOctober 2024 7:32am37.3 %36.0-48.0Magnesium LevelOctober 2024 7:32amOctober 2024 7:32am1.8 mg/dL1.8-2.4Uric AcidOctober 2024 7:32amOctober 2024 7:32am5.7 mg/dL2.6-6.0Anion GapOct2024 7:32amOctober 2024 7:32am14.625-Hydroxy Vitamin D TotalOct2024 7:32amOctober 2024 7:32am43.6 ng/mL<20 ng/mL Vit D -<30 ng/mL Vit D urrnkydtalxm09-441 ng/mL Vit D sufficient>100 ng/mL Potential ToxicityFerritinOct2024 7:32amOctober 2024 7:32am31.0 ng/mL8.0-252.0Urine Protein/Creatinine Ratio December 21, 2024 7:19amOctober 2024 7:19am0.29Urine Other Crystals December 21, 2024 7:19amNone Seen #/HPFNone SeenHemoglobinOctober 2024 7:32amOctober 2024 7:32am11.8 g/dLBelow low khnfux66.0-16.0AlbuminOct2024 7:32amOctober 2024 7:32am3.7 g/dL3.4-5.0Urine Random Total ProteinOct2024 7:19amOctober 2024 7:19am36.5 mg/dLAbove high normal<=11.9Urine BacteriaOctober 2024 7:19amTRACE #/HPFAbnormal (applies to non-numeric results)NONE SEENMean Corpuscular HemoglobinOctober 2024 7:32amOctober 2024 7:32am30.0 pg26.7-34.0BUN/Creatinine RatioOctober 2024 7:32amOct2024 7:32am26.5Urine BilirubinOctober 2024 7:19am NEGATIVENEGATIVEMean Corpuscular Hemoglobin ConcentOctober 2024 7:32am December 21, 2024 7:32am31.6 g/dL29.9-35.2Blood Urea NitrogenOctober 2024 7:32amOctober 2024 7:32am36.0 mg/dLAbove high normal7.0-18.0Urine Occult BloodOctober 2024 7:19amNEGATIVENEGATIVEMean Corpuscular VolumeOctober 2024 7:32amOct2024 7:32am94.9 fL81.0-99.0Calcium LevelOctober 2024 7:32amOctober 2024 7:32am9.8 mg/dL8.5-10.1Urine Appearance December 21, 2024 7:19amCLEARCLEARMean Platelet VolumeOctober 2024 7:32am December 21, 2024 7:32am10.2 fL9.5-13.5Chloride LevelOctober 2024 7:32am December 21, 2024 7:97no353 mmol/U83-524Wszhr ColorOctober 2024 7:19amLT. YELLOWYELLOWPlatelet CountOctober 2024 7:32amOct2024 7:42hm104 10 3/sK833-535Zlkjwa Dioxide LevelOctober 2024 7:32amOctober 2024 7:32am27.8 mmol/L21.0-32.0Urine Glucose (UA)December 21, 2024 7:19amNEGATIVE mg/dLNEGATIVERed Blood CountOctober 2024 7:32amOct2024 7:32am 3.93 10 6/uLBelow low normal4.20-5.40CreatinineOctober 2024 7:32amOctober 2024 7:32am1.36 mg/dLAbove high normal0.55-1.02Urine Hyaline CastsOctober 2024 7:19amRARERed Cell Distribution WidthOctober 2024 7:32amOctober 2024 7:32am12.8 %11.0-15.0Estimated GFR ()December 21, 2024 7:32amOctober 2024 7:40ov68Uliov low normal>=60 mL/min/1.73m 2Urine KetonesOctober 2024 7:19amTRACE mg/dLAbnormal (applies to non-numeric results)NEGATIVECorrected White Blood CountOctober 2024 7:32amOct2024 7:32am6.1 10 3/uL4.0-11.0Estimated GFR (Non- AmericanOctober 2024 7:32amOctober 2024 7:01vw33Gprln low normal>=60 mL/min/1.73m 2 Urine Leukocyte EsteraseOctober 2024 7:19amTRACEAbnormal (applies to non- numeric results)NEGATIVEGlucose LevelOctober 2024 7:32amOctober 2024 7:36rc004 mg/dLAbove high uoblnf95-197Yojjs MucusOctober 2024 7:19amNONE SEENNONE SEENPotassium LevelOctober 2024 7:32amOctober 2024 7:32am 4.4 mmol/L3.5-5.1Urine NitriteOctober 2024 7:19amNEGATIVENEGATIVESodium LevelOctober 2024 7:32amOctober 2024 7:43ap569 mmol/K067-987Wjdhh pH December 21, 2024 7:19am5.55.0-9.0Phosphorus LevelOctober 2024 7:32am December 21, 2024 7:32am4.1 mg/dL2.6-4.7Urine ProteinOctober 2024 7:19am TRACE mg/dLNEG/TRACEUrine RBCOctober 2024 7:03ws7-2 #/HPF0-2Urine Specific GravityOctober 2024 7:19am1.0251.005-1.025Urine Squamous Epithelial Cells December 21, 2024 7:19amFEW #/LPFAbnormal (applies to non-numeric results) NONE/RAREUrine UrobilinogenOctober 2024 7:19am0.2 EU/dL0.2-1.0Urine WBC December 21, 2024 7:95oq1-0 #/HPFAbnormal (applies to non-numeric results)NONE SEEN Vital Signs Vital Reading Result Reference Range Collection Date/Time Height 63.5 [in_i] October 29, 2024 2:24ppPwrhrl33.01 kgSept2024 2:21pmBody Cwplhqpwwiq59.4 [degF]97.6-99.0Sept2024 2:21pmHeart Rzrs710 /min 60-100Sept2024 2:21pmOxygen saturation by Pulse gmudbhpx21 %95-100 October 29, 2024 2:21pmBP Mujyuwgd962 mm[Hg]100-140Sept2024 2:21pm BP Ysljlosab98 mm[Hg]60-100Sept2024 2:21pmBMI (Body Mass Index)29.9 kg/q1Ayvsfeysb2024 2:83owLozxjq89.5 [in_i]December 31, 2024 9:12amWeight 79.37 kgNov2024 9:12amBody Fxmdcxkangj66.7 [degF]97.6-99.0Nov2024 9:12amHeart Aezp538 /ips58-697Buctanol 6th, 2025 9:12amRespiratory rate18 /khb28-65Xkuxkoqi 6th, 2025 9:12amOxygen saturation by Pulse lofgipyl14 % 95-100December 31, 2024 9:12amBP Tpmcdpbq944 mm[Hg]100-140Nov2024 9:12amBP Vuaznbpsd20 mm[Hg]60-100Nov2024 9:12amBMI (Body Mass Index) 30.5 kg/k0Pfhdayjy2024 9:12am Advance Directives Advance Directive Response Recorded Date/ Time Advance Directives No March 26, 2023 5:52pm Insurance Providers Guarantor Stefany Parada V Address [address] [facility] [address]Qbvstqy Info.Home Phone: Payer Group Member ID Coverage Type Subscriber Relationship to Subscriber Effective Date Expiration Date MMO Id: [id number] Wilkinson V Id: [id number] [address] [facility] [address] Home Phone: SelfMMO [employer] [address] [address] [facility] [address] Work Phone: Id: [id number] Wilkinson V Id: [id number] [address] [facility] [address] Home Phone: SelfMedicare [id number] Wilkinson V Id: [id number] [address] [facility] [address] Home Phone: Self Encounters Encounter Location(s) Arrival/Admit Date Discharge/Departure Date Discharge/Departure Disposition Provider(s) Departed Physician/ Provider Office Visit -[facility] October 29, 2024 3:07pm October 29, 2024 3:41pm Discharged to home care or self care (routine discharge) Corrie Lama APRN CNP Non-patient / Non-visit -[facility] ctober 2024 8:19am KATALINA Arshadeparted Physician/Provider Office Visit-[facility] Ne[facility] [place] December 31, 2024 8:54amNovember 2024 9:35amDischarged to home care or self care (routine discharge)Nika Diop MD Recent Diagnosis Onset Date Admit Date Muscle spasm Unknown October 29, 2 025 3:07pm Neck pain Unknown October 29, 025 3:07pm Anemia of renal disease Unknown December 31, 2024 8:54am B12 deficiency Unknown December 31 8:54am CKD (chronic kidney disease) stage 3, GFR 30-59 ml/min Unknown December 31, 2024 8:54am Gout Unknown December 31 8:54am Hypertensive chronic kidney disease with stage 1 through stage 4 chronic ki Unknown December 31, 2024 8:54am Hypomagnesemia Unknown December 31 8:54am Secondary hyperparathyroidism Unknown No vember 2024 8:54am Type 2 diabetes mellitus wit h diabetic chronic kidney disease Unknown December 31, 2024 8:54am Assessments Diagnosis Onset Date Resolution Status Admit Date Muscle spasm acuteSept2024 3:07pmNeck painacuteSept2024 3:07pmAnemia of renal diseaseacuteDecember 31, 2024 8:51aqI33 deficiencyacuteDecember 31, 2024 8:54amCKD (chronic kidney disease) stage 3, GFR 30-59 ml/minacuteDecember 31, 2024 8:54amGoutacuteNovember 2024 8:54amHypertensive chronic kidney disease with stage 1 through stage 4 chronic kiacuteDecember 31, 2024 8:54am HypomagnesemiaacuteDecember 31, 2024 8:54amSecondary hyperparathyroidismacute December 31, 2024 8:54amType 2 diabetes mellitus with diabetic chronic kidney diseaseacuteDecember 31, 2024 8:54am Plan of Treatment Author Corrie Lama [facility] 10:34am Discussed dx with patient. Take medications as directed. Use muscle relaxer at night time as it may cause drowsiness. May take during the day if needed but do not operate machinery, drive, or perform tasks that require alertness as it may cause drowsiness. Take steroid as directed, take with food. OK to use Tylenol while taking steroid. use lidocaine patch as directed, on for 12 hours off for 12 hours, do not apply heat over lidocaine patch. Warm compress, light stretches, and massage may also help with pain. Avoid strenuous activity, perform activity as tolerated, do not stay stationary for long periods of time as it might make symptoms worse. Follow up with PCP in 1 week. Immediate eval if chest pain, shortness of breath, fever, numbness or tingling, loss of bowel or bladder control, pain becomes severe, difficulty moving neck, back, arms or legs, dizziness, headache, difficulty walking or moving extremities, facial drooping, difficulty speaking, or any other new or concerning symptoms. Patient verbalizes understanding and is agreeable to treatment plan. Author Nika Diop [facility] SystemAuthoredNovember 2024 9:32amSshelly has a CKD due to the longstanding DM and HTN with serum creatinine 1.3 mg/dL. I discussed with the importance of good DM and HTN control to slow down the progression of the CKD. Her MBD parameters including serum calcium, phosphorus, PTH and vitamin D are within the goal. Her hemoglobin is within the target goal. She has a low iron stores but did not tolerate oral iron due to the upset stomach. Blood pressure is controlled. She appears to be euvolemic. Will Continue current antihypertensive medication. 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 Continue oral magnesium. Blood sugars are within acceptable range. Continue follow with PCP for DM management. Continue current dose of metformin but would recommend to stop it if EGFR drop below 30 ml/min. Continue valsartan for renal protection. She denies any recent gout flare and uric acid within the goal. Continue allopurinol. She had B12 deficiency. Advised her to take B12 1000 unit daily Future Tests Future scheduled test information is unavailable Pending Tests Pending diagnostic test information is unavailable Future Visits Future appointment information is unavailable Future Procedures Future procedure information is unavailable Future Medications Future medication information is unavailable Patient Instructions Patient instructions are unavailable
--- OUTSIDE RECORDS SUMMARY | 2025-01-04 08:19 | XMS_ITS | Clinical Summary ---
Author Organization [facility] Healthcare Address [address] [place] [address] Care Team Providers Care Personal Attendant Name Role Phone Darinel, Phil Zhou MD Primary Care Provider [phone] Allergies No known active allergies Medications MedicationSigDispense QuantityRefillsLast FilledStart DateEnd DateStatus allopurinol (Zyloprim) 100 MG tablet Take 100 mg by mouth DailyActive metFORMIN (Glucophage) 500 MG tablet TAKE 2 TABLETS BY MOUTH IN THE MORNING AND 1 TABELT IN THE ZQBCOXA8306/06/2024 Active valsartan-hydroCHLOROthiazide (Diovan-HCT) 320-25 MG tablet Take 1 tablet by mouth DailyActive magnesium 250 MG tablet Take by mouthActive cholecalciferol (Vitamin D-3) 50 MCG (1999 UT) capsule Take by mouthActive cyanocobalamin (Vitamin B-12) 500 MCG tablet Take 500 mcg by mouth DailyActive Active Problems ProblemNoted DateDiagnosed DateHistory of yuvodojlmrlf42/01/2025 Rapwgrutjtfetrfgfkyo92/01/2025Type 2 diabetes mellitus with hyperglycemia 08/25/2024hronic diastolic heart wmoqivx2207/06/2010Type 2 diabetes mellitus without qeaempigagzfm80/24/2009enign essential wipqjtqjpkgm69/07/2008 Family History Medical HistoryRelationNameCommentsAlzheimer's diseaseFatherHypertensionFather RelationNameStatusCommentsFatherDeceasedMotherDeceased Social History Tobacco UseTypesPacks/DayYears UsedDateSmoking Tobacco: NeverSmokeless Tobacco: Never Tobacco Cessation:Counseling Given: Not Answered Alcohol UseStandard Drinks/WeekCommentsNot Currently0 (1 standard drink = 0.6 oz pure alcohol)CommentsUnknownSex and Gender InformationValueDate Recorded Sex Assigned at BirthNot on fileLegal LkhOsvlpr85/15/2023 7:10 PM EDTGender IdentityNot on fileSexual OrientationNot on file Last Filed Vital Signs Vital SignReadingTime TakenCommentsBlood Dpuvrinv599/7402/16/2019 12:00 PM EST Pulse--Temperature--Respiratory Rate--Oxygen Saturation--Inhaled Oxygen Concentration--Ryqqkp67 kg (172 lb)03/21/2021 12:00 PM EPEMvfycv285.6 cm (5' 4 ) 03/21/2021 12:00 PM ESTBody Mass Index29.52003/21/2021 12:00 PM EST Plan of Treatment Health MaintenanceDue DateLast DoneCommentsCT Yeochidbfohc06/14/1954olonoscopy 1953olorectal Cancer Pkdyjofja20/14/1954FIT-DNA1953FIT1955 FOBT1955 1907Qimknxzceavwj91/14/2023Dmqvjazhe34/14/1994COVID-19 Vaccine ( season)/, 05/07/2020, 04/16/2020Influenza Vaccine (#1)509/, 10/22/2022, 11/27/2021, Additional history exists Pneumococcal Vaccine: 65+ XgzlvYashekbrh90/05/2020, 11/17/2018 Insurance Care Teams Team MemberRelationshipSpecialtyStart DateEnd MesaPhil MD [address] [place] [address] [facility]
--- OUTSIDE RECORDS SUMMARY | 2025-01-04 08:19 | XMS_ITS | Clinical Summary ---
Author Organization [facility] tem Address [id number] [place] [address] Care Team Providers Care Clinical Transformation Specialist Name Role Phone Phil Tena DO Primary Care Provider [phone] Immunizations ImmunizationAdministration DatesNext DueCOVID-19, mRNA, LNP-S, PF, 30mcg/0.3mL Dose05/07/2020,04/16/2020 Social History Tobacco UseTypesPacks/DayYears UsedDateSmoking Tobacco: Never AssessedChildcare AnswerDate StkowdgqDnjoxlxiyRhfxlvg65/20/2021EmploymentAnswerDate Recorded QdmcmsagjnGcbklmv08/20/2021Purpose - LifeAnswerDate RecordedPurpose and direction in uxwpGyqyppe96/20/2021CommentsUnknownSex and Gender InformationValueDate RecordedSex Assigned at BirthNot on fileLegal SexFemale 04/16/2020 1:08 PM ESTGender IdentityNot on fileSexual OrientationNot on file Plan of Treatment Health MaintenanceDue DateLast DoneCommentsDepression Geefqorun10/14/1966Tobacco Yyelapqgw47/14/1966Adult BMI Qroffrimv73/14/1972Fall Risk Rhyqhpcsy41/14/2019 COVID-19 Vaccine ( season)503/, 04/16/2020Influenza Qiiyyar54/01/379645/09/2019, 11/17/2018, 11/26/2017, Additional history exists DTaP,Tdap and Td Vaccines (2 - Td or Tdap)RSV ( or age 60+ yrs) (1 - 1-dose 75+ series)2028Zoster (Shingles) VaccineCompleted 09/15/2018, 07/05/2018 Medical Devices Not on file Insurance Care Teams Team MemberRelationshipSpecialtyStart DateEnd Phil Tena DO PCP - GeneralFamily Emzxxrkl73/2/22
--- NOTE | 2025-01-04 08:21 | US_ITS ---
The [address] [address] Patient Name: MILAN MICHELLE MRN: [id number] date: 1955 Sex: F Assigned Patient Location: [place] Current Patient Location: [place] Accession/Order Number: [id number] Exam Date: 01/04/2025 08:22 Report Date: 01/04/2025 09:29 At the request of: FARRUKH BARTON Procedure: US renal BI BILATERAL RENAL AND BLADDER ULTRASOUND CLINICAL HISTORY: Stage 3 Chronic Kidney Disease COMPARISON: 02/15/2022 Estimation of renal size is approximately 8.0 cm on the right and 9.2 cm on the left. No shadowing calculi or hydronephrosis are identified. There is a tiny right renal cyst measuring 7 x 7 x 10 mm. There is no perinephric fluid. The urinary bladder is is not well distended with a volume of 32 mL. No obvious contour or intraluminal abnormalities are seen. US/US renal BI IMPRESSION: TINY RIGHT RENAL CYST. NO OBSTRUCTIVE UROPATHY. Impression dictated by: Swetha Bowden M.D. 01/04/2025 9:29 AM Dictation Location: [place] [address] Electronically authenticated by: [id number] Y Date: 01/04/2025 09:29
--- OUTSIDE RECORDS SUMMARY | 2025-01-04 08:24 | XMS_ITS | CCD ---
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 Name Role Phone Salina Singleton Unavailable OcasioDeena [...] Primary Care Provider NA CAUSEY Attending Unavailable AN CAUSEY Attending Unavailable NA CAUSEY Attending Unavailable JOSEPH NG Attending Unavailable NA CAUSEY Attending Unavailable Corrie Lama APRN Primary Care Provider Corrie Lama APRN Attending Provider [phone] Corrie Lama APRN Primary Care Provider Corrie Lama APRN Attending Provider Nika Diop MD Attending Provider [phone] Medications Current Medications MedicationDrug Class(es)DatesSig (Normalized)Sig (Original)acetaminophen [...] 10 mg oral tablet (2 sources)Muscle RelaxantStart: 14-39-0137hnsa 1 tablet by mouth every eight hours as neededCyclobenzaprine HCl 10 MG 1 tablet Orally every 8 hours as needed for 7 days Oct, ActiveStart: 49-63-5995wqeh 1 tablet by mouth three times daily [...] medicated patch (1 source)Antiarrhythmic, Amide Local AnestheticStart: 11-29-4802gmlst 1 dose transdermal route every twelve hours, [...] Orally Activemagnesium oxide 400 mg oral tablet (7 sources)Start: 38-05-5853dgdw 1 tablet by mouth once dailyMagnesium Oxide 400 mg (241.3 mg magnesium) tablet Active 400 MG PO Daily May 22, 2023 11:00pm C omplies with drug therapyMedrol Dose Pack as directed (1 source)Start: 21-66-9683Kbumgg Dose Pack as directed as directed orally as directed for 6 days Nov, Activenaproxen sodium 220 mg oral tablet (1 source)Nonsteroidal Anti-inflammatory Drugtake 1-2 tablets by mouth every twelve hours at mealtime as neededAleve 220 MG 1-2 tablet with food or milk as needed Orally every 12 hrs PRN Activevitamin b12 1 mg oral capsule (7 sources)Vitamin A52Faoyd: 85-69-4146pldn 1 capsule by mouth once daily Cyanocobalamin (Vitamin B-12) 1,000 mcg capsule Active 1000 MCG PO Daily December 18, 2023 11:00pmComplies with drug therapytake 1 tablet by mouth [...] tablet (20 sources)Xanthine Oxidase InhibitorStart: 05-23-2023 End: 97-97-8383rqce 1 tablet by mouth once dailyAllopurinol 100 mg tablet Discontinued 100 MG PO Daily 90 90 August 27, 2023 1:17pm March 12, 2024 3:29pm Gout Gout, unspecifiedAllopurinol Activecalcium carbonate 1500 mg oral tablet (5 sources)take 1 tablet by mouth every twelve hoursCalcium 600 MG 1 tablet with meals Orally Twice a day Not-TakinghydroCHLOROthiazide 25 mg / valsartan 320 mg oral tablet (20 sources)Thiazide Diuretic, Angiotensin 2 Receptor BlockerStart: 04-17-2023 End: 61-87-4355isgc 1 tablet by mouth once dailyValsartan-Hydrochlorothiazide 320-25 mg tablet Discontinued 1 TAB PO Daily 90 90 August 27, 2023 1:17pm March 12, 2024 3:29pm Hypertension Essential (primary) hypertension Valsartan-hydroCHLOROthiazide 320-12.5 MG Orally ActiveKetorolac (6 sources)Nonsteroidal Anti-inflammatory Drug, Cyclooxygenase InhibitorStart: 43-89-2678Syuxmpp per 15 mg Nov, 30 mgmetFORMIN hydrochloride 500 mg oral tablet (20 sources)BiguanideStart: 08-27-2023 End: 10-75-4732hgwi 2 tablets by mouth twice daily at mealtime, then take 1 tablet by mouth in the eveningMetformin 500 mg tablet Discontinued 500 MG PO Twice daily with meals 270 90 August 27, 2023 1:16pm March 11, 2024 2:02pm Type 2 diabetes mellitus with diabetic chronic kidney disease Type 2 diabetes mellitus with diabetic chronic kidney disease 2 tablets in the am and 1 pmStart: 05-23-2023 End: 23-40-2830gjts 1 tablet by mouth three times dailyMetformin 500 mg tablet Discontinued 500 MG PO Three times daily 90 August 19, 2023 10:08am August 27, 2023 12:55pm Type 2 diabetes mellitus with diabetic chronic kidney disease Type 2 diabetes mellitus with diabetic chronic kidney diseasetake 1 tablet by mouth every eight hoursmetFORMIN HCl 500 MG 1 tablet with a meal Orally THREE TIMES A DAY Activetake 1 tablet by mouth twice daily at mealtimemetFORMIN HCl 750mg 1 tablet with meals Orally Twice a day for 30 day(s) ActivemethylPREDNISolone 4 mg oral tablet (16 sources)CorticosteroidStart: 10-29-2024 End: 10-93-3758oksd 1 tablet by mouth onceMethylprednisolone (Medrol (Paul)) 4 mg tablets,dose pack Discontinued 0 PO per package directions November 04, 2024 8:48am December 31, 2024 9:16am Muscle spasm Neck pain Other muscle spasm Cervicalgia PO PER PKG DIRStart: 08-26-2024 End: 91-41-021598 mg, Intra-articular, Once PRN Procedure, Starting on Sat08/26/24 at 1620, For 1 doseStart: 08-26-2024 End: 16-75-0593xakqffZPNDXOFisjso acetate (DEPO-Medrol) injection 20 mgStart: 03-30-2024 End: 16-49-2229vmmv 1 tablet by mouth onceMethylprednisolone (Medrol (Paul)) 4 mg tablets,dose pack Discontinued 0 PO per package directions March 30, 2024 12:00am June 04, 2024 1:40pm PO PER PKG DIRStart: 11-16-2021 methylPREDNISolone 4 MG as directed Orally for daily dose take half with breakfast, half with dinner for 6 days Oct, ActivetiZANidine 2 mg oral tablet (2 sources)Central alpha-2 Adrenergic AgonistStart: 10-29-2024 End: 54-97-1562osyy 1 tablet by mouth every eight hours as neededTizanidine 2 mg tablet Discontinued 2 MG PO Every 8 hours as needed for muscle spasticity 30 10 0 October 28, 2024 11:00pm December 31, 2024 9:16am Neck pain Muscle spasm Cervicalgia Other musclespasmToradol 30 mg/ml (6 sources)Start: 37-33-8689Ziutbvr 30 mg/ml Oct, 30 mg Problems Active Problems Problem ClassificationProblemDateDocumented DateEpisodic/ChronicChronic kidney disease (14 sources)Chronic kidney disease, unspecified; Translations: [Chronic kidney disease stage 3]Onset: 860657-19-1518LcagrrnAxcduas kidney disease (9 sources)Chronic kidney disease; Translations: [Chronic kidney disease, stage III (moderate)]Congestive heart failure; nonhypertensive (3 sources)Chronic diastolic heart failure; Translations: [Chronic diastolic (congestive) heart failure]Onset: 032606-27-8745KbxwntdXuclmosuso and other anemia (12 sources)Anemia of renal disease; Translations: [Anemia in chronic kidney disease]83-09-4643MzaypghHqdrnbgvcy and other anemia (5 sources)Anemia in chronic kidney disease; Translations: [ANEMIA IN CHRONIC KIDNEY DISEASE]Onset: 53-40-7073ZuftfxzIlmaduay mellitus with complications (20 sources)Disorder of kidney due to diabetes mellitus; Translations: [Type 2 diabetes mellitus with diabetic chronic kidney disease]Onset: 57-89-9651Unwkubc Diabetes mellitus without complication (3 sources)Type 2 diabetes mellitus; Translations: [Type 2 diabetes mellitus without complications]Onset: 455171-98-9383UfgsaxqJetqrnrro of lipid metabolism (3 sources)Hypertriglyceridemia; Translations: [Pure hyperglyceridemia]Onset: 603909-71-3698RrumjdoNtjilynoa hypertension (10 sources)Hypertensive disorder; Translations: [Essential (primary) hypertension]Onset: 514495-15-2625AaboadzXrzo and other crystal arthropathies (20 sources)Gout; Translations: [Gout, unspecified]Onset: 60-09-3539Uzjzhno Hypertension with complications and secondary hypertension (20 sources)Chronic kidney disease due to hypertension; Translations: [Hypertensive chronic kidney disease withstage 1 through stage 4 chronic kidney disease, or unspecified chronic kidney disease]Onset: 51-89-0303Gziompi Nutritional deficiencies (11 sources)Cobalamin deficiency; Translations: [Deficiency of other specified B group vitamins]18-74-5022RqryzbulWpupckklrsvwsc (4 sources)Arthritis of first carpometacarpal joint of left hand; Translations: [Unilateral primary osteoarthritis of first carpometacarpal joint, left hand] 50-08-7389SxtrjsqAveca connective tissue disease (1 source)Tendinitis of finger; Translations: [Other enthesopathies, not elsewhere classified]79-57-3233SmvgocqaJglgn connective tissue disease (1 source)Other enthesopathies, not elsewhere classified; Translations: [Other tenosynovitis of hand and wrist]37-09-2086DdgfzbnbAvcye connective tissue disease (4 sources)Triggering of digit; Translations: [Trigger finger, right ring finger]45-36-6164ZuhxaritQkxgc connective tissue disease (2 sources)Pain of bilateral hands; Translations: [Pain in right hand]08-26-2024 EpisodicOther connective tissue disease (4 sources)Spasm; Translations: [Other muscle spasm]57-43-0213WyhnydssMeotb connective tissue disease (2 sources)Tendonitis of finger of right hand; Translations: [Other enthesopathies, not elsewhere classified]21-88-5563TpnagqsiLfrsg diseases of kidney and ureters (13 sources)Secondary hyperparathyroidism; Translations: [Secondary hyperparathyroidism of renal origin]12-00-9104WropuxnDkfvy diseases of kidney and ureters (8 sources)Secondary hyperparathyroidism of renal origin; Translations: [Secondary hyperparathyroidism (of renal origin)]Onset: 82-42-9609HiiwydkJmayb ear and sense organ disorders (2 sources)Mixed conductive and sensorineural hearing loss, bilateral; Translations: [Mixed conductive and sensorineural hearing loss, bilateral] 32-27-5550QonxglxMcmsc ear and sense organ disorders (4 sources)Sensorineural hearing loss, bilateral; Translations: [Sensorineural hearing loss, bilateral]42-69-7867SlfdwtgZrcwm nutritional; endocrine; and metabolic disorders (12 sources)Hypomagnesemia; Translations: [Hypomagnesemia]03-99-6115ViinuhyBolcd nutritional; endocrine; and metabolic disorders (6 sources)Hypomagnesemia; Translations: [Disorders of magnesium metabolism] ChronicOther nutritional; endocrine; and metabolic disorders (5 sources)Overweight in adulthood with body mass index of 25 or more but less than 30; Translations: [Body mass index (BMI) 27.0-27.9, adult]08-28-2023 EpisodicSpondylosis; intervertebral disc disorders; other back problems (12 sources)Sciatica, left side; Translations: [Sciatica]Onset: 11-27-2020 Resolved: 01-98-7103PehlrpkcThziguhmhcqz (1 source)CHRN KIDNEY DISEASE STG 3 UNSP; Translations: [CHRN KIDNEY DISEASE STG 3 UNSP]Onset: 05-01-2022 Past or Other Problems Problem ClassificationProblemDateDocumented DateEpisodic/ChronicSprains and strains (1 source)Strain of muscle, fascia and tendon of lower back, initial encounter; Translations: [Strain of lumbar region, initial encounter S39.012A]Onset: 11-27-2020 Resolved: 01-82-1873Yoorhath Results Test NameValueInterpretationReference RangeFacilityErythrocyte distribution width Auto (RBC) [Ratio]Ordered By: Nika Diop on 50-14-5557Yzicwnpmggs distribution width (RBC) [Ratio]12.8 %11.0-15.0[facility] Glomerular filtration rate (GFR) estimation in non- AmericanOrdered By: Nika Diop on 27-59-6357ERE/1.73 sq M.predicted among non-blacks MDRD (S/P/Bld) [Vol rate/Area]38 mL/min/{1.73_m2}Low>=60 mL/min/1.73m [address] [place], [place] [address]Hematocrit Auto (Bld) [Volume fraction]Ordered By: Nika Diop on 31-51-1511Qmjwohydub (Bld) [Volume fraction]37.3 %36.0-48.0[facility] CenterHemoglobin [Mass/volume] in BloodOrdered By: Nika Diop on 10-38-8647Rapgcntofz (Bld) [Mass/Vol]11.8 g/dLLow12.0-16.0[facility] CenterLaboratory - Chemistry and Chemistry - challengeOrdered By: Nika Diop on 10-73-9578Adfcsxs [Mass/Vol]3.7 g/dL3.4-5.0[facility] CenterCalcium [Mass/Vol]9.8 mg/dL8.5-10.1FMercy Health St. [facility] Chloride [Moles/Vol]106 mmol/Y35-048VnoccqjedFulton County Health CenterCO2 [Moles/Vol]27.8 mmol/L21.0-32.0[facility] CenterCreatinine [Mass/Vol]1.36 mg/dLHigh0.55-1.02[facility] CenterFerritin [Mass/Vol]31.0 ng/mL8.0-252.0[facility] CenterGFR/1.73 sq M.predicted MDRD (S/P/Bld) [Vol rate/Area]46 mL/min/{1.73_m2}Low>=60 mL/min/1.73m 2FMercy Health St. Anne HospitalGlucose [Mass/Vol]140 mg/dLHigh 74-106[facility] CenterMagnesium [Mass/Vol]1.8 mg/dL1.8-2.4 [facility] CenterPotassium [Moles/Vol]4.4 mmol/L3.5-5.1FCrystal Clinic Orthopedic Centerodium [Moles/Vol]144 mmol/R163-382EmgyiyxxyFulton County Health CenterUrate [Mass/Vol]5.7 mg/dL2.6-6.0[facility] Urea nitrogen [Mass/Vol]36.0 mg/dLHigh7.0-18.0[facility] Urea nitrogen/Creatinine [Mass ratio]26.5 mg/mgFulton [facility] Health Center Bilirubin Ql (U)NegativeNEGATIVEFulton County Health CenterGlucose (U) [Mass/Vol]NegativeNEGATIVEFulton County Health CenterKetones Ql (U)TRACE mg/dLAbnormalNEGCleveland Clinic Marymount HospitalpH (U)5.5 [pH]5.0-9.0 [facility] Systempecific gravity (U) [Rel density]1.025 1.005-1.025[facility] CenterUrobilinogen Qn (U)0.2 {Ga'U}/dL0.2-1.0[facility] CenterLaboratory - Specimen informationOrdered By: Nika Diop on 92-41-4480Swirocmcqb (U)CLEARCLEAR [facility] CenterColor (U)LT. YELLOWYELLOWFulton County Health CenterLaboratory - UrinalysisOrdered By: Nika Diop on 12-21-2024 Hyaline casts LM Ql (Urine sed)RAREFulton County Health CenterLeukocyte esterase Test strip Ql (U)TRACEAbnormalNEGCleveland Clinic Marymount Hospital Mucus Ql (Urine sed)NONE SEENNONE SEENFulton County Health CenterNitrite Ql (U)NegativeNEGATIVEFulton County Health CenterProtein (U) [Mass/Vol] 36.5 mg/dLHigh<=11.9[facility] CenterProtein Ql (U)TRACE mg/dL NEG/TRACEFulton County Health CenterLeukocytes [#/volume] corrected for nucleated erythrocytes in Blood by Automated counOrdered By: Nika Diop on 42-20-0380YOF corrected for nucl RBC Auto (Bld) [#/Vol]6.1 10 3/uL4.0-11.0 [facility] Auto (RBC) [Entitic mass]Ordered By: Nika Diop on 32-31-3698YAP (RBC) [Entitic mass]30.0 pg26.7-34.0[facility] CenterMCHC Auto (RBC) [Mass/Vol]Ordered By: Nika Diop on 12-21-2024 MCHC (RBC) [Mass/Vol]31.6 g/dL29.9-35.2FMercy Health St. Anne HospitalMCV Auto (RBC) [Entitic vol]Ordered By: Nika Diop on 52-25-2721KVT (RBC) [Entitic vol] 94.9 fL81.0-99.0[facility] CenterNo Panel InformationOrdered By: Nika Diop on 364065-Fkjnhhm Vitamin D Total43.6 ng/mLFulton County Health CenterComment on above:<20 ng/mL Vit D rqmhncgao29-<30 ng/mL Vit D zqyptbuouatw96-469 ng/mL Vit D sufficient>100 ng/mL Potential Toxicity Parathyroid Hormone (Intact)57 pg/sB43-57ElszeeejbFulton County Health Center Comment on above:Performed at: ERN - [facility] [address] [id number] Director: Clemente Jacobson PhD, Phone: [phone] Level 4.1 mg/dL2.6-4.7FMercy Health St. Anne HospitalUrine BacteriaTRACE #/HPF AbnormalNONE SEENFulton County Health CenterUrine Occult BloodNegative NEGATIVEFulton County Health CenterUrine Other CastsSEEN #/LPFAbnormalNONE SEENFulton County Health CenterUrine Other CrystalsNone Seen #/HPFNone [facility] CenterUrine Random Xavshzopwd508.42 mg/dL 20.00-300.00[facility] CenterUrine RBC0-2 #/HPF0-2FMercy Health St. Anne HospitalUrine Squamous Epithelial CellsFEW #/LPFAbnormalNONE/RARE [facility] CenterUrine WBC0-2 #/HPFAbnormalNONE SEENFulton County Health CenterPlatelet mean volume Auto (Bld) [Entitic vol]Ordered By: Nika Diop on 59-83-2605Idtahxnp mean volume (Bld) [Entitic vol]10.2 fL9.5-13.5 [facility] CenterPlatelets Auto (Bld) [#/Vol]Ordered By: Nika Diop on 69-51-6322Jamqzicbf (Bld) [#/Vol]269 10 3/uF948-220YbypvaqrwFulton County Health CenterRBC Auto (Bld) [#/Vol]Ordered By: Nika Diop on 24-86-6020YEV (Bld) [#/Vol]3.93 10 6/uLLow4.20-5.40Avita Health Systemerum or plasma anion gap determinationOrdered By: Nika Diop on 89-60-1483Ohhbd gap [Moles/Vol]14.6 mmol/LFMercy Health St. Anne HospitalUrine protein/creatinine ratioOrdered By: Nika Diop on 09-94-3567Jrnnmfq/Creatinine (U) [Ratio]0.29 [facility] CenterNo Panel Informationon 96-23-7401ApdiwJoseph Ng NP 08/26/2024 4:22 PM S Inj/Asp: L thumb [facility] on 08/26/2024 4:20 PM Indications: pain and joint swelling Details: 21 G needle, dorsal approach Medications: 20 mg methylPREDNISolone acetate 40 MG/ML Outcome: tolerated well, no immediate complications Consent was given by the patient. Patient was prepped and draped in the usual sterile fashion. [facility] HealthJoseph Ng NP 08/26/2024 4:22 PM Hand / UE Inj/Asp: R ring A1 for trigger finger on 08/26/2024 4:19 PM Indications: pain Details: 24 G needle, volar approach Medications: 20 mg methylPREDNISolone acetate 40 MG/ML Outcome: tolerated well, no immediate complications Site cleaned with isopropyl alcohol Procedure, treatment alternatives, risks and benefits explained, specific risks discussed. Consent was given by the patient. [facility] HealthErythrocyte distribution width Auto (RBC) [Ratio] on 70-97-2455Ctvdmhaywvq distribution width (RBC) [Ratio]Erythrocyte distribution width [Ratio] by Automated count11.0-15.0[facility] CenterEstimated glomerular filtration rate (GFR) non- Americanon 19-41-9602VFS/1.73 sq M.predicted among non-blacks MDRD (S/P/Bld) [Vol rate/Area]Estimated glomerular filtration rate (GFR) non- AmericanLow>=60 mL/min/1.73m 2FMercy Health St. Anne HospitalHematocrit Auto (Bld) [Volume fraction]on 86-11-2577Qcrffimdps (Bld) [Volume fraction]Hematocrit [Volume Fraction] of Blood by Automated count36.0-48.0[facility] Hemoglobin [Mass/volume] in Bloodon 68-97-4943Dvusbkdbzs (Bld) [Mass/Vol] Hemoglobin [Mass/volume] in Blood12.0-16.0[facility] CenterIron binding capacity [Mass/volume] in Serum or Plasmaon 29-39-7780Frmo binding capacity [Mass/Vol]Iron binding capacity [Mass/volume] in Serum or Plasma 250.0-450.0[facility] CenterIron saturation [Mass Fraction] in Serum or Plasmaon 14-55-4179Suly saturation [Mass fraction]Iron saturation [Mass Fraction] in Serum or PlasmaFulton County Health CenterLaboratory - Chemistry and Chemistry - challengeon 52-94-8809Uxouhyh [Mass/Vol]4.0 g/dL 3.4-5.0[facility] CenterCalcium [Mass/Vol]9.5 mg/dL8.5-10.1 [facility] CenterChloride [Moles/Vol]106 mmol/I63-446DejhfezewFulton County Health CenterCO2 [Moles/Vol]25.6 mmol/L21.0-32.0[facility] CenterCreatinine [Mass/Vol]1.42 mg/dLHigh0.55-1.02[facility] CenterFerritin [Mass/Vol]38.0 ng/mL8.0-252.0[facility] CenterGFR/1.73 sq M.predicted MDRD (S/P/Bld) [Vol rate/Area]44 mL/min/{1.73_m2} Low>=60 mL/min/1.73m 2FMercy Health St. Anne HospitalGlucose [Mass/Vol]140 mg/rZRzos63-261UauzpefyvFulton County Health CenterIron [Mass/Vol]69.0 ug/dL 50.0-170.0[facility] CenterMagnesium [Mass/Vol]1.7 mg/dLLow 1.8-2.4FMercy Health St. Anne HospitalPotassium [Moles/Vol]4.6 mmol/L3.5-5.1 [facility] Systemodium [Moles/Vol]144 mmol/Q377-394AenxditynFulton County Health CenterUrate [Mass/Vol]5.4 mg/dL2.6-6.0[facility] CenterUrea nitrogen [Mass/Vol]37.0 mg/dLHigh7.0-18.0[facility] CenterUrea nitrogen/Creatinine [Mass ratio]26.1 mg/mgFulton County Health CenterLaboratory - Urinalysison 05-90-8504Jxicvmm (U) [Mass/Vol]27.3 mg/dLHigh<=11.9[facility] CenterLeukocytes [#/volume] corrected for nucleated erythrocytes in Blood by Automated counon 13-92-6380YRE corrected for nucl RBC Auto (Bld) [#/Vol]Leukocytes [#/volume] corrected for nucleated erythrocytes in Blood by Automated coun4.0-11.0[facility] MCH Auto (RBC) [Entitic mass]on 79-35-1016DDU (RBC) [Entitic mass]MCH [Entitic mass] by Automated count26.7-34.0[facility] CenterMCHC Auto (RBC) [Mass/Vol]on 74-00-0577YIOP (RBC) [Mass/Vol]MCHC [Mass/volume] by Automated count29.9-35.2FMercy Health St. Anne HospitalMCV Auto (RBC) [Entitic vol]on 27-62-6487IKV (RBC) [Entitic vol]MCV [Entitic volume] by Automated count 81.0-99.0[facility] CenterNo Panel Informationon - Hydroxy Vitamin D Total21.2 ng/mLFulton County Health CenterComment on above:<20 ng/mL Vit D yeqtejddh96-<30 ng/mL Vit D qcdrjorestch16-551 ng/mL Vit D sufficient>100 ng/mL Potential ToxicityParathyroid Hormone (Intact)127 pg/mL Znvgroxo29-27QmvposfkkFulton County Health CenterComment on above:Performed at: [facility]N - [facility] [id number] Director: Clemente Jacobson PhD, Phone: [phone] Level3.5 mg/dL2.6-4.7FMercy Health St. Anne HospitalUrine Random Thkwbueudc388.99 mg/dL20.00-300.00[facility] CenterPlatelet mean volume Auto (Bld) [Entitic vol]on 27-15-3657Ijjgfexo mean volume (Bld) [Entitic vol]Platelet mean volume [Entitic volume] in Blood by Automated count9.5-13.5FMercy Health St. Anne Hospital Platelets Auto (Bld) [#/Vol]on 96-23-1130Cdsimxakk (Bld) [#/Vol]Platelets [#/volume] in Blood by Automated -109RjkxgferwFulton County Health Center RBC Auto (Bld) [#/Vol]on 51-62-0478ZEF (Bld) [#/Vol]Erythrocytes [#/volume] in Blood by Automated countLow4.20-5.40[facility] Systemerum or plasma anion gap determinationon 84-72-9481Joggf gap [Moles/Vol]Serum or plasma anion gap determinationFulton County Health CenterUrine protein/creatinine ratioon 93-48-7167Wnojzyz/Creatinine (U) [Ratio]Urine protein/creatinine ratio [facility] CenterErythrocyte distribution width Auto (RBC) [Ratio]on 07-62-8059Ipdeczydrgq distribution width (RBC) [Ratio]12.7 %11.0-15.0 [facility] CenterHematocrit Auto (Bld) [Volume fraction]on 81-38-0901Spbxcquput (Bld) [Volume fraction]36.9 %36.0-48.0[facility] CenterHemoglobin [Mass/volume] in Bloodon 61-55-8610Piaalqzlxl (Bld) [Mass/Vol]11.5 g/dLLow12.0-16.0[facility] CenterLaboratory - Chemistry and Chemistry - challengeon 37-44-1391Hhlqrzong (Vitamin B12) [Mass/Vol]689 pg/dP091-4995ShwkqvfoeFulton County Health CenterComment on above: Performed at: ERN - [facility] [address] [id number] Director: Clemente Jacobson PhD, Phone: [phone] [Mass/Vol]2.0 mg/dL 1.8-2.4FMercy Health St. Anne HospitalUrate [Mass/Vol]6.6 mg/dLHigh2.6-6.0 [facility] CenterBilirubin Ql (U)NegativeNEGATIVEFulton County Health CenterGlucose (U) [Mass/Vol]NegativeNEGATIVEFulton County Health CenterKetones Ql (U)NegativeNEGATIVEFulton County Health CenterpH (U)5.5 [pH]5.0-9.0[facility] Systempecific gravity (U) [Rel density]1.0251.005-1.025[facility] CenterUrobilinogen Qn (U)0.2 {Ga'U}/dL0.2-1.0[facility] CenterLaboratory - Specimen informationon 64-41-8842Jlldtatiqz (U)CLEARCLEARFMercy Health St. Anne HospitalColor (U)LT. YELLOWYELLOWFulton County Health CenterLaboratory - Urinalysison 80-74-5688Enuzejnwu esterase Test strip Ql (U)NegativeNEGATIVE [facility] CenterMucus Ql (Urine sed)NONE SEENNONE SEENFulton County Health CenterNitrite Ql (U)NegativeNEGATIVEFulton County Health CenterProtein (U) [Mass/Vol]15.6 mg/dLHigh<=11.9[facility] CenterProtein Ql (U)NegativeNEG/TRACEFulton County Health CenterLeukocytes [#/volume] corrected for nucleated erythrocytes in Blood by Automated counon 61-67-0636LZO corrected for nucl RBC Auto (Bld) [#/Vol]6.3 10 3/uL4.0-11.0 [facility] CenterMCH Auto (RBC) [Entitic mass]on 34-85-0852GEG (RBC) [Entitic mass]30.3 pg26.7-34.0[facility] CenterMCHC Auto (RBC) [Mass/Vol]on 52-31-9609XIXV (RBC) [Mass/Vol]31.2 g/dL29.9-35.2FMercy Health St. Anne HospitalMCV Auto (RBC) [Entitic vol]on 22-84-9916GSY (RBC) [Entitic vol]97.1 fL81.0-99.0[facility] CenterNo Panel Informationon 276186-Wqhbuuc Vitamin D Total29.6 ng/mLFulton County Health CenterComment on above:<20 ng/mL Vit D -<30 ng/mL Vit D ignepuidujby49-509 ng/mL Vit D sufficient>100 ng/mL Potential ToxicityFolate9.40 ng/mL8.60-58.90[facility] CenterParathyroid Hormone (Intact)68 pg/vZPwjkozfj52-34VcuixriedFulton County Health CenterComment on above:Performed at: - [facility] [address] [id number] Director: Clemente Jacobson PhD, Phone: [phone] BacteriaNONE SEEN #/HPFNONE SEEN [facility] CenterUrine Occult BloodNegativeNEGATIVEFulton County Health CenterUrine Other CastsNONE SEEN #/LPFNONE SEENFulton County Health CenterUrine Other CrystalsNone Seen #/HPFNone [facility] CenterUrine Random Vnnsaamkgx148.46 mg/dL20.00-300.00[facility] CenterUrine RBC0-2 #/HPF0-2FMercy Health St. [facility] Hospital Urine Squamous Epithelial CellsRARE #/LPNONE/City HospitalUrine WBCNONE SEEN #/HPFNONE [facility] HospitalPlatelet mean volume Auto (Bld) [Entitic vol]on 04-94-5193Qdhmqhbc mean volume (Bld) [Entitic vol]10.5 fL9.5-13.5FMercy Health St. Anne HospitalPlatelets Auto (Bld) [#/Vol]on 30-00-5145Ragjfhfou (Bld) [#/Vol]263 10 3/aX617-868VodelunzoFulton County Health CenterRBC Auto (Bld) [#/Vol]on 06-92-4326OPZ (Bld) [#/Vol]3.80 10 6/uLLow4.20-5.40[facility] [facility] CenterUrine protein/creatinine ratioon 71-00-3899Wzxdjnl/Creatinine (U) [Ratio]0.11[facility] CenterAutomated epithelial cells count in urine sediment (number/area)on 75-24-6891Cjpcefgobp cells Auto (Urine sed) [#/Area]RARE #/TIM[facility]ITALNONE/City HospitalAutomated leukocytes count in urine sediment (number/area)on 70-28-0670SKU Auto (Urine sed) [#/Area]0-2 #/HPF0-2FMercy Health St. Anne HospitalAutomated urine specific gravity by refractometryon 10-04-7268Woemfeai gravity Refractometry automated (U) [Rel density]1.025 1.005-1.025[facility] CenterBilirubin Auto test strip (U) [Mass/Vol]on 49-26-0323Rxwdkxrgs (U) [Mass/Vol]NegativeNEGATIVEFulton County Health CenterCast typing in urine sediment by light microscopyon 37-08-0108Ornka LM Nom (Urine sed)NONE SEEN #/LPFNONE SEENFulton County Health CenterColor Auto (U)on 58-91-9107Kvaws (U)LT. YELLOWYELLOWFulton County Health CenterErythrocyte distribution width Auto (RBC) [Ratio]on 40-47-0736Xernohvzjim distribution width (RBC) [Ratio]12.7 %11.0-15.0[facility] CenterEstimated glomerular filtration rate (GFR) non- Americanon 14-69-8129XAZ/1.73 sq M.predicted among non-blacks MDRD (S/P/Bld) [Vol rate/Area]39 mL/min/{1.73_m2}>=60[facility] Hematocrit Auto (Bld) [Volume fraction]on 91-98-5096Dwqelsftlx (Bld) [Volume fraction]38.7 %36.0-48.0[facility] CenterHemoglobin [Mass/volume] in Bloodon 22-19-1525Pxzcxjprmc (Bld) [Mass/Vol]12.0 g/dL12.0-16.0 [facility] CenterIron binding capacity [Mass/volume] in Serum or Plasmaon 22-03-0200Xyuu binding capacity [Mass/Vol]385.0 ug/dL250.0-450.0 [facility] CenterIron saturation [Mass Fraction] in Serum or Plasmaon 00-42-7409Fevd saturation [Mass fraction]16.4 %[facility] CenterKetones Auto test strip (U) [Mass/Vol]on 23-86-2525Vsfjkqa (U) [Mass/Vol]NegativeNEGATIVEFulton County Health CenterLaboratory - Chemistry and Chemistry - challengeon 77-59-4386Myblayo [Mass/Vol]4.0 g/dL 3.4-5.0[facility] CenterCalcium [Mass/Vol]9.5 mg/dL8.5-10.1 [facility] CenterChloride [Moles/Vol]104 mmol/D92-260DywdohmcqFulton County Health CenterCO2 [Moles/Vol]26.0 mmol/L21.0-32.0[facility] CenterCobalamin (Vitamin B12) [Mass/Vol]173.0 pg/mL193.0-986.0[facility] CenterCreatinine [Mass/Vol]1.35 mg/dL0.55-1.02[facility] CenterFerritin [Mass/Vol]45.0 ng/mL8.0-252.0[facility] CenterGFR/1.73 sq M.predicted MDRD (S/P/Bld) [Vol rate/Area]47 mL/min/{1.73_m2}>=60[facility] CenterGlucose [Mass/Vol]119 mg/dL 74-106F[facility] CenterIron [Mass/Vol]63.0 ug/dL50.0-170.0 [facility] CenterMagnesium [Mass/Vol]1.9 mg/dL1.8-2.4FMercy Health St. Anne HospitalPotassium [Moles/Vol]4.3 mmol/L3.5-5.1FCrystal Clinic Orthopedic Centerodium [Moles/Vol]143 mmol/U820-200EnyxplytaFulton County Health CenterUrate [Mass/Vol]5.7 mg/dL2.6-6.0[facility] CenterUrea nitrogen [Mass/Vol]34.0 mg/dL7.0-18.0[facility] CenterUrea nitrogen/Creatinine [Mass ratio]25.2 mg/mgFulton County Health Center Laboratory - Urinalysison 99-05-9107Rxmdotw (U) [Mass/Vol]13.2 mg/dL<=11.9 [facility] CenterLeukocytes [#/volume] corrected for nucleated erythrocytes in Blood by Automated counon 07-42-4223CEC corrected for nucl RBC Auto (Bld) [#/Vol]6.9 10 3/uL4.0-11.0[facility] CenterMCH Auto (RBC) [Entitic mass]on 11-03-3306IBG (RBC) [Entitic mass]30.0 pg26.7-34.0 [facility] CenterMCHC Auto (RBC) [Mass/Vol]on 96-12-1105UTBV (RBC) [Mass/Vol]31.0 g/dL29.9-35.2FMercy Health St. Anne HospitalMCV Auto (RBC) [Entitic vol]on 63-86-0351VFG (RBC) [Entitic vol]96.8 fL81.0-99.0[facility] CenterMucus LM Ql (Urine sed)on 04-69-3058Zkqsi Ql (Urine sed) NONE SEENNONE SEENFulton County Health CenterNo Panel Informationon 095345-Zvgqfwy Vitamin D Total35.5 ng/mLFulton County Health Center Comment on above:<20 ng/mL Vit D iuvttsuwn04-<30 ng/mL Vit D uqfwwonwgkno10-773 ng/mL Vit D sufficient>100 ng/mL Potential ToxicityFolate9.80 ng/mL8.60-58.90 [facility] CenterParathyroid Hormone (Intact)64 pg/mL15-65 [facility] CenterComment on above:Performed at: ERN - [facility] [address] [id number] Director: Clemente Jacobson PhD, Phone: [phone] Level4.0 mg/dL2.6-4.7FMercy Health St. Anne HospitalUrine Random Zpogivvgpu305.68 mg/dL20.00-300.00[facility] CenterPlatelet mean volume Auto (Bld) [Entitic vol]on 06-79-8636Qhxirvxt mean volume (Bld) [Entitic vol]10.2 fL9.5-13.5FMercy Health St. Anne Hospital Platelets Auto (Bld) [#/Vol]on 08-50-2932Qrawctrhg (Bld) [#/Vol]273 10 3/uL 150-450[facility] CenterProtein Auto test strip (U) [Mass/Vol]on 28-04-9936Nqfjhhe (U) [Mass/Vol]NegativeNEG/TRACEFulton County Health CenterRBC Auto (Bld) [#/Vol]on 43-97-7446PZA (Bld) [#/Vol]4.00 10 6/uL4.20-5.40 [facility] Systemerum or plasma anion gap determinationon 90-53-3104Cfrmh gap [Moles/Vol]17.3 mmol/LFMercy Health St. Anne Hospital Specific gravity Auto test strip (U) [Rel density]on 31-66-5722Ukmwjspd gravity (U) [Rel density]CLEARCLEARFMercy Health St. Anne HospitalUrine bacteria detection by automated methodon 74-24-2980Dmqwinmf Auto Ql (U)NONE SEEN #/HPF NONE [facility] HospitalUrine glucose measurement by test strip (mass/volume)on 49-34-6838Iyehfml Test strip (U) [Mass/Vol]Negative NEGATIVEFulton County Health CenterUrine hemoglobin detection by automated test stripon 41-90-9739Vipjbzddmt Auto test strip Ql (U)NegativeNEGATIVE [facility] CenterUrine nitrite detection by automated test strip on 11-81-3124Bxtnboo Auto test strip Ql (U)NegativeNEGATIVEFulton County Health CenterUrine protein/creatinine ratioon 15-30-7841Ezpkred/Creatinine (U) [Ratio]0.11[facility] CenterUrine sediment crystal identification by light microscopyon 61-00-0188Wugjpdgy LM Nom (Urine sed)None Seen #/HPFNone [facility] CenterUrine sediment leukocyte count by microscopy (number/high power field)on 06-74-5704IES LM.HPF (Urine sed) [#/Area]0-2 #/HPFNONE [facility] HospitalUrobilinogen Auto test strip (U) [Mass/Vol]on 38-33-3893Wegzyhrutiza Qn (U)0.2 {Ga'U}/dL 0.2-1.0[facility] CenterpH Auto test strip (U)on 34-51-6103yD (U)5.5 [pH]5.0-9.0[facility] CenterPTH INTACTon 23-91-7888XPY, Fhoihp75 pg/dKJpcfit50-10TnxMadison HealthComment on above:Performed By: #### PTHINT #### [facility] [address] [address] [address] Isacc ZapataFERRITINon 38-63-6439Yhnuchvq [Mass/Vol]26.0 ng/mLNormal8.0-252.0 Madison HealthComment on above:Performed By: #### VITAD, FERR, FETIBC ####[facility] [address] [address]Dr. Isacc ZapataHEMOGRAM AND PLATELon 61-28-0514Rzydoinulf (Bld) [Volume fraction] 35.8 %Critically low36.0-48.0The [facility] HospitalComment on above:Performed By: #### HH ####[facility] [address] [address]Dr. Isacc ZapataHemoglobin (Bld) [Mass/Vol]11.3 g/dLCritically low12.0-16.0 The [facility] HospitalComment on above:Performed By: #### HH ####[facility] [address] [place], [place] [address]Dr. Isacc ZapataH (RBC) [Entitic mass]29.4 hmGbvlbf02.7-34.0The [facility] HospitalComment on above: Performed By: #### HH ####[facility] Eigq[address]cl[address] [place], [place] [address]Dr. Isacc ZapataMCHC (RBC) [Mass/Vol]31.6 g/dLNormal 29.9-35.2The [facility] HospitalComment on above:Performed By: #### HH ####[facility] Dbhtokrxse[address] [place], [place] [address]Dr. Nimo ZapataMCV (RBC) [Entitic vol]93.0 hXNrtgij56.0-99.0The [facility] Comment on above:Performed By: #### HH ####[facility] Ihfqysnp[address] [place], [place] [address]Dr. Isacc ZapataPLT270 103/dxKwhylz252-365Ktp [facility] HospitalComment on above:Performed By: #### HH ####[facility] [address] [address]Dr. Isacc ZapataRBC3.85 106/ul Critically low4.20-5.40The [facility] HospitalComment on above:Performed By: #### HH ####[facility] [address] [address]Dr. Isacc ZapataWBC6.4 103/ulNormal4.0-11.0The [facility] HospitalComment on above: Performed By: #### HH ####[facility] [address] [address]Dr. Isacc ZapataIRON AND TIBCon 04-30-2022% SATURATION 21.4 %NormalThe [facility] on above:Performed By: #### VITDEMARCUS FERR, FETIBC ####[facility] [address] [address]Dr. Isacc ZapataIron [Mass/Vol]81.0 ug/tOBarsha03.0-170.0The [facility] Centerment on above:Performed By: #### ZENAIDA FERR, FETIBC ####[facility] [address] [address]Dr. Isacc ZapataTIBC WZBSXI787.0 ug/kOHzffpb977.0-450.0The [facility] on above: Performed By: #### VITDEMARCUS FERR, FETIBC ####[facility] [address] [address]DrMichelle ZapataMAGNESIUMon 27-69-9510Auycothbu [Mass/Vol]1.7 mg/dLCritically low1.8-2.4The [facility] on above: Performed By: #### MG, RENAL, URIC #### [facility] [address] [address] [address] Isacc ZapataRENAL FUNCTION PANELon 60-65-5247Nwmkhel [Mass/Vol]4.0 g/dLNormal 3.4-5.0The [facility] Centerment on above:Performed By: #### MG, RENAL, URIC #### [facility] [address] [address] [address] Isacc ZapataCalcium [Mass/Vol]9.2 mg/dLNormal8.5-10.1The [facility] Comment on above:Performed By: #### MG, RENAL, URIC #### [facility] [address] [place] [address] Dr. Isacc ZapataChloride [Moles/Vol]107 mmol/DDssuea37-231Tpx [facility] Comment on above:Performed By: #### MG, RENAL, URIC #### [facility] [address] [place] [address] Dr. Isacc ZapataCO2 [Moles/Vol]24.9 mmol/QHioudc30.0-32.0The [facility] Comment on above:Performed By: #### MG, RENAL, URIC #### [facility] [address] [place] [address] Dr. Isacc ZapataCreatinine [Mass/Vol]1.45 mg/dLCritically high0.55-1.02The [facility] HospitalComment on above:Performed By: #### MG, RENAL, URIC #### [facility] [address] [place] [address] Dr. Isacc DegrootGFR-AF LNJMRSBE49 mL/min/1.83u8Qkwnxpujpg low>=60The [facility] HospitalComment on above:Performed By: #### MG, RENAL, URIC #### [facility] [address] [place] [address] Dr. Isacc DegrootGFR-NON AF LKHEWPNE70 mL/min/1.97i1Yindpjanmi low>=60The [facility] HospitalComment on above:Performed By: #### MG, RENAL, URIC #### [facility] [address] [place] [address] Dr. Isacc ZapataGlucose [Mass/Vol]122 mg/dLCritically sakt29-021Txv [facility] HospitalComment on above:Performed By: #### MG, RENAL, URIC #### [facility] [address] [place] [address] Dr. Isacc ZapataPhosphate [Mass/Vol]3.8 mg/dLNormal2.6-4.7The [facility] Comment on above:Performed By: #### MG, RENAL, URIC #### [facility] [address] [address] [address] Isacc ZapataPotassium [Moles/Vol]4.0 mmol/LNormal3.5-5.1The [facility] Comment on above:Performed By: #### MG, RENAL, URIC #### [facility] [address] [address] [address] Isacc ZapataSodium [Moles/Vol]143 mmol/ELyvpdh649-680Kck [facility] Comment on above:Performed By: #### MG, RENAL, URIC #### [facility] [address] [address] [address] Isacc Huynh nitrogen [Mass/Vol]32.0 mg/dLCritically high7.0-18.0The [facility] HospitalComment on above:Performed By: #### MG, RENAL, URIC #### [facility] [address] [place] [address] Dr. Isacc Pandey RANDOM W/MICROSCOPICon 85-47-5283ESYKZVWLMEGD SEENNormalNONE SEENThe [facility] HospitalComment on above:Performed By: #### UAMIC ####[facility] [address] [place], [place] [address]Dr. Isacc Zapata Bilirubin Ql (U)NegativeNormalNEGATIVEThe [facility] HospitalComment on above: Performed By: #### UAMIC ####[facility] [address] [address]Dr. Isacc ChangCASTNONE SEENNormalNONE SEENMadison HealthComment on above:Performed By: #### UAMIC ####[facility] Kswmmavblo[address] [place], [place] [address]Dr. Isacc ChangClarity (U) CLEARNormalCLEARThe [facility] HospitalComment on above:Performed By: #### UAMIC ####[facility] Ldqpjwtwno[address] [place], [place] [address]Dr. Yilan ChangColor (U)YELLOWNormalYELLOWMadison HealthComment on above: Performed By: #### UAMIC ####[facility] P[address]kcbm[address] [place], [place] [address]Dr. Yilan ChangCrystals LM Nom (Urine sed)NONE SEEN NormalNONE SEENMadison HealthComment on above:Performed By: #### UAMIC ####[facility] Ndhcuyassv[address] [place], [place] [address]Dr. Yilan ChangEpithelial cells LM Ql (Urine sed)RARENormalNONE SEEN /RAREMadison HealthComment on above:Performed By: #### UAMIC ####[facility] [address]lmrrgqt[address] [place], [place] [address]Dr. Yilan ChangGlucose Ql (U)NegativeNormalNEGATIVEMadison HealthComment on above:Performed By: #### UAMIC ####[facility] Xcdnrhdfha38[address] [place], [place] [address]Dr. Yilan ChangHemoglobin Ql (U)NegativeNormalNEGATIVEMadison Health Comment on above:Performed By: #### UAMIC ####[facility] Fpxjhdxvpt7[address] [place], [place] [address]Dr. Yilan ChangKetones Ql (U)NegativeNormal NEGATIVEMadison HealthComment on above:Performed By: #### UAMIC ####[facility] Zbt[address]kyfta[address] [place], [place] [address]Dr. Yilan ChangLEUKOCYTESNegativeNormalNEGATIVEMadison HealthComment on above:Performed By: #### UAMIC ####[facility] Vsggwctacu[address] [place], [place] [address]Dr. Yilan ChangMUCOUSNONE SEENNormalNONE SEENMadison HealthComment on above:Performed By: #### UAMIC ####[facility] Foasncknbb[address] [place], [place] [address]Dr. Yilan ChangNitrite Ql (U)NegativeNormalNEGATIVEMadison HealthComment on above:Performed By: #### UAMIC ####[facility] [address] [address]Dr. Isacc ZapatapH (U)5.5 [pH]Normal5-9The [facility] HospitalComment on above:Performed By: #### UAMIC ####[facility] Johumxukho[address] [place], [place] [address]Dr. Isacc ZapataGxosgDKE1-5Vtjsqk7-5Wxz [facility] Comment on above:Performed By: #### UAMIC ####[facility] [address]so[address] [address]Dr. Isacc ZapataSPEC GRAVITY>=1.030Abnormal 1.005-<=1.025The [facility] HospitalComment on above:Performed By: #### UAMIC ####[facility] Omtrbnurju[address] [place], [place] [address]Dr. Isacc ZapataUA PROTEINNegativeNormalNEGATIVE/ TRACEThe [facility] HospitalComment on above:Performed By: #### UAMIC ####[facility] Brxsnmwqox[address] [place], [place] [address]Dr. Isacc ZapataUrobilinogen Qn (U)0.2 {Ga'U}/dL Normal0.2 - 1.0The [facility] HospitalComment on above:Performed By: #### UAMIC ####[facility] Qwvdwynnen[address] [place], [place] [address]Dr. Isacc ZapataWBCNONE SEENNormalNONE SEENThe [facility] HospitalComment on above: Performed By: #### UAMIC ####[facility] Atghjhsmvb[address] [place], [place] [address]Dr. Isacc ZapataURIC ACID SERUMon 26-21-9360Vcmsf [Mass/Vol]6.6 mg/dLCritically high2.6-6.0The [facility] HospitalComment on above: Performed By: #### MG, RENAL, URIC #### [facility] [address] [place] [address] Dr. Isacc Peña T PROTEIN CREAT RATIOon 83-67-7972Swtxmwn (U) [Mass/Vol] 37.5 mg/dLCritically high<=12.0The Jet HospitalComment on above:Performed By: #### URTPCR #### [facility] [address] [address] [address] Isacc Castaneda PROT CREAT RAT0.18NoGalion Community HospitalComment on above: Performed By: #### URTPCR #### [facility] [address] [address] [address] Isacc Peña YZWNI934.21 mg/gPKppezw86.00-300.00[facility] Comment on above:Performed By: #### URTPCR #### [facility] [address] [address] [address] Isacc ZapataVITAMIN D 25 OHon 35-77-6165QZD D 25-OH39.7 ng/mLNormalMadison HealthComment on above:Performed By: #### VITAD, FERR, FETIBC ####[facility] [address] [address]Dr. Isacc ChambersT D RANGESSEE BELOWProMedica Defiance Regional HospitalComment on above: Result Comment: <20 ng/mL Vit D deficient 20 - <30 ng/mL Vit D insufficient 30 - 100 ng/mL Vit D sufficient >100 ng/mL Potential ToxicityPerformed By: #### VITAD, FERR, FETIBC ####[facility] [address] [id number] ZapataUS KIDNEYSon 25-99-7299OC KIDNEYS Ultrasound kidneys, bilateral HISTORY: Chronic kidney [...] Electronically authenticated by: MICKY JANSEN Date: 2022-02-16 07:45[facility] AUTO DIFFon 28-62-2239HFDZ #0.1 103/ulNormal0.0-0.1The [facility] HospitalComment on above:Performed By: #### CBC #### [facility] [address] [address] [address] Isacc ZapataBasophils/100 WBC (Bld)1.0 %Normal0.2-2.0[facility] Comment on above:Performed By: #### CBC #### [facility] [address] [place] [address] Dr. Isacc Vides #0.2 103/ulNormal0.0-0.7The [facility] HospitalComment on above: Performed By: #### CBC #### [facility] [address] [address] [address] Isacc Degrootosinophils/100 WBC (Bld)3.3 %Normal0.9-7.0The [facility] Comment on above:Performed By: #### CBC #### [facility] [address] [address] [address] Isacc Degrootrythrocyte distribution width (RBC) [Ratio]12.7 %Csrjzf59.0-15.0 The [facility] HospitalComment on above:Performed By: #### CBC #### [facility] [address] [place] [address] Dr. Isacc ZapataHematocrit (Bld) [Volume fraction]37.4 %Djrtih24.0-48.0The [facility] HospitalComment on above:Performed By: #### CBC #### [facility] [address] [address] [address] Isacc ZapataHemoglobin (Bld) [Mass/Vol]11.8 g/dLCritically low12.0-16.0The [facility] Centerment on above:Performed By: #### CBC #### [facility] [address] [place] [address] Dr. Isacc Barbosa #0.02 10e3/ulNormal0.00-0.03The [facility] HospitalCommunson healthcare [facility]ist[facility] on above:Performed By: #### CBC #### [facility] [address] [place] [address] Dr. Isacc Barbosa %0.3 %Normal0.0-0.5The [facility] HospitalComment on above: Performed By: #### CBC #### [facility] [address] [place] [address] Dr. Isacc Jacinto #1.8 103/ulNormal1.2-3.8The [facility] HospitalComment on above:Performed By: #### CBC #### [facility] [address] [place] [address] Dr. Isacc Schroederhocytes/100 WBC (Bld)25.3 %Ksnhlq35.5-60.0The [facility] HospitalCommunson healthcare manistee hospital on above:Performed By: #### CBC #### [facility] [address] [place] [address] Dr. Isacc VictoriaUAL DIFF REQNONormalThe [facility] HospitalComment on above: Performed By: #### CBC #### [facility] [address] [place] [address] Dr. Isacc Garcia (RBC) [Entitic mass]29.9 kvYfxzmk49.7-34.0The [facility] HospitalComment on above:Performed By: #### CBC #### [facility] [address] [place] [address] Dr. Isacc Garcia (RBC) [Mass/Vol]31.6 g/gABnzfia39.9-35.2The [facility] HospitalComment on above:Performed By: #### CBC #### [facility] [address] [place] [address] Dr. Isacc Garcia (RBC) [Entitic vol]94.7 oGLvboxo88.0-99.0The [facility] HospitalComment on above:Performed By: #### CBC #### [facility] [address] [address] [address] Isacc Prater #0.5 103/ulNormal0.3-0.8The [facility] HospitalComment on above:Performed By: #### CBC #### [facility] [address] [address] [address] Isacc Armstrongocytes/100 WBC (Bld)7.4 %Normal1.7-12.0The [facility] Comment on above:Performed By: #### CBC #### [facility] [address] [place] [address] Dr. Isacc Cuenca #4.4 103/ulNormal1.4-6.5The [facility] HospitalComment on above:Performed By: #### CBC #### [facility] [address] [place] [address] Dr. Isacc Freyutrophils/100 WBC (Bld)62.7 %Kixvdu80.0-75.0The [facility] HospitalComment on above:Performed By: #### CBC #### [facility] [address] [place] [address] Dr. Isacc Rush mean volume (Bld) [Entitic vol]10.3 fLNormal9.5-13.5The [facility] HospitalComment on above:Performed By: #### CBC #### [facility] [address] [place] [address] Dr. Isacc ZapataPLT246 103/unIfwedh201-752Vqz [facility] HospitalComment on above: Performed By: #### CBC #### [facility] [address] [place] [address] Dr. Isacc ZapataRBC3.95 106/ulCritically low4.20-5.40The [facility] HospitalComment on above:Performed By: #### CBC #### [facility] [address] [place] [address] Dr. Isacc ZapataWBC7.1 103/ulNormal4.0-11.0The [facility] Centerment on above: Performed By: #### CBC #### [facility] [address] [address] [address] Isacc ZapataGLYCOHEMOGLOBIN A1Con 92-54-2694AMM RECOMMENDATIONSEE BELOWNoSt. Elizabeth HospitalComment on above:Result Comment: ADA RECOMMENDED LIMIT 4.0 - 6.0 ADA THERAPEUTIC TARGET < 7.0 ACTION SUGGESTED > 7.0Performed By: #### A1C ####[facility] [address] [address]Dr. Isacc ZapataGlucose [Mass/Vol]146 mg/dLNoGalion Community HospitalComment on above:Performed By: #### A1C ####[facility] [address] [address]Dr.Yilan ZapataHbA1c (Bld) [Mass fraction]6.7 % Critically high4.5-6.2Mad[facility] HealthComment on above:Performed By: #### A1C ####[facility] [address] [address]Dr. Isacc ZapataLIPID PROFILEon 98-90-6788MVTQ-HDL RATIO NORMSEE BELOWProMedica Defiance Regional HospitalCommunson healthcare manistee hospital on above:Result Comment: 3.3 - 4.4 LOW RISK 4.4 - 7.1 AVERAGE RISK 7.1 - 11.0 MODERATE RISK >11.0 HIGH RISKPerformed By: #### CMP, URIC, LIPID #### [facility] [address] [address] [address] Isacc ZapataCholesterol [Mass/Vol]195 mg/dLNormal<=200[facility] Comment on above:Performed By: #### CMP, URIC, LIPID #### [facility] [address] [address] [address] Isacc Santosesterol in HDL [Mass/Vol]46 mg/cWQsjjqs26-49XgmBucyrus Community Hospital on above:Performed By: #### CMP, URIC, LIPID #### [facility] [address] [address] [address] Isacc Santosesterol in LDL [Mass/Vol]118.0 mg/dLProMedica Defiance Regional HospitalComment on above:Performed By: #### CMP, URIC, LIPID #### [facility] [address] [address] [address] Isacc ZapataCholesterol.total/Cholesterol in HDL [Mass ratio]4.2 {ratio} NormalThe [facility] HospitalCommunson healthcare manistee hospital on above:Performed By: #### CMP, URIC, LIPID #### [facility] [address] [address] [address] Isacc Herrera NORMAL> or = 60 mg/dl - LOW CARDIOVASCULAR RISK <40 mg/dl - HIGH CARDIOVASCULAR RISKProMedica Defiance Regional HospitalComment on above:Performed By: #### CMP, URIC, LIPID #### [facility] [address] [address] [address] Isacc Uriarte CALC NORMALSEE BELOWProMedica Defiance Regional HospitalComment on above:Result Comment: <100 mg/dl OPTIMAL 100 - 129 mg/dl NEAR OR ABOVE OPTIMAL 130 - 159 mg/dl BORDERLINE HIGH 160 - 189 mg/dl HIGH >190 mg/dl VERY HIGH Performed By: #### CMP, URIC, LIPID #### [facility] [address] [address] [address] Isacc ZapataTriglyceride [Mass/Vol]155 mg/dLCritically high<=150The [facility] HospitalCommunson [facility] on above:Performed By: #### CMP, URIC, LIPID #### [facility] [address] [address] [address] Isacc Angeles CALC31.0 mg/dLProMedica Defiance Regional HospitalCommunson healthcare [facility]ist[facility] hospital on above: Performed By: #### CMP, URIC, LIPID #### [facility] [address] [address] [address] Isacc RauschALBUMIN, RAND URon 91-41-5729gLTM0.9 mg/LNormal<=30.0The [facility] on above:Performed By: #### MALBR ####[facility] [address] [address]. Isacc SheridanF 14(COMP METB)on 09-92-4209Zfmknpq [Mass/Vol]4.0 g/dLNormal3.4-5.0The [facility] Comment on above:Performed By: #### CMP, URIC, LIPID #### [facility] [address] [address] [address] Isacc ZapataAlbumin/Globulin [Mass ratio]1.0 {ratio}NormalThe [facility] HospitalComment on above:Performed By: #### CMP, URIC, LIPID #### [facility] [address] [address] [address] Isacc BradleyP [Catalytic activity/Vol]68 U/ORoulkv10-649Ogh [facility] HospitalComment on above:Performed By: #### CMP, URIC, LIPID #### [facility] [address] [place] [address] Dr. Isacc Sanchez [Catalytic activity/Vol]16 U/MLbldlj73-95Bek [facility] HospitalComment on above:Performed By: #### CMP, URIC, LIPID #### [facility] [address] [place] [address] Dr. Isacc Houston gap [Moles/Vol]13.9 mmol/LNormalThe [facility] Comment on above:Performed By: #### CMP, URIC, LIPID #### [facility] [address] [place] [address] Dr. Isacc ZapataAST [Catalytic activity/Vol]12 U/LCritically inv59-21Crt [facility] HospitalComment on above:Performed By: #### CMP, URIC, LIPID #### [facility] [address] [place] [address] Dr. Isacc ZapataBilirubin [Mass/Vol]0.2 mg/dLNormal0.2-1.0The [facility] Comment on above:Performed By: #### CMP, URIC, LIPID #### [facility] [address] [place] [address] Dr. Isacc ZapataCalcium [Mass/Vol]9.8 mg/dLNormal8.5-10.1The [facility] Comment on above:Performed By: #### CMP, URIC, LIPID #### [facility] [address] [address] [address] Isacc ZapataChloride [Moles/Vol]105 mmol/DEeiswm52-522Irs [facility] Comment on above:Performed By: #### CMP, URIC, LIPID #### [facility] [address] [address] [address] Isacc ZapataCO2 [Moles/Vol]28.4 mmol/QKlijgi25.0-32.0The [facility] Comment on above:Performed By: #### CMP, URIC, LIPID #### [facility] [address] [address] [address] Isacc ZapataCreatinine [Mass/Vol]1.38 mg/dLCritically high0.55-1.02The [facility] HospitalComment on above:Performed By: #### CMP, URIC, LIPID #### [facility] [address] [address] [address] Dexter ChangEGFR-AF ORJUNEIX76 mL/min/1.51x2Blvutmfafe low>=60The [facility] HospitalComment on above:Performed By: #### CMP, URIC, LIPID #### [facility] [address] [address] [address] Isacc DegrootGFR-NON AF NJFUQDNV88 mL/min/1.34q1Xyuewsnijl low>=60The [facility] HospitalComment on above:Performed By: #### CMP, URIC, LIPID #### [facility] [address] [address] [address] Isacc ZapataGlobulin (S) [Mass/Vol]4.0 g/dLNormalThe [facility] HospitalComment on above:Performed By: #### CMP, URIC, LIPID #### [facility] [address] [address] [address] Isacc ZapataGlucose [Mass/Vol]127 mg/dLCritically apjc64-992Ekt [facility] HospitalComment on above:Performed By: #### CMP, URIC, LIPID #### [facility] [address] [address] [address] Isacc ZapataPotassium [Moles/Vol]4.3 mmol/LNormal3.5-5.1The [facility] Comment on above:Performed By: #### CMP, URIC, LIPID #### [facility] [address] [place] [address] Dr. Isacc ZapataProtein [Mass/Vol]8.0 g/dLNormal6.4-8.2[facility] Comment on above:Performed By: #### CMP, URIC, LIPID #### [facility] [address] [address] [address] Isacc ZapataSodium [Moles/Vol]143 mmol/QJvrhfy113-036Ddi [facility] Comment on above:Performed By: #### CMP, URIC, LIPID #### [facility] [address] [place] [address] Dr. Isacc ZapataUrea nitrogen [Mass/Vol]39.0 mg/dLCritically high7.0-18.0The [facility] HospitalComment on above:Performed By: #### CMP, URIC, LIPID #### [facility] [address] [place] [address] Dr. Isacc Huynh nitrogen/Creatinine [Mass ratio]28.3 mg/mgNormalThe [facility] HospitalComment on above:Performed By: #### CMP, URIC, LIPID #### [facility] [address] [place] [address] Dr. Isacc ZapataURIC ACID SERUMon 73-51-2893Dqlqs [Mass/Vol]6.0 mg/dLNormal 2.6-6.0The [facility] HospitalComment on above:Performed By: #### CMP, URIC, LIPID #### [facility] [address] [place] [address] Dr. Isacc Rowland Summaryon 43-54-3203Nyexrt SummaryHTMLBase 64 KlwqsmthQAq9vHf+PGhlYWQ+PD4XKTIeV75yrWRiwK1ZE8aVBP6LXQPVWPYGDD1SFK5oeBD4LKkbC4Qp biAv [file] Y29 (more content not included)...NormalMagruder HospitalProvider Orderson 66-20-6363Jvxtjusg [id number]#1.00OTGTIFF NormalKettering Health – Soin Medical CenterUric Acidon 98-64-4019Bobfm [Mass/Vol]9.1 mg/dLHigh 2.6-8.0[facility] Soin Medical CenterComment on above:Performed By: #### [id number] #### [facility] (DEFAULT) [address] [place] [address] Vital Signs Date TimeVital SignValuePerforming TuwxujlbhUxtjvzpr67-72-0865 09:12-0500Body zytiav664.29 cmCorrie Lama NURSING ADMIN Work Phone: [phone]11-06-2025 09:12-0500 Body mass index (BMI) [Ratio]30.5 kg/o8DoucmkxdCorrie Lama NURSING ADMIN Work Phone: [phone]11-06-2025 09:12-0500 Body .7 [degF]Corrie Lama NURSING ADMIN Work Phone: [phone]11-06-2025 09:12-0500 Body xygsga63.37 kgCorrie Lama NURSING ADMIN Work Phone: [phone]11-06-2025 09:12-0500 Diastolic blood llzryyjk73 mm[Hg]Corrie Lama APRN Work Phone: [phone])[address]11-06-2025 09:12-0500 Heart evyg169 /minCorrie Lama NURSING ADMIN Work Phone: [phone])[address]11-06-2025 09:12-0500 Respiratory rate18 /minCorrie Lama NURSING ADMIN Work Phone: [phone]11-06-2025 09:12-0500 SaO2% (BldA) [Mass fraction]97 %Corrie Lama APRN Work Phone: [phone]11-06-2025 09:12-0500 Systolic blood mm[Hg]Corrie Valentinecarlospedro pablolynda NURSING ADMIN Work Phone: [phone] [place], [place] 5235409-04-2025 15:21-0400 Body vbqtze025.29 cmCorrie Lama NURSING ADMIN Work Phone: [phone] [place], [place] 5235409-04-2025 15:21-0400 Body mass index (BMI) [Ratio]29.9 kg/e0HerqcojdCorrie Lama NURSING ADMIN Work Phone: [phone] [place], [place] 5235409-04-2025 15:21-0400 Body oxgvpnyvpwg66.4 [degF]Corrie Daina NURSING ADMIN Work Phone: [phone] [place], [place] 5235409-04-2025 15:21-0400 Body yipdad81.01 kgCorrie Lama NURSING ADMIN Work Phone: [phone] [place], [place] 5235409-04-2025 15:21-0400 Diastolic blood mm[Hg]Corrie Zavalalynda NURSING ADMIN Work Phone: [phone] [place], [place] 5235409-04-2025 15:21-0400 Heart chno841 /minCorrie Lama NURSING ADMIN Work Phone: [phone] [place], [place] 5235409-04-2025 15:21-0400 SaO2% (BldA) [Mass fraction]96 %Corrie Valentinesunita NURSING ADMIN Work Phone: [phone] [place], [place] 5235409-04-2025 15:21-0400 Systolic blood xviohpye818 mm[Hg]Corrie Valentinecarlospedro pablolynda NURSING ADMIN Work Phone: [phone] [place], [place] 5235404-10-2025 14:38-0400 Body .29 cmF[facility]04-10-2025 14:38-0400Body mass index (BMI) [Ratio]28.5 kg/i5GmdmiynfeFulton County Health Center04-10-2025 14:38-0400Body lbqetceoqua41.8 [degF][facility]04-10-2025 14:38-0400Body hcdxyp70.38 kgFulton County Health Center04-10-2025 14:38-0400Diastolic blood jvisvtrp66 mm[Hg][facility] 06-04-2024 14:38-0400Heart rate89 /[facility] 06-04-2024 14:38-0400Respiratory rate16 /[facility] 06-04-2024 14:38-2754IiC7% (BldA) [Mass fraction]96 %[facility]04-10-2025 14:38-0400Systolic blood ksfrexzr028 mm[Hg][facility]02-03-2025 09:15-0500Body .29 cmFulton [facility] Center02-03-2025 09:15-0500Body mass index (BMI) [Ratio]27.9 kg/m2 [facility]02-03-2025 09:15-0500Body tzxewklcneg15.3 [degF][facility]02-03-2025 09:15-0500Body .74 kg [facility]02-03-2025 09:15-0500Diastolic blood mm[Hg][facility]02-03-2025 09:15-0500Heart dytz797 /min [facility]02-03-2025 09:15-5708SmJ7% (BldA) [Mass fraction]96 %[facility]02-03-2025 09:15-0500Systolic blood ujgasdak405 mm[Hg][facility]10-24-2024 08:58-0400 Body zvsavz893.29 cmFulton [facility] Center10-24-2024 08:58-0400Body mass index (BMI) [Ratio]27.7 kg/w1QdftmsqliFulton County Health Center10-24-2024 08:58-0400Body ghxaoxrbxiy52.3 [degF][facility]10-24-2024 08:58-0400Body knnqel22.17 kgFulton County Health Center10-24-2024 08:58-0400Diastolic blood zdnbdimt34 mm[Hg][facility] 12-19-2023 08:58-0400Heart rate86 /[facility] 12-19-2023 08:58-0400Respiratory rate16 /[facility] 12-19-2023 08:58-5974JwZ4% (BldA) [Mass fraction]96 %[facility]10-24-2024 08:58-0400Systolic blood tszqsqab672 mm[Hg][facility]07-02-2024 13:48-0400Body wubijq801.29 cmFulton County Health Center07-02-2024 13:48-0400Body mass index (BMI) [Ratio]27.8 kg/m2 [facility]07-02-2024 13:48-0400Body wuhjjw37.57 kg [facility]07-02-2024 13:48-0400Diastolic blood isrhiqhs16 mm[Hg][facility]07-02-2024 13:48-0400Heart rate93 /min [facility]07-02-2024 13:48-9953FhM1% (BldA) [Mass fraction]97 %[facility]07-02-2024 13:48-0400Systolic blood jsegsefj566 mm[Hg][facility]03-28-2024 12:07-0400 Body ilzmvb228.29 cmFulton County Health Center03-28-2024 12:07-0400Body mass index (BMI) [Ratio]28.3 kg/q0NooxxqkpgFulton County Health Center03-28-2024 12:07-0400Body hcuqglnauxj18.5 [degF][facility]03-28-2024 12:07-0400Body bloltk06.53 kgFulton County Health Center03-28-2024 12:07-0400Diastolic blood axlhxnbx41 mm[Hg][facility] 05-23-2023 12:07-0400Heart egyl589 /[facility] 05-23-2023 12:07-0400Respiratory rate16 /[facility] 05-23-2023 12:07-1334VsF9% (BldA) [Mass fraction]93 %[facility]03-28-2024 12:07-0400Systolic blood mm[Hg][facility]09-18-2023 10:20-0400Body poiosj594.29 cmAbdul Mick Other [facility]Son[facility] [employer] Other 09-18-2023 10:20-0400Body mass index (BMI) [Ratio] 29.15 kg/z2Cqwhs Mick Other [employer] Other 09-18-2023 10:20-0400Body ibostnqthqn56.5 [degF]Nika Mick Other [employer] Other 09-18-2023 10:20-0400Body ruhhiv33.84 kgAbdul Mick Other [employer] Other 09-18-2023 10:20-0400Diastolic blood mm[Hg] Nika Mick Other [employer] Other 09-18-2023 10:20-0400Respiratory rate18 /minAbdul Mick Other [employer] Other 09-18-2023 10:20-4213RgI3% (BldA) [Mass fraction]98 % Nika Mick Other [employer] Other 09-18-2023 10:20-0400Systolic blood lcikkvuj377 mm[Hg] Nika Mick Other [employer] Other 09-01-2023 10:00-0400Body meoxda644.29 cmJennifer Rohrbacher Other [employer] Other 09-01-2023 10:00-0400Body mass index (BMI) [Ratio] 29.12 kg/o9JcnaorahCorrie Lama Other [employer] Other 09-01-2023 10:00-0400Body qaqbvf01.75 kgCorrie Lama Other [employer] Other 09-01-2023 10:00-0400Diastolic blood mm[Hg] Corrie Valentinecarlospedro pablolynda Other [employer] Other 09-01-2023 10:00-0400Systolic blood mm[Hg] Corrie Valentinecarlospedro pablolynda Other [employer] Other 03-16-2023 12:40-0400Body fyolfs710.29 cmAbdul Mick Other [employer] Other 03-16-2023 12:40-0400Body mass index (BMI) [Ratio] 30.27 kg/w1Dqltw Mick Other [employer] Other 03-16-2023 12:40-0400Body bpicykiuvyn89 [degF]Nika Mick Other [employer] Other 03-16-2023 12:40-0400Body xtlzsy80.74 kgAbdul Mick Other [employer] Other 03-16-2023 12:40-0400Diastolic blood oxonrsvu77 mm[Hg] Nika Mick Other [employer] Other 03-16-2023 12:40-0400Respiratory rate20 /minAbdul Mick Other [employer] Other 405633-50-1316 12:40-1422AuB5% (BldA) [Mass fraction]97 % Nika Mick Other [employer] Other [id number] 12:40-0400Systolic blood mm[Hg] Nika Mick Other [employer] Other [id number] 15:00-0500Body ytvema815.29 cmAbdul Mick Other [employer] Other 6-267714-87568849-90-2807 15:00-0500Body mass index (BMI) [Ratio] 30.44 kg/u7Eukgn Mick Other [employer] Other 12-15-2022 15:00-0500Body hhqganrnhoz84.5 [degF]Nika Mick Other [employer] Other 12-15-2022 15:00-0500Body ioyhti95.2 kgAbdul Mick Other [employer] Other 12-15-2022 15:00-0500Diastolic blood mvudcpsu318 mm[Hg]Nika Mick Other [employer] Other 12-15-2022 15:00-0500Respiratory rate18 /minAbdul Mick Other [employer] Other 12-15-2022 15:00-0832HtP3% (BldA) [Mass fraction]97 % Nika Mick Other [employer] Other 12-15-2022 15:00-0500Systolic blood dhbdtwol213 mm[Hg] Nika Mick Other [employer] Other 09-22-2022 10:05-0400Body oeirry472.29 cmAmbrashmi Ocasio Other [employer] Other 09-22-2022 10:05-0400Body mass index (BMI) [Ratio] 31.38 kg/z7OihljDeena Ocasio Other [employer] Other 09-22-2022 10:05-0400Body iiticxamkvr08.6 [degF]Deena Ocasio Other [employer] Other 09-22-2022 10:05-0400Body lvvpxo17.65 kgDeena Ocasio Other [employer] Other 09-22-2022 10:05-0400Diastolic blood swlcglqy92 mm[Hg] Deena Ocasio Other [employer] Other 09-22-2022 10:05-1514AcC5% (BldA) [Mass fraction]96 % Deena Ocasio Other [employer] Other 09-22-2022 10:05-0400Systolic blood pxyklsvl826 mm[Hg] Deena Ocasio Other [employer] Other 10-03-2021 10:10-0400Body iostqp796.29 cmPpercy Singleton Other [employer] Other 10-03-2021 10:10-0400Body mass index (BMI) [Ratio] 30.34 kg/a3JfswqkSalina Singleton Other [employer] Other 10-03-2021 10:10-0400Body .9 [degF]Salina Singleton Other [employer] Other 10-03-2021 10:10-0400Body .93 kgSalina Singleton Other [employer] Other 10-03-2021 10:10-0400Diastolic blood lekiawpv45 mm[Hg] Salina Mimond Other [employer] Other 10-03-2021 10:10-0400Respiratory rate18 /minSalina Singleton Other [employer] Other 10-03-2021 10:10-1355BmR6% (BldA) [Mass fraction]99 % Salina Mimond Other [employer] Other 10-03-2021 10:10-0400Systolic blood mm[Hg] Salina Mimond Other [employer] Other Encounters Encounter DateEncounter TypeCare ProviderFacilityStart: 12-31-2024 End: 82-61-4703acwfojjftyEwfihmtn Rohrbacher APRN Work Phone: -fpg Nephrology ClydeStart: 12-31-2024 End: 73-14-1606Lwkeifq encounter procedureAbdul Mick MD-[facility] Work Phone: Start: 21-18-9915Mne-patient / Non-visitNika Diop MD -[facility] Work Phone: Start: 10-29-2024 End: 16-77-9142gulszishegQuzvinvf Rohrbacher APRN Work Phone: [facility] Work Phone: Start: 10-29-2024 End: 70-55-0876Kygsows encounter procedureCorrie Lama APRN [facility] Work Phone: Start: 08-26-2024 End: 10-77-0567Fgmysb outpatient new 45 minutesJoseph Ng GRAPHIC DESIGNER Work Phone: noms PCF ORTHOComment on above:Arthritis of carpometacarpal (CMC) joint of left thumb (Primary Dx); Trigger finger, right ring finger; Bilateral hand painStart: 08-26-2024 End: 08-02-4244Ulbnbp flowsJose Raul Ng GRAPHIC DESIGNER Work Phone: [facility] ORTHOStart: 08-26-2024 End: 76-81-9522Dgdire flowsJose Raul Ng GRAPHIC DESIGNER Work Phone: [facility] ORTHOStart: 08-26-2024 End: 51-88-6805ycyyjcvnsbAECTL T OLSENNot AvailableStart: 08-03-2024 End: 38-17-8250Tuqhduw encounter procedureNoms Sh Aud Audiology Aid - Alisson DodrillNOMS SH AUDComment on above:Sensorineural hearing loss (SNHL) of both ears (Primary Dx)Start: 08-03-2024 End: 79-18-0262amajhwaoetPSIIOOF MCGILLNot AvailableStart: 07-08-2024 End: 19-25-1981Hocpnjs encounter procedureNoms Sh Aud Audiology Aid - Alisson DodrillNOMS SH AUDComment on above:Sensorineural hearing loss (SNHL) of both ears (Primary Dx)Start: 07-08-2024 End: 41-16-1036zrwismincxGJIYILS MCGILLNot AvailableStart: 06-04-2024 End: 62-00-9504oacposuupnNmtvlxulmCity Hospital Work Phone: Start: 06-04-2024 End: 00-84-4218Xixhixa encounter procedureFormerly [facility] Nephrology [facility] Work Phone: Start: 09-46-1066Bgm-patient / Non-visitFormerly [facility] GroupReg[facility] Work Phone: Start: 03-30-2024 End: 72-07-7157ilssnytligDlfsyesckCity Hospital Work Phone: Start: 03-30-2024 End: 74-77-6311Djfadal encounter procedureFormerly [facility] Work Phone: Start: 12-19-2023 End: 58-70-2861ejcabrtmasWpnstlzyeCity Hospital Work Phone: Start: 12-19-2023 End: 03-86-0983Staqmvc encounter procedureFormerly [facility] Nephrology [facility] Work Phone: Start: 95-91-7790Mkn-patient / Non-visitFormerly [facility] GroupReg[facility] Work Phone: Start: 11-06-2023 End: 14-14-7741Wumqeq flowsheetNa Ronald LopezMariumCumberland Hospital-A Work Phone: [facility] CI AUDStart: 11-06-2023 End: 80-88-6977Sppdzz flowsheetNa LopezCumberland Hospital-A Work Phone: [facility] CI AUDStart: 11-06-2023 End: 24-31-0188Xygcalnw SupportDerenetta Causey CCC-A Work Phone: [facility] CI AUDComment on above:Mixed hearing loss, bilateral (Primary Dx)Start: 11-06-2023 End: 03-26-1535zvxpvgootwBQTBXWD A MCGILLNot AvailableStart: 10-23-2023 End: 18-30-1628Omxiil flowsheetNa A Marium CCC-A Work Phone: [facility] CI AUDStart: 10-23-2023 End: 35-48-5976Xyanwv flowsheetDeborah A Marium CCC-A Work Phone: [facility] CI AUDStart: 10-23-2023 End: 32-30-2918Tdslmgqq SupportDeborjuvencio Lopezill CCC-A Work Phone: [facility] CI AUDComment on above:Mixed hearing loss, bilateral (Primary Dx)Start: 10-23-2023 End: 14-78-0094obkmzpdyhqXFXWHII A MCGILLNot AvailableStart: 10-10-2023 End: 68-45-0060dabmnbvlrpFVVJPUK A MCGILLNot AvailableStart: 09-17-2023 End: 65-10-1052nkfuilfaofOONIVVT A MCGILLNot AvailableStart: 52-01-1007Biklxyr encounter procedureAvita Health Systemtart: 08-27-2023 End: 07-90-1905fxvywrfrudLzwxgrlffCity Hospital Work Phone: Start: 08-27-2023 End: 40-44-0017Watlvxx encounter procedureFormerly [facility] Work Phone: Start: 05-23-2023 End: 17-26-9936hqdptsgxvfSszvbvwltCity Hospital Work Phone: Start: 05-23-2023 End: 10-62-2989Mljyeee encounter procedureFormerly [facility] Nephrology Mark[facility] Work Phone: Start: 13-29-3560Xct-patient / Non-visitFormerly [facility] Work Phone: Start: 42-20-0742Xzl-patient / Non-visitFormerly [facility] Work Phone: Start: 11-12-2022 End: 06-28-6795ofjeedziqbKckek Mick Other [employer] Other Start: 45-15-4702Mvrjtw outpatient visit 25 minutes Nika QadirFPG NephrologyStart: 11-06-2022 End: 27-90-0264vdofwwxyxdZpedjbso Memerbacher Other nonorth [facility] [employer] Other Start: 28-46-7581Wcfmymohe encounterJedominick ZavalalyndaAdrian Yappnrt: 10-26-2022 End: 95-29-2906yjqoajhovaDakwfwjj Rohrbacher Other nonorth [facility] [employer] Other Start: 00-97-6898Fkpfcm outpatient new 30 minutes Corrie Rodríguez [facility] Centertart: 05-10-2022 End: 04-94-6988ipthonfhosHzyie Mick Other nonorth [facility] [employer] Other Start: 10-69-1358Ckzvas outpatient visit 25 minutes Nika QadirFPG Nephrology ClydeStart: 04-30-2022 End: 95-38-0069lrtghuqjndTAUHZ QADIRFacility:U2Uozlb: 02-15-2022 End: 58-86-9471ocywokzabwBMWWJ QADIRFacility:M4Vpwbf: 02-08-2022 End: 27-26-2404uxthanchxpZualy Mick Other [employer] Other Start: 12-38-2191Cupvtf outpatient new 45 minutesAbdul QadirFPG Nephrology ClydeStart: 12-26-2021 End: 14-25-9811txrhvlaxfrYP PHIL HOUSEFacility:V9Inrfz: 11-16-2021 End: 19-52-4458pzhnbqfqgrTukkh Amarjit Other Nort [employer] Other Start: 23-45-3462Nhuqnx outpatient visit 15 minutes Deena KellerFPG Urgent Care ClydeStart: 74-27-8377Pkyhjo outpatient new 20 minutesPamela DymondFPG Urgent Care [facility] Procedures DateProcedureProcedure DetailPerforming ClinicianStart: 06-43-0674Xgezlfakvszojg aspir&/inj small jt/bursa w/o usJoseph Ng GRAPHIC DESIGNER Work Phone: Start: 25-16-5957Wxytajabe 1 tendon sheath/ligament aponeurosisJoseph Ng GRAPHIC DESIGNER Work Phone: Start: 08-25-2024H/O: hysterectomyHistory of hysterectomyJoseph Ng GRAPHIC DESIGNER Work Phone: Plan of Treatment DateCare ActivityDetailAuthorStart: 61-84-1040Rkhadffqg vaccinationInfluenza Vaccine (#1)[facility] HealthcareStart: 08-26-2024 End: 52-23-6934Wsuiagf encounter kgnswoewd99/02/2025 2:30 PM EDT Office Visit [facility] [address] [place] [address] Joseph Ng, GRAPHIC DESIGNER [address] [place] [address] ArrivedNOMS PCF ORTHOComment on above:ArrivedStart: 11-06-2023 End: 66-42-6572Dslmbxxy SupportNOMS CI AUDComment on above:ArrivedStart: 52-21-2033Gcfytzhci vaccinationInfluenza Vaccine (#1)[facility] HealthcareStart: 10-23-2023 End: 29-84-7696Txyodcfj Npumwsm8910/23/2023 11:45 AM EDT Clinical Support [facility] [address] [facility] [address] [place] [id number] Na Causey, [facility] [address] [place] [address] ArrivedNOLA CI AUDComment on above:ArrivedStart: 1993 Screening for malignant neoplasm of breastMammogramNOLA HealthcareStart: 15-65-8093Tvbwtqqbu for malignant neoplasm of colonNOMS HealthcareRenal function 1999 panel - Serum or PlasmaFulton County Health CenterRenal function 1999 panel - Serum or PlasmaLos Angeles Community Hospital [facility] Immunizations Immunization DateImmunizationNotesCare [id number] virus vaccine, unspecified formulationJoseph Ng NP Work Phone: [facility] [id number] virus vaccine, unspecified formulationFulton County Health Center08-28-2023influenza, high dose seasonal, preservative-freeJennifer Rohrbacher Other [employer] Other [id number] not use COVID-19 Pfizer 2 doseJennifer Rohrbacher Other [facility]10-03-2021Toradol per 15 mgPamela Areli Other [employer] Other 03-13-2021Do not use COVID-19 Pfizer 2 doseJennifer Rohrbacher Other [facility]02-20-2021Do not use COVID-19 Pfizer 2 doseJennifer Rohrbacher Other [facility]10-05-2020 pneumococcal polysaccharide vaccine, 23 valentJennifer Rohrbacher Other [facility]09-23-2019 pneumococcal conjugate vaccine, 13 valentJennifer Rohrbacher Other [facility]07-22-2019zoster vaccine recombinantJennifer Rohrbacher Other [facility]05-11-2019zoster vaccine recombinantJennifer Rohrbacher Other [facility]ulton [facility] Payers DatePayer CategoryPayerPolicy [id number] Health InsuranceMEDICAL MUTUAL [id number] MUTUAL MEDICAL MUTUAL [id number] 2021- [address] [place] [id number] 2019Medicare [id number] [id number] [id number] [id number] [id number] 2.840.1.316016.3.57[id number] 2.840.1.855450.3.57[id number] 2.16840.1.310584.3.57[id number] 2.840.1.161732.3.57[id number] 2.16.840.1.120910.3.57[id number] 2.16.840.1.161287.3.57[id number] 2.16.840.1.110191.3.57[id number] 2.16.840.1.586301.3.57[id number] 2.16.840.1.746861.3.57[id number] 2.16.840.1.848133.3.57[id number] Social History DateTypeDetailFacilityStart: 08-25-2024 End: 58-63-7137Xrd Assigned At [facility] [employer] Other Start: 05-23-2023 End: 97-34-3651Qnrwirm smoking status NHISNever smoked tobacco (finding) [facility] CenterStart: 03-10-5626Hyj Assigned At [facility] HospitalTobacco smoking status NHISTobacco smoking consumption unknownNOMS HealthcareStart: 95-48-7545Frc assigned at birthNot on fileNOLA HealthcareStart: 03-30-2024 End: 83-00-2488RwhVcskuc (finding)[facility] Systemtart: 31-47-6202Davktns use and exposureSmokeless tobacco non-userNOMS Healthcare Start: 08-25-2024 End: 28-56-1881Vokaozcxi beverage intakeEx-drinker (finding)[facility] Start: 08-25-2024 End: 74-58-0204Mvdvzrz of Social functionMissouri Rehabilitation Center Clinical Notes 11-27-2020 to 10-29-2024 Note Date & TshiYcovSgixxyxt23-14-0440 Evaluation note* Diagnosis Onset Date Resolution Status Admit Date Muscle spasm acuteSept2024 3:07pmNeck painacuteSept2024 3:07pmAnemia of renal diseaseacuteDecember 31, 2024 8:32psQ47 deficiencyacuteDecember 31, 2024 8:54amCKD (chronic kidney disease) stage 3, GFR 30-59 ml/minacuteDecember 31, 2024 8:54amGoutacuteNovember 2024 8:54amHypertensive chronic kidney disease with stage 1 through stage 4 chronic kiacuteDecember 31, 2024 8:54am HypomagnesemiaacuteDecember 31, 2024 8:54amSecondary hyperparathyroidismacute December 31, 2024 8:54amType 2 diabetes mellitus with diabetic chronic kidney diseaseacuteDecember 31, 2024 8:54am [facility] Work Phone: [phone] 670-391607-02-2025 History of Present illness Narrative* Joseph Ng, IZAIAH - 08/26/2024 2:30 PM EDTAssociated Order(s): Hand [...] for requiring urgent evaluation. documented in this encounterMissouri Rehabilitation CenterJbhscbvlmy56-33-4955 History of Present illness Narrative* Alisson Dacosta MA - 08/03/2024 3:45 PM EDT Patient was in today as her left hearing aid was hurting her ear. There was no visible sign of chafing. Aid was retubed and left slightly longer. Patient felt this was much better. She will continue as needed. documented in this [facility]05-14-2025 History of Present illness Narrative* Alisson Dacosta [...] 07/08/2024 4:48 PM EDT documented in this [facility]02-03-2025 Evaluation note* Diagnosis Onset Date Resolution Status Admit Date Tendinitis of finger of right hand acuteFebruary 2024 9:11amAnemia of renal diseaseacuteApril 2024 2:47glY88 deficiencyacuteApril 2024 2:28pmCKD (chronic kidney disease) stage 3, GFR 30-59 ml/minacuteApril 2024 2:28pmGoutacuteApril 2024 2:28pmHypertensive chronic kidney disease with stage 1 through stage 4 chronic kiacuteApril 2024 2:28pmHypomagnesemiaacuteApril 2024 2:28pm Secondary hyperparathyroidismacuteApril 2024 2:28pmType 2 diabetes mellitus with diabetic chronic kidney diseaseacuteApril 2024 2:28pm [facility] Work Phone: [phone]) 796-758809-11-2024 History of Present illness Narrative* DOLORES Mcclellan [...] and will return prn documented in this encounterMissouri Rehabilitation CenterIefvcfxwhl65-82-4996 History of Present illness Narrative* DOLORES Mcclellan [...] fit with remade molds. documented in this encounterMissouri Rehabilitation CenterIrdfhiyjcd36-04-9874 Evaluation note* Encounter Date Diagnosis Assessment Notes [...] gout flare. Continue allopurinol for gout prophylaxis. 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 16 Mar, 2023Anemia of renal disease (ICD-10 - D63.1)Hemoglobin is [...] gout flare. Continue allopurinol for gout prophylaxis. [facility] Other 12-15-2022 Evaluation note* Encounter Date Diagnosis Assessment Notes Treatment Notes Treatment Clinical Notes Jan, Chronic kidney disease, stage II I (moderate) (ICD-10 - N18.30) Thanks for referring Mrs. Parada to our office for evaluation management of CKD. As you know shehas a longstanding DM with HTN and likely [...] gout flare. Continue allopurinol for gout prophylaxis. [facility] Other 09-22-2022 Evaluation note* Encounter Date Diagnosis [...] plan Oct,therSciatica home care material was printed [facility] Other 10-03-2021 Evaluation note* Encounter Date Diagnosis [...] no improvement in 2 to 3 days [facility] Other Evaluation noteNo InformationNortHaven Behavioral [facility] Other Evaluation note* Diagnosis Onset Date Resolution Status B12 deficiency acuteCKD (chronic kidney disease) stage 3, GFR 30-59 ml/minacuteGoutacute [id number]Trdkomlfa hyperparathyroidismacuteType 2 diabetes mellitus with diabetic chronic kidney diseaseacute [facility] Work Phone: Evaluation note* Diagnosis Onset Date Resolution Status Gout acuteHypertensionacute [facility] Work Phone: Evaluation note* Diagnosis Onset Date Resolution Status Anemia of renal disease bohrwT22 deficiencyacuteCKD (chronic kidney disease) stage 3, GFR 30-59 ml/min hkgngCbnhyvbtzEFF-[id number]Amqqdwpzn hyperparathyroidismacuteType 2 diabetes mellitus with diabetic chronic kidney diseaseacute [facility] Work Phone: Evaluation note* Diagnosis Mixed hearing loss, bilateral- Primary documented in this encounter [facility] HealthcareEvaluation note* Diagnosis Mixed hearing loss, bilateral- Primary documented in this encounter [facility] HealthcareEvaluation noteNo assessment information availableSelect Medical Specialty [facility] Work Phone: Evaluation note* Diagnosis Sensorineural hearing loss (SNHL) of both ears- Primary documented in this encounter [facility] HealthcareEvaluation note* Diagnosis Arthritis of carpometacarpal (CMC) joint of left thumb- Primary Trigger finger, right ring finger Bilateral hand pain documented in this encounter [facility] HealthcareEvaluation note* Diagnosis Onset Date Resolution Status Admit Date Muscle spasm acuteSeptember 2024 3:07pmNeck painacuteSeptember 2024 3:07pm [facility] Work Phone: History general Narrative - Reported* Type Description Date Medical History hypertension Medical Historytype I diabetesMedical HistorygoutSurgical Historyarthroscopic knee surgery [facility] [employer] Other History general Narrative - Reported* Type Description Date Medical History hypertension Medical Historytype II diabetesMedical HistorygoutSurgical Historyarthroscopic knee surgerySurgical HistoryEAR SURGERYSurgical HistoryHYSTERECTOMYSurgical HistoryRECTAL SEALHospitalization HistorySEE ABOVE [facility] Other History general Narrative - Reported* Type Description Date Medical History hypertension Medical Historytype II diabetesMedical HistorygoutMedical HistoryANEMIASurgical Historyarthroscopic knee surgerySurgical HistoryEAR SURGERYSurgical History HYSTERECTOMYSurgical HistoryRECTAL SEALHospitalization HistorySEE ABOVE [facility] Other Reason for referral (narrative)No reason for referral information availableSelect [facility] Work Phone: Summary Purpose Family History Relationship [...] Amb Documentation 6 month follow upReason for EwbqtF12 deficiency CKD (chronic kidney disease) stage 3, GFR 30-59 ml/min Gout [id number] Hypomagnesemia Secondary hyperparathyroidism Type 2 diabetes mellitus with diabetic chronic kidney disease Chief Complaint 6 month follow up/[place] Reason for Visit Gout Hypertension Chief Complaint RENAL 6 MONTH F/U Reason for Visit Anemia of renal dise ase B12 deficiency CKD (chronic kidney disease) stage 3, GFR 30-59 ml/min Gout [id number] Hypomagnesemia Secondary hyperparathyroidism Type 2 diabetes mellitus with diabetic chronic kidney disease Chief Complaint Admit Date R Hand Pain March 30, 2024 9 :11am Chief Complaint Admit Date R Hand Pain March 30, 2024 9 :11am RENAL 6 MONTH F/U June 04, 2024 2:2 8pm Reason for Visit Admit Date Tendinitis of finger of right hand Febru kira2024 9:11am Anemia of renal disease June 04, [...] 3:07pm Neck pain October 29, 2024 3:07pm Chief Complaint Admit Date Pinched Nerve in [...] chronic kidney disease December 31, 2024 8:54am Additional Source Comments INFORMATION SOURCE (unrecogn ized section and content) DATE CREATED AUTHOR 06/14/2020 [facility] DATE CREATED AUTHOR AUTHOR'S ORGANIZ ATION 05/02/2022 [facility] DATE CREATED AUTHOR AUTHOR'S ORGANIZ ATION 08/28/2024 [facility] EPIC REASON FOR VISIT (unrecogniz ed section and content) ReasonCommentsPain Care Teams (unrecognized sec tion and content) Team Status: Active Member Role Status Dates Corrie Lama APRN GRAPHIC DESIGNER-C Primary Care Provider Active Team Status: Active Member Role Status Dates Corrie Lama APRN GRAPHIC DESIGNER-C Primary Care Provider Active Start: April 172023 Judit Murphy ProviderActiveStart: April 17, 2023 Team Status: Active Member Role Status Dates Corrie Lama APRN GRAPHIC DESIGNER-C Primary Care Provider, Attending Provider Active Start: May 13, 2023 Team Status: Inactive Member Role Status Dates Corrie Lama APRN GRAPHIC DESIGNER-C Primary Care Provider Active Start: May 23, 2023 End: May 22valentine Diop MDAttending ProviderActiveStart: May 23, 2023 End: May 23, 2023 Team Status: Inactive Member Role Status Dates Corrie Lama APRN GRAPHIC DESIGNER-C Primary Care Provider, Attending Provider Active Start: August 27, 2023 End: August 27, 2023 Team Status: Active Member Role Status Dates Corrie Lama APRN GRAPHIC DESIGNER-C Primary Care Provider Active Start: November Nikanicolle Diop MDAttending ProviderActiveStart: December 09, 2023 Team Status: Inactive Member Role Status Dates Corrie Lama APRN GRAPHIC DESIGNER-C Primary Care Provider Active Start: November End: December 18bdnicolle Mick MDAttending ProviderActiveStart: December 19, 2023 End: December 19, 2023Team MemberRelationshipSpecialtyStart DateEnd Date Phil Tena MD [address] [place] [address] [facility] Ijlmpoyw43/4/23Team MemberRelationshipSpecialtyStart DateEnd Date Phil Tena MD [address] [place] [address] [facility] - [facility]Ad[facility]01/28/23Team MemberRelationshipSpecialtyStart DateEnd Date Phil Tena MD [facility] [place] [place] [address] PCP - [facility]01/28/23 Team Status: Inactive Member Role Status Dates Corrie Lama APRN GRAPHIC DESIGNER-C Primary Care Provider, Attending Provider Active Start: March 30, 2024 End: March 30, 2024 Team Status: Active Member Role Status Dates Corrie Lama APRN GRAPHIC DESIGNER-C Primary Care Provider Active Start: May 26, 2024 Jose Arshad ProviderActiveStart: May 26, 2024 Team Status: Inactive Member Role Status Dates Corrie Lama APRN GRAPHIC DESIGNER-C Primary Care Provider Active Start: June 04, 2024 End: June 04bdJose Vasquez ProviderActiveStart: June 04, 2024 End: June 04, 2024Team MemberRelationshipSpecialtyStart DateEnd Phil Singer MD [facility] [place] [address] [facility] - [facility] Shodhivd37/4/23Team MemberRelationshipSpecialtyStart DateEnd Date Phil Tena MD [address] [place] [address] [facility] Wpfelqfc05/4/23 Team Status: Inactive Member Role Status Dates Corrie RADHA LamaN GRAPHIC DESIGNER-C Primary Care Provider Active Start: October 292024 End: October 29, 2024Neddominick Lama NURSING ADMIN GRAPHIC DESIGNER-CAttending ProviderActive Start: October 29, 2024 End: October 29, 2024 Team Status: Active Member Role/Relationship Status Dates Corrie Lama NURSING ADMIN GRAPHIC DESIGNER-C Primary Care Provider Active Team Status: Inactive Member Role/Relationship Status Dates Corrie Daina NURSING ADMIN GRAPHIC DESIGNER-C Primary Care Provider Active Start: October 292024 End: October 29, 2024Neddominick Garibayacher , NURSING ADMIN GRAPHIC DESIGNER-CAttending ProviderActive Start: October 29, 2024 End: October 29, 2024 Team Status: Active Member Role/Relationship Status Dates Corrie RADHA LamaN GRAPHIC DESIGNER-C Primary Care Provider Active Start: November Nikanicolle Diop MDAttending ProviderActiveStart: December 21, 2024 Team Status: Inactive Member Role/Relationship Status Dates Corrie Lama APRN GRAPHIC DESIGNER-C Primary Care Provider Active Start: December End: December 31bdul Mick , MDAttending ProviderActiveStart: December 31, 2024 End: December 31, 2024 Goals (unrecognized section and content) Goals [...] BE BASED ON THE PRIMARY CLINICAL RECORDS. [facility]. provides no warranty or guarantee of the accuracy or completeness of information in this document.
== END 2025-01-04 08:17 | disposition home or self-care (01) ==
LOC: US 08:16
PROVIDERS: PCP Nurse Practitioner Family; Visit Provider Internal Medicine
DX: N18.30 Chronic kidney disease, stage 3 unspecified (principal); N28.1 Cyst of kidney, acquired
CPT/HCPCS: 76775